=== PATIENT | female | born 2000 | race Hispanic/Latino ===

== ENCOUNTER 2019-07-28 14:25 | Emergency (ER) | payer OTHER, SELFPAY ==
[2019-07-28] MEDS ORDERED: CEFTRIAXONE/SWI 1gm 1 GM/10 ML SYR ONE (16:27)
[2019-07-28] MEDS ORDERED: NA CHLORIDE 0.9% 1,000 ML ONE (16:27)
--- NOTE | 2019-07-28 17:01 | RAD REPORT ---
EXAM DESCRIPTION: US - Transvaginal OB - 07/28/2019 4:42 pm CLINICAL HISTORY: with pelvic pain COMPARISON: None. FINDINGS: The uterus measures 10 x 5 x 6 centimeters. A normal appearing gestational sac is present within the endometrium. Within this is a yolk sac. A pole was not seen. No subchorionic bleed Right and left ovary appear normal. . An adnexal mass is not noted. No significant free fluid is seen. IMPRESSION: Intrauterine with an estimated gestational age 6 weeks 1 day MORGAN 03/21/2020 pole was not seen probably secondary to the early gestation. Failed can also have thi s appearance. It is recommended that the patient have a followup endovaginal sonogram in 1 week for r e-evaluation as well as serial beta HCG levels
[2019-07-28 17:35] LABS: BUN Blood Urea Nitrogen 8 mg/dL (7-18); Bicarbonate 27 mmol/L (21-32); Glucose Level 85 mg/dL (74-106); HCG, Quantitative 15461 mIU/mL (1-3); Potassium 3.6 mmol/L (3.5-5.1); Sodium Level 138 mmol/L (136-145)
[2019-07-28 17:47] LABS: Absolute Lymphocytes (CBC) 2.2 K/uL (0.7-4.9); Basophils % 0.9 % (0-1.3); Hematocrit 36.4 % (36.0-45.0); Lymphocytes % 26.4 % (15.3-44.8); MPV 9.7 fL (7.6-11.3); RBC Red Blood Cell Count 4.18 M/uL (3.86-4.86)
[2019-07-28 17:50] LABS: Urine Bacteria 20-50 /HPF (<20); Urine RBC <5 /HPF (NONE SEEN)
[2019-07-28 17:51] LABS: Urine Blood NEGATIVE (NEG); Urine Glucose NEGATIVE (NEG); Urine Protein NEGATIVE (NEG); Urine Specific Gravity 1.025 (1.005-1.030); Urine pH 6.5 (5.0-7.0)
[2019-07-28 17:51] LABS: Urine Culture Reflex Order NOT NEEDED; Urine Mucus 2+ /HPF (NONE SEEN)
--- NOTE | 2019-07-28 18:38 | ER ---
Nurse's Notes [facility] Name: Kiran Daigle Age: 18 yrs Sex: Female : 2000 Arrival Date: 07/28/2019 Time: 14:28 Bed 6 Private MD: Diagnosis: state;Urinary tract infection, site not specified Presentation: 07/27 14:35 Chief complaint: Patient states: "Severe stomach pains that started a week ago." Also ss reports nausea. Coronavirus screen: The patient has NOT traveled to a country currently being monitored by the [facility] within the last 14 days. Proceed with normal triage procedures. Ebola Screen: Patient denies exposure to infectious person. Patient denies travel to an Ebola-affected area in the 21 days before illness onset. Initial Sepsis Screen: Does the patient meet any 2 criteria? No. Patient's initial sepsis screen is negative. Does the patient have a suspected source of infection? No. Patient's initial sepsis screen is negative. Risk Assessment: Do you want to hurt yourself or someone else? Patient reports no desire to harm self or others. 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 - Social history:: Smoking status: Patient denies any tobacco usage or history of. Screenin:45 Abuse screen: Denies threats or abuse. Nutritional screening: No deficits noted. em Tuberculosis screening: No symptoms or risk factors identified. Fall Risk None identified. Assessment: 16:45 General: Appears in no apparent distress. comfortable, Behavior is calm, cooperative, em Denies fever. Pain: Complains of pain in abdomen diffusely Pain currently is 7 out of 10 on a pain scale. Pain began 1 day ago. Neuro: Level of Consciousness is awake, alert, obeys commands, Oriented to person, place, time, situation, Appropriate for age. Cardiovascular: Capillary refill < 3 seconds Patient's skin is warm and dry. Respiratory: Airway is patent Respiratory effort is even, unlabored, Respiratory pattern is regular, symmetrical. GI: Abdomen is flat, Bowel sounds present X 4 quads. Abd is soft and non tender X 4 quads. Patient currently denies nausea, vomiting. : Denies burning with urination, vaginal bleeding. Derm: Skin is intact, is healthy with good turgor, Skin is pink, warm \\T\\ dry. Musculoskeletal: Capillary refill < 3 seconds, Range of motion: intact in all extremities. 18:14 Reassessment: Patient appears in no apparent distress at this time. Patient and/or em family updated on plan of care and expected duration. Pain level reassessed. Patient is alert, oriented x 3, equal unlabored respirations, skin warm/dry/pink. Patient states feeling better. Vital Signs: 14:35 BP 129 / 75; Pulse 85; Resp 16; Temp 97.5(TE); Pulse Ox 100% on R/A; Weight 58.97 kg; ss Height 5 ft. 6 in. (167.64 cm); Pain 7/10; 16:49 BP 96 / 62; Pulse 85; Resp 18; Pulse Ox 99% on R/A; em 18:30 BP 107 / 70; Pulse 79; Resp 16; Pulse Ox 99% on R/A; em 14:35 Body Mass Index 20.98 (58.97 kg, 167.64 cm) ED Course: 14:28 Patient arrived in ED. rg4 14:36 Triage completed. ss 14:37 Arm band placed on right wrist. ss 15:44 Adán Gutierrez MD is Attending Physician. [facility] 15:45 Mike Cummings, RN is Primary Nurse. em 15:45 Robyn Saucedo FNP-C is [facility]. snw 16:20 Urine collected: clean catch specimen, clear, jose colored. jp3 16:44 US Transvaginal Ob In Process Unspecified. EDMS 16:45 Patient has correct armband on for positive identification. Placed in gown. Bed in low em position. Call light in reach. Adult w/ patient. Pulse ox on. NIBP on. 16:50 Initial lab(s) drawn, by me, sent to lab. Inserted saline lock: 20 gauge in right em antecubital area, using aseptic technique. Blood collected. 18:58 No provider procedures requiring assistance completed. IV discontinued, intact, em bleeding controlled, No redness/swelling at site. Pressure dressing applied. Administered Medications: 16:50 Drug: NS 0.9% 1000 ml Route: IV; Rate: 1 bolus; Site: right antecubital; em 18:21 Follow up: IV Status: Completed infusion; IV Intake: 1000ml em 16:50 Drug: Rocephin 1 grams Route: IV; Rate: calculated rate; Site: right antecubital; em 18:21 Follow up: Response: No adverse reaction; IV Status: Completed infusion; IV Intake: 10mlem Intake: 18:21 IV: 10ml; Total: 10ml. em 18:21 IV: 1000ml; Total: 1010ml. em Outcome: 18:37 Discharge ordered by MD. snw 18:58 Discharged to home ambulatory, with family. em 18:58 Condition: good 18:58 Discharge instructions given to patient, family, Instructed on discharge instructions, follow up and referral plans. medication usage, Demonstrated understanding of instructions, follow-up care, medications, Prescriptions given X 2. 19:00 Patient left the ED. em Addendum: 07/30/2019 09:27 Addendum: Culture Results: Positive urine culture. No further action required. Bacteria d m5 sensitive to prescribed antibiotic. Signatures: Dispatcher [employer] Ann Ley, RN Adán Kurtz MD MD cha Therrien, Shelly, FRIT COATER-C FRIT COATER-Csnw Mike Cummings RN RN em Smirch, Shelby, RN RN ss Garcia, Rubi rg4 Nathan Salgado jp3 Corrections: (The following items were deleted from the chart) 07/27 16:49 16:05 Initial lab(s) drawn, by de, sent to lab. jp3 jp3
--- NOTE | 2019-07-28 18:38 | EDPHYS ---
Physician Documentation [facility] Name: Kiran Daigle Age: 18 yrs Sex: Female : 2000 Arrival Date: 07/28/2019 Time: 14:28 Bed 6 Private MD: ARLEY Physician Adán Gutierrez HPI: 07/27 16:22 This 18 yrs old Female presents to ER via Ambulatory with complaints of snw Abdominal Pain. 16:22 The patient presents with abdominal pain. Onset: The symptoms/episode began/occurred snw gradually, 1 week(s) ago, and became persistent. The symptoms do not radiate. Associated signs and symptoms: Pertinent positives: frequent UTIs, irregular menses, has not done preg test. The symptoms are described as waxing/waning. Severity of pain: At its worst the pain was moderate. The patient has not experienced similar symptoms in the past. The patient has not recently seen a physician. 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 - Social history:: Smoking status: Patient denies any tobacco usage or history of. ROS: 16:22 Constitutional: Negative for fever, chills, and weight loss, Eyes: Negative for injury, snw pain, redness, and discharge, ENT: Negative for injury, pain, and discharge, Neck: Negative for injury, pain, and swelling, Cardiovascular: Negative for chest pain, palpitations, and edema, Respiratory: Negative for shortness of breath, cough, wheezing, and pleuritic chest pain, Abdomen/GI: Positive for abdominal pain, denies nausea, vomiting, diarrhea, and constipation, Back: Negative for injury and pain, : Negative for injury, bleeding, discharge, and swelling, MS/Extremity: Negative for injury and deformity, Skin: Negative for injury, rash, and discoloration, Neuro: Negative for headache, weakness, numbness, tingling, and seizure. Exam: 16:20 Constitutional: This is a well developed, well nourished patient who is awake, alert, snw and in no acute distress. Head/Face: Normocephalic, atraumatic. Eyes: Pupils equal round and reactive to light, extra-ocular motions intact. Lids and lashes normal. Conjunctiva and sclera are non-icteric and not injected. Cornea within normal limits. Periorbital areas with no swelling, redness, or edema. ENT: Nares patent. No nasal discharge, no septal abnormalities noted. Tympanic membranes are normal and external auditory canals are clear. Oropharynx with no redness, swelling, or masses, exudates, or evidence of obstruction, uvula midline. Mucous membranes moist. Neck: Trachea midline, no thyromegaly or masses palpated, and no cervical lymphadenopathy. Supple, full range of motion without nuchal rigidity, or vertebral point tenderness. No Meningismus. Chest/axilla: Normal chest wall appearance and motion. Nontender with no deformity. No lesions are appreciated. Cardiovascular: Regular rate and rhythm with a normal S1 and S2. No gallops, murmurs, or rubs. Normal PMI, no JVD. No pulse deficits. Respiratory: Lungs have equal breath sounds bilaterally, clear to auscultation and percussion. No rales, rhonchi or wheezes noted. No increased work of breathing, no retractions or nasal flaring. Back: No spinal tenderness. No costovertebral tenderness. Full range of motion. Skin: Warm, dry with normal turgor. Normal color with no rashes, no lesions, and no evidence of cellulitis. MS/ Extremity: Pulses equal, no cyanosis. Neurovascular intact. Full, normal range of motion. Neuro: Awake and alert, GCS 15, oriented to person, place, time, and situation. Cranial nerves II-XII grossly intact. Motor strength 5/5 in all extremities. Sensory grossly intact. Cerebellar exam normal. Normal gait. Psych: Awake, alert, with orientation to person, place and time. Behavior, mood, and affect are within normal limits. 16:20 Abdomen/GI: Inspection: abdomen appears normal, Bowel sounds: normal, Palpation: moderate abdominal tenderness, in all quadrants. Vital Signs: 14:35 BP 129 / 75; Pulse 85; Resp 16; Temp 97.5(TE); Pulse Ox 100% on R/A; Weight 58.97 kg; ss Height 5 ft. 6 in. (167.64 cm); Pain 7/10; 16:49 BP 96 / 62; Pulse 85; Resp 18; Pulse Ox 99% on R/A; em 18:30 BP 107 / 70; Pulse 79; Resp 16; Pulse Ox 99% on R/A; em 14:35 Body Mass Index 20.98 (58.97 kg, 167.64 cm) ss MDM: 15:44 Patient medically screened. henry 07/27 15:23 Order name: Urine Culture snw 07/27 15:23 Order name: Urine Microscopic Only; Complete Time: 17:52 snw 07/27 16:03 Order name: Quantitative Hcg; Complete Time: 17:39 snw 07/27 16:03 Order name: Abo/rh Typing; Complete Time: 18:36 snw 07/27 16:03 Order name: Basic Metabolic Panel; Complete Time: 17:39 snw 07/27 16:03 Order name: CBC with Diff; Complete Time: 17:54 snw 07/27 15:23 Order name: Urine Test (obtain specimen); Complete Time: 16:58 snw 07/27 15:23 Order name: Urine Dipstick-Ancillary (obtain specimen); Complete Time: 16:58 snw 07/27 16:03 Order name: US Transvaginal Ob; Complete Time: 17:09 snw 07/27 16:07 Order name: Urine Dipstick--Ancillary (enter results); Complete Time: 17:54 bd 07/27 16:07 Order name: Urine --Ancillary (enter results); Complete Time: 17:54 bd 07/27 16:03 Order name: Labs collected and sent; Complete Time: 16:47 snw 07/27 16:03 Order name: NPO; Complete Time: 16:58 snw Administered Medications: 16:50 Drug: NS 0.9% 1000 ml Route: IV; Rate: 1 bolus; Site: right antecubital; em 18:21 Follow up: IV Status: Completed infusion; IV Intake: 1000ml em 16:50 Drug: Rocephin 1 grams Route: IV; Rate: calculated rate; Site: right antecubital; em 18:21 Follow up: Response: No adverse reaction; IV Status: Completed infusion; IV Intake: 10mlem Disposition: 07/28 07:57 Co-signature as Attending Physician, Adán Gutierrez MD I agree with the assessment and henry plan of care. Disposition: 07/28/19 18:37 Discharged to Home. Impression: state, Urinary tract infection, site not specified. - Condition is Stable. - Discharge Instructions: First Trimester of , and Urinary Tract Infection, Rehydration, Adult. - Prescriptions for Macrobid 100 mg Oral Capsule - take 1 capsule by ORAL route every 12 hours for 10 days; 20 capsule. Vitamin 27- 0.8 mg Oral Tablet - take 1 tablet by ORAL route once daily; 60 tablet. - Work release form, Medication Reconciliation Form, Thank You Letter, Antibiotic Education, Prescription Opioid Use form. - Follow up: Emergency Department; When: As needed; Reason: Worsening of condition. Follow up: Private Physician; When: 2 - 3 days; Reason: Recheck today's complaints, Continuance of care, Re-evaluation by your physician. - Problem is new. - Symptoms are unchanged. Signatures: Dispatcher [employer] Adán Ham MD MD cha Therrien, Shelly, TUBE WINDER-C TUBE WINDER-Csnw Mike Cummings, Carmen Birmingham RN, RN RN ss Corrections: (The following items were deleted from the chart) 07/27 16:47 16:03 IV Saline Lock ordered. snw jp3 19:00 18:37 07/28/2019 18:37 Discharged to Home. Impression: state; Urinary tract em infection, site not specified. Condition is Stable. Discharge Instructions: First Trimester of , and Urinary Tract Infection, Rehydration, Adult. Prescriptions for Macrobid 100 mg Oral Capsule - take 1 capsule by ORAL route every 12 hours for 10 days; 20 capsule, Vitamin 27-0.8 mg Oral Tablet - take 1 tablet by ORAL route once daily; 60 tablet. and Forms are Work release form, Medication Reconciliation Form, Thank You Letter, Antibiotic Education, Prescription Opioid Use. Follow up: Emergency Department; When: As needed; Reason: Worsening of condition. Follow up: Private Physician; When: 2 - 3 days; Reason: Recheck today's complaints, Continuance of care, Re-evaluation by your physician. Problem is new. Symptoms are unchanged. snw
[2019-07-28 19:13] VITALS: TEMP 97.5
[2019-07-28 19:15] VITALS: O2SAT 99
[2019-07-28 19:16] VITALS: BP 107/70
== END 2019-07-28 19:00 | disposition home or self-care (01) ==
LOC: ER 14:25
DX: N39.0 Urinary tract infection, site not specified (principal); Z33.1 Pregnant state, incidental
CPT/HCPCS: 36415; 76817; 80048; 81003; 81015; 81025; 84702; 85025; 86900; 86901; 87077; 87086; 87088; 87186; 96365; 96366; 99284; J0696; J7030

== ENCOUNTER 2022-11-07 15:20 | Emergency (ER) | payer OTHER ==
--- OUTSIDE RECORDS SUMMARY | 2022-11-07 15:25 | XMS REPORT | Continuity of Care Document ---
:2000 Author Organization [facility] t Address [address] [place] [address] Care Team Providers Name Role Phone Armando Morrissey Primary Care Physician [phone] Armando Morrissey Attending Clinician [phone] ARMANDO GUZMAN Attending Clinician Unavailable MARRY SESAY Attending Clinician Unavailable Martha Mendez MD Attending Clinician [phone] Raymundo BROWN Cece ACE Attending Clinician [phone] Davian Wagner MD Attending Clinician Tomas Canseco MD Attending Clinician TAMMIE NARVAEZ Attending Clinician Unavailable Provider, [facility] Temp Attending Clinician Unavailable Tammie Narvaez CNM Attending Clinician SWETA EWRIN Attending Clinician Unavailable [place] MSN, Sweta Owens Attending Clinician AMBAR CUBA Attending Clinician Unavailable 1, [facility] Attending Clinician Unavailable Pavan MULLINS, Alex Joseph Attending Clinician ALEX REYES Attending Clinician Unavailable Doctor Unassigned, [place] Attending Clinician Unavailable JOEY MONTES Attending Clinician Unavailable ADÁN MCKINNON Attending Clinician Unavailable Gabriel Blanton DO Attending Clinician Fred Lawson MD Attending Clinician Isaac [facility] Attending Clinician [phone] COURTNEY GUSTAFSON Attending Clinician Unavailable TC MILLER Attending Clinician Unavailable Paul 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 ESCORTTc Attending Clinician Ultrasound, [facility] Attending Clinician Unavailable Magda Perkins MD, Josy Attending Clinician [phone] Pawan Mcgill DO Attending Clinician Benjy MULLINS, Marshall Avalos Attending Clinician Meagan Saeed MD Attending Clinician Martha Mendez MD Admitting Clinician [phone] MARTHA MENDEZ Admitting Clinician Unavailable ADÁN MCKINNON Admitting Clinician Unavailable Benjy MULLINS, Marshall Avalos Admitting Clinician Payers Payer Name Policy Type Policy Number Effective Date Expiration Date [facility] [id number] 2019 HEALTH 00:00:00 MEDICAID PENDING PENDING 2019 00:00:00 [place] [id number] 2019 00:00:00 Problems Condition Condition Condition Status Onset Resolution Last Treating Co mments Source Name Details Category Date Date Treatment Clinician Date Disease Active Univers (spontaneo (spontaneo 1-14 it y [place] vaginal [place] delivery[place] delivery[place] 00 Medi vanita Branch Single Single Disease Active Univers live live 1-14 ity of 00:00: [place] 00 Medical Branch Anemia, Anemia, Disease Active Univers 1-14 it y of 00:00: [place] [facility] Uterine Uterine Disease Active Univers contractio contractio 1-13 it y of [place] 00 [facility] Obesity Obesity Disease Active Univers (BMI (BMI 1-13 ity of 30-39.9) 30-39.9) 00:00: [place] 00 Medical Branch Pain of Pain of Disease Active Univers round round 1-06 ity of ligament ligament 00:00: [place] during during 00 Medical Bran ch Obesity Obesity Disease Active 2021-05 Univers affecting affecting 2-29 [place] of 00[place] in third in third 00 Medica l trimester trimester Bran ch Susceptibl Susceptibl Disease Active Overview : Univers e to e to 9-16 Formattin ity of varicella varicella 00:00: [place] of this [place] (non-immun (non-immun 00 note Me dical e), e), might be Branch currently currently different from the original. Address pp Chlamydia Chlamydia Disease Active Overview: Univers infection infection 16 Formattin i ty of affecting affecting 00:00: g of this [place] 00 note [facility] might be Branch different from the original. Pending tobias Supervisio Supervisio Disease Active U nivers n of n of 9-15 ity of high-risk high-risk 00:[place] [facility] Multiparit Multiparit Disease Active U nivers y y 9-15 ity of 00:00: [place] Medical [facility] Short Short Disease Active Univers interval interval 9-15 ity of between between 00:00: [place] pregnancie pregnancie 00 Me dical s s Branch affecting affecting , , antepartum antepartum 39 weeks 39 weeks Disease Active Unive rs gestation gestation 2-03 ity of of of 00:00: [place] 00 [facility] Anemia of Anemia of Disease Active Uni vers mother in mother in 8-05 ity of , , 00[place]00: [place] antepartum antepartum 00 Me dical Branch Over Over Disease Active Univers weight weight 3-16 ity of 00:00: [address] Allergies, Adverse Reactions, Alerts Allergy Allergy Status Severity Reaction(s) Onset Inactive Treating Comm ents Source Name Type Date Date Clinician NO KNOWN Drug Active Univers ALLERGIE Class ity of S [place] [facility] Social History Social Habit Start Date Stop Date Quantity Comments Source ASSERTION 2021-09-16 [facility] 00:00:00 [place] [facility] History SDOH University o f Alcohol Std [place] Medical Drinks Branch History SDOH University o f Alcohol Binge [place] Medic al Branch History SDOH University o f Alcohol Comment [place] Med ical Branch Exposure to 2022-05-23 2022-06-02 Not sure [facility] SARS-CoV-2 00:00:00 09:52:00 [facility] (event) Branch Alcohol intake 2022-06-02 2022-06-02 Ex-drinker [facility] 00:00:00 00:00:00 (finding) [facility] Tobacco use and 2022-02-02 2022-02-02 Smokeless tobacco Un iversity of exposure 00:00:00 00:00:00 non-user [facility] History SDOH 2019-08-04 2019-08-04 1 University o f Alcohol Frequency 00:00:00 00:00:00 [facility] [place] [facility] Sex Assigned At [birth year] Universit y of 00:00:00 00:00:00 [facility] Smoking Status Start Date Stop Date Source Never smoked tobacco [facility] Medications Ordered Filled Start Stop Current Ordering Indication Dosage Frequency Signature Comments Components Source Medication Medication Date Date Medication? Clinician (SIG) Name Name varicella Yes 1{each} 0.5 mL (1 Univers virus 1-15 Each), ity of vaccine 12:35: [place] live 45 us, Medical (VARIVAX) ONCE-PRIOR Bran ch injection TO and diluent DISCHARGE, vial 1 dose, Starting on 06/04/22 at 0635, Until Discontinu ed, Routine, Give vaccine prior to discharge docusate Yes [id number] 200mg Take 2 U nivers 100 mg 1-15 capsules ity of capsule 00:00: by mouth [place] [id number] once daily Medical as needed Branch for Constipati on. ferrous Yes [id number] 325mg Take 1 Un [place] sulfate 325 1-15 tablet by ity of mg (65 mg 00:00: mouth [place] iron) 00 the Medical tablet morning Branch and 1 tablet in the evening. ibuprofen Yes [id number] 600mg Take 1 Univers 600 mg 1-15 tablet by ity of tablet 00:00: mouth [place] 00 every 6 Medical (six) Branch hours as needed (Pain). Take with food or milk. Iron Fum & Yes 1{capsu Take 1 Univers P-FA-Vit B 1-15 le} capsule by ity of & C No.9 00:00: mouth [place] (INTEGRA 00 daily. Medical PLUS) 125 Branch mg iron- 1 mg Cap ibuprofen Yes 600mg Take 1 Univers 600 mg 1-15 tablet by ity of tablet 00:00: mouth [place] 00 every 6 Medical (six) Branch hours as needed (Pain). Take with food or milk. docusate Yes 200mg Take 2 U nivers 100 mg 1-15 capsules ity of capsule 00:00: by mouth [place] 00 once daily Medical as needed Branch for Constipati on. rho(D) Yes 300ug 300 mcg, Univer s immune 1-14 Intramuscu ity of globulin 07:41: lar, ONCE, [place] as (RHOGAM) 38 For 1 Medical syringe 300 dose, Branch mcg Conditiona l, Routine human Yes .5mL 0.5 mL, Univers papillomav -14 Intramuscu ity of vac,9-shayna(P 07:41: lar, [place] F) 36 ONCE-PRIOR Medical (GARDASIL-9 TO Branch ) syringe DISCHARGE, 0.5 mL 1 dose, Starting on 06/03/22 at 0141, Until Discontinu ed, Routine, Give vaccine prior to discharge ibuprofen Yes 600mg 600 mg, Univ ers (IBU) 1-14 Oral, ity of tablet 600 07:41: Q6HPRN, [place] mg 36 Starting Medical on Sat Branch 06/03/22 at 0141, Until Discontinu ed, Routine, Pain (scale 4-6) acetaminoph Yes 650mg 650 mg, Un [place] en 1-14 Oral, ity of (TYLENOL) 07:41: Q6HPRN, [place] tablet 650 36 Starting Medic al mg on [facility] Branch 06/03/22 at 0141, Until Discontinu ed, Routine, Pain (scale 1-3) diphenhydrA 2022-0 Yes 25mg 25 mg, Univ ers MINE 1-14 Oral, ity of (BENADRYL) 07:41: Q6HPRN, [place] tablet 25 36 Starting Medica l mg on [facility] Branch 06/03/22 at 0141, Until Discontinu ed, Routine, Sleep, Itching ondansetron 2022-0 Yes 4mg 4 mg, Slow Univers (ZOFRAN 14 IV Push, ity of (PF)) 07:41: Q8HPRN, [place] injection 4 36 Starting Medi vanita mg on [facility] Branch 06/03/22 at 0141, Until Discontinu ed, Routine, Nausea and Vomiting (N/V) simethicone 2022-0 Yes 160mg 160 mg, Un tim[place] (GAS RELIEF 06-03 Oral, ity of (SIMETHICON 07:41: PC+HSPRN, [place] E)) 36 Starting Medical chewable on [facility] Branch tablet 160 06/03/22 at mg 0141, Until Discontinu ed, Routine, Gas docusate 2022-0 Yes 200mg 200 mg, Unive rs (COLACE) 14 Oral, ity of capsule 200 07:41: QDAILYPRN, [place] mg 36 Starting Medical on [facility] Branch 06/03/22 at 0141, Until Discontinu ed, Routine, Constipati on magnesium 2022-0 Yes 30mL 30 mL, Univer s hydroxide 14 Oral, ity of (MILK OF 07:41: QDAILYPRN, [place] MAGNESIA) 36 Starting Medica l 400 mg/5 mL on [facility] Branch suspension 06/03/22 at 30 mL 0141, Until Discontinu ed, Routine, Constipati on benzocaine- 2022-0 Yes Topical, Un [place] menthol 1-14 PRN, ity of (DERMOPLAST 07:41: Starting [place] ) 20-0.5 % 36 on [facility] Medical topical 06/03/22 at Branch spray 0141, Until Discontinu ed, Routine, Perineum discomfort ibuprofen 2022-0 Yes 600mg 600 mg, Univ ers (IBU) 1-14 Oral, ity of tablet 600 00:58: Q6HPRN, [place] mg 26 Starting Medical on Sun06/02/22 at 1858, Until Discontinu ed, Routine, Pain (scale 1-3) oxytocin 2022-0 Yes 600mL/h 600 mL/hr, Univers (PITOCIN) 1-14 IV ity of 30 units in 00:58: Infusion, [place] NS 500 mL 17 PRN, For Medica l IV infusion post Branch delivery uterine atony., Starting on Sun06/02/22 at 1858<br&gt ;Start at 600 mL/hr for 1 hr then 150 mL/hr for 1 hr.
oxytocin 0 Yes 300mL/h 300 mL/hr, Univers (PITOCIN) 1-14 IV ity of 30 units in 00:58: Infusion, [place] NS 500 mL 17 SEE-INSTRU Medi vanita IV infusion CTIONS, Branc h Starting on Sun06/02/[address] art at 300 mL/hr for 1 hr then 150 mL/hr for 1 hr. & nbsp; For post delivery uterotonic
ropivacaine 2022- No Epidural, Univers 0.2 % 06-02 CONTINUOUS ity of (NAROPIN 21:55: 02:27 PRN, [place] ()) 00 :33 Starting Medical epidural on Sun Branch infusion 06/02/22 at 1555, Until Sun06/02/22 at 2026, Routine, Intra-op ropivacaine 2022- No Epidural, Univers 0.2 % 06-02 CONTINUOUS ity of (NAROPIN 21:55: 02:27 PRN, [place] (PF)) 00 :33 Starting Medical epidural on Sun Branch infusion 06/02/22 at 1555, Until Sun06/02/22 at 2026, Routine, Intra-op lidocaine-e 2022- No Intraderma Univers pinephrine 06-02 l, ONCE ity o f (XYLOCAINE 21:54: 02:27 INTRA [place] W/EPINEPHRI 00 :33 PROCEDURE, Mn dical NE) 1.5 Starting Branch %-1:200,000 on Fri injection 06/02/22 at 1554, Until Sun06/02/22 at 2026, Routine, Intra-op lidocaine-e 3-0 2022- No Intraderma Univers pinephrine 06-02 01-14 l, ONCE ity o f (XYLOCAINE 21:54: 02:27 INTRA [place] W/EPINEPHRI 00 :33 PROCEDURE, Me dical NE) 1.5 Starting Branch %-1:200,000 on Sun injection 06/02/22 at 1554, Until Sun06/02/22 at 2026, Routine, Intra-op oxytocin 2022-0 Yes 2mU/min at 2-40 Uni vers (PITOCIN) 1-13 mL/hr, IV ity o f 30 units in 21:12: Infusion, [place] NS 500 mL 33 TITRATE, Medica l IV infusion Starting Bran ch on Sun06/02/22 at 1512, Until Discontinu ed, BETTY lidocaine 2022-0 Yes 50mL 50 mL, Univer s 1% 1 Infiltrati ity of (XYLOCAINE) 20:11: on, PRN - [place] 10 mg/mL (1 29 SEE Medical %) INSTRUCTIO Branch injection NS, 50 mL Starting on Sun06/02/22 at 1411, Until Discontinu ed, Routine, Local anesthesia , For laceration repair only as a local anesthetic as indicated. lidocaine 0 Yes .3mL 0.3 mL, Unive rs 1% (PF) 06-02 Infiltrati ity of (XYLOCAINE) 20:11: on, PRN - [place] injection 29 SEE Medical 0.3 mL INSTRUCTIO Branch NS, Starting on Sun06/02/22 at 1411, Until Discontinu ed, Routine, Local anesthesia , For IV line placement only as a local anesthetic . lactated 2022-0 Yes 500mL at 999 Univer s ringers IV 1-13 mL/hr, 500 ity of infusion 20:11: mL, IV [place] 500 mL 29 Infusion, Medical PRN - SEE Branch INSTRUCTIO NS, Starting on Sun06/02/22 at 1411, Until Discontinu ed, Routine D5W-LR IV 2022-0 Yes 1000mL at 1-125 Un [place] infusion 1-13 mL/hr, IV ity of 1,000 mL 20:11: Infusion, [place] 29 TITRATE, Medical Starting Branch on 06/02/22 at 1411, Until Discontinu ed, Routine sodium 2022- No 30mL 30 mL, Univers citrate-cit 06-02 Oral, ity of harry acid 20:11: 21:51 PRE-PROCED [place] (BICITRA) 29 :00 URE ONCE, Medic al 500-334 1 dose, Branch mg/5 mL Starting solution 30 on Fri mL 06/02/22 at 1411, Until Discontinu ed, Routine, Surgery/Pr ocedure No known No No known Unive rs medications 06-02 medication it y of 16:14: s [place] 55 Medical Branch Iron Fum & 2021-05 Yes [id number] 1{capsu Take 1 Univers P-FA-Vit B 2-29 le} capsule by ity of & C No.9 00:00: mouth [place] (INTEGRA 00 daily. Medical PLUS) 125 Branch mg iron- 1 mg Cap Iron Fum & 2021-05 Yes [id number] 1{capsu Take 1 Univers P-FA-Vit B 2-29 le} capsule by ity of & C No.9 00:00: mouth [place] (INTEGRA 00 daily. Medical PLUS) 125 Branch mg iron- 1 mg Cap Iron Fum & 2021-05 Yes [id number] 1{capsu Take 1 Univers P-FA-Vit B 2-29 le} capsule by ity of & C No.9 00:00: mouth [place] (INTEGRA 00 daily. Medical PLUS) 125 Branch mg iron- 1 mg Cap Iron Fum & 2021-05 Yes [id number] 1{capsu Take 1 Univers P-FA-Vit B 2-29 le} capsule by ity of & C No.9 00:00: mouth [place] (INTEGRA 00 daily. Medical PLUS) 125 Branch mg iron- 1 mg Cap Iron Fum & 2021-05 Yes 1{capsu Take 1 Univers P-FA-Vit B 2-29 le} capsule by ity of & C No.9 00:00: mouth [place] (INTEGRA 00 daily. Medical PLUS) 125 Branch mg iron- 1 mg Cap Iron Fum & 2021-05 Yes 1{capsu Take 1 Univers P-FA-Vit B 2-29 le} capsule by ity of & C No.9 00:00: mouth [place] (INTEGRA 00 daily. Medical PLUS) 125 Branch mg iron- 1 mg Cap ferrous 2021-05- No [id number] 325mg Take 1 U nivers sulfate 325 07-13- tablet by it y of mg (65 mg 00:00: 04:59 mouth in [place] iron) 00 :00 the Medical tablet morning Branch for 90 days. ferrous 2021-05- No [id number] 325mg Take 1 U nivers sulfate 325 07-13 tablet by it y of mg (65 mg 00:00: 00:00 mouth in [place] iron) 00 :00 the Medical tablet morning Branch for 90 days. SELECT-OB + 2021-05 Yes TAKE 1 Univ ers DHA 29 mg 2-20 PACKET (1 ity o f iron-1 mg 00:00: TABLET & [place] -250 mg 00 CAPSULE) Medical combo pack BY MOUTH Branc h IN THE MORNING fluconazole 2021-05- No [id number] 150mg Take 1 Univers (DIFLUCAN) 2-16 -17 tablet by ity of 150 mg 00:00: 05:59 mouth [place] tablet 00 :00 now for 1 Medical dose. Branch Nitrofurant Yes [id number] 100mg Take 1 Univers oin&Nit. 9-19 capsule by ity o f Macrocryst 00:00: mouth in [place] (MACROBID) 00 the Medical 100 mg morning Branch capsule and 1 capsule in the evening. Nitrofurant Yes [id number] 100mg Take 1 Univers oin&Nit. 9-19 capsule by ity o f Macrocryst 00:00: mouth in [place] (MACROBID) 00 the Medical 100 mg morning Branch capsule and 1 capsule in the evening. Nitrofurant Yes [id number] 100mg Take 1 Univers oin&Nit. 9-19 capsule by ity o f Macrocryst 00:00: mouth in [place] (MACROBID) 00 the Medical 100 mg morning Branch capsule and 1 capsule in the evening. Nitrofurant Yes [id number] 100mg Take 1 Univers oin&Nit. 9-19 capsule by ity o f Macrocryst 00:00: mouth in [place] (MACROBID) 00 the Medical 100 mg morning Branch capsule and 1 capsule in the evening. Nitrofurant 2021-0 Yes [id number] 100mg Take 1 Univers oin&Nit. 9-19 capsule by ity o f Macrocryst 00:00: mouth in [place] (MACROBID) 00 the Medical 100 mg morning Branch capsule and 1 capsule in the evening. Nitrofurant 2021-0 Yes [id number] 100mg Take 1 Univers oin&Nit. 9-19 capsule by ity o f Macrocryst 00:00: mouth in [place] (MACROBID) 00 the Medical 100 mg morning Branch capsule and 1 capsule in the evening. Nitrofurant 2021-0 Yes [id number] 100mg Take 1 Univers oin&Nit. 9-19 capsule by ity o f Macrocryst 00:00: mouth in [place] (MACROBID) 00 the Medical 100 mg morning Branch capsule and 1 capsule in the evening. Nitrofurant 2021-0 Yes [id number] 100mg Take 1 Univers oin&Nit. 9-19 capsule by ity o f Macrocryst 00:00: mouth in [place] (MACROBID) 00 the Medical 100 mg morning Branch capsule and 1 capsule in the evening. Nitrofurant 2021-0 Yes [id number] 100mg Take 1 Univers oin&Nit. 9-19 capsule by ity o f Macrocryst 00:00: mouth in [place] (MACROBID) 00 the Medical 100 mg morning Branch capsule and 1 capsule in the evening. Nitrofurant 2021-0 Yes [id number] 100mg Take 1 Univers oin&Nit. 9-19 capsule by ity o f Macrocryst 00:00: mouth in [place] (MACROBID) 00 the Medical 100 mg morning Branch capsule and 1 capsule in the evening. Nitrofurant 2021-0 Yes [id number] 100mg Take 1 Univers oin&Nit. 9-19 capsule by ity o f Macrocryst 00:00: mouth in [place] (MACROBID) 00 the Medical 100 mg morning Branch capsule and 1 capsule in the evening. Nitrofurant 2021-0 Yes [id number] 100mg Take 1 Univers oin&Nit. 9-19 capsule by ity o f Macrocryst 00:00: mouth in [place] (MACROBID) 00 the Medical 100 mg morning Branch capsule and 1 capsule in the evening. Nitrofurant 0 Yes [id number] 100mg Take 1 Univers oin&Nit. 9-19 capsule by ity o f Macrocryst 00:00: mouth in [place] (MACROBID) 00 the Medical 100 mg morning Branch capsule and 1 capsule in the evening. Nitrofurant 0 Yes [id number] 100mg Take 1 Univers oin&Nit. 9-19 capsule by ity o f Macrocryst 00:00: mouth in [place] (MACROBID) 00 the Medical 100 mg morning Branch capsule and 1 capsule in the evening. Nitrofurant 0 Yes [id number] 100mg Take 1 Univers oin&Nit. 9-19 capsule by ity o f Macrocryst 00:00: mouth in [place] (MACROBID) 00 the Medical 100 mg morning Branch capsule and 1 capsule in the evening. Nitrofurant Yes [id number] 100mg Take 1 Univers oin&Nit. 9-19 capsule by ity o f Macrocryst 00:00: mouth in [place] (MACROBID) 00 the Medical 100 mg morning Branch capsule and 1 capsule in the evening. Nitrofurant 0 Yes [id number] 100mg Take 1 Univers oin&Nit. 9-19 capsule by ity o f Macrocryst 00:00: mouth in [place] (MACROBID) 00 the Medical 100 mg morning Branch capsule and 1 capsule in the evening. Nitrofurant 2021- No [id number] 100mg Take 1 Univers oin&Nit. 9-19 12-29 capsule by ity of Macroc[place] 00:00: 00:00 mouth in [place] (MACROBID) 00 :00 the Medical 100 mg morning Branch capsule and 1 capsule in the evening. azithromyci 2021-2021- No [id number] 1000mg Take 2 Univers n 500 mg 02-03 tablets by ity of tablet 00:00: 04:59 mouth [place] 00 :00 now for 1 Medical dose. Branch azithromyci 2021- No [id number] 1000mg Take 2 Univers n 500 mg 02-03 tablets by ity of tablet 00:00: 04:59 mouth [place] 00 :00 now for 1 Medical dose. [place] Yes [id number] 1{tbl} Take 1 U nivers multivitami 9-15 tablet by ity of n ( 00:00: mouth in [place] VITAMIN) 00 the Medical tablet morning. [place] Yes [id number] 1{tbl} Take 1 U nivers multivitami 9-15 tablet by ity of n ( 00:00: mouth in [place] VITAMIN) 00 the Medical tablet morning. Branch Yes [id number] 1{tbl} Take 1 U nivers multivitami 9-15 tablet by ity of n ( 00:00: mouth in [place] VITAMIN) 00 the Medical tablet morning. [place] Yes [id number] 1{tbl} Take 1 U nivers multivitami 9-15 tablet by ity of n ( 00:00: mouth in [place] VITAMIN) 00 the Medical tablet morning. [place] Yes [id number] 1{tbl} Take 1 U nivers multivitami 9-15 tablet by ity of n ( 00:00: mouth in [place] VITAMIN) 00 the Medical tablet morning. [place] Yes [id number] 1{tbl} Take 1 U nivers multivitami 9-15 tablet by ity of n ( 00:00: mouth in [place] VITAMIN) 00 the Medical tablet morning. [place] Yes [id number] 1{tbl} Take 1 U nivers multivitami 9-15 tablet by ity of n ( 00:00: mouth in [place] VITAMIN) 00 the Medical tablet morning. [place] Yes [id number] 1{tbl} Take 1 U nivers multivitami 9-15 tablet by ity of n ( 00:00: mouth in [place] VITAMIN) 00 the Medical tablet morning. [place] Yes [id number] 1{tbl} Take 1 U nivers multivitami 9-15 tablet by ity of n ( 00:00: mouth in [place] VITAMIN) 00 the Medical tablet morning. [place] Yes [id number] 1{tbl} Take 1 U nivers multivitami 9-15 tablet by ity of n ( 00:00: mouth in [place] VITAMIN) 00 the Medical tablet morning. [place] Yes [id number] 1{tbl} Take 1 U nivers multivitami 9-15 tablet by ity of n ( 00:00: mouth in [place] VITAMIN) 00 the Medical tablet morning. [place] Yes [id number] 1{tbl} Take 1 U nivers multivitami 9-15 tablet by ity of n ( 00:00: mouth in [place] VITAMIN) 00 the Medical tablet morning. Branch Yes [id number] 1{tbl} Take 1 U nivers multivitami 9-15 tablet by ity of n ( 00:00: mouth in [place] VITAMIN) 00 the Medical tablet morning. [place] Yes [id number] 1{tbl} Take 1 U nivers multivitami 9-15 tablet by ity of n ( 00:00: mouth in [place] VITAMIN) 00 the Medical tablet morning. [place] Yes [id number] 1{tbl} Take 1 U nivers multivitami 9-15 tablet by ity of n ( 00:00: mouth in [place] VITAMIN) 00 the Medical tablet morning. [place] Yes [id number] 1{tbl} Take 1 U nivers multivitami 9-15 tablet by ity of n ( 00:00: mouth in [place] VITAMIN) 00 the Medical tablet morning. [place] Yes [id number] 1{tbl} Take 1 U nivers multivitami 9-15 tablet by ity of n ( 00:00: mouth in [place] VITAMIN) 00 the Medical tablet morning. [place] Yes [id number] 1{tbl} Take 1 U nivers multivitami 9-15 tablet by ity of n ( 00:00: mouth in [place] VITAMIN) 00 the Medical tablet morning. [place] Yes [id number] 1{tbl} Take 1 U nivers multivitami 9-15 tablet by ity of n ( 00:00: mouth in [place] VITAMIN) 00 the Medical tablet morning. [place] Yes [id number] 1{tbl} Take 1 U nivers multivitami 9-15 tablet by ity of n ( 00:00: mouth in [place] VITAMIN) 00 the Medical tablet morning. Branch Yes [id number] 1{tbl} Take 1 U nivers multivitami 9-15 tablet by ity of n ( 00:00: mouth in [place] VITAMIN) 00 the Medical tablet morning. Branch Yes [id number] 1{tbl} Take 1 U nivers multivitami 9-15 tablet by ity of n ( 00:00: mouth in [place] VITAMIN) 00 the Medical tablet morning. Branch Yes [id number] 1{tbl} Take 1 U nivers multivitami 9-15 tablet by ity of n ( 00:00: mouth in [place] VITAMIN) 00 the Medical tablet morning. Branch Yes [id number] 1{tbl} Take 1 U nivers multivitami 9-15 tablet by ity of n ( 00:00: mouth in [place] VITAMIN) 00 the Medical tablet morning. Branch Yes [id number] 1{tbl} Take 1 U nivers multivitami 9-15 tablet by ity of n ( 00:00: mouth in [place] VITAMIN) 00 the Medical tablet morning. Branch metroNIDAZO Yes [id number] 500mg Take 1 Univers LE 500 mg 4-08 tablet by ity o f tablet 00:00: mouth 2 [place] 00 (two) Medical times Branch daily. metroNIDAZO 2021-0 Yes [id number] 500mg Take 1 Univers LE 500 mg 4-08 tablet by ity o f tablet 00:00: mouth 2 [place] 00 (two) Medical times Branch daily. metroNIDAZO 2021-0 Yes [id number] 500mg Take 1 Univers LE 500 mg 4-08 tablet by ity o f tablet 00:00: mouth 2 [place] 00 (two) Medical times Branch daily. metroNIDAZO 2021-0 Yes [id number] 500mg Take 1 Univers LE 500 mg 4-08 tablet by ity o f tablet 00:00: mouth 2 [place] 00 (two) Medical times Branch daily. metroNIDAZO 2021-0 Yes [id number] 500mg Take 1 Univers LE 500 mg 4-08 tablet by ity o f tablet 00:00: mouth 2 [place] 00 (two) Medical times Branch daily. metroNIDAZO 2022-0 Yes [id number] 500mg Take 1 Univers LE 500 mg 4-08 tablet by ity o f tablet 00:00: mouth (two) Medical times Branch daily. metroNIDAZO 2022-0 Yes [id number] 500mg Take 1 Univers LE 500 mg 4-08 tablet by ity o f tablet 00:00: mouth (two) Medical times Branch daily. metroNIDAZO 2022-0 Yes [id number] 500mg Take 1 Univers LE 500 mg 4-08 tablet by ity o f tablet 00:00: mouth (two) Medical times Branch daily. metroNIDAZO 2022-0 Yes [id number] 500mg Take 1 Univers LE 500 mg 4-08 tablet by ity o f tablet 00:00: mouth (two) Medical times Branch daily. metroNIDAZO 2022-0 Yes [id number] 500mg Take 1 [facility] LE 500 mg 4-08 tablet by ity o f tablet 00:00: mouth (two) Medical times Branch daily. metroNIDAZO 2-0 Yes [id number] 500mg Take 1 [facility] LE 500 mg 4-08 tablet by ity o f tablet 00:00: mouth (two) Medical times Branch daily. metroNIDAZO 2-0 Yes [id number] 500mg Take 1 [facility] LE 500 mg 4-08 tablet by ity o f tablet 00:00: mouth (two) Medical times Branch daily. metroNIDAZO 2022-0 Yes [id number] 500mg Take 1 [facility] LE 500 mg 4-08 tablet by ity o f tablet 00:00: mouth (two) Medical times Branch daily. metroNIDAZO 2022-0 Yes [id number] 500mg Take 1 [facility] LE 500 mg 4-08 tablet by ity o f tablet 00:00: mouth (two) Medical times Branch daily. metroNIDAZO 2022-0 Yes [id number] 500mg Take 1 [facility] LE 500 mg 4-08 tablet by ity o f tablet 00:00: mouth (two) Medical times Branch daily. metroNIDAZO 2022-0 Yes [id number] 500mg Take 1 [facility] LE 500 mg 4-08 tablet by ity o f tablet 00:00: mouth 2 [place] 00 (two) Medical times Branch daily. metroNIDAZO 2021-0 Yes [id number] 500mg Take 1 [facility] LE 500 mg 4-08 tablet by ity o f tablet 00:00: mouth 2 [place] 00 (two) Medical times Branch daily. metroNIDAZO 2021-0 Yes [id number] 500mg Take 1 [facility] LE 500 mg 4-08 tablet by ity o f tablet 00:00: mouth 2 [place] 00 (two) Medical times Branch daily. metroNIDAZO 2021-0 Yes [id number] 500mg Take 1 [facility] LE 500 mg 4-08 tablet by ity o f tablet 00:00: mouth 2 [place] 00 (two) Medical times Branch daily. metroNIDAZO 2021-2021- No [id number] 500mg Take 1 [facility] LE 500 mg 4-08 -29 tablet by ity of tablet 00:00: 00:00 mouth 2 [place] 00 :00 (two) Medical times Branch daily. Immunizations Ordered Immunization Filled Immunization Date Status Commen ts Source Name Name [facility] 2022-05-05 Completed [facility] 00:00:00 [facility] TDAP 2022-05-05 Completed [facility] of 00:00:00 [facility] TDAP 2022-05-05 Completed [facility] of 00:00:00 [facility] TDAP 2022-05-05 Completed [facility] of 00:00:00 [facility] TDAP 2022-05-05 Completed [facility] of 00:00:00 [facility] TDAP 2022-05-05 Completed [facility] of 00:00:00 [facility] TDAP 2022-05-05 Completed [facility] of 00:00:00 [facility] TDAP 2022-05-05 Completed [facility] of 00:00:00 [facility] TDAP 2022-05-05 Completed [facility] of 00:00:00 [facility] TDAP 2022-05-05 Completed [facility] of 00:00:00 [facility] Influenza Virus 2022-02-02 Completed [facility]it [facility] of [facility] IM, 00:00:00 [place] [facility] Preserv and ABX Free Bran ch 6 MO-64 YRS Influenza Virus 2022-02-02 Completed [facility], 00:00:00 [place] [facility] Preserv and ABX Free Bran ch 6 MO-64 YRS Influenza Virus 2022-02-02 Completed [facility], 00:00:00 [place] [facility] Preserv and ABX Free Bran ch 6 MO-64 YRS Influenza Virus 2022-02-02 Completed [facility] IM, 00:00:00 [place] [facility] Preserv and ABX Free Bran ch 6 MO-64 YRS Influenza Virus 2022-02-02 Completed [facility]it [facility] IM, 00:00:00 [place] [facility] Preserv and ABX Free Bran ch 6 MO-64 YRS Influenza Virus 2022-02-02 Completed [facility], 00:00:00 [place] [facility] Preserv and ABX Free Bran ch 6 MO-64 YRS Influenza Virus 2022-02-02 Completed [facility]it y [facility] IM, 00:00:00 [place] [facility] Preserv and ABX Free Bran ch 6 MO-64 YRS Influenza Virus 2022-02-02 Completed [facility] IM, 00:00:00 [place] [facility] Preserv and ABX Free Bran ch 6 MO-64 YRS Influenza Virus 2022-02-02 Completed [facility] IM, 00:00:00 [place] [facility] Preserv and ABX Free Bran ch 6 MO-64 YRS Influenza Virus 2022-02-02 Completed [facility]it y [facility], 00:00:00 [place] [facility] Preserv and ABX Free Bran ch 6 MO-64 YRS Influenza Virus 2022-02-02 Completed [facility]it y [facility], 00:00:00 [place] [facility] Preserv and ABX Free Bran ch 6 MO-64 YRS Influenza Virus 2022-02-02 Completed [facility]it [facility], 00:00:00 [place] [facility] Preserv and ABX Free Bran ch 6 MO-64 YRS Influenza Virus 2022-02-02 Completed [facility] IM, 00:00:00 [place] [facility] Preserv and ABX Free Bran ch 6 MO-64 YRS Influenza Virus 2022-02-02 Completed [facility]it y [facility] IM, 00:00:00 [place] [facility] Preserv and ABX Free Bran ch 6 MO-64 YRS Influenza Virus 2022-02-02 Completed [facility]it y of [facility] IM, 00:00:00 [place] [facility] Preserv and ABX Free Bran ch 6 MO-64 YRS Influenza Virus 2022-02-02 Completed [facility] y [facility], 00:00:00 [place] [facility] Preserv and ABX Free Bran ch 6 MO-64 YRS Influenza Virus 2022-02-02 Completed [facility] y [facility] IM, 00:00:00 [place] [facility] Preserv and ABX Free Bran ch 6 MO-64 YRS Influenza Virus 2022-02-02 Completed [facility] y [facility] IM, 00:00:00 [place] [facility] Preserv and ABX Free Bran ch 6 MO-64 YRS Influenza Virus 2022-02-02 Completed [facility]it y [facility] IM, 00:00:00 [place] [facility] Preserv and ABX Free Bran ch 6 MO-64 YRS Influenza Virus 2022-02-02 Completed [facility] y [facility] IM, 00:00:00 [place] [facility] Preserv and ABX Free Bran ch 6 MO-64 YRS Influenza Virus 2022-02-02 Completed [facility]it y of [facility] IM, 00:00:00 [place] [facility] Preserv and ABX Free Bran ch 6 MO-64 YRS Influenza Virus 2022-02-02 Completed [facility]it y [facility] IM, 00:00:00 [place] [facility] Preserv and ABX Free Bran ch 6 MO-64 YRS Influenza Virus 2022-02-02 Completed [facility]it y [facility] IM, 00:00:00 [place] [facility] Preserv and ABX Free Bran ch 6 MO-64 YRS Influenza Virus 2022-02-02 Completed [facility]it y [facility] IM, 00:00:00 [place] [facility] Preserv and ABX Free Bran ch 6 MO-64 YRS Influenza Virus 2022-02-02 Completed [facility]it y [facility] IM, 00:00:00 [place] [facility] Preserv and ABX Free Bran ch 6 MO-64 YRS Influenza Virus 2022-02-02 Completed [facility]it y [facility] IM, 00:00:00 [place] [facility] Preserv and ABX Free Bran ch 6 MO-64 YRS Influenza Virus 2022-02-02 Completed [facility]it y of [facility] IM, 00:00:00 [place] [facility] Preserv and ABX Free Bran ch 6 MO-64 YRS TDAP 2021-04-12 Completed University of 00:00:00 [facility] TDAP 2021-04-12 Completed University of 00:00:00 [facility] TDAP 2021-04-12 Completed University of 00:00:00 [facility] TDAP 2021-04-12 Completed University of 00:00:00 [facility] TDAP 2021-04-12 Completed University of 00:00:00 [facility] TDAP 2021-04-12 Completed University of 00:00:00 [facility] TDAP 2021-04-12 Completed University of 00:00:00 [facility] TDAP 2021-04-12 Completed University of 00:00:00 [facility] TDAP 2021-04-12 Completed University of 00:00:00 [facility] TDAP 2021-04-12 Completed University of 00:00:00 [facility] TDAP 2021-04-12 Completed University of 00:00:00 [facility] TDAP 2021-04-12 Completed University of 00:00:00 [facility] TDAP 2021-04-12 Completed University of 00:00:00 [facility] TDAP 2021-04-12 Completed University of 00:00:00 [facility] TDAP 2021-04-12 Completed University of 00:00:00 [facility] TDAP 2021-04-12 Completed University of 00:00:00 [facility] TDAP 2021-04-12 Completed University of 00:00:00 [facility] TDAP 2021-04-12 Completed University of 00:00:00 [facility] TDAP 2021-04-12 Completed University of 00:00:00 [facility] TDAP 2021-04-12 Completed University of 00:00:00 [facility] TDAP 2021-04-12 Completed University of 00:00:00 [facility] TDAP 2021-04-12 Completed University of 00:00:00 [facility] TDAP 2021-04-12 Completed University of 00:00:00 [facility] TDAP 2021-04-12 Completed University of 00:00:00 [facility] TDAP 2021-04-12 Completed University of 00:00:00 [facility] TDAP 2021-04-12 Completed University of 00:00:00 [facility] TDAP 2021-04-12 Completed University of 00:00:00 [facility] Influenza Virus 2020-02-04 Completed [facility]it y of [facility] .5 mL IM 00[facility]00:00 [facility] [facility] 6+ MO Branch Influenza Virus 2020-02-04 Completed [facility]it y of [facility] .5 mL IM 00:00:00 [facility] [facility] 6+ MO [facility] Influenza Virus 2020-02-04 Completed [facility]it y of [facility] .5 mL IM 00:00:00 [facility] [facility] 6+ MO [facility] Influenza Virus 2020-02-04 Completed [facility] y of [facility] .5 mL IM 00:00:00 [place] [facility] 6+ MO Branch Influenza Virus 2020-02-04 Completed [facility]it y of [facility] .5 mL IM 00:00:00 [facility] [facility] 6+ MO [facility] Influenza Virus 2020-02-04 Completed [facility]it y of [facility] .5 mL IM 00:00:00 [place] [facility] 6+ MO [facility] Influenza Virus 2020-02-04 Completed [facility] y of [facility] .5 mL IM 00:00:00 [facility] [facility] 6+ MO [facility] Influenza Virus 2020-02-04 Completed [facility]it y of [facility] .5 mL IM 00:00:00 [facility] [facility] 6+ MO [facility] Influenza Virus 2020-02-04 Completed [facility] y of [facility] .5 mL IM 00:00:00 [place] [facility] 6+ MO [facility] Influenza Virus 2020-02-04 Completed [facility] y of [facility] .5 mL IM 00:00:00 [place] [facility] 6+ MO [facility] Influenza Virus 2020-02-04 Completed [facility] y of [facility] .5 mL IM 00:00:00 [place] [facility] 6+ MO [facility] Influenza Virus 2020-02-04 Completed [facility] y of [facility] .5 mL IM 00:00:00 [place] [facility] 6+ MO [facility] Influenza Virus 2020-02-04 Completed [facility] y of [facility] .5 mL IM 00:00:00 [place] [facility] 6+ MO [facility] Influenza Virus 2020-02-04 Completed [facility] y of [facility] .5 mL IM 00:00:00 [place] [facility] 6[facility] MO [facility] Influenza Virus 2020-02-04 Completed [facility] y of [facility] .5 mL IM 00:00:00 [place] [facility] 6[facility] MO [facility] Influenza Virus 2020-02-04 Completed [facility] y of [facility] .5 mL IM 00:00:00 [place] [facility] 6[facility] MO [facility] Influenza Virus 2020-02-04 Completed [facility] y of [facility] .5 mL IM 00:00:00 [place] [facility] 6+ MO [facility] Influenza Virus 2020-02-04 Completed [facility] y of [facility] .5 mL IM 00:00:00 [place] [facility] 6+ MO [facility] Influenza Virus 2020-02-04 Completed [facility]it y of [facility] .5 mL IM 00:00:00 [place] [facility] 6[facility] MO [facility] Influenza Virus 2020-02-04 Completed [facility]it y of [facility] .5 mL IM 00:00:00 [place] [facility] 6[facility] MO [facility] Influenza Virus 2020-02-04 Completed [facility]it y of [facility] .5 mL IM 00:00:00 [place] [facility] 6[facility] MO [facility] Influenza Virus 2020-02-04 Completed [facility]it y of [facility] .5 mL IM 00:00:00 [place] [facility] 6[facility] MO [facility] Influenza Virus 2020-02-04 Completed [facility]it y of [facility] .5 mL IM 00:00:00 [place] [facility] 6[facility] MO [facility] Influenza Virus 2020-02-04 Completed [facility] y of [facility] .5 mL IM 00:00:00 [facility] [facility] 6[facility] MO [facility] Influenza Virus 2020-02-04 Completed [facility]it y of [facility] .5 mL IM 00:00:00 [facility] [facility] 6[facility] MO [facility] Influenza Virus 2020-02-04 Completed [facility]it y of [facility] .5 mL IM 00:00:00 [facility] [facility] 6[facility] MO [facility] Influenza Virus 2020-02-04 Completed [facility] y of [facility] .5 mL IM 00:00:00 [facility] [facility] 6[facility] MO [facility] TDAP 2020-01-07 Completed [facility] of 00:00:00 [facility] TDAP 2020-01-07 Completed University of 00:00:00 [facility] TDAP 2020-01-07 Completed [facility] of 00:00:00 [place] [facility] TDAP 2020-01-07 Completed [facility] 00:00:00 [place] [facility] TDAP 2020-01-07 Completed [facility] 00:00:00 [place] [facility] TDAP 2020-01-07 Completed [facility] 00:00:00 [place] [facility] TDAP 2020-01-07 Completed [facility] 00:00:00 [place] [facility] TDAP 2020-01-07 Completed [facility] 00:00:00 [place] [facility] TDAP 2020-01-07 Completed [facility] of 00:00:00 [facility] TDAP 2020-01-07 Completed University of 00:00:00 [facility] TDAP 2020-01-07 Completed University of 00:00:00 [facility] TDAP 2020-01-07 Completed University of 00:00:00 [facility] TDAP 2020-01-07 Completed University of 00:00:00 [facility] TDAP 2020-01-07 Completed University of 00:00:00 [facility] TDAP 2020-01-07 Completed University of 00:00:00 [facility] TDAP 2020-01-07 Completed University of 00:00:00 [facility] TDAP 2020-01-07 Completed University of 00:00:00 [facility] TDAP 2020-01-07 Completed [facility] of 00:00:00 [facility] TDAP 2020-01-07 Completed University of 00:00:00 [facility] TDAP 2020-01-07 Completed University of 00:00:00 [facility] TDAP 2020-01-07 Completed University of 00:00:00 [facility] TDAP 2020-01-07 Completed University of 00:00:00 [facility] TDAP 2020-01-07 Completed University of 00:00:00 [facility] TDAP 2020-01-07 Completed University of 00:00:00 [facility] TDAP 2020-01-07 Completed University of 00:00:00 [facility] TDAP 2020-01-07 Completed University of 00:00:00 [facility] TDAP 2020-01-07 Completed University of 00:00:00 [facility] HEPATITIS A 2013-01-07 Completed University of 00:00:00 [facility] HPV 2013-01-07 Completed University of 00:00:00 [facility] Meningococcal 2013-01-07 Completed University of Polysaccharide 00:00:00 [place] [facility] vanita (groups A, C, Y and Branc h W-135) conjugate vaccine (MCV4P) TDAP 2013-01-07 Completed University of 00:00:00 [facility] Varicella 2013-01-07 Completed University of (varivax)(chicken 00:00:00 [place] [facility] pox) Branch HEPATITIS A 2013-01-07 Completed University of 00:00:00 [facility] HPV 2013-01-07 Completed University of 00:00:00 [facility] Meningococcal 2013-01-07 Completed University of Polysaccharide 00:00:00 [place] [facility] vanita (groups A, C, Y and Branc h W-135) conjugate vaccine (MCV4P) TDAP 2013-01-07 Completed University of 00:00:00 [facility] Varicella 2013-01-07 Completed University of (varivax)(chicken 00:00:00 [place] [facility] pox) Branch DTaP, Unspecified 2001-08-15 Completed Univers ity of Formulation 00:00:00 [facility] Hib-HbOC 2001-08-15 Completed University of 00:00:00 [facility] DTaP, Unspecified 2001-08-15 Completed Univers ity of Formulation 00:00:00 [facility] Hib-HbOC 2001-08-15 Completed University of 00:00:00 [facility] Hep B, Adol or Pedi 2001-01-30 Completed Unive rsity of Dosage 00:00:00 [facility] MMR 2001-01-30 Completed University of 00:00:00 [facility] Pneumococcal 7 2001-01-30 Completed University of Conjugate, PCV7 00:00:00 [place] [facility] (Prevnar7) Branch Varicella 2001-01-30 Completed University of (varivax)(chicken 00:00:00 [facility] edical pox) Branch Hep B, Adol or Pedi 2001-01-30 Completed Unive rsity of Dosage 00:00:00 [facility] MMR 2001-01-30 Completed University of 00:00:00 [facility] Pneumococcal 7 2001-01-30 Completed University of Conjugate, PCV7 00:00:00 [place] [facility] (Prevnar7) Branch Varicella 2001-01-30 Completed University of (varivax)(chicken 00:00:00 [facility] edical pox) Branch Hep B, Adol or Pedi 2000-08-07 Completed Unive rsity of Dosage 00:00:00 [facility] Hep B, Adol or Pedi 2000-08-07 Completed Unive rsity of Dosage 00:00:00 [facility] DTaP, Unspecified 2000-07-20 Completed Univers ity of Formulation 00:00:00 [facility] Hib-HbOC 2000-07-20 Completed University of 00:00:00 [facility] IPV 2000-07-20 Completed University of 00:00:00 [facility] DTaP, Unspecified 2000-07-20 Completed Univers ity of Formulation 00:00:00 [facility] Hib-HbOC 2000-07-20 Completed University of 00:00:00 [facility] IPV 2000-07-20 Completed University of 00:00:00 [facility] DTaP, Unspecified 2000-04-05 Completed Univers ity of Formulation 00:00:00 [facility] Hib-HbOC 2000-04-05 Completed University of 00:00:00 [facility] IPV 2000-04-05 Completed University of 00:00:00 [facility] DTaP, Unspecified 2000-04-05 Completed Univers ity of Formulation 00:00:00 [facility] Hib-HbOC 2000-04-05 Completed University of 00:00:00 [facility] IPV 2000-04-05 Completed University of 00:00:00 [facility] DTaP, Unspecified 1999 Completed Univers ity of Formulation 00:00:00 [facility] Hib-HbOC 1999 Completed University of 00:00:00 [facility] IPV 1999 Completed University of 00:00:00 [facility] DTaP, Unspecified 1999 Completed Univers ity of Formulation 00:00:00 [facility] Hib-HbOC 1999 Completed University of 00:00:00 [facility] IPV 1999 Completed University of 00:00:00 [facility] Hep B, Adol or Pedi 1999 Completed Unive rsity of Dosage 00:00:00 [facility] Hep B, Adol or Pedi 1999 Completed Unive rsity of Dosage 00:00:00 [facility] Vital Signs Vital Name Observation Time Observation Value Comments Source Systolic blood 2022-06-04 14:33:00 118 mm[Hg] Univer sity of pressure [facility] Diastolic blood 2022-06-04 14:33:00 77 mm[Hg] Unive rsity of pressure [facility] Heart rate 2022-06-04 14:33:00 73 /min [facility] Body temperature 2022-06-04 14:33:00 36.39 [facility] Res[facility] rate 2022-06-04 14:33:00 18 /min [facility] Oxygen saturation in 2022-06-04 14:33:00 99 /min [facility] Arterial blood by [facility] Pulse oximetry Branch Body height 2022-06-02 20:30:00 165.1 cm [facility] Body weight 2022-06-02 20:30:00 85.367 kg [facility] BMI 2022-06-02 20:30:00 31.32 kg/m2 [facility] [place] [facility] Systolic blood 2022-06-02 15:53:00 114 mm[Hg] Univer sity of pressure [place] [facility] Diastolic blood 2022-06-02 15:53:00 68 mm[Hg] Unive rsity of pressure [place] [facility] Heart rate 2022-06-02 15:53:00 75 /min [facility] [place] [facility] Body temperature 2022-06-02 15:53:00 36 Daisy [facility] [place] [facility] Respiratory rate 2022-06-02 15:53:00 18 /min [facility] ers[facility] [place] [facility] Body height 2022-06-02 15:53:00 167.6 cm [facility] [place] [facility] Body weight 2022-06-02 15:53:00 85.367 kg [facility] [place] [facility] BMI 2022-06-02 15:53:00 30.38 kg/m2 [facility] [place] [facility] Systolic blood 2022-05-26 15:48:00 115 mm[Hg] Univer sity of pressure [place] [facility] Diastolic blood 2022-05-26 15:48:00 71 mm[Hg] Unive rsity of pressure [place] [facility] Heart rate 2022-05-26 15:48:00 86 /min [facility] [place] [facility] Body temperature 2022-05-26 15:48:00 36.5 Daisy [facility] [place] [facility] Respiratory rate 2022-05-26 15:48:00 17 /min Univ ers[facility] [place] [facility] Body height 2022-05-26 15:48:00 167.6 cm [facility] [place] [facility] Body weight 2022-05-26 15:48:00 85.548 kg [facility] [place] [facility] BMI 2022-05-26 15:48:00 30.44 kg/m2 [facility] [place] [facility] Systolic blood 2022-05-18 14:59:00 111 mm[Hg] Univer sity of pressure [place] [facility] Diastolic blood 2022-05-18 14:59:00 68 mm[Hg] Unive rsity of pressure [place] [facility] Heart rate 2022-05-18 14:59:00 82 /min [facility] [place] [facility] Body temperature 2022-05-18 14:59:00 36.5 Daisy [facility] [place] [facility] Respiratory rate 2022-05-18 14:59:00 17 /min [facility] [place] [facility] Body height 2022-05-18 14:59:00 167.6 cm [facility] [place] [facility] Body weight 2022-05-18 14:59:00 85.231 kg [facility] [place] [facility] BMI 2022-05-18 14:59:00 30.33 kg/m2 [facility] [place] [facility] Systolic blood 2022-05-12 17:11:00 100 mm[Hg] Univer sity of pressure [place] [facility] Diastolic blood 2022-05-12 17:11:00 62 mm[Hg] Unive rsity of pressure [place] [facility] Heart rate 2022-05-12 17:11:00 80 /min [facility] [place] [facility] Body temperature 2022-05-12 17:11:00 36.56 Daisy [facility] [place] [facility] Respiratory rate 2022-05-12 17:11:00 18 /min [facility] [place] [facility] Body height 2022-05-12 17:11:00 167.6 cm [facility] [place] [facility] Body weight 2022-05-12 17:11:00 85.049 kg [facility] [place] [facility] BMI 2022-05-12 17:11:00 30.26 kg/m2 [facility] [place] [facility] Systolic blood 2022-05-05 14:57:00 112 mm[Hg] Univer sity of pressure [facility] Diastolic blood 2022-05-05 14:57:00 72 mm[Hg] Unive rsity of pressure [facility] Heart rate 2022-05-05 14:57:00 84 /min [facility] [place] [facility] Body temperature 2022-05-05 14:57:00 36.78 Daisy [facility] [place] [facility] Respiratory rate 2022-05-05 14:57:00 18 /min [facility] [place] [facility] Body height 2022-05-05 14:57:00 167.6 cm [facility] [place] [facility] Body weight 2022-05-05 14:57:00 82.555 kg [facility] BMI 2022-05-05 14:57:00 29.38 kg/m2 [facility] Systolic blood 2022-03-02 19:02:00 129 mm[Hg] Univer sity of pressure [facility] Diastolic blood 2022-03-02 19:02:00 68 mm[Hg] Unive rsity [facility] Heart rate 2022-03-02 19:02:00 89 /min [facility] Body temperature 2022-03-02 19:02:00 36.44 Daisy [facility] Res[facility] rate 2022-03-02 19:02:00 17 /min [facility] Body height 2022-03-02 19:02:00 167.6 cm [facility] Body weight 2022-03-02 19:02:00 79.425 kg [facility] BMI 2022-03-02 19:02:00 28.26 kg/m2 [facility] Procedures Procedure Date / Time Performed Performing Clinician [facility] e PREPARE PACKED RBC 2022-06-04 18:29:03 Nuris Olson [facility] CBC WITH DIFF 2022-06-03 12:12:00 Rick [facility] VENOUS CORD GAS 2022-06-03 00:40:00 [facility] CENTRAL NEURAXIAL 2022-06-02 21:55:00 Davian Wagner [facility] CBC WITH DIFF 2022-06-02 21:26:00 Michael Louis [facility] HEPATITIS B SURFACE 2022-06-02 21:26:00 Nuris Olson [facility] ANTIGEN [facility] SYPHILIS IGG/IGM 2022-06-02 21:26:00 Whitney [facility] HB ABO GROUPING 2022-06-02 21:00:00 [facility] RHO (D) IMMUNE 2022-06-02 21:00:00 Rick, [facility] NON-STRESS TEST 2022-06-02 16:59:37 Tammie Narvaez [facility] POCT URINALYSIS 2022-06-02 15:54:00 Armando Guzman [facility] POCT URINALYSIS 2022-05-26 00:00:00 Armando Guzmna [facility] POCT URINALYSIS 2022-05-18 00:00:00 Armando Guzman [facility] TDAP VACCINE, >11 YRS, 2022-05-05 16:11:39 Sweta Erwin [facility] POCT URINALYSIS 2022-05-05 00:00:00 Armando Guzman [facility] POCT URINALYSIS 2022-03-02 00:00:00 rAmando Guzman [facility] Encounters Start End Encounter Admission Attending Care Care Encounter Source Date/Time Date/Time Type Type Clinicians Facility Department ID 2021-03-19 Outpatient [facility] [id number] Univers 00:56:29 [facility] 2022-10-09 2022-10-09 [facility] 1.2.840.114 [id number] Univers 00:00:00 00:00:00 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 [facility] 4.2.7.2.686 Ste[place] as MATERNAL [phone] Med ical & CHILD [address] [place] [address] 2022-09-14 2022-09-14 Outpatient R AKINSIPE, [facility] [id number] Univers 10:30:00 10:30:00 ARMANDO ity o [facility] 2022-09-07 2022-09-07 Outpatient R AKINSIPE, [facility] [id number] Univers 15:00:00 15:00:00 ARMANDO ity o [facility] 2022-08-10 2022-08-10 Outpatient R AKINSIPE, [facility] [id number] Univers 15:00:00 15:00:00 ARMANDO curlyy o f [facility] 2022-06-02 2022-06-04 [facility] M[facility] Mendez 1.2.840.114 [id number] Univers 13:53:00 12:28:00 Encounter Martha ECHOLS 350.1.13.10 ity [facility] 4.2.7.2.686 [place] [phone] [facility] [address] 2022-06-04 2022-06-04 Telephone MARRY Fonseca 1.2.840.114 [id number] Univers 00:00:00 00:00:00 Cece ONESIMO 350.1.13.10 ity of [place] [address]101.2.7.2.686 Stephon as [phone] [facility] [address] 2022-06-02 2022-06-02 Anesthesia AneeshDavian ramon 1.2.840 .114 [id number] Univers 15:51:00 20:15:00 Event Tomas Canseco 350.1.13.10 ity [facility] 4.2.7.2.686 Ste[place] as [phone] [address] 2022-06-02 2022-06-02 Outpatient Bouchra NARVAEZ [facility] [id number] Univers 09:30:00 10:33:43 TAMMIE loo [facility] 2022-06-02 2022-06-02 Routine [facility], [facility] 1 .2.840.114 [id number] Univers 09:30:00 10:33:43 Tammie Narvaez FISHING INSTRUCTOR 350.1.13. 10 ity of Visit [facility] 4.2.7.2.686 Stephon as MATERNAL [phone] [place] [facility] & CHILD [address] [place] [address] 2022-06-02 2022-06-02 Outpatient Bouchra NARVAEZ [facility] [place] [id number] Univers 09:30:00 10:33:43 TAMMIE loo [facility] 2022-05-26 2022-05-26 Outpatient Bouchra NARVAEZ [facility] [id number] Univers 09:45:00 10:11:14 TAMMIE loo [facility] 2022-05-26 2022-05-26 Routine Provider, [facility] 1 .2.840.114 [id number] Univers 09:45:00 10:11:14 Tammie Narvaez FISHING INSTRUCTOR 350.1.13. 10 ity of Visit REGIONAL 4.2.7.2.686 [place] as MATERNAL [phone] [facility] & CHILD [address] [place] [address] 2022-05-18 2022-05-18 Outpatient R SOLANGE [facility] [id number] Univers 08:45:00 09:31:22 TAMMIE loo [facility] 2022-05-18 2022-05-18 Routine Provider, Benny-Rmchp [facility] 1 .2.840.114 [id number] Univers 08:45:00 09:31:22 Tammie Narvaez FISHING INSTRUCTOR 350.1.13. 10 ity of Visit REGIONAL 4.2.7.2.686 [place] as MATERNAL [phone] [facility] & CHILD [address] [place] [address] 2022-05-12 2022-05-12 Outpatient Bouchra NARVAEZ [facility] [id number] Univers 10:45:00 11:43:44 TAMMIE itartie [facility] 2022-05-12 2022-05-12 Routine Provider, B[facility] 1 .2.840.114 [id number] Univers 10:45:00 11:43:44 Tammie Narvaez FISHING INSTRUCTOR 350.1.13. 10 ity of Visit REGIONAL 4.2.7.2.686 [place] as MATERNAL [phone] [facility] & CHILD [address] [place] [address] 2022-05-05 2022-05-05 Outpatient Bouchra ERWIN [facility] [id number] Univers 09:00:00 10:41:04 SWETA joseph [facility] 2022-05-05 2022-05-05 Routine Provider, Ang-Rmchp [facility] 1 .2.840.114 [id number] Univers 09:00:00 10:41:04 Sweta Erwin FISHING INSTRUCTOR 350.1.13.1 0 ity of Visit REGIONAL 4.2.7.2.686 [place] as MATERNAL [phone] [facility] & CHILD [address] [place] [address] 2022-03-29 2022-03-29 [facility] 1.2.053.509 [id number] Univers 00:00:00 00:00:00 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 350.1.13.10 ity of REGIONAL 4.2.7.2.686 [place] as MATERNAL [phone] [facility] & CHILD [address] [place] [address] 2022-03-17 2022-03-17 Outpatient R BEREKET, [facility] [id number] Univers 12:30:00 12:30:00 AMBAR ity of [facility] 2022-03-16 2022-03-16 [facility] 1.2.641.127 [id number] Univers 00:00:00 00:00:00 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 350.1.13.10 ity of REGIONAL 4.2.7.2.686 [place] as MATERNAL [phone] [facility] & CHILD [address] [place] [address] 2022-03-10 2022-03-10 [facility] 1.2.129.566 [id number] Univers 00:00:00 00:00:00 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 350.1.13.10 ity of REGIONAL 4.2.7.2.686 [place] as MATERNAL [phone] [facility] & [address] 2022-03-09 2022-03-09 Outpatient R AKINARTIPE, [facility] [id number] Univers 08:30:00 08:30:00 ARMANDO ity o f [facility] 2022-03-02 2022-03-02 Outpatient R AKINSIPE, [facility] [id number] Univers 14:00:00 14:20:31 ARMANDO ity o f [facility] 2022-03-02 2022-03-02 Routine Akinpe, [facility] 1.2.834.942 [id number] Univers 14:00:00 14:20:31 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 350.1.13.10 ity of Visit REGIONAL 4.2.7.2.686 Ste[place] as MATERNAL [phone] [facility] & CHILD [address] [place] [address] 2022-02-212022-02-21 Abstract [facility] 1.2.840.114 [id number] Univers 00:00:00 00:00:00 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 350.1.13.10 ity of REGIONAL 4.2.7.2.686 [place] as MATERNAL [phone] [place] [facility] & CHILD [address] [place] [address] 2022-02-20 2022-02-20 Outpatient P [facility] [id number] Univers 11:00:00 11:00:00 ity of [facility] 2022-02-20 2022-02-20 Carding Machine Operator 1, [facility] Room [facility] 1.2. 840.114 [id number] Univers 09:45:00 10:41:00 Visit Alex Reyes FISHING INSTRUCTOR 350.1.13.10 ity of REGIONAL 4.2.7.2.686 Ste[place] as MATERNAL [phone] [facility] & CHILD [address] [place] [address] 2022-02-20 2022-02-20 Outpatient P PAVAN [facility] [id number] Univers 09:45:00 09:45:00 ALEX ity of [facility] 2022-02-14 2022-02-14 Telephone [facility] 1.2.840.114 [id number] Univers 00:00:00 00:00:00 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 350.1.13.10 ity of REGIONAL 4.2.7.2.686 Ste[place] as MATERNAL [phone] [facility] & CHILD [address] [place] [address] 2022-02-08 2022-02-08 Telephone [facility] 1.2.840.114 [id number] Univers 00:00:00 00:00:00 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 350.1.13.10 ity of REGIONAL 4.2.7.2.686 Stephon as MATERNAL [phone] [facility] & CHILD [address] [place] [address] 2022-02-07 2022-02-07 Telephone [facility] 1.2.840.114 [id number] Univers 00:00:00 00:00:00 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 350.1.13.10 ity of REGIONAL 4.2.7.2.686 Stephon as MATERNAL [phone] [facility] & CHILD [address] [place] [address] 2022-02-06 2022-02-06 Telephone [facility] 1.2.840.114 [id number] Univers 00:00:00 00:00:00 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 350.1.13.10 ity of REGIONAL 4.2.7.2.686 Stephon as MATERNAL [phone] [facility] & CHILD [address] [place] [address] 2022-02-03 2022-02-03 [facility] 1.2.840.114 [id number] Univers 00:00:00 00:00:00 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 350.1.13.10 ity of REGIONAL 4.2.7.2.686 Ste[place] as MATERNAL [phone] [facility] & CHILD [address] [place] [address] 2022-02-02 2022-02-02 Initial [facility] 1.2.766.296 [id number] Univers 14:15:00 15:37:47 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 350.1.13.10 ity of Visit REGIONAL 4.2.7.2.686 [place] as MATERNAL [phone] [facility] & [address] 2022-02-02 2022-02-02 Outpatient R [facility] [id number] Univers 13:45:00 15:34:53 ARMANDO ity o f [facility] 2022-02-02 2022-02-02 Outpatient R [facility] [id number] Univers 13:45:00 15:34:53 ARMANDO ity o f [facility] 2022-02-02 2022-02-02 Orders Doctor TUTTLE 1.2.840.114 [id number] Univers 00:00:00 00:00:00 Only Unassigned, ONESIMO 350.1.13.10 ity of [place] [facility] 4.2.7.2.686 Stephon as [phone] [address] 2021-09-09 2021-09-09 Outpatient R [facility] [id number] Univers 13:00:00 13:00:00 ity of [facility] 2021-09-09 2021-09-09 Outpatient R JYOTI [facility] [id number] Univers 13:00:00 13:00:00 JOEY ity o f [facility] 2021-08-26 2021-08-26 Telephone [facility] 1.2.840.114 [id number] Univers 00:00:00 00:00:00 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 350.1.13.10 ity of [facility] 4.2.7.2.686 Stephon as MATERNAL [phone] [facility] & CHILD [address] [place] [address] 2021-08-23 2021-08-23 [facility] [id number] Univers 14:00:00 14:50:43 ARMANDO loo o [facility] 2021-08-23 2021-08-23 Office [facility] 1.2.022.680 [id number] Univers 14:00:00 14:50:43 Visit 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 350.1.13.10 ity of [facility] 4.2.7.2.686 Stephon as MATERNAL [phone] [facility] & CHILD [address] [place] [address] 2021-08-23 2021-08-23 Orders Doctor MARRY 1.2.840.114 [id number] Univers 00:00:00 00:00:00 Only Unassigned, ONESIMO 350.1.13.10 ity of [place] [facility] 4.2.7.2.686 Stephon as [phone] [address] 2021-08-02 2021-08-02 [facility] [id number] Univers 13:45:00 14:21:56 ARMANDO rawlsy o [facility] 2021-08-02 2021-08-02 Routine [facility] 1.2.253.291 [id number] Univers 13:45:00 14:21:56 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 350.1.13.10 ity of Visit [facility] 4.2.7.2.686 Stephon as MATERNAL [phone] [place] [facility] & CHILD [address] [place] [address] 2021-06-23 2021-06-24 Inpatient P NAVARRO [facility] [place] [id number] Univers 00:31:00 13:51:00 ADÁN ity of [facility] 2021-06-23 2021-06-24 Hospital MARRY Mckinnon 1.2.840.114 [id number] Univers 00:31:00 13:51:00 Encounter Adán ECHOLS 350.1.13.10 ity of [facility] 4.2.7.2.686 Stephon as [phone] [facility] [address] 2021-06-23 2021-06-23 Anesthesia Gabriel 1.2.840.114 [id number] Univers 04:29:00 10:56:00 Event GalFred block ONESIMO 350.1.13.10 ity of [facility] 4.2.7.2.686 Stephon as [phone] [facility] [address] 2021-06-17 2021-06-17 Outpatient R AKINSIPE, [facility] [id number] Univers 13:00:00 14:09:48 ARMANDO ity o f [facility] 2021-06-17 2021-06-17 Routine Akinsipe, [facility] 1.2.408.036 [id number] Univers 13:00:00 14:09:48 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 350.1.13.10 ity of Visit REGIONAL 4.2.7.2.686 Stephon as MATERNAL [phone] Med ical & CHILD [address] [place] [address] 2021-06-10 2021-06-10 Outpatient R AKINSIPE, [facility] [id number] Univers 13:00:00 13:38:43 ARMANDO ity o f [facility] 2021-06-10 2021-06-10 Routine Akinsipe, [facility] 1.2.368.916 [id number] Univers 13:00:00 13:38:43 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 350.1.13.10 ity of Visit REGIONAL 4.2.7.2.686 Ste[place] as MATERNAL [phone] [place] [facility] CHILD [address] [place] [address] 2021-06-10 2021-06-10 Outpatient R AKINSIPE, [facility] [id number] Univers 13:00:00 13:00:00 ARMANDO ity o f [facility] 2021-06-07 2021-06-07 Telephone [facility] 1.2.840.114 [id number] Univers 00:00:00 00:00:00 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 350.1.13.10 ity of REGIONAL 4.2.7.2.686 Ste[place] as MATERNAL [phone] [facility] & CHILD [address] [place] [address] 2021-06-07 2021-06-07 Telephone [facility] 1.2.840.114 [id number] Univers 00:00:00 00:00:00 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 350.1.13.10 ity of REGIONAL 4.2.7.2.686 Ste[place] as MATERNAL [phone] [facility] & [address] 2021-06-03 2021-06-03 Outpatient R AKINSIPE, [facility] [id number] Univers 13:00:00 13:58:35 ARMANDO ity o [facility] 2021-06-03 2021-06-03 Routine Akinsipe, [facility] 1.2.093.993 [id number] Univers 13:00:00 13:58:35 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 350.1.13.10 ity of Visit REGIONAL 4.2.7.2.686 Stephon as MATERNAL [id number] [facility] & [address] 2021-06-03 2021-06-03 Outpatient R AKINSIPE, [facility] [id number] Univers 13:00:00 13:58:35 ARMANDO ity o [facility] 2021-06-03 2021-06-03 Outpatient R AKINSIPE, [facility] [id number] Univers 13:00:00 13:00:00 ARMANDO ity o [facility] 2021-05-26 2021-05-26 Outpatient R AKINSIPE, [facility] [id number] Univers 14:00:00 14:55:42 ARMANDO ity o [facility] 2021-05-26 2021-05-26 Routine [facility] 1.2.919.679 [id number] Univers 14:00:00 14:55:42 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 350.1.13.10 ity of Visit REGIONAL 4.2.7.2.686 Ste[place] as MATERNAL [phone] [facility] & CHILD [address] [place] [address] 2021-05-12 2021-05-12 [facility] [id number] Univers 14:00:00 14:42:08 ARMANDO rawlsy o f [facility] 2021-05-12 2021-05-12 Routine [facility] 1.2.529.282 [id number] Univers 14:00:00 14:42:08 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 350.1.13.10 ity of Visit REGIONAL 4.2.7.2.686 Stephon as MATERNAL [phone] [facility] & [address] 2021-04-28 2021-04-28 Routine Provider, [facility] 1 .2.840.114 [id number] Univers 14:59:19 16:00:58 Courtney Gustafson FISHING INSTRUCTOR 350.1.13 .10 ity of Visit REGIONAL 4.2.7.2.686 Stephon as MATERNAL [phone] [facility] & [address] 2021-04-28 2021-04-28 [facility] [id number] Univers 14:30:00 16:00:58 COURTNEY loo o f [facility] 2021-04-12 2021-04-12 [facility] [id number] Univers 13:45:00 14:38:59 TC loo [facility] 2021-04-12 2021-04-12 [facility] 1.2.389.770 [id number] Univers 13:37:58 14:38:59 Tc Grant FISHING INSTRUCTOR 350.1.13.10 i ty of Visit REGIONAL 4.2.7.2.686 Stephon as MATERNAL [phone] [facility] & CHILD [address] [place] [address] 2021-04-12 2021-04-12 Outpatient R PAUL [facility] [id number] Univers 13:45:00 13:45:00 TC loo [facility] 2021-03-29 2021-03-29 Telephone Paul [facility] 1.2.840.114 [id number] Univers 00:00:00 00:00:00 Tc Grant FISHING INSTRUCTOR 350.1.13.10 it y of REGIONAL 4.2.7.2.686 Stephon as MATERNAL [phone] [facility] & CHILD [address] [place] [address] 2021-03-28 2021-03-28 [facility]ine [facility] 1.2.645.042 [id number] Univers 12:55:38 13:37:07 Tc Grant FISHING INSTRUCTOR 350.1.13.10 i ty of Visit REGIONAL 4.2.7.2.686 Stephon as MATERNAL [id number] [facility] & [address] 2021-03-28 2021-03-28 Outpatient R PAUL [facility] [id number] Univers 12:45:00 13:37:07 TC loo [facility] 2021-03-08 2021-03-08 Carding Machine Operator Ultrasound, [facility] 1.2 .840.114 [id number] Univers 10:19:20 10:59:01 Visit Martha Mendez FISHING INSTRUCTOR 350.1. 13.10 ity of REGIONAL 4.2.7.2.686 Stephon as MATERNAL [phone] [facility] & CHILD [address] [place] [address] 2021-03-08 2021-03-08 Outpatient P [facility] [id number] Univers 10:00:00 10:00:00 ity [facility] 2021-02-28 2021-02-28 [facility]ine [facility] 1.2.497.373 [id number] Univers 13:16:41 13:52:38 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 350.1.13.10 ity of Visit REGIONAL 4.2.7.2.686 Stephon as MATERNAL [phone] [facility] CHILD [address] [place] [address] 2021-02-28 2021-02-28 Outpatient R MEGAN [facility] [id number] Univers 13:00:00 13:00:00 ARMANDO joseph [facility] 2021-01-31 2021-01-31 Routine [facility] 1.2.607.546 [id number] Univers 13:32:22 14:15:21 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 350.1.13.10 ity of Visit REGIONAL 4.2.7.2.686 Stephon as MATERNAL [phone] [facility] & CHILD [address] [place] [address] 2021-01-31 2021-01-31 Outpatient R MEGAN, [facility] [id number] Univers 13:00:00 13:00:00 ARMANDO joseph [facility] 2021-01-06 2021-01-06 Telephone [facility] 1.2.840.114 [id number] Univers 00:00:00 00:00:00 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 350.1.13.10 ity of REGIONAL 4.2.7.2.686 Stephon as MATERNAL [phone] [facility] & CHILD [address] [place] [address] 2021-01-04 2021-01-04 Abstract [facility] 1.2.840.114 [id number] Univers 00:00:00 00:00:00 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 350.1.13.10 ity of REGIONAL 4.2.7.2.686 Stephon as MATERNAL [phone] [facility] & CHILD [address] [place] [address] 2021-01-03 2021-01-03 Carding Machine Operator [facility] 1.2. 840.114 [id number] Univers 13:55:29 14:10:42 Visit Lulurubio 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 350.1.13. 10 ity of Josy Rocha REGIONAL 4.2.7.2 .686 [place] MATERNAL [phone] [place] [facility] CHILD [address] [place] [address] 2021-01-03 2021-01-03 Routine Akinpe, [facility] 1.2.393.046 [id number] Univers 10:50:21 11:10:41 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 350.1.13.10 ity of Visit REGIONAL 4.2.7.2.686 Stephon as MATERNAL [phone] [facility] CHILD [address] [place] [address] 2021-01-03 2021-01-03 [facility] [id number] Univers 10:15:00 10:15:00 ARMANDO ity o f [facility] 2020-12-13 2020-12-13 [facility] [id number] Univers 10:45:00 10:45:00 ARMANDO ity o f [facility] 2020-11-22 2020-11-22 Telephone [facility] 1.2.840.114 [id number] Univers 00:00:00 00:00:00 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 350.1.13.10 ity of REGIONAL 4.2.7.2.686 Stephon as MATERNAL [phone] [facility] CHILD [address] [place] [address] 2020-11-18 2020-11-18 Telephone [facility] 1.2.840.114 [id number] Univers 00:00:00 00:00:00 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 350.1.13.10 ity of REGIONAL 4.2.7.2.686 Stephon as MATERNAL [phone] [facility] & [address] 2020-11-15 2020-11-15 Initial [facility] 1.2.526.546 [id number] Univers 13:51:59 14:42:06 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 350.1.13.10 ity of Visit REGIONAL 4.2.7.2.686 Stephon as MATERNAL [phone] [facility] CHILD [address] [place] [address] 2020-11-15 2020-11-15 Outpatient [facility] [id number] Univers 13:00:00 13:00:00 ARMANDO ity o f [facility] 2020-11-15 2020-11-15 Orders Doctor TUTTLE 1.2.840.114 [id number] Univers 00:00:00 00:00:00 Only Unassigned, ONESIMO 350.1.13.10 ity of [place] [facility] 4.2.7.2.686 Stephon as [phone] [facility] [address] 2020-08-10 2020-08-10 Patient Artem [facility] [id number] Univers 00:00:00 00:00:00 Outreach Pawan PRIMARY [id number] i ty of [facility] [id number] [place] KEENAN [phone] Mn dical [address] 2020-07-21 2020-07-21 Outpatient R [facility] [id number] Univers 10:00:00 10:00:00 ity of [facility] 2020-04-28 2020-04-28 [facility] [id number] Univers 15:09:20 16:13:03 Visit 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 [id number] ity of [facility] [id number] Stephon as MATERNAL [phone] Med ical & CHILD [address] [place] [address] 2020-04-28 2020-04-28 [facility] [id number] Univers 15:00:00 15:00:00 ARMANDO joseph [facility] 2020-04-28 2020-04-28 Orders Doctor TUTTLE 1.2.840.114 [id number] Univers 00:00:00 00:00:00 Only Unassigned, ONESIMO 350.1.13.10 ity of [facility] 4.2.7.2.686 Stephon as [phone] [address] 2020-04-07 2020-04-07 Routine [facility] 1.2.587.309 [id number] Univers 15:40:47 16:21:28 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 350.1.13.10 ity of Visit [facility] 4.2.7.2.686 Stephon as MATERNAL [phone] [place] [facility] CHILD [address] [place] [address] 2020-04-07 2020-04-07 [facility] [id number] Univers 15:45:00 15:45:00 ARMANDO joseph [facility] 2020-03-15 2020-03-17 [facility] MARRY [place] 1.2.597.855 [id number] Univers 07:20:00 12:30:00 Encounter Marshall ECHOLS 350.1.13.10 ity of [facility] 4.2.7.2.686 Stephon as [phone] [address] 2020-03-11 2020-03-11 Telephone [facility] 1.2.840.114 [id number] Univers 00:00:00 00:00:00 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 350.1.13.10 ity of [facility] 4.2.7.2.686 Stephon as MATERNAL [phone] [place] [facility] CHILD [address] [place] [address] 2020-03-10 2020-03-10 Routine [facility] 1.2.015.747 [id number] Univers 10:26:31 11:02:50 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 350.1.13.10 ity of Visit [facility] 4.2.7.2.686 Stephon as MATERNAL [phone] [facility] CHILD [address] [place] [address] 2020-03-10 2020-03-10 Outpatient R AKINSIPE, [facility] [id number] Univers 10:30:00 10:30:00 ARMANDO baker neeraj [facility] 2020-03-03 2020-03-03 Routine [facility], [facility] 1.2.252.604 [id number] Univers 10:29:57 11:09:23 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 350.1.13.10 ity of Visit REGIONAL 4.2.7.2.686 Stephon as MATERNAL [phone] [facility] CHILD [address] [place] [address] 2020-03-03 2020-03-03 Outpatient R AKINSIPE, [facility] [id number] Univers 10:30:00 10:30:00 ARMANDO loo o f [facility] 2020-02-26 2020-02-26 Telephone [facility] 1.2.840.114 [id number] Univers 00:00:00 00:00:00 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 350.1.13.10 ity of [facility] 4.2.7.2.686 Stephon as MATERNAL [phone] [facility] & CHILD [address] [place] [address] 2020-02-25 2020-02-25 Routine Akinsipe, [facility] 1.2.135.366 [id number] Univers 10:38:56 11:15:27 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 350.1.13.10 ity of Visit REGIONAL 4.2.7.2.686 Stephon as MATERNAL [phone] [facility] & [address] 2020-02-25 2020-02-25 Outpatient R AKINSIPE, [facility] [id number] Univers 10:45:00 10:45:00 ARMANDO ity o [facility] 2020-02-18 2020-02-18 Routine [facility], [facility] 1.2.607.841 [id number] Univers 10:46:05 11:03:33 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 350.1.13.10 ity of Visit REGIONAL 4.2.7.2.686 Stephon as MATERNAL [phone] [address] 2020-02-18 2020-02-18 Outpatient R AKINSIPE, [facility] [id number] Univers 10:45:00 10:45:00 ARMANDO ity o [facility] 2020-02-04 2020-02-04 Routine Akinsipe, [facility] [id number] Univers 10:30:35 11:09:01 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 350.1.13.10 ity of Visit REGIONAL 4.2.7.2.686 Stephon as MATERNAL [phone] [address] 2020-02-04 2020-02-04 Outpatient R AKINSIPE, [facility] [id number] Univers 10:45:00 10:45:00 ARMANDO ity o f [facility] 2020-01-21 2020-01-21 Routine Akinsipe, [facility] 1.2.403.645 [id number] Univers 09:24:39 09:39:39 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 350.1.13.10 ity of Visit REGIONAL 4.2.7.2.686 Stephon as MATERNAL [phone] [place] [facility] CHILD [address] [place] [address] 2020-01-21 2020-01-21 Outpatient R MEGAN [facility] [id number] Univers 09:30:00 09:30:00 ARMANDO joseph [facility] 2020-01-07 2020-01-07 [facility] [id number] Univers 10:38:50 11:42:57 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 350.1.13.10 ity of Visit REGIONAL 4.2.7.2.686 Stephon as MATERNAL [phone] [facility] & CHILD [address] [place] [address] 2020-01-07 2020-01-07 Outpatient R MEGAN [facility] [id number] Univers 10:45:00 10:45:00 ARMANDO joseph [facility] 2019-12-23 2019-12-23 [facility] 1.2.119.012 [id number] Univers 09:10:17 09:49:15 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 350.1.13.10 ity of Visit REGIONAL 4.2.7.2.686 Stephon as MATERNAL [phone] [facility] & [address] 2019-12-23 2019-12-23 Outpatient R MEGAN, [facility] [id number] Univers 09:00:00 09:00:00 ARMANDO joseph [facility] 2019-12-15 2019-12-15 [facility]phone [facility] 1.2.840.114 [id number] Univers 00:00:00 00:00:00 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 350.1.13.10 ity of REGIONAL 4.2.7.2.686 Stephon as MATERNAL [phone] [facility] & CHILD [address] [place] [address] 2019-12-04 2019-12-04 [facility] 1.2.840.114 [id number] Univers 00:00:00 00:00:00 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 350.1.13.10 ity of REGIONAL 4.2.7.2.686 Stephon as MATERNAL [phone] [facility] CHILD [address] [facility] 2019-12-01 2019-12-01 Routine Akinsipe, [facility] 1.2.273.254 [id number] Univers 08:40:36 09:27:14 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 350.1.13.10 ity of Visit [facility] 4.2.7.2.686 Stephon as MATERNAL [phone] [place] [facility] CHILD 107 [facility] 2019-12-01 2019-12-01 Carding Machine Operator Ultrasound, Tash [facility] 1.2 .840.114 [id number] Univers 07:58:24 08:25:12 Visit Alex Reyes FISHING INSTRUCTOR 350.1.13.10 ity of [facility] 4.2.7.2.686 [place] MATERNAL [phone] [place] [facility] CHILD [address] [facility] 2019-12-01 2019-12-01 Outpatient P [facility] [id number] Univers 08:00:00 08:00:00 ity of [facility] 2019-11-19 2019-11-19 Orders Doctor MARRY 1.2.840.114 [id number] Univers 00:00:00 00:00:00 Only Unassigned, ONESIMO 350.1.13.10 ity of [place] [facility] 4.2.7.2.686 Stephon as [phone] [address] 2019-11-04 2019-11-04 Abstract Akinsipe, [facility] 1.2.840.114 [id number] Univers 00:00:00 00:00:00 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 350.1.13.10 ity of [facility] 4.2.7.2.686 Stephon as MATERNAL [phone] [place] [facility] CHILD 107 [facility] 2019-11-04 2019-11-04 Telephone Akinsipe, [facility] 1.2.840.114 [id number] Univers 00:00:00 00:00:00 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 350.1.13.10 ity of [facility] 4.2.7.2.686 Stephon as MATERNAL [phone] [place] [facility] CHILD 107 [facility] 2019-11-03 2019-11-03 Routine Akinsipe, [facility] 1.2.698.725 [id number] Univers 13:00:45 14:09:38 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 350.1.13.10 ity of Visit REGIONAL 4.2.7.2.686 Stephon as MATERNAL [phone] [facility] & CHILD [address] [place] [address] 2019-11-03 2019-11-03 Carding Machine Operator Ultrasound, [facility] 1.2 .840.114 [id number] Univers 09:50:15 10:56:13 Visit Meagan Saeed FISHING INSTRUCTOR 350.1.13.10 ity of REGIONAL 4.2.7.2.686 Stephon as MATERNAL [phone] [facility] CHILD [address] [facility] 2019-11-03 2019-11-03 Outpatient P [facility] [id number] Univers 09:30:00 09:30:00 ity of [facility] 2019-11-03 2019-11-03 Orders Doctor TUTTLE 1.2.840.114 [id number] Univers 00:00:00 00:00:00 Only Unassigned, ONESIMO 350.1.13.10 ity of [place] [facility] 4.2.7.2.686 Stephon as [phone] [address] 2019-10-30 2019-10-30 Outpatient R MEGAN [facility] [id number] Univers 08:30:00 08:30:00 ARMANDO loo o f [facility] 2019-10-02 2019-10-02 [facility] [id number] Univers 12:52:29 14:11:03 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 350.1.13.10 ity of Visit [facility] 4.2.7.2.686 Stephon as MATERNAL [phone] [facility] & CHILD [address] [place] [address] 2019-10-02 2019-10-02 Outpatient R MEGAN [facility] [id number] Univers 13:15:00 13:15:00 ARMANDO loo o f [facility] 2019-09-01 2019-09-01 [facility] 1.2.840.114 [id number] Univers 16:43:49 16:57:06 ne Visit 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 350.1.13.10 ity of REGIONAL 4.2.7.2.686 Stephon as MATERNAL [phone] [facility] & CHILD [address] [place] [address] 2019-09-01 2019-09-01 Outpatient R [facility] [id number] Univers 14:30:00 14:30:00 ARMANDO ity o [facility] 2019-09-01 2019-09-01 Outpatient R [facility] [id number] Univers 09:30:00 09:30:00 ARMANDO ity o [facility] 2019-09-01 2019-09-01 Telephone [facility] 1.2.840.114 [id number] Univers 00:00:00 00:00:00 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 350.1.13.10 ity of REGIONAL 4.2.7.2.686 Stephon as MATERNAL [phone] [facility] & [address] 2019-08-11 2019-08-11 Outpatient R [facility] [id number] Univers 10:30:00 10:30:00 ity of [facility] 2019-08-04 2019-08-04 Initial [facility] [id number] Univers 09:41:37 11:04:58 Ramando C FISHING INSTRUCTOR 350.1.13.10 ity of Visit REGIONAL 4.2.7.2.686 Stephon as MATERNAL [phone] [facility] & CHILD [address] [place] [address] 2019-08-04 2019-08-04 [facility] [id number] Univers 08:00:00 08:00:00 ARMANDO ity o [facility] Results Test Description Test Time Test Comments Results Result Comments Source RHO (D) IMMUNE GLOBULIN 2022-06-03 09:31:58 Test Item Value Reference Range Interpretation Comme nts RHIG CANDIDATE? (test code = No- see comment Patient is not a candidate for RhIg- 5055) Patient is Rh P ositive.Performed at [facility] Laboratory Services - [facility] Blood [address] [place] [address]Piaw Free: [phone] A No. [id number] [facility] [id number] 01:02:31 Test Item Value Reference Range Interpretation Comments BASE EXCESS, CORD mEq/L (test code = 8956176037) AC PH, CORD (BEAKER) 7.18-7.38 (test code = 6131968059) PC02, CORD (test code See_Comment [Auto mated message] The = 9614326030) system which g enerated this result transmit evie reference range : 32 - 66 mmHg. The refer ence range was not used to interpret this result as normal/abnormal . PO2, CORD (test code See_Comment [Autom ated message] The = 4788150190) system which g enerated this result transmit evie reference range : 10 - 30 mmHg. The refer ence range was not used to interpret this result as normal/abnormal . BICARBONATE, CORD See_Comment [Automate d message] The (test code = system which ge nerated this 1645938438) result transmit evie reference range : 17 - 27 mEq/L. The refe rence range was not used to interpret this result as normal/abnormal . [facility] [id number] 01:00:10 Test Item Value Reference Range Interpretation Comments VENOUS BASE EXCESS, mEq/L CORD (test code = 2408586425) VENOUS PH, CORD (test 7.25-7.45 code = 6378182144) VENOUS PC02, CORD See_Comment [Automate d message] The (test code = system which ge nerated 5730779344) this result tra nsmitted reference range : 27 - 49 mmHg. The refer ence range was not used to interpret this result as normal/abnormal . VENOUS PO2, CORD (test See_Comment [Aut omated message] The code = 3076793637) system [facility] generated this result tra nsmitted reference range : 17 - 41 mmHg. The refer ence range was not used to interpret this result as normal/abnormal . VENOUS BICARBONATE, See_Comment [Automa evie message] The CORD (test code = system [facility] ch generated [id number]) this result tra nsmitted reference range : 12 - 29 mEq/L. The refe rence range was not used to interpret this result as normal/abnormal . [facility] and Screen - ONCE [id number] 22:12:03 Test Item Value Reference Range Interpretation Comments ABO & RH (test code A POSITIVE Performe d at [facility] = 20) Laboratory Serv [facility] Blood [facility] [facility] [address]Zosb Free: [phone] A No. [id number] IAT (test code = Negative Performed a t [facility] 1185) Laboratory Serv [facility] Blood [facility] [id number] Free: [phone] A No. [id number] [facility] W SPECIFIC [id number] 15:54:00 Test Item Value Reference Range Interpretation Comments POCT U SP GRAV (test code = * 1.005-1.025 3255) POCT PH U (test code = 3254) * 5-8 POCT U LEUK EST (test code = * Negative - Negative 3) POCT U NIT (test code = 3262) * Negative - Negative POCT U PROT (test code = 3259) negative Negative - Negative POCT U GLU (test code = 3256) negative Negative - Negative POCT U KETONE (test code = 3258) * Negative - Negative POCT U UROBILI (test code = * 0.2-1 3260) POCT U BILI (test code = 3261) * Negative - Negative POCT U BLD (test code = 3257) * Negative - Negative POCT U COLOR (test code = 3266) * POCT U APPEAR (test code = 3267) [facility] W SPECIFIC [id number] 16:00:00 Test Item Value Reference Range Interpretation Comments POCT U SP GRAV (test code = . 1.005-1.025 3255) POCT PH U (test code = 3254) 7 mg/dl 5-8 POCT U LEUK EST (test code = 2+ Negative - Negative 3263) POCT U NIT (test code = 3262) negative Negative - Negative POCT U PROT (test code = 3259) trace Negative - Negative POCT U GLU (test code = 3256) negative Negative - Negative POCT U KETONE (test code = 3258) negatie Negative - Negative POCT U UROBILI (test code = . 0.2-1 3260) POCT U BILI (test code = 3261) . Negative - Negative POCT U BLD (test code = 3257) negative Negative - Negative POCT U COLOR (test code = 3266) . POCT U APPEAR (test code = 3267) . [facility] URINALYSIS W SPECIFIC [id number] 15:04:00 Test Item Value Reference Range Interpretation Comments POCT U SP GRAV (test code = . 1.005-1.025 3255) POCT PH U (test code = 3254) . 5-8 POCT U LEUK EST (test code = . Negative - Negative 3263) POCT U NIT (test code = 3262) . Negative - Negative POCT U PROT (test code = 3259) 1+ Negative - Negative POCT U GLU (test code = 3256) negative Negative - Negative POCT U KETONE (test code = 3258) . Negative - Negative POCT U UROBILI (test code = . 0.2-1 3260) POCT U BILI (test code = 3261) . Negative - Negative POCT U BLD (test code = 3257) . Negative - Negative POCT U COLOR (test code = 3266) . POCT U APPEAR (test code = 3267) . [facility] URINALYSIS W SPECIFIC [id number] 15:25:00 Test Item Value Reference Range Interpretation Comments POCT U SP GRAV (test code = . 1.005-1.025 3255) POCT PH U (test code = 3254) 6 mg/dl 5-8 POCT U LEUK EST (test code = 3+ Negative - Negative 3263) POCT U NIT (test code = 3262) negative Negative - Negative POCT U PROT (test code = 3259) trace Negative - Negative POCT U GLU (test code = 3256) negative Negative - Negative POCT U KETONE (test code = 3258) negative Negative - Negative POCT U UROBILI (test code = . 0.2-1 3260) POCT U BILI (test code = 3261) . Negative - Negative POCT U BLD (test code = 3257) trace Negative - Negative POCT U COLOR (test code = 3266) . POCT U APPEAR (test code = 3267) . [facility] W SPECIFIC [id number] 19:06:00 Test Item Value Reference Range Interpretation Comments POCT U SP GRAV (test code = . 1.005-1.025 3255) POCT PH U (test code = 3254) 8 mg/dl 5-8 POCT U LEUK EST (test code = ++ Negative - Negative 3263) POCT U NIT (test code = 3262) negative Negative - Negative POCT U PROT (test code = 3259) trace Negative - Negative POCT U GLU (test code = 3256) negative Negative - Negative POCT U KETONE (test code = 3258) negative Negative - Negative POCT U UROBILI (test code = . 0.2-1 3260) POCT U BILI (test code = 3261) . Negative - Negative POCT U BLD (test code = 3257) negative Negative - Negative POCT U COLOR (test code = 3266) yellow POCT U APPEAR (test code = 3267) clear [facility]
[2022-11-07 16:07] LABS: Urine Bacteria <20 /HPF (<20); Urine Bilirubin NEGATIVE (Negative); Urine Blood Negative (Negative); Urine Clarity Extremely Turbid (Clear); Urine Color Yellow (Yellow); Urine Glucose NEGATIVE (Negative); Urine Mucus Slight /HPF (None Seen); Urine Protein 1+ (Negative); Urine Urobilinogen 3+ (Normal)
[2022-11-07 16:11] LABS: Absolute Lymphocytes (CBC) 1.6 K/uL (0.7-4.9); Hematocrit 34.6 % (36.0-45.0); MCV 85.4 fL (80-100); MPV 8.4 fL (7.6-11.3); RBC Red Blood Cell Count 4.05 M/uL (3.86-4.86)
[2022-11-07 16:25] LABS: Albumin 3.1 g/dL (3.4-5.0); Bilirubin Total 0.7 mg/dL (0.2-1.0); Potassium 3.7 mEq/L (3.5-5.1); Protein, Total 7.1 g/dL (6.4-8.2)
[2022-11-07] MEDS ORDERED: ACETAMINOPHEN 500 MG TAB ONE (17:49)
[2022-11-07] MEDS ORDERED: ONDANSETRON 4 MG (ODT) TAB ONE (17:49)
--- NOTE | 2022-11-07 18:06 | RAD REPORT ---
EXAM DESCRIPTION: US - Transvaginal OB - 11/07/2022 5:49 pm CLINICAL HISTORY: with abdominal pain COMPARISON: None. FINDINGS: The uterus measures 13 x 9 x 10 centimeters. Within the endometrium is a gestational sac. pole with a crown-rump length 4.1 centimeters is p resent. Cardiac activity 173 beats per minute. Gestational sac appears normal Right ovary normal in size and echotexture. Left ovary not seen secondary to overlying bowel gas The right and left adnexa unremarkable No significant free fluid IMPRESSION: Single live into with an estimated gestational age 10 weeks 5 days MORGAN 024
--- NOTE | 2022-11-07 18:22 | ER ---
Nurse's Notes [facility] Name: Kiran Daigle Age: 22 yrs Sex: Female : 2000 Arrival Date: 11/07/2022 Time: 15:20 Bed Treatment Private MD: Diagnosis: Other specified related conditions, first trimester;Nausea with vomiting, unspecified;Lower abdominal pain, unspecified Presentation: 11/07 15:33 Chief complaint: Patient states: pelvic pain and vomiting since 2 days ago, denies pain iw or burning with urination, denies vaginal bleeding or discharge, she had diarrhea that is now resolved , pain to LLQ radiating to back. Coronavirus screen: At this time, the client does not indicate any symptoms associated with coronavirus-19. Ebola Screen: Patient negative for fever greater than or equal to 101.5 degrees Fahrenheit, and additional compatible Ebola Virus Disease symptoms Patient denies exposure to infectious person. Patient denies travel to an Ebola-affected area in the 21 days before illness onset. No symptoms or risks identified at this time. Initial Sepsis Screen: Does the patient meet any 2 criteria? No. Patient's initial sepsis screen is negative. Does the patient have a suspected source of infection? No. Patient's initial sepsis screen is negative. Risk Assessment: Do you want to hurt yourself or someone else? Patient reports no desire to harm self or others. Onset of symptoms was November 05, 2022. 15:33 Method Of Arrival: Ambulatory iw 15:33 Acuity: JUMANA 3 iw Triage Assessment: 17:44 General: Appears in no apparent distress. comfortable, Behavior is calm, cooperative, nj1 appropriate for age. Pain: Complains of pain in pelvis Pain currently is 5 out of 10 on a pain scale. 17:44 Neuro: Level of Consciousness is awake, alert, obeys commands, Oriented to person, nj1 place, time, situation. Cardiovascular: Patient's skin is warm and dry. Respiratory: Airway is patent Respiratory effort is even, unlabored. : Reports cramping. 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 - Social history:: Smoking status: . Screenin:44 [facility] ED Fall Risk Assessment (Adult) History of falling in the last 3 months, nj1 including since admission No falls in past 3 months (0 pts) Confusion or Disorientation No (0 pts) Intoxicated or Sedated No (0 pts) Impaired Gait No (0 pts) Mobility Assist Device Used No (0 pt) Altered Elimination No (0 pt) Score/Fall Risk Level 0 - 2 = Low Risk Oriented to surroundings, Maintained a safe environment, Hourly rounding (assess needs \T\ fall precautionary measures) done. Abuse screen: Denies threats or abuse. Denies injuries from another. Nutritional screening: No deficits noted. Tuberculosis screening: No symptoms or risk factors identified. Assessment: 17:44 Reassessment: See triage assessment. nj1 Vital Signs: 15:33 BP 108 / 51; Pulse 75; Resp 16; Temp 98.4; Pulse Ox 100% on R/A; Weight 81.65 kg; iw Height 5 ft. 6 in. ; Pain 6/10; 18:45 BP 122 / 71; Pulse 64; Resp 16; Pulse Ox 100% ; Pain 0/10; nj1 15:33 Body Mass Index 29.05 (81.65 kg, 167.64 cm) iw 15:33 Pain Scale: Adult iw 18:45 Pain Scale: Adult [facility] ED Course: 15:22 Patient arrived in ED. rg4 15:35 Triage completed. iw 15:36 Arm band placed on. iw 15:37 Adán White PA is PHCP. cp 15:37 Nicolas Byrd MD is Attending Physician. cp 17:25 Virginia Glaser, JUAN is Primary Nurse. nj1 17:44 Patient has correct armband on for positive identification. Bed in low position. Call [facility] light in reach. 17:51 US Transvaginal Ob In Process Unspecified. EDMS 18:45 No provider procedures requiring assistance completed. IV discontinued, intact, nj1 bleeding controlled. Administered Medications: 17:44 Drug: Acetaminophen PO 1000 mg Route: PO; nj1 18:45 Follow up: Response: No adverse reaction nj1 17:44 Drug: Ondansetron PO 4 mg Route: PO; nj1 18:45 Follow up: Response: No adverse reaction nj1 Medication: 18:50 VIS not applicable for this client. nj1 Outcome: 18:22 Discharge ordered by . ran 18:45 Discharged to home ambulatory. nj1 18:45 Condition: stable 18:45 Discharge instructions given to patient, Instructed on discharge instructions, follow up and referral plans. medication usage, Demonstrated understanding of instructions, follow-up care, medications, Prescriptions given X 2. 18:50 Patient left the ED. nj1 Signatures: Dispatcher [employer] EDMS Laura Arango RN RN Adán Godinez PA PA cp Garcia, Rubi rg4 Virginia Glaser RN RN nj1
--- NOTE | 2022-11-07 18:22 | EDPHYS ---
Physician Documentation [facility] Name: Kiran Daigle Age: 22 yrs Sex: Female : 2000 Arrival Date: 11/07/2022 Time: 15:20 Bed Treatment Private MD: ED Physician Nicolas Byrd HPI: 11/07 16:00 This 22 yrs old Female presents to ER via Ambulatory with complaints of Pelvic cp Pain. 16:00 The patient presents with pelvic pain, lower abdomen pain. Onset: The symptoms/episode cp began/occurred 2 day(s) ago. Associated signs and symptoms: Pertinent positives: nausea, vomiting, Pertinent negatives: dysuria, fever, vaginal bleeding, vaginal discharge. Severity of symptoms: in the emergency department the symptoms are unchanged, despite home interventions. The patient is sexually active. The patient's method of control includes nothing. Patient unsure of last menstrual cycle and reports possibility of . 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 - Social history:: Smoking status: . ROS: 16:05 Constitutional: Negative for body aches, chills, fever, poor PO intake. cp 16:05 Respiratory: Negative for cough, shortness of breath, wheezing. cp 16:05 Abdomen/GI: Positive for abdominal pain, bilateral lower abdomen. Exam: 16:10 Constitutional: The patient appears in no acute distress, alert, awake, comfortable, cp non-toxic, well developed, well nourished. 16:10 Head/Face: Normocephalic, atraumatic. cp 16:10 Eyes: Periorbital structures: appear normal, Conjunctiva: normal, no exudate, no injection, Sclera: no appreciated abnormality, Lids and lashes: appear normal, bilaterally. 16:10 ENT: External ear(s): are unremarkable, Nose: is normal, Mouth: Lips: moist, Oral mucosa: pink and intact, moist, Posterior pharynx: is normal, airway is patent, no erythema, no exudate. 16:10 Chest/axilla: Inspection: normal. 16:10 Cardiovascular: Rate: normal, Rhythm: regular. 16:10 Respiratory: the patient does not display signs of respiratory distress, Respirations: normal, no use of accessory muscles, no retractions, Breath sounds: are clear throughout, no decreased breath sounds, no stridor, no wheezing. 16:10 Abdomen/GI: Inspection: abdomen appears normal, Bowel sounds: active, all quadrants, Palpation: soft, in all quadrants, mild abdominal tenderness, in the right lower quadrant and left lower quadrant, rebound tenderness, is not appreciated, involuntary guarding, is not appreciated. 16:10 Back: pain, is absent, ROM is normal. Vital Signs: 15:33 BP 108 / 51; Pulse 75; Resp 16; Temp 98.4; Pulse Ox 100% on R/A; Weight 81.65 kg; iw Height 5 ft. 6 in. ; Pain 6/10; 18:45 BP 122 / 71; Pulse 64; Resp 16; Pulse Ox 100% ; Pain 0/10; nj1 15:33 Body Mass Index 29.05 (81.65 kg, 167.64 cm) iw 15:33 Pain Scale: Adult iw 18:45 Pain Scale: Adult nj1 MDM: 15:37 Patient medically screened. 16:00 Differential diagnosis: appendicitis, dysmenorrhea, ectopic , nonspecific cp abdominal pain, ovarian cyst, pelvic inflammatory disease, urinary tract infection, vaginosis. 18:20 Data reviewed: vital signs, nurses notes, lab test result(s), radiologic studies, cp ultrasound. 18:20 I considered the following discharge prescriptions or medication management in the emergency department Medications were administered in the Emergency Department. See MAR. Test considered but Not performed: CT: abdomen/pelvis. Counseling: I had a detailed discussion with the patient and/or guardian regarding: the historical points, exam findings, and any diagnostic results supporting the discharge/admit diagnosis, lab results, radiology results, the need for outpatient follow up, an OB/Gyne specialist, to return to the emergency department if symptoms worsen or persist or if there are any questions or concerns that arise at home. Special discussion: Based on the patient's Hx, exam, and Dx evaluation, there is no indication for emergent surgery or inpatient Tx. It is understood by the patient/guardian that if the Sx's persist or worsen they need to return immediately for re-evaluation. ED course: VSS. Pain and nausea improved with meds. Discussed today's results showing IUP of 10 weeks gestation. Will discharge to home to f/u with OB. 11/07 15:43 Order name: Test, Urine; Complete Time: 17:01 aa5 11/07 15:43 Order name: Urinalysis w/ reflexes; Complete Time: 17:01 aa5 11/07 15:43 Order name: CBC with Diff; Complete Time: 17:01 cp 11/07 15:43 Order name: CMP; Complete Time: 17:01 cp 11/07 15:43 Order name: Lipase; Complete Time: 17: cp 11/07 17:09 Order name: HCG-Quantitative cp 11/07 17:09 Order name: US Transvaginal Ob; Complete Time: 18:08 cp 11/07 15:43 Order name: IV Saline Lock; Complete Time: 16:19 cp 11/07 15:43 Order name: Labs collected and sent; Complete Time: 16:19 cp Administered Medications: 17:44 Drug: Acetaminophen PO 1000 mg Route: PO; nj1 18:45 Follow up: Response: No adverse reaction nj1 17:44 Drug: Ondansetron PO 4 mg Route: PO; nj1 18:45 Follow up: Response: No adverse reaction nj1 Disposition Summary: 11/07/22 18:22 Discharge Ordered Location: Home cp Problem: new cp Symptoms: have improved cp Condition: Stable cp Diagnosis - Other specified related conditions, first trimester cp - Nausea with vomiting, unspecified cp - Lower abdominal pain, unspecified cp Followup: cp - With: Private Physician - When: 1 week - Reason: Recheck today's complaints Discharge Instructions: - Discharge Summary Sheet cp - Abdominal Pain During cp - Nausea and Vomiting, Adult cp - Care cp - First Trimester of cp Forms: - Medication Reconciliation Form cp - Thank You Letter cp - Antibiotic Education cp - Prescription Opioid Use cp Prescriptions: - 114-iron a-g-folate 1 20 mg iron- 1 mg Oral tablet - take 1 tablet by ORAL route every morning; 60 tablet; Refills: 0, Product cp Selection Permitted - Zofran 4 mg Oral Tablet - take 1 tablet by ORAL route every 12 hours As needed; 20 tablet; Refills: 0, cp Product Selection Permitted Signatures: Dispatcher [employer] Laura Christiansen, RN RN Adán Godinez PA PA cp Jaco, Norma RN RN nj1
[2022-11-07 19:23] VITALS: TEMP 98.4; O2SAT 100
[2022-11-07 19:26] VITALS: BP 122/71
== END 2022-11-07 18:50 | disposition home or self-care (01) ==
LOC: ER 15:20
DX: O21.9 Vomiting of pregnancy, unspecified (principal); O26.891 Other specified pregnancy related conditions, first trimester; Z3A.10 10 weeks gestation of pregnancy
CPT/HCPCS: 85025; 81001; 36415; 81025; 84702; 83690; 80053; 76817; 99283; Q0162

== ENCOUNTER 2023-02-27 19:11 | Emergency (ER) | payer OTHER ==
--- OUTSIDE RECORDS SUMMARY | 2023-02-27 19:20 | XMS REPORT | Continuity of Care Document ---
:2000 Author Organization [facility] t Address [address] [facility] [address] [place] [address] Care Team Providers Name Role Phone Armando Morrissey Primary Care Physician [phone] ARMANDO GUZMAN Attending Clinician Unavailable Armando Morrissey Attending Clinician [phone] Ultrasound, MickMfelda Attending Clinician Unavailable Magda Perkins MD, Sarah Attending Clinician [phone] SARAH TOBIAS Attending Clinician Unavailable Lab, MickRmchjoseph Attending Clinician Unavailable Tammie Narvaez CNM Attending Clinician Doctor Unassigned, [place] Attending Clinician Unavailable MARRY SESAY Attending Clinician Unavailable Alonzo MULLINS, Martha Charles Attending Clinician [phone] Raymundo BROWN Cece ACE Attending Clinician Davian Wagner MD Attending Clinician Tomas Canseco MD Attending Clinician TAMMIE NARVAEZ Attending Clinician Unavailable Provider, [facility] Attending Clinician Unavailable SWETA ERWIN Attending Clinician Unavailable [place] MSN, Sweta Owens Attending Clinician AMBAR CUBA Attending Clinician Unavailable 1, [facility] Attending Clinician Unavailable Pavan MULLINS, Alex Joseph Attending Clinician ALEX REYES Attending Clinician Unavailable JOEY MONTES Attending Clinician Unavailable ADÁN MCKINNON Attending Clinician Unavailable Gabriel Blanton DO Attending Clinician Fred Lawson MD Attending Clinician [facility] Attending Clinician [phone] COURTNEY GUSTAFSON Attending Clinician Unavailable TC MILLER Attending Clinician Unavailable Paul CASTING ROOM HELPER, Tc Grant Attending Clinician Pawan Mcgill DO Attending Clinician Benjy MULLINS, Marshall Avalos Attending Clinician Meagan Saeed MD Attending Clinician Martha Mendez MD Admitting Clinician [phone] MARTHA MENDEZ Admitting Clinician Unavailable ADÁN MCKINNON Admitting Clinician Unavailable Benjy MULLINS, Marshall Avalos Admitting Clinician Payers Payer Name Policy Type Policy Number Effective Date Expiration Date [place] [facility] [id number] 2019 HEALTH 00:00:00 MEDICAID PENDING PENDING 2019 00:00:00 MEDICAID [facility] [id number] 2019 00:00:00 Problems Condition Condition Condition Status Onset Resolution Last Treating Co mments Source Name Details Category Date Date Treatment Clinician Date BV BV Disease Active 2022-05 Univers (bacterial (bacterial 0-02 it y of vaginosis) [place]in[place] 00 [facility] Susceptibl Susceptibl Disease Active Overview : Univers e to e to 8-10 Formattin ity of varicella varicella 00:00: g of this [place] (non-immun (non-immun 00 note Me dical e), e), might be Branch currently currently different from the original. Address pp Multiparit Multiparit Disease Active U nivers y y 8-09 ity of 00:00: [place] [facility] Short Short Disease Active Univers interval interval 8-09 ity of between between 00:00: [place] pregnancie pregnancie 00 Me dical s s Branch affecting affecting , , antepartum antepartum Disease Active Univers (spontaneo (spontaneo 1-14 it y of [place] vaginal [place] vaginal [place] delivery[place] delivery[place] [facility] Single Single Disease Active Univers live live 1-14 ity of 00:00: [place] [facility] Branch Anemia, Anemia, Disease Active Univers 1-14 it y of 00:00: [address] Branch Uterine Uterine Disease Active Univers contractio contractio 1-13 it y of [place] during [place] during [place] [facility] Obesity Obesity Disease Active Univers (BMI (BMI 1-13 ity of 30-39.9) 30-39.9) 00:00: [place] [facility] Over Over Disease Active Univers weight weight 1-13 ity of 00:00: [place] [facility] Branch Pain of Pain of Disease Active Univers round round 1-06 ity of ligament ligament 00:00: [place] during during 00 Medical Bran ch Obesity [...] Chlamydia Disease Active Overview: Univers infection infection 9-16 Formattin i ty of affecting affecting 00:00: [place] of this [place] 00 note [facility] might be Branch different from the original. Pending tobias Supervisio Supervisio Disease Active U nivers n of n of 9-15 ity of high-risk high-risk 00:[place] [facility] Multiparit Multiparit Disease Active U nivers y y 9-15 ity of 00:00: [place] 00 Medical Branch Short Short Disease Active Univers interval interval 9-15 ity of between between 00:00: [place] pregnancie pregnancie 00 Me dical s s Branch affecting affecting , , antepartum antepartum Supervisio Supervisio Disease Active U nivers n of n of 9-15 ity of high-risk high-risk 00:[place] 00 [facility] with with Branch insufficie insufficie nt nt care care 39 weeks 39 weeks Disease Active Unive rs gestation gestation 2-03 ity of of of 00:00: [place] 00 [facility] Branch UTI UTI Disease Active Univers (urinary (urinary 7-01 ity of tract tract 00:00: [place] infection) infection) 00 Me dical during during Branch Anemia of Anemia of Disease Active Uni vers mother in mother in 8-05 ity of , , 00:00: [place] antepartum antepartum 00 Me dical Branch Over Over Disease Active Univers weight weight 3-16 ity of 00:00: [place] 00 Medical Branch Allergies, Adverse Reactions, Alerts Allergy Allergy Status Severity Reaction(s) Onset Inactive Treating Comm ents Source Name Type Date Date Clinician NO KNOWN Drug Active Univers ALLERGIE Class ity of S [facility] Social History Social Habit Start Date Stop Date Quantity Comments Source ASSERTION 2022-09-07 University of 00:00:00 [facility] Gender identity Universit y of [facility] Sexual orientation Univer sity of [facility] History SDOH University o f Alcohol Std Drinks [place] [facility] History SDOH University o f Alcohol Binge [place] [facility] History SDOH University o f Alcohol Comment [place] Med ical [facility] Alcohol intake 2023-02-19 2023-02-19 Ex-drinker [facility] 00:00:00 00:00:00 (finding) [facility] History of Social 2023-02-14 2023-02-14 Univers ity of function 00:00:00 00:00:00 [facility] Exposure to 2022-06-14 2022-06-24 Not sure [facility] SARS-CoV-2 (event) 00:00:00 06:15:00 [facility] Tobacco use and 2022-02-02 2022-02-02 Smokeless Universit y of exposure 00:00:00 00:00:00 tobacco non-user [facility]ical [place] History SDOH 2019-08-04 2019-08-04 1 University o f Alcohol Frequency 00:00:00 00:00:00 [facility] Sex Assigned At [birth year] Universit y of 00:00:00 00:00:00 [facility] Smoking Status Start Date Stop Date Source Never smoked tobacco [facility] Medications Ordered Filled Start Stop Current Ordering Indication Dosage Frequency Signature Comments Components Source Medication Medication Date Date Medication? Clinician (SIG) Name Name metroNIDAZO 2022-05 Yes [id number] 500mg Take 1 Univers LE 500 mg 0-02 tablet by ity o f tablet 00:00: mouth in [place] [address] the Medical morning Branch and 1 tablet in the evening. metroNIDAZO 2022-05 Yes [id number] 500mg Take 1 Univers LE 500 mg 0-02 tablet by ity o f tablet 00:00: mouth in [place] [address] the Medical morning Branch and 1 tablet in the evening. Nitrofurant 2022- Yes [id number] 100mg Take 1 Univers oin&Nit. 8-14 08-25 capsule by ity of Macrocryst 00:00: 04:59 mouth in [place] (MACROBID) 00 :00 the Medical 100 mg morning Branch capsule and 1 capsule in the evening. Do all this for 10 days. Nitrofurant 2022- Yes [id number] 100mg Take 1 Univers oin&Nit. 8-14 08-25 capsule by ity of Macrocryst 00:00: 04:59 mouth in [place] (MACROBID) 00 :00 the Medical 100 mg morning Branch capsule and 1 capsule in the evening. Do all this for 10 days. Yes [id number] 1{tbl} Take 1 Univers [id number]- 8-09 09 tablet by ity of folic acid 00:00: mouth in [place] 29 mg iron- 00 the Medical 1 mg per morning. Branch tablet Yes [id number] 1{tbl} Take 1 Univers [id number]-jdwa- 8- 09 tablet by ity of folic acid 00:00: mouth in [place] 29 mg iron- 00 the Medical 1 mg per morning. Branch tablet Yes [id number] 1{tbl} Take 1 Univers wwi79-xonm- 8- 09 tablet by ity of folic acid 00:00: mouth in [place] 29 mg iron- 00 the Medical 1 mg per morning. Branch tablet Yes [id number] 1{tbl} Take 1 Univers [id number]-[id number]- 8- 09 tablet by ity of folic acid 00:00: mouth in [place] 29 mg iron- 00 the Medical 1 mg per morning. Branch tablet Yes [id number] 1{tbl} Take 1 Univers [id number]-yhie- 8- 09 tablet by ity of folic acid 00:00: mouth in [place] 29 mg iron- 00 the Medical 1 mg per morning. Branch tablet Yes [id number] 1{tbl} Take 1 Univers [id number]- 8-09 09 tablet by ity of folic acid 00:00: mouth in [place] 29 mg iron- 00 the Medical 1 mg per morning. Branch tablet Yes [id number] 1{tbl} Take 1 Univers [id number]-ysdf- 8-09 09 tablet by ity of folic acid 00:00: mouth in [place] 29 mg iron- 00 the Medical 1 mg per morning. Branch tablet Yes [id number] 1{tbl} Take 1 Univers [id number]-nezq- 8-09 09 tablet by ity of folic acid 00:00: mouth in [place] 29 mg iron- 00 the Medical 1 mg per morning. Branch tablet Yes [id number] 1{tbl} Take 1 Univers [id number]-jelc- 8-09 09 tablet by ity of folic acid 00:00: mouth in [place] 29 mg iron- 00 the Medical 1 mg per morning. Branch tablet Yes [id number] 1{tbl} Take 1 Univers [id number]-etux- 12-27 tablet by ity of folic acid 00:00: mouth in [place] 29 mg iron- 00 the Medical 1 mg per morning. Branch tablet Yes [id number] 1{tbl} Take 1 Univers [id number]-voqi- 8 tablet by ity of folic acid 00:00: mouth in [place] 29 mg iron- 00 the Medical 1 mg per morning. Branch tablet Yes [id number] 1{tbl} Take 1 Univers [id number]-rvpk- 8 tablet by ity of folic acid 00:00: mouth [place] 29 mg iron- 00 the Medical 1 mg per morning. Branch tablet Yes [id number] 1{tbl} Take 1 Univers owh20-oeze- 12-27 tablet by ity of folic acid 00:00: mouth in [place] 29 mg iron- 00 the Medical 1 mg per morning. Branch tablet Yes [id number] 1{tbl} Take 1 Univers [id number]-etbs- 12-27 tablet by ity of folic acid 00:00: mouth [place] 29 mg iron- 00 the Medical 1 mg per morning. Branch tablet varicella Yes 1{each} 0.5 mL (1 Univers virus 1-15 Each), ity of vaccine 12:35: [place] live 45 us, Medical (VARIVAX) ONCE-PRIOR Bran ch injection TO and diluent DISCHARGE, vial 1 dose, Starting on 06/04/22 at 0635, Until Discontinu ed, Routine, Give vaccine prior to discharge docusate Yes [id number] 200mg Take 2 U nivers 100 mg 1-15 capsules ity of capsule 00:00: by mouth [place] 00 once daily Medical as needed Branch for Constipati on. ferrous Yes [id number] 325mg Take 1 Un tim[place] sulfate 325 1-15 tablet by ity of mg (65 mg 00:00: [place] iron) 00 the Medical tablet morning Branch and 1 tablet in the evening. ibuprofen Yes [id number] 600mg Take 1 Univers 600 mg 1-15 tablet by ity of tablet 00:00: mouth [place] 00 every 6 Medical (six) Branch hours as needed (Pain). Take with food or milk. Iron Fum & 2022-0 Yes [id number] 1{capsu Take 1 Univers P-FA-Vit B 1-15 le} capsule by ity of & C No.9 00:00: mouth [place] (INTEGRA 00 daily. Medical PLUS) 125 Branch mg iron- 1 mg Cap ibuprofen 2022-0 Yes [id number] 600mg Take 1 Univers 600 mg 1-15 tablet by ity of tablet 00:00: mouth [place] 00 every 6 Medical (six) Branch hours as needed (Pain). Take with food or milk. docusate 2022-0 Yes [id number] 200mg Take 2 U nivers 100 mg 1-15 capsules ity of capsule 00:00: by mouth [place] 00 once daily Medical as needed Branch for Constipati on. Iron Fum & 2022-0 Yes [id number] 1{capsu Take 1 Univers P-FA-Vit B 1-15 le} capsule by ity of & C No.9 00:00: mouth [place] (INTEGRA 00 daily. Medical PLUS) 125 Branch mg iron- 1 mg Cap ibuprofen 2022-0 Yes [id number] 600mg Take 1 Univers 600 mg 1-15 tablet by ity of tablet 00:00: mouth [place] 00 every 6 Medical (six) Branch hours as needed (Pain). Take with food or milk. docusate 2022-0 Yes [id number] 200mg Take 2 U nivers 100 mg 1-15 capsules ity of capsule 00:00: by mouth [place] 00 once daily Medical as needed Branch for Constipati on. Iron Fum & 2022-0 2022- No [id number] 1{capsu Take 1 Univers P-FA-Vit B 1-15 08-09 le} capsule by it y of & C No.9 00:00: 00:00 mouth [place] (INTEGRA 00 :00 daily. Medical PLUS) 125 Branch mg iron- 1 mg Cap ibuprofen 2022-0 2022- No [id number] 600mg Take 1 Univers 600 mg 1-15 08-09 tablet by ity of tablet 00:00: 00:00 mouth [place] 00 :00 every 6 Medical (six) Branch hours as needed (Pain). Take with food or milk. docusate 2022-0 2022- No [id number] 200mg Take 2 Univers 100 mg 06-04 capsules ity of capsule 00:00: 00:00 by mouth [place] 00 :00 once daily Medical as needed Branch for Constipati on. Iron Fum & 2022- No [id number] 1{capsu Take 1 Univers P-FA-Vit B 06-04 le} capsule by it y of & C No.9 00:00: 00:00 mouth [place] (INTEGRA 00 :00 daily. Medical PLUS) 125 Branch mg iron- 1 mg Cap ibuprofen 2022- No [id number] 600mg Take 1 Univers 600 mg 06-04 tablet by ity of tablet 00:00: 00:00 mouth [place] 00 :00 every 6 Medical (six) Branch hours as needed (Pain). Take with food or milk. docusate 2022- No [id number] 200mg Take 2 Univers 100 mg 06-04 capsules ity of capsule 00:00: 00:00 by mouth [place] 00 :00 once daily Medical as needed Branch for Constipati on. rho(D) Yes 300ug 300 mcg, Univer s immune -14 Intramuscu ity of globulin 07:41: lar, ONCE, [place] (RHOGAM) 38 For 1 Medical syringe 300 dose, Branch mcg Conditiona l, Routine human Yes .5mL 0.5 mL, Univers papillomav 06-03 Intramuscu ity of vac,9-shayna(P 07:41: lar, [place] F) 36 ONCE-PRIOR Medical (GARDASIL-9 TO Branch ) syringe DISCHARGE, 0.5 mL 1 dose, Starting on 06/03/22 at 0141, Until Discontinu ed, Routine, Give vaccine prior to discharge ibuprofen Yes 600mg 600 mg, Univ ers (IBU) -14 Oral, ity of tablet 600 07:41: Q6HPRN, [place] mg 36 Starting Medical on Sat Branch 06/03/22 at 0141, Until Discontinu ed, Routine, Pain (scale 4-6) acetaminoph Yes 650mg 650 mg, Un tim[place] en -14 Oral, ity of (TYLENOL) 07:41: Q6HPRN, [place] tablet 650 36 Starting Medic al mg on [facility] Branch 06/03/22 at 0141, Until Discontinu ed, Routine, Pain (scale 1-3) diphenhydrA 3-0 Yes 25mg 25 mg, Univ ers MINE 1-14 Oral, ity of (BENADRYL) 07:41: Q6HPRN, [place] tablet 25 36 Starting Medica l mg on [facility] Branch 06/03/22 at 0141, Until Discontinu ed, Routine, Sleep, Itching ondansetron 2022-0 Yes 4mg 4 mg, Slow Univers (ZOFRAN -14 IV Push, ity of (PF)) 07:41: Q8HPRN, [place] injection 4 36 Starting Medi vanita mg on [facility] Branch 06/03/22 at 0141, Until Discontinu ed, Routine, Nausea and Vomiting (N/V) simethicone 2022-0 Yes 160mg 160 mg, Un tima (GAS RELIEF 14 Oral, ity of (SIMETHICON 07:41: PC+HSPRN, [place] E)) 36 Starting Medical chewable on [facility] Branch tablet 160 06/03/22 at mg 0141, Until Discontinu ed, Routine, Gas docusate 2022-0 Yes 200mg 200 mg, Unive rs (COLACE) 14 Oral, ity of capsule 200 07:41: QDAILYPRN, [place] mg 36 Starting Medical on [facility] Branch 06/03/22 at 0141, Until Discontinu ed, Routine, Constipati on magnesium 2022-0 Yes 30mL 30 mL, Univer s hydroxide 14 Oral, ity of (MILK OF 07:41: QDAILYPRN, [place] MAGNESIA) 36 Starting Medica l 400 mg/5 mL on [facility] Branch suspension 06/03/22 at 30 mL 0141, Until Discontinu ed, Routine, Constipati on benzocaine- 2022-0 Yes Topical, Un [place] menthol 1-14 PRN, ity of (DERMOPLAST 07:41: Starting [place] ) 20-0.5 % 36 on [facility] Medical topical 06/03/22 at Branch spray 0141, Until Discontinu ed, Routine, Perineum discomfort ibuprofen 3-0 Yes 600mg 600 mg, Univ ers (IBU) 1-14 Oral, ity of tablet 600 00:58: Q6HPRN, [place] mg 26 Starting Medical on Fri Branch 06/02/22 at 1858, Until Discontinu ed, Routine, Pain (scale 1-3) oxytocin 2022-0 Yes 600mL/h 600 mL/hr, Univers (PITOCIN) 1-14 IV ity of 30 units in 00:58: Infusion, [place] NS 500 mL 17 PRN, For Medica l IV infusion post Branch delivery uterine atony., Starting on Sun06/02/22 at 1858<br&gt ;Start at 600 mL/hr for 1 hr then 150 mL/hr for 1 hr.
oxytocin 2022-0 Yes 300mL/h 300 mL/hr, Univers (PITOCIN) 1-14 [...] CONTINUOUS ity of (NAROPIN 21:55: 02:27 PRN, [place] ()) 00 :33 Starting Medical epidural on Fri Branch infusion 06/02/22 at 1555, Until Sun06/02/22 at 2026, Routine, Intra-op ropivacaine 2022- No Epidural, Univers 0.2 % 06-02 CONTINUOUS ity of (NAROPIN 21:55: 02:27 PRN, [place] ()) 00 :33 Starting Medical epidural on Fri Branch infusion 06/02/22 at 1555, Until Sun06/02/22 at 2026, Routine, Intra-op lidocaine-e 2022-2022- No Intraderma Univers pinephrine 06-02 l, ONCE ity o f (XYLOCAINE 21:54: 02:27 INTRA [place] W/EPINEPHRI 00 :33 PROCEDURE, N[place] dical NE) 1.5 Starting Branch %-1:200,000 on Fri injection 06/02/22 at 1554, Until Sun06/02/22 at 2026, Routine, Intra-op lidocaine-e 2022-0 2022- No Intraderma Univers pinephrine 13 01-14 l, ONCE ity o f (XYLOCAINE 21:54: 02:27 INTRA [place] W/EPINEPHRI 00 :33 PROCEDURE, Me dical NE) 1.5 Starting Branch %-1:200,000 on Sun injection 06/02/22 at 1554, Until 06/02/22 at 2027, Routine, Intra-op oxytocin 2022-0 Yes 2mU/min at 2-40 Uni vers (PITOCIN) 1-13 mL/hr, IV ity o f 30 units in 21:12: Infusion, [place] NS 500 mL 33 TITRATE, Medica l IV infusion Starting Bran ch on Sun06/02/22 at 1512, Until Discontinu ed, BETTY lidocaine 2022-0 Yes 50mL 50 mL, Univer s 1% 13 Infiltrati ity of (XYLOCAINE) 20:11: on, PRN - [place] 10 mg/mL (1 29 SEE Medical %) INSTRUCTIO Branch injection NS, 50 mL Starting on Sun06/02/22 at 1411, Until Discontinu ed, Routine, Local anesthesia , For laceration repair only as a local anesthetic as indicated. lidocaine 2022-0 Yes .3mL 0.3 mL, Unive rs 1% [...] s 29 TITRATE, Medical Starting Branch on Sun06/02/22 at 1411, Until Discontinu ed, Routine sodium 2022-0 2022- No 30mL 30 mL, Univers citrate-cit 06-02 Oral, ity of harry acid 20:11: 21:51 PRE-PROCED [place] (BICITRA) 29 :00 URE ONCE, Medic al 500-334 1 dose, Branch mg/5 mL Starting solution 30 on Sun mL 06/02/22 at 1411, Until Discontinu ed, Routine, Surgery/Pr ocedure No known No No known Unive rs medications 06-02 medication it y of 16:14: s [place] 55 Medical Branch Iron Fum & 2021-05 Yes [id number] 1{capsu Take 1 Univers P-FA-Vit B 2-29 le} capsule by ity of & C No.9 00:00: mouth [place] (INTEGRA daily. Medical PLUS) 125 Branch mg iron- 1 mg Cap Iron Fum & 2021-05 Yes [id number] 1{capsu Take 1 Univers P-FA-Vit B 2-29 le} capsule by ity of & C No.9 00:00: mouth [place] (INTEGRA daily. Medical PLUS) 125 Branch mg iron- 1 mg Cap Iron Fum & 2021-05 Yes [id number] 1{capsu Take 1 Univers P-FA-Vit B 2-29 le} capsule by ity of & C No.9 00:00: mouth [place] (INTEGRA daily. Medical PLUS) 125 Branch mg iron- 1 mg Cap Iron Fum & 2021-05 Yes [id number] 1{capsu Take 1 Univers P-FA-Vit B 2-29 le} capsule by ity of & C No.9 00:00: mouth [place] (INTEGRA daily. Medical PLUS) 125 Branch mg iron- 1 mg Cap Iron Fum & 2021-05 Yes [id number] 1{capsu Take 1 Univers P-FA-Vit B 2-29 le} capsule by ity of & C No.9 00:00: mouth [place] (INTEGRA daily. Medical PLUS) 125 Branch mg iron- 1 mg Cap Iron Fum & 2021-05 Yes [id number] 1{capsu Take 1 Univers P-FA-Vit B 2-29 le} capsule by ity of & C No.9 00:00: mouth [place] (INTEGRA daily. Medical PLUS) 125 Branch mg iron- 1 mg Cap ferrous 2021-05- No [id number] 325mg Take 1 U nivers sulfate 325 07-13-24 tablet by it y of mg (65 mg 00:00: 04:59 mouth in [place] iron) 00 :00 the Medical tablet morning Branch for 90 days. ferrous 2021-05- No [id number] 325mg Take 1 U nivers sulfate 325 [...] BY MOUTH Branc h IN THE MORNING SELECT-OB + 2021-05 Yes TAKE 1 Univ ers DHA 29 mg 2-20 PACKET (1 ity o f iron-1 mg 00:00: TABLET & [place] -250 mg 00 CAPSULE) Medical combo pack BY MOUTH Branc h IN THE MORNING SELECT-OB + 2021-05- No TAKE 1 Uni vers DHA 29 mg 2-20 08-09 PACKET (1 ity of iron-1 mg 00:00: 00:00 TABLET & [place] -250 mg 00 :00 CAPSULE) Medical combo pack BY MOUTH Branc h IN THE MORNING SELECT-OB + 2021-05- No TAKE 1 Uni vers DHA 29 mg 2-20 08-09 PACKET (1 ity of iron-1 mg 00:00: 00:00 TABLET & [place] -250 mg 00 :00 CAPSULE) Medical combo pack BY MOUTH Branc h IN THE MORNING fluconazole 2021-05- No [id number] 150mg Take 1 Univers (DIFLUCAN) 2-16 12-17 tablet by ity of 150 mg 00:00: 05:59 mouth [place] tablet 00 :00 now for 1 Medical dose. Branch Nitrofurant Yes [id number] 100mg Take 1 Univers oin&Nit. 9-19 capsule by ity o f Macrocryst 00:00: mouth in [place] (MACROBID) 00 the Medical 100 mg morning Branch capsule and 1 capsule in the evening. Nitrofurant Yes [id number] 100mg Take 1 Univers oin&Nit. 9-19 capsule by ity o f Macrocryst 00:00: mouth in [place] (MACROBID) 00 the Medical 100 mg morning Branch capsule and 1 capsule in the evening. Nitrofurant Yes [id number] 100mg Take 1 Univers oin&Nit. 9-19 capsule by ity o f Macrocryst 00:00: mouth in [place] (MACROBID) 00 the Medical 100 mg morning Branch capsule and 1 capsule in the evening. Nitrofurant Yes [id number] 100mg Take 1 Univers oin&Nit. 9-19 capsule by ity o f Macrocryst 00:00: mouth in [place] (MACROBID) 00 the Medical 100 mg morning Branch capsule and 1 capsule in the evening. Nitrofurant Yes [id number] 100mg Take 1 Univers oin&Nit. 9-19 capsule by ity o f Macrocryst 00:00: mouth in [place] (MACROBID) 00 the Medical 100 mg morning Branch capsule and 1 capsule in the evening. Nitrofurant Yes [id number] 100mg Take 1 Univers oin&Nit. 9-19 capsule by ity o f Macrocryst 00:00: mouth in [place] (MACROBID) 00 the Medical 100 mg morning Branch capsule and 1 capsule in the evening. Nitrofurant Yes [id number] 100mg Take 1 Univers oin&Nit. 9-19 capsule by ity o f Macrocryst 00:00: mouth in [place] (MACROBID) 00 the Medical 100 mg morning Branch capsule and 1 capsule in the evening. Nitrofurant 0 Yes [id number] 100mg Take 1 Univers oin&Nit. 9-19 capsule by ity o f Macrocryst 00:00: mouth in [place] (MACROBID) 00 the Medical 100 mg morning Branch capsule and 1 capsule in the evening. Nitrofurant 0 Yes [id number] 100mg Take 1 Univers oin&Nit. 9-19 capsule by ity o f Macrocryst 00:00: mouth in [place] (MACROBID) 00 the Medical 100 mg morning Branch capsule and 1 capsule in the evening. Nitrofurant 0 Yes [id number] 100mg Take 1 Univers oin&Nit. 9-19 capsule by ity o f Macrocryst 00:00: mouth in [place] (MACROBID) 00 the Medical 100 mg morning Branch capsule and 1 capsule in the evening. Nitrofurant Yes [id number] 100mg Take 1 Univers oin&Nit. 9-19 capsule by ity o f Macrocryst 00:00: mouth in [place] (MACROBID) 00 the Medical 100 mg morning Branch capsule and 1 capsule in the evening. Nitrofurant Yes [id number] 100mg Take 1 Univers oin&Nit. 9-19 capsule by ity o f Macrocryst 00:00: mouth in [place] (MACROBID) 00 the Medical 100 mg morning Branch capsule and 1 capsule in the evening. Nitrofurant Yes [id number] 100mg Take 1 Univers oin&Nit. 9-19 capsule by ity o f Macrocryst 00:00: mouth in [place] (MACROBID) 00 the Medical 100 mg morning Branch capsule and 1 capsule in the evening. Nitrofurant Yes [id number] 100mg Take 1 Univers oin&Nit. 9-19 capsule by ity o f Macrocryst 00:00: mouth in [place] (MACROBID) 00 the Medical 100 mg morning Branch capsule and 1 capsule in the evening. Nitrofurant Yes [id number] 100mg Take 1 Univers oin&Nit. 9-19 capsule by ity o f Macrocryst 00:00: mouth in [place] (MACROBID) 00 the Medical 100 mg morning Branch capsule and 1 capsule in the evening. Nitrofurant Yes [id number] 100mg Take 1 Univers oin&Nit. 9-19 capsule by ity o f Macrocryst 00:00: mouth in [place] (MACROBID) 00 the Medical 100 mg morning Branch capsule and 1 capsule in the evening. Nitrofurant Yes [id number] 100mg Take 1 Univers oin&Nit. 9-19 capsule by ity o f Macrocryst 00:00: mouth in [place] (MACROBID) 00 the Medical 100 mg morning Branch capsule and 1 capsule in the evening. Nitrofurant 2021- No [id number] 100mg Take 1 Univers oin&Nit. 9-19 12-29 capsule by ity of [place] 00:00: 00:00 mouth in [place] (MACROBID) 00 :00 the Medical 100 mg morning Branch capsule and 1 capsule in the evening. azithromyci 2021- No [id number] 1000mg Take 2 Univers n 500 mg 02-03 01 tablets by [facility]y [place] tablet 00:00: 04:[place] for 1 Medical dose. [place] azithromyci 2021- No [id number] 1000mg Take 2 Univers n 500 mg 02-03 01 tablets by [facility]y [facility] tablet 00:00: 04:59 [place] now for 1 Medical dose. [place] Yes [id number] 1{tbl} Take 1 U nivers multivitami 9-15 tablet by ity of n ( 00:00: mouth [place] VITAMIN[place] 00 the Medical tablet morning. [place] Yes [id number] 1{tbl} Take 1 [facility] nivers multivitami 9-15 tablet by ity of n ( 00:00: mouth [place] VITAMIN[place] 00 the Medical tablet morning. [place] Yes [id number] 1{tbl} Take 1 [facility] nivers multivitami 9-15 tablet by ity of n ( 00:00: mouth [place] VITAMIN) 00 the Medical tablet morning. [place] Yes [id number] 1{tbl} Take 1 [facility] n[facility] multivitami 9-15 tablet by ity of n ( 00:00: [place] VITAMIN) 00 the Medical tablet morning. [place] Yes [id number] 1{tbl} Take 1 [facility] nivers multivitami 9-15 tablet by ity of n ( 00:00: mouth [place] VITAMIN) 00 the Medical tablet morning. [place] Yes [id number] 1{tbl} Take 1 [facility] nivers multivitami 9-15 tablet by ity of n ( 00:00: mouth [place] VITAMIN) 00 the Medical tablet morning. [place] Yes [id number] 1{tbl} Take 1 [facility] nivers multivitami 9-15 tablet by ity of n ( 00:00: mouth [place] VITAMIN) 00 the Medical tablet morning. [place] Yes [id number] 1{tbl} Take 1 [facility] n[facility] multivitami 9-15 tablet by ity of n ( 00:00: mouth [place] VITAMIN) 00 the Medical tablet morning. [place] Yes [id number] 1{tbl} Take 1 [facility] nivers multivitami 9-15 tablet by ity of n ( 00:00: mouth in [place] VITAMIN) 00 the Medical tablet morning. Branch Yes [id number] 1{tbl} Take 1 [facility] n[facility] multivitami 9-15 tablet by ity of n ( 00:00: mouth in [place] VITAMIN) 00 the Medical tablet morning. [place] Yes [id number] 1{tbl} Take 1 [facility] multivitami 9-15 tablet by ity of n ( 00:00: mouth [place] VITAMIN) 00 the Medical tablet morning. [place] Yes [id number] 1{tbl} Take 1 [facility] n[facility] multivitami 9-15 tablet by ity of n ( 00:00: mouth [place] VITAMIN) 00 the Medical tablet morning. [place] Yes [id number] 1{tbl} Take 1 [facility] n[facility] multivitami 9-15 tablet by ity of n ( 00:00: mouth [place] VITAMIN) 00 the Medical tablet morning. [place] Yes [id number] 1{tbl} Take 1 [facility] n[facility] multivitami 9-15 tablet by ity of n ( 00:00: mouth [place] VITAMIN) 00 the Medical tablet morning. [place] Yes [id number] 1{tbl} Take 1 [facility] multivitami 9-15 tablet by ity of n ( 00:00: mouth [place] VITAMIN) 00 the Medical tablet morning. [place] Yes [id number] 1{tbl} Take 1 [facility] multivitami 9-15 tablet by ity of n ( 00:00: mouth [place] VITAMIN) 00 the Medical tablet morning. [place] Yes [id number] 1{tbl} Take 1 [facility] multivitami 9-15 tablet by ity of n ( 00:00: mouth [place] VITAMIN) 00 the Medical tablet morning. [place] Yes [id number] 1{tbl} Take 1 [facility] multivitami 9-15 tablet by ity of n ( 00:00: mouth [place] VITAMIN) 00 the Medical tablet morning. Branch Yes [id number] 1{tbl} Take 1 [facility] nivers multivitami 9-15 tablet by ity of n ( 00:00: mouth [place] VITAMIN) 00 the Medical tablet morning. [place] Yes [id number] 1{tbl} Take 1 [facility] nivers multivitami 9-15 tablet by ity of n ( 00:00: mouth [place] VITAMIN) 00 the Medical tablet morning. [place] Yes [id number] 1{tbl} Take 1 [facility] n[facility] multivitami 9-15 tablet by ity of n ( 00:00: mouth [place] VITAMIN) 00 the Medical tablet morning. [place] Yes [id number] 1{tbl} Take 1 [facility] n[facility] multivitami 9-15 tablet by ity of n ( 00:00: mouth [place] VITAMIN) 00 the Medical tablet morning. [place] Yes [id number] 1{tbl} Take 1 [facility] n[facility] multivitami 9-15 tablet by ity of n ( 00:00: mouth [place] VITAMIN) 00 the Medical tablet morning. [place] Yes [id number] 1{tbl} Take 1 [facility] nivers multivitami 9-15 tablet by ity of n ( 00:00: mouth [place] VITAMIN) 00 the Medical tablet morning. [place] Yes [id number] 1{tbl} Take 1 U nivers multivitami 9-15 tablet by ity of n ( 00:00: mouth [place] VITAMIN) 00 the Medical tablet morning. [place] metroNIDAZO Yes [id number] 500mg Take 1 Univers LE 500 mg 4-08 tablet by ity o f tablet 00:00: mouth 2 [place] 00 (two) Medical times Branch daily. metroNIDAZO Yes [id number] 500mg Take 1 Univers LE 500 mg 4-08 tablet by ity o f tablet 00:00: mouth (two) Medical times Branch daily. metroNIDAZO 2021-0 Yes [id number] 500mg Take 1 [facility] LE 500 mg 4-08 tablet by ity o f tablet 00:00: mouth (two) Medical times Branch daily. metroNIDAZO 2021-0 Yes [id number] 500mg Take 1 [facility] LE 500 mg 4-08 tablet by ity o f tablet 00:00: mouth (two) Medical times Branch daily. metroNIDAZO 2021-0 Yes [id number] 500mg Take 1 [facility] LE 500 mg 4-08 tablet by ity o f tablet 00:00: mouth (two) Medical times Branch daily. metroNIDAZO 2021-0 Yes [id number] 500mg Take 1 [facility] LE 500 mg 4-08 tablet by ity o f tablet 00:00: mouth (two) Medical times Branch daily. metroNIDAZO 2021-0 Yes [id number] 500mg Take 1 [facility] LE 500 mg 4-08 tablet by ity o f tablet 00:00: mouth (two) Medical times Branch daily. metroNIDAZO 2021-0 Yes [id number] 500mg Take 1 [facility] LE 500 mg 4-08 tablet by ity o f tablet 00:00: mouth (two) Medical times Branch daily. metroNIDAZO 2021-0 Yes [id number] 500mg Take 1 [facility] LE 500 mg 4-08 tablet by ity o f tablet 00:00: mouth (two) Medical times Branch daily. metroNIDAZO 2021-0 Yes [id number] 500mg Take 1 [facility] LE 500 mg 4-08 tablet by ity o f tablet 00:00: mouth (two) Medical times Branch daily. metroNIDAZO 2021-0 Yes [id number] 500mg Take 1 [facility] LE 500 mg 4-08 tablet by ity o f tablet 00:00: mouth (two) Medical times Branch daily. metroNIDAZO 2-0 Yes [id number] 500mg Take 1 [facility] LE 500 mg 4-08 tablet by ity o f tablet 00:00: mouth (two) Medical times Branch daily. metroNIDAZO 2021-0 Yes [id number] 500mg Take 1 [facility] LE 500 mg 4-08 tablet by ity o f tablet 00:00: mouth 2 [place] 00 (two) Medical times Branch daily. metroNIDAZO 2021-0 Yes [id number] 500mg Take 1 [facility] LE 500 mg 4-08 tablet by ity o f tablet 00:00: mouth 2 [place] 00 (two) Medical times Branch daily. metroNIDAZO 2021-0 Yes [id number] 500mg Take 1 [facility] LE 500 mg 4-08 tablet by ity o f tablet 00:00: mouth 2 [place] 00 (two) Medical times Branch daily. metroNIDAZO 0 Yes [id number] 500mg Take 1 [facility] LE 500 mg 4-08 tablet by ity o f tablet 00:00: mouth 2 [place] 00 (two) Medical times Branch daily. metroNIDAZO Yes [id number] 500mg Take 1 [facility] LE 500 mg 4-08 tablet by ity o f tablet 00:00: mouth 2 [place] 00 (two) Medical times Branch daily. metroNIDAZO Yes [id number] 500mg Take 1 [facility] LE 500 mg 4-08 tablet by ity o f tablet 00:00: mouth 2 [place] 00 (two) Medical times Branch daily. metroNIDAZO 0 Yes [id number] 500mg Take 1 [facility] LE 500 mg 4-08 tablet by ity o f tablet 00:00: mouth 2 [place] 00 (two) Medical times Branch daily. metroNIDAZO 2021- No [id number] 500mg Take 1 [facility] LE 500 mg 4-08 12-29 tablet by ity of tablet 00:00: 00:00 mouth 2 [place] 00 :00 (two) Medical times Branch daily. metroNIDAZO 2019- No [id number] 500mg Take 1 [facility] LE 500 mg 6-16 10-28 tablet by ity of tablet 00:00: 00:00 mouth 2 [place] 00 :00 (two) Medical times Branch daily. Miscellaneo 2020- No [id number] Use as Univers Medical 10-01 directed ity of Supply 00:00: 00:00 [place] (BLOOD 00 :00 Medical PRESSURE Branch CUFF) Misc PNV 67-iron 2019- No [id number] 1{each} Take 1 Univers ps-folate 10-01 Each by ity of no.1-dha 00:00: 00:00 mouth [place] (VITAFOL 00 :00 daily. Medical ULTRA) 29 Branch mg iron- 1 mg-200 mg Cap proMETHazin 2020- No [id number] 25mg Take 1 Univers e 25 mg 08-31 tablet by ity of tablet 00:00: 00:00 mouth [place] 00 :00 every 6 Medical (six) Branch hours as needed for Nausea and Vomiting (N/V). Immunizations Ordered Immunization Filled Date Status Comments Sour ce Name Immunization Name TDAP 2022-05-05 Completed University of 00:00:00 [facility] TDAP 2022-05-05 Completed University of 00:00:00 [facility] TDAP 2022-05-05 Completed University of 00:00:00 [facility] TDAP 2022-05-05 Completed University of 00:00:00 [facility] TDAP 2022-05-05 Completed University of 00:00:00 [facility] TDAP 2022-05-05 Completed University of 00:00:00 [facility] TDAP 2022-05-05 Completed University of 00:00:00 [facility] TDAP 2022-05-05 Completed University of 00:00:00 [facility] TDAP 2022-05-05 Completed University of 00:00:00 [facility] TDAP 2022-05-05 Completed University of 00:00:00 [facility] TDAP 2022-05-05 Completed University of 00:00:00 [facility] TDAP 2022-05-05 Completed University of 00:00:00 [facility] TDAP 2022-05-05 Completed University of 00:00:00 [facility] TDAP 2022-05-05 Completed University of 00:00:00 [facility] TDAP 2022-05-05 Completed University of 00:00:00 [facility] TDAP 2022-05-05 Completed University of 00:00:00 [facility] TDAP 2022-05-05 Completed University of 00:00:00 [facility] Influenza Virus 2022-02-02 Completed Universit y of Vaccine Quad IM, 00:00:00 [place] Me dical Preserv and ABX Free Bran [...] ABX Free Bran ch 6 MO-64 YRS (FLUCELVAX) TDAP 2021-04-12 Completed University of 00:00:00 [facility] TDAP 2021-04-12 Completed University of 00:00:00 [facility] TDAP 2021-04-12 Completed University of 00:00:00 [facility] TDAP 2021-04-12 Completed University of 00:00:00 [facility] TDAP 2021-04-12 Completed University of 00:00:00 [facility] TDAP 2021-04-12 Completed University of 00:00:00 [facility] TDAP 2021-04-12 Completed University of 00:00:00 [facility] TDAP 2021-04-12 Completed University of 00:00:00 [facility] TDAP 2021-04-12 Completed University of 00:00:00 [facility] TDAP 2021-04-12 Completed University of 00:00:00 [facility] TDAP 2021-04-12 Completed University of 00:00:00 [facility] TDAP 2021-04-12 Completed University of 00:00:00 [facility] TDAP 2021-04-12 Completed University of 00:00:00 [facility] TDAP 2021-04-12 Completed University of 00:00:00 [place] [facility] TDAP 2021-04-12 Completed [facility] of 00:00:00 [place] [facility] TDAP 2021-04-12 Completed University of 00:00:00 [facility] TDAP 2021-04-12 Completed University of 00:00:00 [facility] TDAP 2021-04-12 Completed University of 00:00:00 [facility] TDAP 2021-04-12 Completed University of 00:00:00 [facility] TDAP 2021-04-12 Completed University of 00:00:00 [facility] TDAP 2021-04-12 Completed University of 00:00:00 [facility] TDAP 2021-04-12 Completed University of 00:00:00 [facility] TDAP 2021-04-12 Completed University of 00:00:00 [facility] TDAP 2021-04-12 Completed University of 00:00:00 [facility] TDAP 2021-04-12 Completed University of 00:00:00 [facility] TDAP 2021-04-12 Completed University of 00:00:00 [facility] TDAP 2021-04-12 Completed University of 00:00:00 [facility] TDAP 2021-04-12 Completed University of 00:00:00 [facility] TDAP 2021-04-12 Completed University of 00:00:00 [facility] TDAP 2021-04-12 Completed University of 00:00:00 [facility] TDAP 2021-04-12 Completed University of 00:00:00 [facility] TDAP 2021-04-12 Completed University of 00:00:00 [facility] TDAP 2021-04-12 Completed University of 00:00:00 [facility] TDAP 2021-04-12 Completed University of 00:00:00 [facility] Influenza Virus 2020-02-04 Completed Universit y of Vaccine Quad .5 mL 00:00:00 [facility] 6+ MO Branch Influenza Virus 2020-02-04 Completed Universit y of Vaccine Quad .5 mL 00:00:00 [facility] IM 6+ MO Branch Influenza Virus 2020-02-04 Completed Universit y of Vaccine Quad .5 mL 00:00:00 [place] [facility] 6+ MO Branch Influenza Virus 2020-02-04 Completed Universit y of Vaccine Quad .5 mL 00:00:00 [place] [facility] IM 6+ MO Branch Influenza Virus 2020-02-04 Completed Universit y of Vaccine Quad .5 mL 00:00:00 [place] [facility] IM 6+ MO Branch Influenza Virus 2020-02-04 Completed Universit y of Vaccine Quad .5 mL 00:00:00 [place] [facility] IM 6+ MO Branch Influenza Virus 2020-02-04 Completed Universit y of Vaccine Quad .5 mL 00:00:00 [place] [facility] IM 6+ MO Branch Influenza Virus 2020-02-04 Completed Universit y of Vaccine Quad .5 mL 00:00:00 [place] [facility] IM 6+ MO Branch Influenza Virus 2020-02-04 Completed Universit y of Vaccine Quad .5 mL 00:00:00 [place] [facility] IM 6+ MO Branch Influenza Virus 2020-02-04 Completed Universit y of Vaccine Quad .5 mL 00:00:00 [place] [facility] IM 6+ MO Branch Influenza Virus 2020-02-04 Completed Universit y of Vaccine Quad .5 mL 00:00:00 [place] [facility] IM 6+ MO Branch Influenza Virus 2020-02-04 Completed Universit y of Vaccine Quad .5 mL 00:00:00 [place] [facility] IM 6+ MO Branch Influenza Virus 2020-02-04 Completed Universit y of Vaccine Quad .5 mL 00:00:00 [place] [facility] IM 6+ MO Branch Influenza Virus 2020-02-04 Completed Universit y of Vaccine Quad .5 mL 00:00:00 [place] [facility] IM 6+ MO Branch Influenza Virus 2020-02-04 Completed Universit y of Vaccine Quad .5 mL 00:00:00 [place] [facility] IM 6+ MO Branch Influenza Virus 2020-02-04 Completed Universit y of Vaccine Quad .5 mL 00:00:00 [place] [facility] IM 6+ MO Branch Influenza Virus 2020-02-04 Completed Universit y of Vaccine Quad .5 mL 00:00:00 [place] [facility] IM 6+ MO Branch Influenza Virus 2020-02-04 Completed Universit y of Vaccine Quad .5 mL 00:00:00 [place] [facility] IM 6+ MO Branch Influenza Virus 2020-02-04 Completed Universit y of Vaccine Quad .5 mL 00:00:00 [place] [facility] IM 6+ MO Branch Influenza Virus 2020-02-04 Completed Universit y of Vaccine Quad .5 mL 00:00:00 [place] [facility] IM 6+ MO Branch Influenza Virus 2020-02-04 Completed Universit y of Vaccine Quad .5 mL 00:00:00 [place] [facility] IM 6+ MO Branch Influenza Virus 2020-02-04 Completed Universit y of Vaccine Quad .5 mL 00:00:00 [place] [facility] IM 6+ MO Branch Influenza Virus 2020-02-04 Completed Universit y of Vaccine Quad .5 mL 00:00:00 [place] [facility] IM 6+ MO Branch Influenza Virus 2020-02-04 Completed Universit y of Vaccine Quad .5 mL 00:00:00 [place] [facility] IM 6+ MO Branch Influenza Virus 2020-02-04 Completed Universit y of Vaccine Quad .5 mL 00:00:00 [place] [facility] IM 6+ MO Branch Influenza Virus 2020-02-04 Completed Universit y of Vaccine Quad .5 mL 00:00:00 [place] [facility] IM 6+ MO Branch Influenza Virus 2020-02-04 Completed Universit y of Vaccine Quad .5 mL 00:00:00 [place] [facility] IM 6+ MO Branch Influenza Virus 2020-02-04 Completed Universit y of Vaccine Quad .5 mL 00:00:00 [place] [facility] IM 6+ MO Branch Influenza Virus 2020-02-04 Completed Universit y of Vaccine Quad .5 mL 00:00:00 [place] [facility] IM 6+ MO Branch Influenza Virus 2020-02-04 Completed Universit y of Vaccine Quad .5 mL 00:00:00 [place] [facility] IM 6+ MO Branch Influenza Virus 2020-02-04 Completed Universit y of Vaccine Quad .5 mL 00:00:00 [place] [facility] IM 6+ MO Branch Influenza Virus 2020-02-04 Completed Universit y of Vaccine Quad .5 mL 00:00:00 [place] [facility] IM 6+ MO Branch Influenza Virus 2020-02-04 Completed Universit y of Vaccine Quad .5 mL 00:00:00 [place] [facility] IM 6+ MO Branch Influenza Virus 2020-02-04 Completed Universit y of Vaccine Quad .5 mL 00:00:00 [place] [facility] 6+ MO Branch (FLUZONE/FLULAVAL/FL UARIX) TDAP 2020-01-07 Completed University of 00:00:00 [place] [facility] [place] TDAP 2020-01-07 Completed University of 00:00:00 [facility] TDAP 2020-01-07 Completed University of 00:00:00 [facility] TDAP 2020-01-07 Completed University of 00:00:00 [facility] TDAP 2020-01-07 Completed University of 00:00:00 [place] [facility] TDAP 2020-01-07 Completed University of 00:00:00 [place] [facility] TDAP 2020-01-07 Completed University of 00:00:00 [place] [facility] TDAP 2020-01-07 Completed University of 00:00:00 [place] [facility] TDAP 2020-01-07 Completed University of 00:00:00 [place] [facility] TDAP 2020-01-07 Completed University of 00:00:00 [place] [facility] TDAP 2020-01-07 Completed University of 00:00:00 [place] [facility] TDAP 2020-01-07 Completed University of 00:00:00 [place] [facility] TDAP 2020-01-07 Completed University of 00:00:00 [place] [facility] TDAP 2020-01-07 Completed University of 00:00:00 [place] [facility] TDAP 2020-01-07 Completed University of 00:00:00 [place] [facility] TDAP 2020-01-07 Completed University of 00:00:00 [place] [facility] TDAP 2020-01-07 Completed University of 00:00:00 [place] [facility] TDAP 2020-01-07 Completed University of 00:00:00 [place] [facility] TDAP 2020-01-07 Completed University of 00:00:00 [place] [facility] TDAP 2020-01-07 Completed University of 00:00:00 [place] [facility] TDAP 2020-01-07 Completed University of 00:00:00 [place] [facility] TDAP 2020-01-07 Completed University of 00:00:00 [place] [facility] TDAP 2020-01-07 Completed University of 00:00:00 [place] [facility] TDAP 2020-01-07 Completed University of 00:00:00 [place] [facility] TDAP 2020-01-07 Completed University of 00:00:00 [place] [facility] TDAP 2020-01-07 Completed University of 00:00:00 [place] [facility] TDAP 2020-01-07 Completed University of 00:00:00 [place] [facility] TDAP 2020-01-07 Completed University of 00:00:00 [place] [facility] TDAP 2020-01-07 Completed University of 00:00:00 [place] [facility] TDAP 2020-01-07 Completed University of 00:00:00 [place] [facility] TDAP 2020-01-07 Completed University of 00:00:00 [place] [facility] TDAP 2020-01-07 Completed University of 00:00:00 [facility] TDAP 2020-01-07 Completed University of 00:00:00 [facility] TDAP 2020-01-07 Completed University of 00:00:00 [facility] HEPATITIS A 2013-01-07 Completed University of 00:00:00 [facility] HPV 2013-01-07 Completed University of 00:00:00 [facility] Meningococcal 2013-01-07 Completed University of Polysaccharide 00:00:00 [place] Medi vanita (groups A, C, Y and Branc h W-135) conjugate vaccine (MCV4P) TDAP 2013-01-07 Completed University of 00:00:00 [facility] Varicella 2013-01-07 Completed University of (varivax)(chicken 00:00:00 [place] M edical pox) Branch HEPATITIS A 2013-01-07 Completed University of 00:00:00 [facility] HPV 2013-01-07 Completed University of 00:00:00 [facility] Meningococcal 2013-01-07 Completed University of Polysaccharide 00:00:00 [place] Medi vanita (groups A, C, Y and Branc h W-135) conjugate vaccine (MCV4P) TDAP 2013-01-07 Completed University of 00:00:00 [facility] Varicella 2013-01-07 Completed University of (varivax)(chicken 00:00:00 [place] M edical pox) Branch HEPATITIS A 2013-01-07 Completed University of 00:00:00 [facility] HPV 2013-01-07 Completed University of 00:00:00 [facility] Meningococcal 2013-01-07 Completed University of Polysaccharide 00:00:00 [place] Medi vanita (groups A, C, Y and Branc h W-135) conjugate vaccine (MCV4P) TDAP 2013-01-07 Completed University of 00:00:00 [facility] Varicella 2013-01-07 Completed University of (varivax)(chicken 00:00:00 [place] M edical pox) Branch HEPATITIS A 2013-01-07 Completed University of 00:00:00 [facility] HPV 2013-01-07 Completed University of 00:00:00 [facility] Meningococcal 2013-01-07 Completed University of Polysaccharide 00:00:00 [place] Medi vanita (groups A, C, Y and Branc h W-135) conjugate vaccine (MCV4P) TDAP 2013-01-07 Completed University of 00:00:00 [facility] Varicella 2013-01-07 Completed University of (varivax)(chicken 00:00:00 [place] [facility] edical pox) Branch HEPATITIS A 2013-01-07 Completed University of 00:00:00 [facility] HPV 2013-01-07 Completed University of 00:00:00 [facility] Meningococcal 2013-01-07 Completed University of Polysaccharide 00:00:00 [place] Medi vanita (groups A, C, Y and Branc h W-135) conjugate vaccine (MCV4P) TDAP 2013-01-07 Completed University of 00:00:00 [facility] Varicella 2013-01-07 Completed University of (varivax)(chicken 00:00:00 [place] M edical pox) Branch HEPATITIS A 2013-01-07 Completed University of 00:00:00 [facility] HPV 2013-01-07 Completed University of 00:00:00 [facility] Meningococcal 2013-01-07 Completed University of Polysaccharide 00:00:00 [place] Medi vanita (groups A, C, Y and Branc h W-135) conjugate vaccine (MCV4P) TDAP 2013-01-07 Completed University of 00:00:00 [facility] Varicella 2013-01-07 Completed University of (varivax)(chicken 00:00:00 [facility] edical pox) Branch HEPATITIS A 2013-01-07 Completed University of 00:00:00 [facility] HPV 2013-01-07 Completed University of 00:00:00 [facility] Meningococcal 2013-01-07 Completed University of Polysaccharide 00:00:00 [place] Medi vanita (groups A, C, Y and Branc h W-135) conjugate vaccine (MCV4P) TDAP 2013-01-07 Completed University of 00:00:00 [facility] Varicella 2013-01-07 Completed University of (varivax)(chicken 00:00:00 [place] M edical pox) Branch HEPATITIS A 2013-01-07 Completed University of 00:00:00 [facility] HPV 2013-01-07 Completed University of 00:00:00 [facility] Meningococcal 2013-01-07 Completed University of Polysaccharide 00:00:00 [place] Medi vanita (groups A, C, Y and Branc h W-135) conjugate vaccine (MCV4P) TDAP 2013-01-07 Completed University of 00:00:00 [facility] Varicella 2013-01-07 Completed University of (varivax)(chicken 00:00:00 [place] M edical pox) Branch HEPATITIS A 2013-01-07 Completed University of 00:00:00 [facility] HPV 2013-01-07 Completed University of 00:00:00 [facility] Meningococcal 2013-01-07 Completed University of Polysaccharide 00:00:00 [facility] vanita (groups A, C, Y and Branc h W-135) conjugate vaccine (MCV4P) TDAP 2013-01-07 Completed University of 00:00:00 [facility] Varicella 2013-01-07 Completed University of (varivax)(chicken 00:00:00 [facility] edical pox) Branch DTaP, Unspecified 2001-08-15 Completed Univers ity of Formulation 00:00:00 [facility] Hib-HbOC 2001-08-15 Completed University of 00:00:00 [facility] DTaP, Unspecified 2001-08-15 Completed Univers ity of Formulation 00:00:00 [facility] Hib-HbOC 2001-08-15 Completed University of 00:00:00 [facility] DTaP, Unspecified 2001-08-15 Completed Univers ity of Formulation 00:00:00 [facility] Hib-HbOC 2001-08-15 Completed University of 00:00:00 [facility] DTaP, Unspecified 2001-08-15 Completed Univers ity of Formulation 00:00:00 [facility] Hib-HbOC 2001-08-15 Completed University of 00:00:00 [facility] DTaP, Unspecified 2001-08-15 Completed Univers ity of Formulation 00:00:00 [facility] [facility] 2001-08-15 Completed [facility] 00:00:00 [facility] DTaP, Unspecified 2001-08-15 Completed [facility] Formulation 00:00:00 [facility] Hib-HbOC 2001-08-15 Completed [facility] 00:00:00 [facility] DTaP, Unspecified 2001-08-15 Completed [facility] Formulation 00:00:00 [facility] Hib-HbOC 2001-08-15 Completed [facility] 00:00:00 [facility] DTaP, Unspecified 2001-08-15 Completed [facility]y [facility] Formulation 00:00:00 [facility] Hib-HbOC 2001-08-15 Completed [facility] 00:00:00 [facility] DTaP, Unspecified 2001-08-15 Completed [facility]y of Formulation 00:00:00 [facility] Hib-HbOC 2001-08-15 Completed [facility] 00:00:00 [facility] Pneumococcal 7 2001-01-30 Completed [facility] Conjugate, PCV7 00:00:00 [place] [facility] (Prevnar7) [facility] Varicella 2001-01-30 Completed [facility] of (varivax)(chicken 00:00:00 [place] [facility] pox) [facility] Hep B, Adol or Pedi 2001-01-30 Completed Unive rsity of Dosage 00:00:00 [facility] MMR 2001-01-30 Completed [facility] 00:00:00 [facility] Pneumococcal 7 2001-01-30 Completed [facility] Conjugate, PCV7 00:00:00 [place] [facility] (Prevnar7) [facility] Varicella 2001-01-30 Completed [facility] (varivax)(chicken 00:00:00 [place] [facility] pox) [facility] Hep B, Adol or Pedi 2001-01-30 Completed Unive rsity of Dosage 00:00:00 [facility] MMR 2001-01-30 Completed [facility] 00:00:00 [facility] Pneumococcal 7 2001-01-30 Completed [facility] Conjugate, PCV7 00:00:00 [place] [facility] (Prevnar7) [facility] Varicella 2001-01-30 Completed [facility] (varivax)(chicken 00:00:00 [place] [facility] pox) [facility] Hep B, Adol or Pedi 2001-01-30 Completed Unive rsity of Dosage 00:00:00 [facility] MMR 2001-01-30 Completed [facility] 00:00:00 [facility] Pneumococcal 7 2001-01-30 Completed [facility] Conjugate, PCV7 00:00:00 [place] [facility] (Prevnar7) [facility] Varicella 2001-01-30 Completed [facility] (varivax)(chicken 00:00:00 [place] [facility] pox) [facility] Hep B, Adol or Pedi 2001-01-30 Completed Unive rsity of Dosage 00:00:00 [facility] MMR 2001-01-30 Completed [facility] 00:00:00 [facility] Pneumococcal 7 2001-01-30 Completed [facility] Conjugate, PCV7 00:00:00 [place] [facility] (Prevnar7) [facility] Varicella 2001-01-30 Completed [facility] (varivax)(chicken 00:00:00 [place] [facility] pox) [facility] Hep B, Adol or Pedi 2001-01-30 Completed Unive rsity of Dosage 00:00:00 [facility] MMR 2001-01-30 Completed [facility] 00:00:00 [facility] Pneumococcal 7 2001-01-30 Completed [facility] Conjugate, PCV7 00:00:00 [place] [facility] (Prevnar7) Branch Varicella 2001-01-30 Completed [facility] (varivax)(chicken 00:00:00 [place] [facility] pox) [facility] Hep B, Adol or Pedi 2001-01-30 Completed Unive rsity of Dosage 00:00:00 [facility] MMR 2001-01-30 Completed [facility] 00:00:00 [facility] Pneumococcal 7 2001-01-30 Completed [facility] Conjugate, PCV7 00:00:00 [place] [facility] (Prevnar7) [facility] Varicella 2001-01-30 Completed [facility] of (varivax)(chicken 00:00:00 [facility] edical pox) Branch Hep B, Adol or Pedi 2001-01-30 Completed Unive rsity of Dosage 00:00:00 [facility] MMR 2001-01-30 Completed [facility] 00:00:00 [facility] Pneumococcal 7 2001-01-30 Completed [facility] Conjugate, PCV7 00:00:00 [place] [facility] (Prevnar7) [facility] Varicella 2001-01-30 Completed [facility] (varivax)(chicken 00:00:00 [place] [facility] pox) [facility] Hep B, Adol or Pedi 2001-01-30 Completed Unive rsity of Dosage 00:00:00 [facility] MMR 2001-01-30 Completed [facility] 00:00:00 [facility] Pneumococcal 7 2001-01-30 Completed [facility] Conjugate, PCV7 00:00:00 [place] [facility] (Prevnar7) [facility] Varicella 2001-01-30 Completed [facility] (varivax)(chicken 00:00:00 [place] [facility] pox) [facility] Hep B, Adol or Pedi 2001-01-30 Completed Unive rsity of Dosage 00:00:00 [facility] MMR 2001-01-30 Completed [facility] 00:00:00 [facility] Hep B, Adol or Pedi 2000-08-07 Completed Unive rsity of Dosage 00:00:00 [facility] Hep B, Adol or Pedi 2000-08-07 Completed [facility]ive rsity of Dosage 00:00:00 [facility] Hep B, Adol or Pedi 2000-08-07 Completed [facility]ive rsity of Dosage 00:00:00 [facility] Hep B, Adol or Pedi 2000-08-07 Completed [facility]ive rsity of Dosage 00:00:00 [facility] Hep B, Adol or Pedi 2000-08-07 Completed [facility]ive rsity of Dosage 00:00:00 [facility] Hep B, Adol or Pedi 2000-08-07 Completed [facility]ive rsity of Dosage 00:00:00 [facility] Hep B, Adol or Pedi 2000-08-07 Completed [facility]ive rsity of Dosage 00:00:00 [facility] Hep B, Adol or Pedi 2000-08-07 Completed [facility] rsity of Dosage 00:00:00 [facility] Hep B, Adol or Pedi 2000-08-07 Completed [facility] rsity of Dosage 00:00:00 [facility] DTaP, Unspecified 2000-07-20 Completed [facility] Formulation 00:00:00 [facility] Hib-HbOC 2000-07-20 Completed [facility] 00:00:00 [facility] IPV 2000-07-20 Completed [facility] 00:00:00 [facility] DTaP, Unspecified 2000-07-20 Completed [facility] ity of Formulation 00:00:00 [facility] Hib-HbOC 2000-07-20 Completed [facility] 00:00:00 [facility] IPV 2000-07-20 Completed [facility] 00:00:00 [facility] DTaP, Unspecified 2000-07-20 Completed [facility] it[facility] of Formulation 00:00:00 [facility] Hib-HbOC 2000-07-20 Completed [facility] 00:00:00 [facility] IPV 2000-07-20 Completed [facility] 00:00:00 [facility] DTaP, Unspecified 2000-07-20 Completed [facility] of Formulation 00:00:00 [facility] Hib-HbOC 2000-07-20 Completed [facility] 00:00:00 [facility] IPV 2000-07-20 Completed [facility] 00:00:00 [facility] DTaP, Unspecified 2000-07-20 Completed [facility] of Formulation 00:00:00 [facility] Hib-HbOC 2000-07-20 Completed [facility] 00:00:00 [facility] IPV 2000-07-20 Completed [facility] 00:00:00 [facility] DTaP, Unspecified 2000-07-20 Completed [facility] ity of Formulation 00:00:00 [facility] Hib-HbOC 2000-07-20 Completed [facility] 00:00:00 [facility] IPV 2000-07-20 Completed [facility] 00:00:00 [facility] DTaP, Unspecified 2000-07-20 Completed [facility]y of Formulation 00:00:00 [facility] Hib-HbOC 2000-07-20 Completed [facility] 00:00:00 [facility] IPV 2000-07-20 Completed [facility] 00:00:00 [facility] DTaP, Unspecified 2000-07-20 Completed [facility] ity of Formulation 00:00:00 [facility] Hib-HbOC 2000-07-20 Completed [facility] 00:00:00 [facility] IPV 2000-07-20 Completed [facility] 00:00:00 [facility] DTaP, Unspecified 2000-07-20 Completed [facility] ity of Formulation 00:00:00 [facility] Hib-HbOC 2000-07-20 Completed [facility] 00:00:00 [facility] IPV 2000-07-20 Completed [facility] 00:00:00 [facility] DTaP, Unspecified 2000-04-05 Completed [facility] of Formulation 00:00:00 [facility] Hib-HbOC 2000-04-05 Completed [facility] 00:00:00 [facility] IPV 2000-04-05 Completed [facility] 00:00:00 [facility] DTaP, Unspecified 2000-04-05 Completed [facility] Formulation 00:00:00 [facility] Hib-HbOC 2000-04-05 Completed [facility] 00:00:00 [facility] IPV 2000-04-05 Completed [facility] 00:00:00 [facility] DTaP, Unspecified 2000-04-05 Completed [facility] it[facility] of Formulation 00:00:00 [facility] Hib-HbOC 2000-04-05 Completed [facility] 00:00:00 [facility] IPV 2000-04-05 Completed [facility] 00:00:00 [facility] DTaP, Unspecified 2000-04-05 Completed [facility] ity of Formulation 00:00:00 [facility] Hib-HbOC 2000-04-05 Completed [facility] 00:00:00 [facility] IPV 2000-04-05 Completed [facility] 00:00:00 [facility] DTaP, Unspecified 2000-04-05 Completed [facility] of Formulation 00:00:00 [facility] Hib-HbOC 2000-04-05 Completed [facility] 00:00:00 [facility] IPV 2000-04-05 Completed [facility] 00:00:00 [facility] DTaP, Unspecified 2000-04-05 Completed [facility] it[facility] of Formulation 00:00:00 [facility] Hib-HbOC 2000-04-05 Completed [facility] 00:00:00 [facility] IPV 2000-04-05 Completed [facility] 00:00:00 [facility] DTaP, Unspecified 2000-04-05 Completed [facility] it[facility] of Formulation 00:00:00 [facility] Hib-HbOC 2000-04-05 Completed [facility] 00:00:00 [facility] IPV 2000-04-05 Completed [facility] 00:00:00 [facility] DTaP, Unspecified 2000-04-05 Completed [facility] it[facility] of Formulation 00:00:00 [facility] Hib-HbOC 2000-04-05 Completed [facility] 00:00:00 [facility] IPV 2000-04-05 Completed [facility] 00:00:00 [facility] DTaP, Unspecified 2000-04-05 Completed [facility] of Formulation 00:00:00 [facility] Hib-HbOC 2000-04-05 Completed [facility] 00:00:00 [facility] IPV 2000-04-05 Completed [facility] 00:00:00 [facility] DTaP, Unspecified 1999 Completed [facility] it[facility] of Formulation 00:00:00 [facility] Hib-HbOC 1999 Completed [facility] 00:00:00 [facility] IPV 1999 Completed [facility] of 00:00:00 [facility] DTaP, Unspecified 1999 Completed [facility] ity of Formulation 00:00:00 [facility] Hib-HbOC 1999 Completed [facility] of 00:00:00 [facility] IPV 1999 Completed [facility] of 00:00:00 [facility] DTaP, Unspecified 1999 Completed [facility] of Formulation 00:00:00 [facility] Hib-HbOC 1999 Completed [facility] 00:00:00 [facility] IPV 1999 Completed [facility] 00:00:00 [facility] DTaP, Unspecified 1999 Completed [facility] of Formulation 00:00:00 [facility] Hib-HbOC 1999 Completed [facility] 00:00:00 [facility] IPV 1999 Completed [facility] 00:00:00 [facility] DTaP, Unspecified 1999 Completed [facility] of Formulation 00:00:00 [facility] Hib-HbOC 1999 Completed [facility] 00:00:00 [facility] IPV 1999 Completed [facility] 00:00:00 [facility] DTaP, Unspecified 1999 Completed [facility] of Formulation 00:00:00 [facility] Hib-HbOC 1999 Completed [facility] 00:00:00 [facility] IPV 1999 Completed [facility] 00:00:00 [facility] DTaP, Unspecified 1999 Completed [facility] it[facility] of Formulation 00:00:00 [facility] Hib-HbOC 1999 Completed [facility] 00:00:00 [facility] IPV 1999 Completed [facility] 00:00:00 [facility] DTaP, Unspecified 1999 Completed [facility] of Formulation 00:00:00 [facility] Hib-HbOC 1999 Completed [facility] 00:00:00 [facility] IPV 1999 Completed [facility] 00:00:00 [facility] DTaP, Unspecified 1999 Completed [facility] of Formulation 00:00:00 [facility] Hib-HbOC 1999 Completed [facility] 00:00:00 [facility] IPV 1999 Completed [facility] 00:00:00 [facility] Hep B, Adol or Pedi 1999 Completed Unive rsity of Dosage 00:00:00 [facility] Hep B, Adol or Pedi 1999 Completed Unive rsity of Dosage 00:00:00 [facility] Hep B, Adol or Pedi 1999 Completed Unive rsity of Dosage 00:00:00 [facility] Hep B, Adol or Pedi 1999 Completed Unive rsity of Dosage 00:00:00 [facility] Hep B, Adol or Pedi 1999 Completed Unive rsity of Dosage 00:00:00 [facility] Hep B, Adol or Pedi 1999 Completed Unive rsity of Dosage 00:00:00 [facility] Hep B, Adol or Pedi 1999 Completed Unive rsity of Dosage 00:00:00 [facility] Hep B, Adol or Pedi 1999 Completed Un[facility] rsity of Dosage 00:00:00 [facility] Hep B, Adol or Pedi 1999 Completed [facility]ive rsity of Dosage 00:00:00 [facility] TDAP Unknown Completed [facility] Influenza Virus Unknown Completed Universit y of Vaccine Quad .5 mL [facility] IM 6+ MO Branch (FLUZONE/FLULAVAL/FL UARIX) TDAP Unknown Completed [facility] Influenza Virus Unknown Completed [facility] y of Vaccine Quad IM, [place] [facility] Preserv and ABX Free Bran ch 6 MO-64 YRS (FLUCELVAX) TDAP Unknown Completed [facility] DTaP, Unspecified Unknown Completed Univers ity of Formulation [facility] DTaP, Unspecified Unknown Completed [facility] of Formulation [facility] DTaP, Unspecified Unknown Completed [facility] of Formulation [facility] DTaP, Unspecified Unknown Completed [facility] of Formulation [facility] HEPATITIS A Unknown Completed [facility] Hep B, Adol or Pedi Unknown Completed Unive rsity of Dosage [facility] Hep B, Adol or Pedi Unknown Completed Unive rsity of Dosage [facility] Hep B, Adol or Pedi Unknown Completed Unive rsity of Dosage [facility] Hib-HbOC Unknown Completed [facility] Hib-HbOC Unknown Completed [facility] Hib-HbOC Unknown Completed [facility] Hib-HbOC Unknown Completed [facility] HPV Unknown Completed [facility] Meningococcal Unknown Completed [facility] Polysaccharide [facility] vanita (groups A, C, Y and Branc h W-135) conjugate vaccine (MCV4P) MMR Unknown Completed [facility] Pneumococcal 7 Unknown Completed [facility] Conjugate, PCV7 [facility] ical (Prevnar7) Branch IPV Unknown Completed [facility] IPV Unknown Completed [facility] IPV Unknown Completed [facility] TDAP Unknown Completed [facility] Varicella Unknown Completed [facility] (varivax)(chicken [place] [facility] pox) Branch Varicella Unknown Completed [facility] (varivax)(chicken [place] [facility] pox) Branch TDAP Unknown Completed [facility] Influenza Virus Unknown Completed [facility] y of Vaccine Quad .5 mL [facility] IM 6+ MO Branch (FLUZONE/FLULAVAL/FL UARIX) TDAP Unknown Completed [facility] Influenza Virus Unknown Completed [facility] y of Vaccine Quad IM, [place] [facility] Preserv and ABX Free Bran ch 6 MO-64 YRS (FLUCELVAX) TDAP Unknown Completed [facility] DTaP, Unspecified Unknown Completed [facility] ity of Formulation [facility] DTaP, Unspecified Unknown Completed [facility] it[facility] of Formulation [facility] DTaP, Unspecified Unknown Completed [facility] it[facility] of Formulation [facility] DTaP, Unspecified Unknown Completed [facility] of Formulation [facility] HEPATITIS A Unknown Completed [facility] Hep B, Adol or Pedi Unknown Completed Unive rsity of Dosage [facility] Hep B, Adol or Pedi Unknown Completed Unive rsity of Dosage [facility] Hep B, Adol or Pedi Unknown Completed Unive rsity of Dosage [facility] Hib-HbOC Unknown Completed [facility] Hib-HbOC Unknown Completed [facility] Hib-HbOC Unknown Completed [facility] Hib-HbOC Unknown Completed [facility] HPV Unknown Completed [facility] Meningococcal Unknown Completed [facility] (groups A, C, Y and Branc h W-135) conjugate vaccine (MCV4P) MMR Unknown Completed [facility] Pneumococcal 7 Unknown Completed [facility] Conjugate, PCV7 [facility] (Prevnar7) Branch IPV Unknown Completed [facility] IPV Unknown Completed [facility] IPV Unknown Completed [facility] TDAP Unknown Completed [facility] Varicella Unknown Completed University (varivax)(chicken [place] [facility] pox) Branch Varicella Unknown Completed [facility] (varivax)(chicken [place] [facility] pox) Branch TDAP Unknown Completed [facility] Influenza Virus Unknown Completed [facility] of Vaccine Quad .5 mL [facility] IM 6+ MO Branch (FLUZONE/FLULAVAL/FL UARIX) TDAP Unknown Completed [facility] Influenza Virus Unknown Completed [facility] of Vaccine Quad IM, [place] [facility] Preserv and ABX Free Bran ch 6 MO-64 YRS (FLUCELVAX) TDAP Unknown Completed [facility] DTaP, Unspecified Unknown Completed [facility] ity of Formulation [facility] DTaP, Unspecified Unknown Completed [facility] of Formulation [facility] DTaP, Unspecified Unknown Completed [facility] it[facility] of Formulation [facility] DTaP, Unspecified Unknown Completed [facility]y of Formulation [facility] HEPATITIS A Unknown Completed [facility] Hep B, Adol or Pedi Unknown Completed Unive rsity of Dosage [facility] Hep B, Adol or Pedi Unknown Completed Unive rsity of Dosage [facility] Hep B, Adol or Pedi Unknown Completed Unive rsity of Dosage [facility] Hib-HbOC Unknown Completed [facility] Hib-HbOC Unknown Completed [facility] Hib-HbOC Unknown Completed [facility] Hib-HbOC Unknown Completed [facility] HPV Unknown Completed [facility] Meningococcal Unknown Completed [facility] (groups A, C, Y and Branc h W-135) conjugate vaccine (MCV4P) MMR Unknown Completed [facility] Pneumococcal 7 Unknown Completed [facility] Conjugate, PCV7 [facility] ical (Prevnar7) Branch IPV Unknown Completed [facility] IPV Unknown Completed [facility] IPV Unknown Completed [facility] TDAP Unknown Completed [facility] Varicella Unknown Completed [facility] (varivax)(chicken [place] [facility] pox) Branch Varicella Unknown Completed [facility] (varivax)(chicken [place] [facility] pox) Branch TDAP Unknown Completed [facility] Influenza Virus Unknown Completed Universit y of Vaccine Quad .5 mL [facility] IM 6+ MO Branch (FLUZONE/FLULAVAL/FL UARIX) TDAP Unknown Completed [facility] Influenza Virus Unknown Completed Universit y of Vaccine Quad IM, [facility] dical Preserv and ABX Free Bran ch 6 MO-64 YRS (FLUCELVAX) TDAP Unknown Completed [facility] DTaP, Unspecified Unknown Completed Univers ity of Formulation [facility] DTaP, Unspecified Unknown Completed [facility] of Formulation [facility] DTaP, Unspecified Unknown Completed [facility] of Formulation [facility] DTaP, Unspecified Unknown Completed [facility] of Formulation [facility] HEPATITIS A Unknown Completed [facility] Hep B, Adol or Pedi Unknown Completed Unive rsity of Dosage [facility] Hep B, Adol or Pedi Unknown Completed Unive rsity of Dosage [facility] Hep B, Adol or Pedi Unknown Completed Unive rsity of Dosage [facility] Hib-HbOC Unknown Completed [facility] Hib-HbOC Unknown Completed [facility] Hib-HbOC Unknown Completed [facility] Hib-HbOC Unknown Completed [facility] HPV Unknown Completed [facility] Meningococcal Unknown Completed [facility] Polysaccharide [facility] vanita (groups A, C, Y and Branc h W-135) conjugate vaccine (MCV4P) MMR Unknown Completed [facility] Pneumococcal 7 Unknown Completed [facility] Conjugate, PCV7 [facility] ical (Prevnar7) Branch IPV Unknown Completed [facility] IPV Unknown Completed [facility] IPV Unknown Completed [facility] TDAP Unknown Completed [facility] Varicella Unknown Completed [facility] (varivax)(chicken [place] [facility] pox) Branch Varicella Unknown Completed [facility] (varivax)(chicken [place] [facility] pox) Branch TDAP Unknown Completed [facility] Influenza Virus Unknown Completed [facility] of Vaccine Quad .5 mL [facility] IM 6+ MO Branch (FLUZONE/FLULAVAL/FL UARIX) TDAP Unknown Completed [facility] Influenza Virus Unknown Completed [facility]it y of Vaccine Quad IM, [facility] dical Preserv and ABX Free Bran ch 6 MO-64 YRS (FLUCELVAX) TDAP Unknown Completed [facility] DTaP, Unspecified Unknown Completed [facility] ity of Formulation [facility] DTaP, Unspecified Unknown Completed [facility] of Formulation [facility] DTaP, Unspecified Unknown Completed [facility] of Formulation [facility] DTaP, Unspecified Unknown Completed [facility] of Formulation [facility] HEPATITIS A Unknown Completed [facility] Hep B, Adol or Pedi Unknown Completed Unive rsity of Dosage [facility] Hep B, Adol or Pedi Unknown Completed Unive rsity of Dosage [facility] Hep B, Adol or Pedi Unknown Completed Unive rsity of Dosage [facility] Hib-HbOC Unknown Completed [facility] Hib-HbOC Unknown Completed [facility] Hib-HbOC Unknown Completed [facility] Hib-HbOC Unknown Completed [facility] HPV Unknown Completed [facility] Meningococcal Unknown Completed [facility] vanita (groups A, C, Y and Branc h W-135) conjugate vaccine (MCV4P) MMR Unknown Completed [facility] Pneumococcal 7 Unknown Completed [facility] Conjugate, PCV7 [place] [facility] (Prevnar7) Branch IPV Unknown Completed [facility] IPV Unknown Completed [facility] IPV Unknown Completed [facility] TDAP Unknown Completed [facility] Varicella Unknown Completed [facility] (varivax)(chicken [place] [facility] pox) Branch Varicella Unknown Completed [facility] (varivax)(chicken [place] [facility] pox) Branch TDAP Unknown Completed [facility] Influenza Virus Unknown Completed [facility] of Vaccine Quad .5 mL [facility] IM 6+ MO Branch (FLUZONE/FLULAVAL/FL UARIX) TDAP Unknown Completed [facility] Influenza Virus Unknown Completed [facility] of Vaccine Quad IM, [place] [facility] Preserv and ABX Free Bran ch 6 MO-64 YRS (FLUCELVAX) TDAP Unknown Completed [facility] DTaP, Unspecified Unknown Completed Univers ity of Formulation [facility] DTaP, Unspecified Unknown Completed Univers ity of Formulation [facility] DTaP, Unspecified Unknown Completed Univers ity of Formulation [facility] DTaP, Unspecified Unknown Completed Univers ity of Formulation [facility] HEPATITIS A Unknown Completed [facility] Hep B, Adol or Pedi Unknown Completed Unive rsity of Dosage [facility] Hep B, Adol or Pedi Unknown Completed Unive rsity of Dosage [facility] Hep B, Adol or Pedi Unknown Completed Unive rsity of Dosage [facility] Hib-HbOC Unknown Completed [facility] Hib-HbOC Unknown Completed [facility] Hib-HbOC Unknown Completed [facility] Hib-HbOC Unknown Completed [facility] HPV Unknown Completed [facility] Meningococcal Unknown Completed [facility] vanita (groups A, C, Y and Branc h W-135) conjugate vaccine (MCV4P) MMR Unknown Completed [facility] Pneumococcal 7 Unknown Completed [place] [facility] Conjugate, PCV7 [place] [facility] (Prevnar7) Branch IPV Unknown Completed [facility] IPV Unknown Completed [facility] IPV Unknown Completed [facility] TDAP Unknown Completed [facility] Varicella Unknown Completed University (varivax)(chicken [place] [facility] pox) Branch Varicella Unknown Completed University (varivax)(chicken [place] [facility] pox) [facility] DTaP, Unspecified Unknown Completed Univers ity of Formulation [facility] DTaP, Unspecified Unknown Completed Univers ity of Formulation [facility] DTaP, Unspecified Unknown Completed Univers ity of Formulation [facility] DTaP, Unspecified Unknown Completed Univers ity of Formulation [facility] HEPATITIS A Unknown Completed [facility] Hep B, Adol or Pedi Unknown Completed Unive rsity of Dosage [facility] Hep B, Adol or Pedi Unknown Completed Unive rsity of Dosage [facility] Hep B, Adol or Pedi Unknown Completed Unive rsity of Dosage [facility] Hib-HbOC Unknown Completed [facility] Hib-HbOC Unknown Completed [facility] Hib-HbOC Unknown Completed [facility] Hib-HbOC Unknown Completed [facility] HPV Unknown Completed [facility] Meningococcal Unknown Completed [facility] (groups A, C, Y and Branc h W-135) conjugate vaccine (MCV4P) MMR Unknown Completed [facility] Pneumococcal 7 Unknown Completed [facility] Conjugate, PCV7 [facility] ica (Prevnar7) Branch IPV Unknown Completed [facility] IPV Unknown Completed [facility] IPV Unknown Completed [facility] TDAP Unknown Completed [facility] Varicella Unknown Completed University of (varivax)(chicken [place] [facility] pox) Branch Varicella Unknown Completed University (varivax)(chicken [place] [facility] pox) Branch TDAP Unknown Completed [facility] Influenza Virus Unknown Completed Universit y of Vaccine Quad .5 mL [facility] IM 6+ MO Branch (FLUZONE/FLULAVAL/FL UARIX) TDAP Unknown Completed [facility] Influenza Virus Unknown Completed Universit y of Vaccine Quad IM, [place] [facility] Preserv and ABX Free Bran ch 6 MO-64 YRS (FLUCELVAX) TDAP Unknown Completed [facility] DTaP, Unspecified Unknown Completed Univers ity of Formulation [facility] DTaP, Unspecified Unknown Completed Univers ity of Formulation [facility] DTaP, Unspecified Unknown Completed Univers ity of Formulation [facility] DTaP, Unspecified Unknown Completed Univers ity of Formulation [facility] HEPATITIS A Unknown Completed [facility] Hep B, Adol or Pedi Unknown Completed Unive rsity of Dosage [facility] Hep B, Adol or Pedi Unknown Completed Unive rsity of Dosage [facility] Hep B, Adol or Pedi Unknown Completed Unive rsity of Dosage [facility] Hib-HbOC Unknown Completed [facility] Hib-HbOC Unknown Completed [facility] Hib-HbOC Unknown Completed [facility] Hib-HbOC Unknown Completed [facility] HPV Unknown Completed [facility] Meningococcal Unknown Completed [facility] (groups A, C, Y and Branc h W-135) conjugate vaccine (MCV4P) MMR Unknown Completed [facility] Pneumococcal 7 Unknown Completed [facility] Conjugate, PCV7 [facility] ical (Prevnar7) Branch IPV Unknown Completed [facility] IPV Unknown Completed [facility] IPV Unknown Completed [facility] TDAP Unknown Completed [facility] Varicella Unknown Completed [facility] (varivax)(chicken [place] [facility] pox) Branch Varicella Unknown Completed [facility] (varivax)(chicken [place] [facility] pox) Branch TDAP Unknown Completed [facility] Influenza Virus Unknown Completed Universit y of Vaccine Quad .5 mL [facility] IM 6+ MO Branch (FLUZONE/FLULAVAL/FL UARIX) TDAP Unknown Completed [facility] Influenza Virus Unknown Completed Universit y of Vaccine Quad IM, [facility] dical Preserv and ABX Free Bran ch 6 MO-64 YRS (FLUCELVAX) TDAP Unknown Completed [facility] DTaP, Unspecified Unknown Completed Univers ity of Formulation [facility] DTaP, Unspecified Unknown Completed Univers ity of Formulation [facility] DTaP, Unspecified Unknown Completed Univers ity of Formulation [facility] DTaP, Unspecified Unknown Completed Univers ity of Formulation [facility] HEPATITIS A Unknown Completed [facility] Hep B, Adol or Pedi Unknown Completed Unive rsity of Dosage [facility] Hep B, Adol or Pedi Unknown Completed Unive rsity of Dosage [facility] Hep B, Adol or Pedi Unknown Completed Unive rsity of Dosage [facility] Hib-HbOC Unknown Completed [facility] Hib-HbOC Unknown Completed [facility] Hib-HbOC Unknown Completed [facility] Hib-HbOC Unknown Completed [facility] HPV Unknown Completed [facility] Meningococcal Unknown Completed [facility] (groups A, C, Y and Branc h W-135) conjugate vaccine (MCV4P) MMR Unknown Completed [facility] Pneumococcal 7 Unknown Completed [facility] Conjugate, PCV7 [facility] ical (Prevnar7) Branch IPV Unknown Completed [facility] IPV Unknown Completed [facility] IPV Unknown Completed [facility] TDAP Unknown Completed [facility] Varicella Unknown Completed [facility] (varivax)(chicken [place] [facility] pox) Branch Varicella Unknown Completed [facility] (varivax)(chicken [place] [facility] pox) [place] Vital Signs Vital Name Observation Time Observation Value Comments Source Systolic blood 2023-02-14 13:34:00 116 mm[Hg] Univer sity [facility] Diastolic blood 2023-02-14 13:34:00 64 mm[facility]Hg] [facility] 2023-02-14 13:34:00 70 /min Universi ty [facility] Body temperature 2023-02-14 13:34:00 36 Daisy [facility] Respiratory rate 2023-02-14 13:34:00 17 /min [facility] Body height 2023-02-14 13:34:00 165.1 cm Universi ty [facility] Body weight 2023-02-14 13:34:00 78.336 kg [facility] BMI 2023-02-14 13:34:00 28.74 kg/m2 Universi [facility] Systolic blood 2022-12-27 18:44:00 93 mm[facility]Hg] [facility] 2022-12-27 18:44:00 61 mm[Hg] [facility] 2022-12-27 18:44:00 70 /min Universi ty [facility] Body temperature 2022-12-27 18:44:00 36.56 Daisy [facility] Respiratory rate 2022-12-27 18:44:00 20 /min [facility] Body height 2022-12-27 18:44:00 165.1 cm Universi ty [facility] Body weight 2022-12-27 18:44:00 75.479 kg Universi ty [facility] [place] [facility] [place] BMI 2022-12-27 18:44:00 27.69 kg/m2 Universi ty of [facility] Systolic blood 2022-06-04 14:33:00 118 mm[Hg] Univer sity of pressure [facility] Diastolic blood 2022-06-04 14:33:00 77 mm[Hg] Unive rsity of pressure [facility] Heart rate 2022-06-04 14:33:00 73 /min Universi ty of [facility] Body temperature 2022-06-04 14:33:00 36.39 Daisy Univ ersity of [facility] Respiratory rate 2022-06-04 14:33:00 18 /min Univ ersity of [facility] Oxygen saturation in 2022-06-04 14:33:00 99 /min University of Arterial blood by [facility] Pulse oximetry Branch Body height 2022-06-02 20:30:00 165.1 cm Universi ty of [facility] Body weight 2022-06-02 20:30:00 85.367 kg Universi ty of [facility] BMI 2022-06-02 20:30:00 31.32 kg/m2 Universi ty of [facility] Systolic blood 2022-06-02 15:53:00 114 mm[Hg] Univer sity of pressure [facility] Diastolic blood 2022-06-02 15:53:00 68 mm[Hg] Unive rsity of pressure [facility] Heart rate 2022-06-02 15:53:00 75 /min Universi ty of [facility] Body temperature 2022-06-02 15:53:00 36 Daisy Univ ersity of [facility] Respiratory rate 2022-06-02 15:53:00 18 /min Univ ersity of [facility] Body height 2022-06-02 15:53:00 167.6 cm Universi ty of [facility] Body weight 2022-06-02 15:53:00 85.367 kg Universi ty of [facility] BMI 2022-06-02 15:53:00 30.38 kg/m2 Universi ty of [facility] Systolic blood 2022-05-26 15:48:00 115 mm[Hg] Univer sity of pressure [facility] Diastolic blood 2022-05-26 15:48:00 71 mm[Hg] Unive rsity of pressure [facility] Heart rate 2022-05-26 15:48:00 86 /min Universi ty of [facility] Body temperature 2022-05-26 15:48:00 36.5 Daisy Univ ersity of [facility] Respiratory rate 2022-05-26 15:48:00 17 /min Univ ersity of [facility] Body height 2022-05-26 15:48:00 167.6 cm Universi ty of [facility] Body weight 2022-05-26 15:48:00 85.548 kg Universi ty of [facility] BMI 2022-05-26 15:48:00 30.44 kg/m2 Universi ty of [facility] Systolic blood 2022-05-18 14:59:00 111 mm[Hg] Univer sity of pressure [facility] Diastolic blood 2022-05-18 14:59:00 68 mm[Hg] Unive rsity of pressure [facility] Heart rate 2022-05-18 14:59:00 82 /min Universi ty of [facility] Body temperature 2022-05-18 14:59:00 36.5 Daisy Univ ersity of [facility] Respiratory rate 2022-05-18 14:59:00 17 /min Univ ersity of [facility] Body height 2022-05-18 14:59:00 167.6 cm Universi ty of [facility] Body weight 2022-05-18 14:59:00 85.231 kg Universi ty of [facility] BMI 2022-05-18 14:59:00 30.33 kg/m2 Universi ty [facility] Systolic blood 2022-05-12 17:11:00 100 mm[Hg] Univer sity of pressure [facility] Diastolic blood 2022-05-12 17:11:00 62 mm[Hg] Unive rsity of pressure [facility] Heart rate 2022-05-12 17:11:00 80 /min Universi ty of [facility] Body temperature 2022-05-12 17:11:00 36.56 Daisy Univ ersity of [facility] Respiratory rate 2022-05-12 17:11:00 18 /min Univ ersity of [facility] Body height 2022-05-12 17:11:00 167.6 cm Universi ty [facility] Body weight 2022-05-12 17:11:00 85.049 kg Universi ty of [facility] BMI 2022-05-12 17:11:00 30.26 kg/m2 Universi ty of [facility] Systolic blood 2022-05-05 14:57:00 112 mm[Hg] Univer sity of pressure [facility] Diastolic blood 2022-05-05 14:57:00 72 mm[Hg] Unive rsity of pressure [facility] Heart rate 2022-05-05 14:57:00 84 /min Universi ty of [facility] Body temperature 2022-05-05 14:57:00 36.78 Daisy Univ ersity of [facility] Respiratory rate 2022-05-05 14:57:00 18 /min Univ ersity of [facility] Body height 2022-05-05 14:57:00 167.6 cm Universi ty of [facility] Body weight 2022-05-05 14:57:00 82.555 kg Universi ty [facility] BMI 2022-05-05 14:57:00 29.38 kg/m2 Universi ty of [facility] Systolic blood 2022-03-02 19:02:00 129 mm[Hg] Univer sity of pressure [facility] Diastolic blood 2022-03-02 19:02:00 68 mm[Hg] Unive rsity of pressure [facility] Heart rate 2022-03-02 19:02:00 89 /min Universi ty of [facility] Body temperature 2022-03-02 19:02:00 36.44 Daisy Univ ersity of [facility] Respiratory rate 2022-03-02 19:02:00 17 /min Univ ersity of [facility] Body height 2022-03-02 19:02:00 167.6 cm Universi ty [facility] Body weight 2022-03-02 19:02:00 79.425 kg Universi ty [facility] BMI 2022-03-02 19:02:00 28.26 kg/m2 [facility] ty [facility] Procedures Procedure Date / Time Performed Performing Clinician Sourc e POCT URINALYSIS 2023-02-14 00:00:00 Armando Guzman Univers ity of [facility] SECOND AND THIRD 2023-01-16 20:36:00 Armando Guzman [facility] TRIMESTER ULTRASOUND [facility] CONSENT/REFUSAL FOR 2022-12-27 18:02:37 Doctor Unassigned, No [facility] DIAGNOSIS AND [facility] TREATMENT ASSIGNMENT OF BENEFITS 2022-12-27 18:02:24 Doctor Unassigned, No [facility] POCT TEST 2022-12-27 00:00:00 Armando Guzman [facility] POCT URINALYSIS W/O 2022-12-27 00:00:00 Armando Guzman [facility] SPECIFIC GRAVITY [facility] PREPARE PACKED RBC 2022-06-04 18:29:03 [facility] WITH DIFF 2022-06-03 12:12:00 Rick [facility] VENOUS CORD GAS 2022-06-03 00:40:00 Whitney [facility] CENTRAL NEURAXIAL 2022-06-02 21:55:00 Davian Wagner [facility] CBC WITH DIFF 2022-06-02 21:26:00 Michael Louis [facility] HEPATITIS B SURFACE 2022-06-02 21:26:00 Whitney [facility] ANTIGEN [facility] SYPHILIS IGG/IGM 2022-06-02 21:26:00 Whitney [facility] HB ABO GROUPING 2022-06-02 21:00:00 [facility] RHO (D) IMMUNE 2022-06-02 21:00:00 Rick [facility] NON-STRESS TEST 2022-06-02 16:59:37 Tammie Narvaez Un [facility] POCT URINALYSIS 2022-06-02 15:54:00 Armando Guzman [facility] POCT URINALYSIS 2022-05-26 00:00:00 Armando Guzman [facility] POCT URINALYSIS 2022-05-18 00:00:00 AkinArmando vanegas [facility] TDAP VACCINE, >11 YRS, 2022-05-05 16:11:39 [facility] 2022-05-05 00:00:00 Armando Guzman [facility] POCT URINALYSIS 2022-03-02 00:00:00 Armando Guzman [facility] Encounters Start End Encounter Admission Attending Care Care Encounter Source Date/Time Date/Time Type Type Clinicians Facility Department ID 2021-03-19 Outpatient [facility] [id number] Univers 00:56:29 ity [facility] 2023-03-07 2023-03-07 [facility] [id number] Univers 09:00:00 09:00:00 ARMANDO joseph [facility] 2023-02-19 2023-02-19 Telephone [facility] 1.2.840.114 [id number] Univers 00:00:00 00:00:00 Armando Thornton MANAGER OPERATIONAL 350.1.13.10 ity of REGIONAL 4.2.7.2.686 Stephon as MATERNAL [phone] Med ical & CHILD [address] [place] [address] 2023-02-14 2023-02-14 [facility] [id number] Univers 08:00:00 09:17:39 ARMANDO joseph [facility] 2023-02-14 2023-02-14 [facility] [id number] Univers 08:00:00 09:17:39 Armando Thornton MANAGER OPERATIONAL 350.1.13.10 ity of Visit REGIONAL 4.2.7.2.686 Stephon as MATERNAL [phone] [facility] ical & CHILD [address] [place] [address] 2023-02-13 2023-02-13 [facility] [id number] Univers 14:15:00 14:15:00 ARMANDO joseph [facility] 2023-01-24 2023-01-24 [facility] [id number] Univers 15:30:00 15:30:00 ARMANDO loo o neeraj [facility] 2023-01-17 2023-01-17 Abstract Megan [facility]UST 1.2.840.114 [id number] Univers 00:00:00 00:00:00 Armando Thornton MANAGER OPERATIONAL 350.1.13.10 ity of REGIONAL 4.2.7.2.686 Stephon as MATERNAL [phone] Med ical & CHILD [address] [place] [address] 2023-01-16 2023-01-16 Retail Director [facility] 1.2 .840.114 [id number] Univers 14:30:00 15:30:00 Visit Magda Martingregoria Ferris MANAGER OPERATIONAL 350.1. 13.10 ity of REGIONAL 4.2.7.2.686 Stephon as MATERNAL [phone] Med ical & CHILD [address] [facility] 2023-01-16 2023-01-16 Outpatient P YOUNGBLOOD [facility] [id number] Univers 14:30:00 14:30:00 ROYER it y of SSARAH [facility] 2023-01-03 2023-01-03 [facility] [id number] Univers 13:30:00 14:01:13 ARMANDO baker neeraj [facility] 2023-01-03 2023-01-03 Retail Director [facility] 1.2.840. 114 [id number] Univers 13:30:00 14:01:13 Visit Armando Guzman MANAGER OPERATIONAL 350.1.13. 10 ity of REGIONAL 4.2.7.2.686 Stephon as MATERNAL [phone] Med ical & CHILD [address] [place] [address] 2023-01-01 2023-01-01 Telephone Piter RUST 1.2.840.114 [id number] Univers 00:00:00 00:00:00 Tammie Owens MANAGER OPERATIONAL 350.1.13.10 i ty of REGIONAL 4.2.7.2.686 Stephon as MATERNAL [phone] Med ical & CHILD [address] [place] [address] 2022-12-27 2022-12-27 Outpatient R AKINSIPE, [facility] [id number] Univers 13:45:00 14:34:57 ARMANDO ity o [facility] 2022-12-27 2022-12-27 Initial [facility] [id number] Univers 13:45:00 14:34:57 Armando C MANAGER OPERATIONAL 350.1.13.10 ity of Visit REGIONAL 4.2.7.2.686 Stephon as MATERNAL [phone] [facility] ical & CHILD [address] [place] [address] 2022-12-27 2022-12-27 Orders Doctor MARRY 1.2.840.114 [id number] Univers 00:00:00 00:00:00 Only Unassigned, ONESIMO 350.1.13.10 ity of [place] [facility] 4.2.7.2.686 Stephon as [phone] [address] 2022-12-01 2022-12-01 Outpatient R AKINSIPE, [facility] [id number] Univers 12:30:00 12:30:00 ARMANDO curlyy o [facility] 2022-10-09 2022-10-09 Telephone [facility] 1.2.840.114 [id number] Univers 00:00:00 00:00:00 Armando Thornton MANAGER OPERATIONAL 350.1.13.10 ity of REGIONAL 4.2.7.2.686 Stephon as MATERNAL [id number] [facility] & CHILD [address] [place] [address] 2022-09-14 2022-09-14 Outpatient R AKINSIPE, [facility] [id number] Univers 10:30:00 10:30:00 ARMANDO ity o [facility] 2022-09-07 2022-09-07 Outpatient R AKINSIPE, [facility] [id number] Univers 15:00:00 15:00:00 ARMANDO ity o [facility] 2022-08-10 2022-08-10 Outpatient R AKINSIPE, [facility] [id number] Univers 15:00:00 15:00:00 ARMANDO ity o [facility] 2022-06-02 2022-06-04 Hospital MARRY Mendez 1.2.840.114 [id number] Univers 13:53:00 12:28:00 Encounter Martha ONESIMO 350.1.13.10 ity [facility] 4.2.7.2.686 [place] [id number] [facility] [address] 2022-06-04 2022-06-04 Telephone MARRY Fonseca 1.2.840.114 [id number] Univers 00:00:00 00:00:00 Cece SEALY 350.1.13.10 ity of [facility] 4.2.7.2.686 Stephon as [id number] [facility] [address] [place] 2022-06-02 2022-06-02 [facility] 1.2.840 .114 [id number] Univers 15:51:00 20:15:00 Event CansecoTomas ONESIMO 350.1.13.10 ity [facility] 4.2.7.2.686 Stephon as [id number] [facility] [address] [place] 2022-06-02 2022-06-02 Outpatient Bouchra NARVAEZ [facility] [id number] Univers 09:30:00 10:33:43 TAMMIE loo [facility] 2022-06-02 2022-06-02 Routine Provider, Devin [facility] 1 .2.840.114 [id number] Univers 09:30:00 10:33:43 Tammie Narvaez MANAGER OPERATIONAL 350.1.13. 10 ity of Visit [facility] 4.2.7.2.686 Stephon as MATERNAL [id number] [facility] ical & CHILD [address] [place] [address] 2022-06-02 2022-06-02 Outpatient Bouchra NARVAEZ [facility] CECILIA [id number] Univers 09:30:00 10:33:43 TAMMIE loo [facility] 2022-05-26 2022-05-26 Outpatient Bouchra NARVAEZ [facility] [id number] Univers 09:45:00 10:11:14 TAMMIE loo [facility] 2022-05-26 2022-05-26 Routine Provider, Olindajoseph [facility] 1 .2.840.114 [id number] Univers 09:45:00 10:11:14 Tammie Narvaez MANAGER OPERATIONAL 350.1.13. 10 ity of Visit REGIONAL 4.2.7.2.686 Stephon as MATERNAL [phone] [facility] & CHILD [address] [place] [address] 2022-05-18 2022-05-18 [id number] Univers 08:45:00 09:31:22 TAMMIE loo [facility] 2022-05-18 2022-05-18 Routine Provider, [facility] 1 .2.840.114 [id number] Univers 08:45:00 09:31:22 Tammie Narvaez MANAGER OPERATIONAL 350.1.13. 10 ity of Visit REGIONAL 4.2.7.2.686 Stephon as MATERNAL [id number] [address] 2022-05-12 2022-05-12 [facility] [id number] Univers 10:45:00 11:43:44 TAMMIE loo [facility] 2022-05-12 2022-05-12 Routine [facility], [facility] 1 .2.840.114 [id number] Univers 10:45:00 11:43:44 Tammie Narvaez MANAGER OPERATIONAL 350.1.13. 10 ity of Visit REGIONAL 4.2.7.2.686 Stephon as MATERNAL [id number] [facility] & [address] 2022-05-05 2022-05-05 Outpatient Bouchra ERWIN [facility] [id number] Univers 09:00:00 10:41:04 SWETA joseph [facility] 2022-05-05 2022-05-05 [facility] 1 .2.840.114 [id number] Univers 09:00:00 10:41:04 Sweta Erwin MANAGER OPERATIONAL 350.1.13.1 0 ity of Visit REGIONAL 4.2.7.2.686 Stephon as MATERNAL [id number] [facility] & [address] 2022-03-29 2022-03-29 Refill [facility] 1.2.814.898 [id number] Univers 00:00:00 00:00:00 Armando C MANAGER OPERATIONAL 350.1.13.10 ity of REGIONAL 4.2.7.2.686 Stephon as MATERNAL [phone] [address] 2022-03-17 2022-03-17 Outpatient R BEREKET [facility] [id number] Univers 12:30:00 12:30:00 AMBAR ity [facility] 2022-03-16 2022-03-16 Refill [facility] 1.2.731.261 [id number] 2020 [facility] 00:00:00 00:00:00 Armando C MANAGER OPERATIONAL 350.1.13.10 ity of REGIONAL 4.2.7.2.686 Ste[place] as MATERNAL [phone] [address] 2022-03-10 2022-03-10 Refill [facility] 1.2.042.035 [id number] Univers 00:00:00 00:00:00 Armando C MANAGER OPERATIONAL 350.1.13.10 ity of REGIONAL 4.2.7.2.686 Ste[place] as MATERNAL [phone] [address] 2022-03-09 2022-03-09 Outpatient R MEGAN, [facility] [id number] Univers 08:30:00 08:30:00 ARMANDO ity o f [facility] 2022-03-02 2022-03-02 Outpatient R YOLAPE, [facility] [id number] Univers 14:00:00 14:20:31 ARMANDO ity o f [facility] 2022-03-02 2022-03-02 Routine Megan, [place] 1.2.563.840 [id number] Univers 14:00:00 14:20:31 Armando C MANAGER OPERATIONAL 350.1.13.10 ity of Visit REGIONAL 4.2.7.2.686 Stephon as MATERNAL [phone] Med ical & CHILD 107 [facility] 2022-02-21 2022-02-21 Abstract [facility] 1.2.840.114 [id number] Univers 00:00:00 00:00:00 Armando C MANAGER OPERATIONAL 350.1.13.10 ity of [facility] 4.2.7.2.686 Stephon as MATERNAL [phone] Med ical & CHILD 107 [facility] 2022-02-20 2022-02-20 Outpatient P [facility] [id number] Univers 11:00:00 11:00:00 ity [facility] 2022-02-20 2022-02-20 Retail Director [facility] [place] 1.2. 840.114 [id number] Univers 09:45:00 10:41:00 Visit Alex Reyes MANAGER OPERATIONAL 350.1.13.10 ity of [facility] 4.2.7.2.686 Stephon as MATERNAL [phone] Med ical & CHILD 369 [facility] 2022-02-20 2022-02-20 Outpatient P PAVAN [facility] [id number] Univers 09:45:00 09:45:00 ALEX ity [facility] 2022-02-14 2022-02-14 Telephone [facility] 1.2.840.114 [id number] Univers 00:00:00 00:00:00 Armando C MANAGER OPERATIONAL 350.1.13.10 ity of REGIONAL 4.2.7.2.686 Stephon as MATERNAL [phone] [facility] ical & CHILD [address] [place] [address] 2022-02-08 2022-02-08 Telephone [facility] 1.2.840.114 [id number] Univers 00:00:00 00:00:00 Armando C MANAGER OPERATIONAL 350.1.13.10 ity of REGIONAL 4.2.7.2.686 Stephon as MATERNAL [phone] [facility] ical & CHILD [address] [place] [address] 2022-02-07 2022-02-07 Telephone [facility] 1.2.840.114 [id number] Univers 00:00:00 00:00:00 Armando C MANAGER OPERATIONAL 350.1.13.10 ity of REGIONAL 4.2.7.2.686 Stephon as MATERNAL [phone] [facility] & CHILD [address] [place] [address] 2022-02-06 2022-02-06 Telephone [facility] 1.2.840.114 [id number] Univers 00:00:00 00:00:00 Armando C MANAGER OPERATIONAL 350.1.13.10 ity of REGIONAL 4.2.7.2.686 Stephon as MATERNAL [id number] [facility] & CHILD [address] [place] [address] 2022-02-03 2022-02-03 Telephone [facility] 1.2.840.114 [id number] Univers 00:00:00 00:00:00 Armando C MANAGER OPERATIONAL 350.1.13.10 ity of REGIONAL 4.2.7.2.686 Stephon as MATERNAL [phone] [facility] & CHILD [address] [place] [address] 2022-02-02 2022-02-02 Initial [facility] 1.2.185.058 [id number] Univers 14:15:00 15:37:47 Armando C MANAGER OPERATIONAL 350.1.13.10 ity of Visit [facility] 4.2.7.2.686 Stephon as MATERNAL [id number] [facility] & [address] 2022-02-02 2022-02-02 Outpatient R MEGAN, [facility] [id number] Univers 13:45:00 15:34:53 ARMANDO ity o [facility] 2022-02-02 2022-02-02 Outpatient R AKINSIPE, [facility] [id number] Univers 13:45:00 15:34:53 ARMANDO rawlsy o f [facility] 2022-02-02 2022-02-02 Orders Doctor TUTTLE 1.2.840.114 [id number] Univers 00:00:00 00:00:00 Only Unassigned, ONESIMO 350.1.13.10 ity of [place] [facility] 4.2.7.2.686 Stephon as [id number] [address] 2021-09-09 2021-09-09 Outpatient R [facility] [id number] Univers 13:00:00 13:00:00 ity of [facility] 2021-09-09 2021-09-09 Outpatient R JYOTI [facility] [id number] Univers 13:00:00 13:00:00 MARTYA ity o [facility] 2021-08-26 2021-08-26 Telephone [facility] 1.2.840.114 [id number] Univers 00:00:00 00:00:00 Armando C MANAGER OPERATIONAL 350.1.13.10 ity of [facility] 4.2.7.2.686 Stephon as MATERNAL [id number] [facility] ical & CHILD [address] [place] [address] 2021-08-23 2021-08-23 [facility] [id number] Univers 14:00:00 14:50:43 ARMANDO loo o [facility] 2021-08-23 2021-08-23 Office [facility] 1.2.239.590 [id number] Univers 14:00:00 14:50:43 Visit Armando C MANAGER OPERATIONAL 350.1.13.10 ity of [facility] 4.2.7.2.686 Stephon as MATERNAL [phone] [facility] & [address] 2021-08-23 2021-08-23 Orders Doctor TUTTLE 1.2.840.114 [id number] Univers 00:00:00 00:00:00 Only Unassigned, ONESIMO 350.1.13.10 ity of [place] [facility] 4.2.7.2.686 Stephon as [phone] [address] 2021-08-02 2021-08-02 [facility] [id number] Univers 13:45:00 14:21:56 ARMANDO eze o [facility] 2021-08-02 2021-08-02 Routine [facility] 1.2.338.710 [id number] Univers 13:45:00 14:21:56 Armando C MANAGER OPERATIONAL 350.1.13.10 ity of Visit [facility] 4.2.7.2.686 Stephon as MATERNAL [phone] [facility] & CHILD [address] [place] [address] 2021-06-23 2021-06-24 Inpatient P NAVARRO GAJOLYNN CECILIA [id number] Univers 00:31:00 13:51:00 ADÁN ity of [facility] 2021-06-23 2021-06-24 Hospital MARRY Mckinnon 1.2.840.114 [id number] Univers 00:31:00 13:51:00 Encounter Adán ECHOLS 350.1.13.10 ity of [facility] 4.2.7.2.686 Stephon as [phone] [facility] [address] 2021-06-23 2021-06-23 Anesthesia Gabriel MARRY 1.2.840.114 [id number] Univers 04:29:00 10:56:00 Event Fred Lawson 350.1.13.10 ity of [facility] 4.2.7.2.686 Stephon as [phone] [facility] [address] 2021-06-17 2021-06-17 Outpatient R AKINSIPE, [facility] [id number] Univers 13:00:00 14:09:48 ARMANDO ity o f [facility] 2021-06-17 2021-06-17 Routine Akinsipe, [place] 1.2.744.722 [id number] Univers 13:00:00 14:09:48 Armando C MANAGER OPERATIONAL 350.1.13.10 ity of Visit REGIONAL 4.2.7.2.686 Stephon as MATERNAL [phone] [facility] & CHILD [address] [place] [address] 2021-06-10 2021-06-10 Routine Akinsipe, GAMB 1.2.839.480 [id number] Univers 13:00:00 13:38:43 Armando C MANAGER OPERATIONAL 350.1.13.10 ity of Visit REGIONAL 4.2.7.2.686 Stephon as MATERNAL [phone] [facility] & CHILD [address] [place] [address] 2021-06-10 2021-06-10 Outpatient R AKINSIPE, [facility] [id number] Univers 13:00:00 13:38:43 ARMANDO loo o f [facility] 2021-06-10 2021-06-10 Outpatient R AKINSIPE, [facility] [id number] Univers 13:00:00 13:00:00 ARMANDO rawlsy o f [facility] 2021-06-07 2021-06-07 [facility] 1.2.840.114 [id number] Univers 00:00:00 00:00:00 Armando C MANAGER OPERATIONAL 350.1.13.10 ity of REGIONAL 4.2.7.2.686 Stephon as MATERNAL [phone] [facility] & CHILD [address] [place] [address] 2021-06-07 2021-06-07 Telephone [facility] 1.2.840.114 [id number] Univers 00:00:00 00:00:00 Armando C MANAGER OPERATIONAL 350.1.13.10 ity of REGIONAL 4.2.7.2.686 Stephon as MATERNAL [id number] [facility] & CHILD [address] [place] [address] 2021-06-03 2021-06-03 Outpatient R AKINSIPE, [facility] [id number] Univers 13:00:00 13:58:35 ARMANDO loo o [facility] 2021-06-03 2021-06-03 Routine Akinsipe, [place] 1.2.327.737 [id number] Univers 13:00:00 13:58:35 Armando C MANAGER OPERATIONAL 350.1.13.10 ity of Visit REGIONAL 4.2.7.2.686 Stephon as MATERNAL [phone] [facility] & [address] 2021-06-03 2021-06-03 Outpatient R AKINSIPE, [facility] [id number] Univers 13:00:00 13:58:35 ARMANDOROEL loo o f [facility] 2021-06-03 2021-06-03 Outpatient R AKINSIPE, [facility] [id number] Univers 13:00:00 13:00:00 ARMANDO curlyy o [facility] 2021-05-26 2021-05-26 Outpatient R AKINSIPE, [facility] [id number] Univers 14:00:00 14:55:42 ARMANDO ity o f [facility] 2021-05-26 2021-05-26 Routine [facility] 1.2.713.446 [id number] Univers 14:00:00 14:55:42 Armando C MANAGER OPERATIONAL 350.1.13.10 ity of Visit REGIONAL 4.2.7.2.686 Stephon as MATERNAL [phone] [facility] & CHILD [address] [place] [address] 2021-05-12 2021-05-12 [facility] [id number] Univers 14:00:00 14:42:08 ARMANDO ity o f [facility] 2021-05-12 2021-05-12 Routine [facility] 1.2.406.408 [id number] Univers 14:00:00 14:42:08 Armando C MANAGER OPERATIONAL 350.1.13.10 ity of Visit REGIONAL 4.2.7.2.686 Stephon as MATERNAL [phone] [facility] & [address] 2021-04-28 2021-04-28 Routine Provider, Benny-Bruno [facility] 1 .2.840.114 [id number] Univers 14:59:19 16:00:58 Courtney Gustafson MANAGER OPERATIONAL 350.1.13 .10 ity of Visit REGIONAL 4.2.7.2.686 Stephon as MATERNAL [id number] [facility] & [address] 2021-04-28 2021-04-28 Outpatient Bouchra GUSTAFSON [facility] [id number] Univers 14:30:00 16:00:58 COURTNEY loo o f [facility] 2021-04-12 2021-04-12 Outpatient Bouchra [facility] [id number] Univers 13:45:00 14:38:59 TC loo [facility] 2021-04-12 2021-04-12 Routine [facility] 1.2.747.127 [id number] Univers 13:37:58 14:38:59 Tc Grant MANAGER OPERATIONAL 350.1.13.10 i ty of Visit REGIONAL 4.2.7.2.686 Stephon as MATERNAL [phone] Med ical & CHILD [address] [place] [address] 2021-04-12 2021-04-12 Outpatient Bouchra MILLER [facility] [id number] Univers 13:45:00 13:45:00 TC loo [facility] 2021-03-29 2021-03-29 Telephone [facility] 1.2.840.114 [id number] Univers 00:00:00 00:00:00 Tc Grant MANAGER OPERATIONAL 350.1.13.10 it y of [facility] 4.2.7.2.686 Stephon as MATERNAL [phone] Med ical & CHILD [address] [place] [address] 2021-03-28 2021-03-28 Routine [facility] 1.2.654.369 [id number] Univers 12:55:38 13:37:07 Tc Grant MANAGER OPERATIONAL 350.1.13.10 i ty of Visit [facility] 4.2.7.2.686 Stephon as MATERNAL [phone] Med ical & CHILD [address] [place] [address] 2021-03-28 2021-03-28 Outpatient R PAUL [facility] [id number] Univers 12:45:00 13:37:07 TC loo [facility] 2021-03-08 2021-03-08 Retail Director Ultrasound, [facility] 1.2 .840.114 [id number] Univers 10:19:20 10:59:01 Visit Martha Mendez MANAGER OPERATIONAL 350.1. 13.10 ity of [facility] 4.2.7.2.686 Stephon as MATERNAL [phone] Med ical & CHILD 369 [facility] 2021-03-08 2021-03-08 Outpatient P [facility] [id number] Univers 10:00:00 10:00:00 [facility] 2021-02-28 2021-02-28 Routine [facility] 1.2.747.999 [id number] Univers 13:16:41 13:52:38 Armando Thornton MANAGER OPERATIONAL 350.1.13.10 ity of Visit [facility] 4.2.7.2.686 Stephon as MATERNAL [id number] Med ical & CHILD [address] [place] [address] 2021-02-28 2021-02-28 [facility] [id number] Univers 13:00:00 13:00:00 ARMANDO baker neeraj [facility] 2021-01-31 2021-01-31 Routine [facility] 1.2.901.567 [id number] Univers 13:32:22 14:15:21 Armando C MANAGER OPERATIONAL 350.1.13.10 ity of Visit REGIONAL 4.2.7.2.686 Stephon as MATERNAL [phone] [facility] & CHILD [address] [place] [address] 2021-01-31 2021-01-31 Out[facility] [id number] Univers 13:00:00 13:00:00 ARMANDO baker neeraj [facility] 2021-01-06 2021-01-06 Telephone [facility]ioNEW [facility] 1.2.840.114 [id number] Univers 00:00:00 00:00:00 Armando C MANAGER OPERATIONAL 350.1.13.10 ity of REGIONAL 4.2.7.2.686 Stephon as MATERNAL [phone] [facility] & CHILD [address] [place] [address] 2021-01-04 2021-01-04 Abstract [facility]NEW [facility] 1.2.840.114 [id number] Univers 00:00:00 00:00:00 Armando C MANAGER OPERATIONAL 350.1.13.10 ity of REGIONAL 4.2.7.2.686 Stephon as MATERNAL [phone] [facility] & CHILD [address] [place] [address] 2021-01-03 2021-01-03 Retail Director 1, [facility] Room [place] 1.2. 840.114 [id number] Univers 13:55:29 14:10:42 Visit Armando Guzman MANAGER OPERATIONAL 350.1.13. 10 ity of Sarah Tobias REGIONAL 4.2.7.2 .686 [place] MATERNAL [phone] [facility] ical & CHILD [address] [place] [address] 2021-01-03 2021-01-03 Routine Akinsipe, [place] 1.2.693.860 [id number] Univers 10:50:21 11:10:41 Armando C MANAGER OPERATIONAL 350.1.13.10 ity of Visit REGIONAL 4.2.7.2.686 Stephon as MATERNAL [phone] [facility] & [address] 2021-01-03 2021-01-03 Out[facility] [id number] Univers 10:15:00 10:15:00 ARMANDO joseph [facility] 2020-12-13 2020-12-13 [facility] [id number] Univers 10:45:00 10:45:00 ARMANDO baker [facility] 2020-11-22 2020-11-22 Telephone [facility] 1.2.840.114 [id number] Univers 00:00:00 00:00:00 Armando C MANAGER OPERATIONAL 350.1.13.10 ity of REGIONAL 4.2.7.2.686 Stephon as MATERNAL [phone] [facility] & CHILD [address] [place] [address] 2020-11-18 2020-11-18 Telephone [facility] 1.2.840.114 [id number] Univers 00:00:00 00:00:00 Armando C MANAGER OPERATIONAL 350.1.13.10 ity of REGIONAL 4.2.7.2.686 Stephon as MATERNAL [id number] [facility] & [address] 2020-11-15 2020-11-15 Initial [facility] 1.2.966.719 [id number] Univers 13:51:59 14:42:06 Armando C MANAGER OPERATIONAL 350.1.13.10 ity of Visit REGIONAL 4.2.7.2.686 Stephon as MATERNAL [phone] [facility] & [address] 2020-11-15 2020-11-15 Out[facility] [id number] Univers 13:00:00 13:00:00 ARMANDO baker [facility] 2020-11-15 2020-11-15 Orders Doctor MARRY 1.2.840.114 [id number] Univers 00:00:00 00:00:00 Only Unassigned, ONESIMO 350.1.13.10 ity of [place] [facility] 4.2.7.2.686 Stephon as [phone] [address] 2020-08-10 2020-08-10 Patient [facility] 1.2.840.114 [id number] Univers 00:00:00 00:00:00 Outreach Pawan PRIMARY 350.1.13.10 i ty of [facility] 4.2.7.2.686 [place] [id number] N[place] dical [address] 2020-07-21 2020-07-21 Outpatient R [facility] [id number] Univers 10:00:00 10:00:00 ity of [facility] 2020-04-28 2020-04-28 Office [facility] 1.2.142.825 [id number] Univers 15:09:20 16:13:03 Visit Armando C MANAGER OPERATIONAL 350.1.13.10 ity of [facility] 4.2.7.2.686 Stephon as MATERNAL [phone] Med ical & CHILD [address] [place] [address] 2020-04-28 2020-04-28 [facility] [id number] Univers 15:00:00 15:00:00 ARMANDO loo o f [facility] 2020-04-28 2020-04-28 Orders Doctor MARRY 1.2.840.114 [id number] Univers 00:00:00 00:00:00 Only Unassigned, ONESIMO 350.1.13.10 ity of [place] [facility] 4.2.7.2.686 Stephon as [phone] [address] 2020-04-07 2020-04-07 Routine [facility] 1.2.213.499 [id number] Univers 15:40:47 16:21:28 Armando C MANAGER OPERATIONAL 350.1.13.10 ity of Visit [facility] 4.2.7.2.686 Stephon as MATERNAL [phone] [facility] ical & CHILD [address] [place] [address] 2020-04-07 2020-04-07 Outpatient R MEGAN, [facility] [id number] Univers 15:45:00 15:45:00 ARMANDO baker f [facility] 2020-03-15 2020-03-17 [facility] MARRY Burleson 1.2.409.065 [id number] Univers 07:20:00 12:30:00 Encounter Marshall ECHOLS 350.1.13.10 ity of HOSPITAL 4.2.7.2.686 Stephon as [phone] [address] 2020-03-11 2020-03-11 Telephone [facility] 1.2.840.114 [id number] Univers 00:00:00 00:00:00 Armando C MANAGER OPERATIONAL 350.1.13.10 ity of [facility] 4.2.7.2.686 Stephon as MATERNAL [phone] [facility] ical & CHILD [address] [place] [address] 2020-03-10 2020-03-10 Routine [facility] 1.2.725.276 [id number] Univers 10:26:31 11:02:50 Armando C MANAGER OPERATIONAL 350.1.13.10 ity of Visit REGIONAL 4.2.7.2.686 Stephon as MATERNAL [phone] [facility] ical & CHILD [address] [place] [address] 2020-03-10 2020-03-10 [facility] [id number] Univers 10:30:00 10:30:00 ARMANDO joseph [facility] 2020-03-03 2020-03-03 Routine [facility] 1.2.067.000 [id number] Univers 10:29:57 11:09:23 Armando C MANAGER OPERATIONAL 350.1.13.10 ity of Visit REGIONAL 4.2.7.2.686 Stephon as MATERNAL [phone] [facility] ical & CHILD [address] [place] [address] 2020-03-03 2020-03-03 [facility] [id number] Univers 10:30:00 10:30:00 ARMANDO baker f [facility] 2020-02-26 2020-02-26 Telephone [facility] 1.2.840.114 [id number] Univers 00:00:00 00:00:00 Armando C MANAGER OPERATIONAL 350.1.13.10 ity of REGIONAL 4.2.7.2.686 Stephon as MATERNAL [id number] [facility] & CHILD [address] [place] [address] 2020-02-25 2020-02-25 Routine Akinsipe, [place] 1.2.221.326 [id number] Univers 10:38:56 11:15:27 Armando C MANAGER OPERATIONAL 350.1.13.10 ity of Visit REGIONAL 4.2.7.2.686 Stephon as MATERNAL [phone] [facility] & CHILD [address] [place] [address] 2020-02-25 2020-02-25 Outpatient R AKINSIPE, [facility] [id number] Univers 10:45:00 10:45:00 ARMANDO ity o f [facility] 2020-02-18 2020-02-18 Routine Akinsipe, [place] 1.2.220.859 [id number] Univers 10:46:05 11:03:33 Armando C MANAGER OPERATIONAL 350.1.13.10 ity of Visit REGIONAL 4.2.7.2.686 Stephon as MATERNAL [id number] [facility] & CHILD [address] [place] [address] 2020-02-18 2020-02-18 Outpatient R AKINSIPE, [facility] [id number] Univers 10:45:00 10:45:00 ARMANDO ity o f [facility] 2020-02-04 2020-02-04 Routine Akinsipe, [place] 1.2.111.641 [id number] Univers 10:30:35 11:09:01 Armando C MANAGER OPERATIONAL 350.1.13.10 ity of Visit REGIONAL 4.2.7.2.686 Stephon as MATERNAL [id number] [facility] & [address] 2020-02-04 2020-02-04 Outpatient R AKINSIPE, [facility] [id number] Univers 10:45:00 10:45:00 ARMANDO ity o f [facility] 2020-01-21 2020-01-21 Routine Akinsipe, [place] 1.2.790.487 [id number] Univers 09:24:39 09:39:39 Armando C MANAGER OPERATIONAL 350.1.13.10 ity of Visit REGIONAL 4.2.7.2.686 Stephon as MATERNAL [id number] [facility] & [address] 2020-01-21 2020-01-21 Outpatient R AKINSIPE, [facility] [id number] Univers 09:30:00 09:30:00 ARMANDO ity o f [facility] 2020-01-07 2020-01-07 Routine [facility] [place] 1.2.081.947 [id number] Univers 10:38:50 11:42:57 Armando C MANAGER OPERATIONAL 350.1.13.10 ity of Visit REGIONAL 4.2.7.2.686 Ste[place] as MATERNAL [id number] [address] 2020-01-07 2020-01-07 [facility] [id number] Univers 10:45:00 10:45:00 ARMANDO ity o f [facility] 2019-12-23 2019-12-23 Routine [facility] 1.2.280.286 [id number] Univers 09:10:17 09:49:15 Armando C MANAGER OPERATIONAL 350.1.13.10 ity of Visit REGIONAL 4.2.7.2.686 Ste[place] as MATERNAL [phone] [address] 2019-12-23 2019-12-23 Outpatient R AKINSIPE, [facility] [id number] Univers 09:00:00 09:00:00 ARMANDO ity o f [facility] 2019-12-15 2019-12-15 Telephone [facility] 1.2.840.114 [id number] Univers 00:00:00 00:00:00 Armando C MANAGER OPERATIONAL 350.1.13.10 ity of REGIONAL 4.2.7.2.686 Stephon as MATERNAL [phone] [facility] & [address] 2019-12-04 2019-12-04 Abstract [facility] 1.2.840.114 [id number] Univers 00:00:00 00:00:00 Armando C MANAGER OPERATIONAL [id number] ity of REGIONAL [id number] Stephon as MATERNAL [phone] Med ical & CHILD 107 [facility] [place] 2019-12-01 2019-12-01 Routine Akinpe, RUST [id number] Univers 08:40:36 09:27:14 Armando C MANAGER OPERATIONAL [id number] ity of Visit REGIONAL [id number] Stephon as MATERNAL [phone] Med ical & CHILD 107 [facility] [place] 2019-12-01 2019-12-01 Retail Director Ultrasound, [facility] 1.2 .840.114 [id number] Univers 07:58:24 08:25:12 Visit Alex Reyes MANAGER OPERATIONAL [id number] [facility] 4.2.7.2.686 [place] MATERNAL [phone] Med ical & CHILD 369 [facility] [place] 2019-12-01 2019-12-01 Outpatient P [facility] [id number] Univers 08:00:00 08:00:00 ity of [facility] 2019-11-23 2019-11-23 Patient Doctor RUST 1.2.840.114 [id number] Univers 00:00:00 00:00:00 Secure Msg Unassigned, MANAGER OPERATIONAL [id number] ity of [place] [facility] [id number] Stephon as MATERNAL [phone] Med ical & CHILD 107 [facility] [place] 2019-11-19 2019-11-19 Orders Doctor MARRY [id number] [id number] Univers 00:00:00 00:00:00 Only Unassigned, ONESIMO 350.1.13.10 ity of [place] [facility] [id number] Stephon as [phone] [address] 2019-11-04 2019-11-04 Abstract [facility] [id number] Univers 00:00:00 00:00:00 Armando C MANAGER OPERATIONAL [id number] ity of [facility] [id number] Stephon as MATERNAL [phone] Med ical & CHILD 107 [facility] 2019-11-04 2019-11-04 Telephone Akinsipe, [facility] 1.2.840.114 [id number] Univers 00:00:00 00:00:00 Armando C MANAGER OPERATIONAL [id number] ity of [facility] [id number] Stephon as MATERNAL [phone] [facility] & CHILD [address] [place] [address] 2019-11-03 2019-11-03 Routine Akinsipe, GAMB [id number] Univers 13:00:45 14:09:38 Armando C MANAGER OPERATIONAL [id number] ity of Visit [facility] [id number] Stephon as MATERNAL [phone] [facility] & CHILD [address] [place] [address] 2019-11-03 2019-11-03 Retail Director Ultrasound, [facility] 1.2 .840.114 [id number] Univers 09:50:15 10:56:13 Visit Meagan Saeed MANAGER OPERATIONAL 350.1.13.10 ity of REGIONAL 4.2.7.2.686 Stephon as MATERNAL [phone] [facility] & CHILD 369 [facility] 2019-11-03 2019-11-03 Outpatient P [facility] [id number] Univers 09:30:00 09:30:00 ity of [facility] 2019-11-03 2019-11-03 Orders Doctor TUTTLE 1.2.840.114 [id number] Univers 00:00:00 00:00:00 Only Unassigned, ONESIMO 350.1.13.10 ity of [place] [facility] 4.2.7.2.686 Stephon as [phone] [address] 2019-10-30 2019-10-30 Outpatient R MEGAN, [facility] [id number] Univers 08:30:00 08:30:00 ARMANDO ity o f [facility] 2019-10-02 2019-10-02 Routine Akinsipe, GAMB [id number] Univers 12:52:29 14:11:03 Armando C MANAGER OPERATIONAL 350.1.13.10 ity of Visit [facility] [id number] Stephon as MATERNAL [phone] [facility] & CHILD [address] [place] [address] 2019-10-02 2019-10-02 Outpatient R MEGAN, [facility] [id number] Univers 13:15:00 13:15:00 ARMANDO ity o f [facility] 2019-09-01 2019-09-01 [facility] 1.2.840.114 [id number] Univers 16:43:49 16:57:06 ne Visit Armando C MANAGER OPERATIONAL [id number] ity of REGION[facility] [id number] Stephon as MATERNAL [phone] [facility] & CHILD [address] [place] [address] 2019-09-01 2019-09-01 Outpatient R MEGAN, [facility] [id number] Univers 14:30:00 14:30:00 ARMANDO ity o f [facility] 2019-09-01 2019-09-01 Outpatient R MEGAN, [facility] [id number] Univers 09:30:00 09:30:00 ARMANDO ity o f [facility] 2019-09-01 2019-09-01 Telephone [facility] 1.2.840.114 [id number] Univers 00:00:00 00:00:00 Armando C MANAGER OPERATIONAL 350.1.13.10 ity of [facility] [id number] Stephon as MATERNAL [phone] [facility] & CHILD [address] [place] [address] 2019-08-11 2019-08-11 Outpatient R [facility] [id number] Univers 10:30:00 10:30:00 ity of [facility] 2019-08-04 2019-08-04 Initial [facility] [id number] Univers 09:41:37 11:04:58 Armando C MANAGER OPERATIONAL 350.1.13.10 ity of Visit [facility] [id number] Stephon as MATERNAL [phone] [facility] & CHILD [address] [place] [address] 2019-08-04 2019-08-04 [facility] [id number] Univers 08:00:00 08:00:00 ARMANDO loo o f [facility] Results Test Description Test Time Test Comments Results Result Comments Source POCT URINALYSIS W SPECIFIC GRAVITY 2023-02-14 13:36:00 Test Item Value Reference Range Interpretation Comme nts POCT U SP GRAV (test code = 3255) . 1.005-1.025 POCT PH U (test code = 3254) 7 mg/dl 5-8 POCT U LEUK EST (test code = 3263) 2+ Negative - Negative POCT U NIT (test code = 3262) negative Negative - Negative POCT U PROT (test code = 3259) trace Negative - Negative POCT U GLU (test code = 3256) negative Negative - Negative POCT U KETONE (test code = 3258) negative Negative - Negative POCT U UROBILI (test code = 3260) . 0.2-1 POCT U BILI (test code = 3261) . Negative - Negative POCT U BLD (test code = 3257) negative Negative - Negative POCT U COLOR (test code = 3266) . POCT U APPEAR (test code = 3267) . [facility] [id number] 13:36:00 Test Item Value Reference Range Interpretation Comments [...] U APPEAR (test code = 3267) . [facility] [id number] 13:36:00 Test Item Value Reference Range Interpretation Comments [...] U APPEAR (test code = 3267) . [facility] URINALYSIS W SPECIFIC [id number] 13:36:00 Test Item Value Reference Range Interpretation Comments [...] U APPEAR (test code = 3267) . [facility] URINALYSIS W SPECIFIC [id number] 13:36:00 Test Item Value Reference Range Interpretation Comments [...] U APPEAR (test code = 3267) . [facility] URINALYSIS W SPECIFIC [id number] 13:36:00 Test Item Value Reference Range Interpretation Comments POCT U SP GRAV (test code = . 1.005-1.025 3255) POCT PH U (test code = 3254) 7 mg/dl 5-8 POCT U LEUK EST (test code = 2+ Negative - Negative 3) POCT U NIT [...] U APPEAR (test code = 3267) . [facility] [id number] 18:37:00 Test Item Value Reference Range Interpretation Comments POCT PREG (test code = 1605) Positive On board controls acceptable with C Yes Line (test code = 3577) POCT PREG LOT # (test code = 3576) POCT PREG TEST DATE (test code = 3576) [facility] URINALYSIS W/O SPECIFIC [id number] 18:37:00 Test Item Value Reference Range Interpretation Comments POCT PH U (test code = 3254) 5 mg/dl <=8 POCT U LEUK EST (test code = 1+ Negative - Negative 3263) POCT U NIT (test code = 3262) negative Negative - Negative POCT U PROT (test code = 3259) 1+ Negative - Negative POCT U GLU (test code = 3256) negative Negative - Negative POCT U KETONE (test code = 3258) negative Negative - Negative POCT U BLD (test code = 3257) negative Negative - Negative [facility] [id number] 18:37:00 Test Item Value Reference Range Interpretation Comments POCT PREG (test code = 1605) Positive On board controls acceptable with C Yes Line (test code = 3574) POCT PREG LOT # (test code = 3575) POCT PREG TEST DATE (test code = 3576) [facility] URINALYSIS W/O SPECIFIC [id number] 18:37:00 Test Item Value Reference Range Interpretation Comments POCT PH U (test code = 3254) 5 mg/dl <=8 POCT U LEUK EST (test code = 1+ Negative - Negative 3263) POCT U NIT (test code = 3262) negative Negative - Negative POCT U PROT (test code = 3259) 1+ Negative - Negative POCT U GLU (test code = 3256) negative Negative - Negative POCT U KETONE (test code = 3258) negative Negative - Negative POCT U BLD (test code = 3257) negative Negative - Negative [facility] IMMUNE [id number] 09:31:58 Test Item Value Reference Range Interpretation Comments RHIG CANDIDATE? No- see comment Patient i s not a (test code = candidate for R [facility]- 5055) Patient is Rh Positive.Perfor med at [facility] Laboratory Services - [facility] Blood [address] [place] [id number] Free: [phone] A No. [id number] [facility] [id number] 01:02:31 Test Item Value Reference Range Interpretation Comments BASE EXCESS, CORD mEq/L (test code = 7536712419) AC PH, CORD (BEAKER) 7.18-7.38 (test code = 8364171784) PC02, CORD (test code See_Comment [Auto mated message] The = [id number]) system which g enerated this result transmit evie reference range : 32 - 66 mmHg. The refer ence range was not used to interpret this result as normal/abnormal . PO2, CORD (test code See_Comment [Autom ated message] The = 0335874139) system which g enerated this result transmit evie reference range : 10 - 30 mmHg. The refer ence range was not used to interpret this result as normal/abnormal . BICARBONATE, CORD See_Comment [Automate d message] The (test code = system which ge nerated this [id number]) result transmit evie reference range : 17 - 27 mEq/L. The refe rence range was not used to interpret this result as normal/abnormal . [facility] [id number] 01:00:10 Test Item Value Reference Range Interpretation Comments VENOUS BASE EXCESS, mEq/L CORD (test code = 5478572964) VENOUS PH, CORD (test 7.25-7.45 code = 1494065710) VENOUS PC02, CORD See_Comment [Automate d message] The (test code = system which ge nerated 7965221667) this result tra nsmitted reference range : 27 - 49 mmHg. The refer ence range was not used to interpret this result as normal/abnormal . VENOUS PO2, CORD (test See_Comment [Aut omated message] The code = 6809749943) system [facility] generated this result tra nsmitted reference range : 17 - 41 mmHg. The refer ence range was not used to interpret this result as normal/abnormal . VENOUS BICARBONATE, See_Comment [Automa evie message] The CORD (test code = [facility] generated [id number]) this result tra nsmitted reference range : 12 - 29 mEq/L. The refe rence range was not used to interpret this result as normal/abnormal . [facility] Screen - ONCE [id number] 22:12:03 Test Item Value Reference Range Interpretation Comments ABO & RH (test code A POSITIVE Performe d at [facility] = 20) Laboratory [facility] [address] [facility] s [id number] Free: [phone] A No. [id number] IAT (test code = Negative Performed a t [facility] 1185) Laboratory [facility] [address] [facility] [address]Rtyd Free: [phone] A No. [id number] [facility] URINALYSIS W SPECIFIC [id number] 15:54:00 Test Item Value Reference Range Interpretation Comments POCT U SP GRAV (test code = * 1.005-1.025 3255) POCT PH U (test code = 3254) * 5-8 POCT U LEUK EST (test code = * Negative - Negative 3263) POCT U NIT [...] POCT U APPEAR (test code = 3267) [facility] URINALYSIS W SPECIFIC [id number] 16:00:00 Test Item Value Reference Range Interpretation Comments POCT U SP GRAV (test code = . 1.005-1.025 3255) POCT PH U (test code = 3254) 7 mg/dl 5-8 POCT U LEUK EST (test code = 2+ Negative - Negative 3) POCT U NIT [...] U APPEAR (test code = 3267) . [facility] URINALYSIS W SPECIFIC [id number] 15:04:00 Test Item Value Reference Range Interpretation [...] U APPEAR (test code = 3267) . [facility] URINALYSIS W SPECIFIC [id number] 15:25:00 Test Item Value Reference Range Interpretation [...] U APPEAR (test code = 3267) . [facility] URINALYSIS W SPECIFIC [id number] 19:06:00 Test Item Value Reference Range Interpretation [...] U APPEAR (test code = 3267) clear [facility]
[2023-02-27 19:58] LABS: Specific Gravity 1.015 (1.005-1.030); Urine Bacteria None Seen /HPF (<20); Urine Bilirubin NEGATIVE (Negative); Urine Blood Negative (Negative); Urine Clarity Extremely Turbid (Clear); Urine Color Yellow (Yellow); Urine Glucose NEGATIVE (Negative); Urine Mucus 4+ /HPF (None Seen); Urine Protein 1+ (Negative); Urine RBC <5 /HPF (None Seen); Urine Urobilinogen Normal (Normal); Urine pH 6.5 (5.0-7.0)
--- NOTE | 2023-02-27 21:29 | RAD REPORT ---
EXAM DESCRIPTION: US - OB Limited - 02/27/2023 8:46 pm CLINICAL HISTORY: slip;Abd pain COMPARISON: Transvaginal OB dated 11/07/2022 TECHNIQUE: Sonographic grayscale and color flow images of a third -trimester were obtained through transabdominal approach. FINDINGS: A single live intrauterine is identified. Presentation is transverse. Placenta h as formed anteriorly. Cervical canal is effaced. heart rate: 141 BPM. measurements are as follows: BPD:7.26 Centimeters 29 weeks and 1 day HC:26.73 Centimeters 29 weeks and 0 days AC:23.96 centimeters 20 weeks and 1 day FL:5.38 centimeters 28 weeks and 3 days ZAHEER: 15.3 cm, within normal limits. MVP: 7.7 cm. No free fluid. IMPRESSION: 1. Single live intrauterine as above. Normal ZAHEER. 2. Calculated gestational age: 28 weeks, 5 days. Estimated due date by ultrasound: 05/17/2023
--- NOTE | 2023-02-27 21:40 | ER ---
Nurse's Notes [facility] [place] [place] Name: Kiran Daigle Age: 22 yrs Sex: Female : 2000 Arrival Date: 02/27/2023 Time: 19:11 Bed 14 Private MD: Diagnosis: Muscle strain Presentation: 02/27 19:25 Chief complaint: Patient states: Lower abdominal/pelvic pain today. Denies vaginal nj1 bleeding. 24 wks . Took tylenol at around 11-12. Coronavirus screen: Vaccine status: Patient reports being unvaccinated. Ebola Screen: Patient denies travel to an Ebola-affected area in the 21 days before illness onset. 19:25 Method Of Arrival: Ambulatory [facility] 19:26 Initial Sepsis Screen: Does the patient meet any 2 criteria? HR > 90 bpm. No. Patient's nj1 initial sepsis screen is negative. Does the patient have a suspected source of infection? No. Patient's initial sepsis screen is negative. Risk Assessment: Do you want to hurt yourself or someone else? Patient reports no desire to harm self or others. Onset of symptoms was February 27, 2023. 19:26 Acuity: JUMANA 3 nj1 Triage Assessment: 19:30 General: Appears in no apparent distress. uncomfortable, Behavior is calm, cooperative, jw7 appropriate for age. 19:30 Pain: Complains of pain in right lower quadrant Pain radiates to right upper quadrant jw7 Pain currently is 6 out of 10 on a pain scale. Quality of pain is described as crampy, shooting, stabbing, Pain began 1200 Is intermittent, Alleviated by rest, Aggravated by exercise, repositioning, Noted to be resistant to movement. 19:30 EENT: No deficits noted. No signs and/or symptoms were reported regarding the EENT jw7 system. Neuro: Yun Agitation-Sedation Scale (RASS): 0 - Alert and Calm. Cardiovascular: No deficits noted. Capillary refill < 3 seconds Clubbing of nail beds is absent JVD is absent Patient's skin is warm and dry. Respiratory: No deficits noted. Airway is patent Trachea midline Respiratory effort is even, unlabored, Respiratory pattern is regular, symmetrical. GI: Abdomen is round non-distended, Bowel sounds present X 4 quads. Reports lower abdominal pain. : No deficits noted. No signs and/or symptoms were reported regarding the genitourinary system. Derm: No signs and/or symptoms reported regarding the dermatologic system. Skin is intact, is healthy with good turgor, Skin is dry, Skin is normal, Skin temperature is warm. Musculoskeletal: No signs and/or symptoms reported regarding the musculoskeletal system. Circulation, motion, and sensation intact. Range of motion: intact in all extremities. FINANCIAL COUNSELOR: 21:32 Verified [facility] Historical: - Allergies: 19:26 No Known Allergies; nj1 - PMHx: 19:26 None; nj1 - PSHx: 19:26 None; nj1 - Immunization history:: Client reports having NOT received the Covid vaccine. - Social history:: Smoking status: Patient denies any tobacco usage or history of. Screenin:05 [facility] ED Fall Risk Assessment (Adult) History of falling in the last 3 months, kl including since admission No falls in past 3 months (0 pts) Confusion or Disorientation No (0 pts) Intoxicated or Sedated No (0 pts) Impaired Gait No (0 pts) Mobility Assist Device Used No (0 pt) Altered Elimination No (0 pt) Score/Fall Risk Level 0 - 2 = Low Risk. Abuse screen: Denies threats or abuse. Nutritional screening: No deficits noted. Tuberculosis screening: No symptoms or risk factors identified. Assessment: 19:40 General: see triage assessment. jw7 20:04 Reassessment: pt reports currently taking medication for bacterial vagiosis. kl 20:23 GI: Abd is non tender. [facility] 20:30 Reassessment: Patient appears in no apparent distress at this time. No changes from [facility] previously documented assessment. Patient and/or family updated on plan of care and expected duration. Pain level reassessed. Patient is alert, oriented x 3, equal unlabored respirations, skin warm/dry/pink. 21:30 Reassessment: Patient appears in no apparent distress at this time. Patient and/or 7 family updated on plan of care and expected duration. Pain level reassessed. Patient is alert, oriented x 3, equal unlabored respirations, skin warm/dry/pink. Patient states feeling better. Vital Signs: 19:25 BP 108 / 68; Pulse 92; Resp 18; Pulse Ox 100% ; Weight 85.28 kg; Height 5 ft. 5 in. ; nj1 Pain 8/10; 20:12 BP 99 / 55; Pulse 80; Resp 17 S; Pulse Ox 98% on R/A; jw7 21:28 BP 110 / 76; Pulse 84; Resp 17 S; Pulse Ox 98% on R/A; jw7 19:25 Body Mass Index 31.28 (85.28 kg, 165.1 cm) [facility] 19:25 Pain Scale: Adult [facility] ED Course: 19:18 Patient arrived in ED. 2 19:26 Triage completed. [facility] 19:27 Arm band placed on right wrist. [facility] 19:37 Fior Tate FNP-C is [facility]. kb 19:37 Chas Bailey MD is Attending Physician. kb 19:51 Urinalysis w/ reflexes Sent. 20:09 Amanda Chawla, RN is Primary Nurse. jw7 20:23 Patient has correct armband on for positive identification. Bed in low position. Call jw7 light in reach. Side rails up X 1. 20:48 OB Limited In Process Unspecified. EDMS 21:32 No provider procedures requiring assistance completed. Patient did not have IV access jw7 during this emergency room visit. 21:48 Provided Education on: discharge instructions. jw7 Administered Medications: No medications were administered Medication: 21:32 VIS not applicable for this client. jw7 Outcome: 21:39 Discharge ordered by . kb 21:48 Discharged to home ambulatory, jw7 21:48 Condition: stable 21:48 Discharge instructions given to patient, Instructed on discharge instructions, follow up and referral plans. Demonstrated understanding of instructions, follow-up care, 21:49 Patient left the ED. jw7 Signatures: Dispatcher [employer] EDOR Firo Tate FNP-C FNP-Ckb Lewis, Kimberly, RN RN Amanda Chawla RN RN jw7 Jaco, Norma, RN RN nj1 Mitchell, Ginger [facility] Corrections: (The following items were deleted from the chart) 20:23 19:30 Pain: Complains of pain in right lower quadrant and left lower quadrant Pain does jw7 not radiate. Pain Quality of pain is described as crampy, Pain began jw7
--- NOTE | 2023-02-27 21:40 | EDPHYS ---
Physician Documentation [facility] Name: Kiran Daigle Age: 22 yrs Sex: Female : 2000 Arrival Date: 02/27/2023 Time: 19:11 Bed 14 Private MD: ED Physician Chas Bailey HPI: 02/27 21:27 This 22 yrs old Female presents to ER via Ambulatory with complaints of kb Abdominal Pain. 21:27 Details of fall: The patient fell from an upright position. Onset: The symptoms/episode kb began/occurred just prior to arrival. Associated injuries: The patient sustained groin, painful injury. Severity of symptoms: At their worst the symptoms were mild, in the emergency department the symptoms are unchanged. The patient has not experienced similar symptoms in the past. The patient has not recently seen a physician. Pt reports she slipped and her leg went away from her causing a strain in her groin. States she did not fall to the ground, but has had pain to groin since the slip. States she only has pain with walking. Came to make sure everything was ok with baby since she is 24 weeks . Denies vaginal bleeding. 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 - Social history:: Smoking status: Patient denies any tobacco usage or history of. ROS: 21:23 Constitutional: Negative for fever, chills, and weight loss, kb 21:23 Abdomen/GI: Positive for abdominal pain, Negative for nausea, vomiting, and diarrhea, 21:23 All other systems are negative, Exam: 21:23 Constitutional: This is a well developed, well nourished patient who is awake, alert, kb and in no acute distress. Head/Face: Normocephalic, atraumatic. ENT: Moist Mucous membranes Cardiovascular: Regular rate Respiratory: Respirations even and unlabored. No increased work of breathing. Talking in full sentences Abdomen/GI: Soft, non-tender. No distention Skin: Warm, dry with normal turgor. Normal color. MS/ Extremity: Pulses equal, no cyanosis. Neurovascular intact. Full, normal range of motion. Neuro: Awake and alert, GCS 15, oriented to person, place, time, and situation. Moves all extremities. Normal gait. Vital Signs: 19:25 BP 108 / 68; Pulse 92; Resp 18; Pulse Ox 100% ; Weight 85.28 kg; Height 5 ft. 5 in. ; nj1 Pain 8/10; 20:12 BP 99 / 55; Pulse 80; Resp 17 S; Pulse Ox 98% on R/A; jw7 21:28 BP 110 / 76; Pulse 84; Resp 17 S; Pulse Ox 98% on R/A; jw7 19:25 Body Mass Index 31.28 (85.28 kg, 165.1 cm) nj1 19:25 Pain Scale: Adult nj1 MDM: 19:37 Patient medically screened. kb 21:29 Differential diagnosis: strain. Data reviewed: vital signs, nurses notes. Counseling: I kb had a detailed discussion with the patient and/or guardian regarding the historical points, exam findings, and any diagnostic results supporting the discharge/admit diagnosis, radiology results, the need for outpatient follow up, an OB/Gyne specialist, to return to the emergency department if symptoms worsen or persist or if there are any questions or concerns that arise at home. 02/27 19:42 Order name: Urinalysis w/ reflexes; Complete Time: 20:02 kb 02/27 20:45 Order name: OB Limited; Complete Time: 21:30 EDMS Administered Medications: No medications were administered Disposition Summary: 02/27/23 21:39 Discharge Ordered Notes: Location: Home kb Condition: Stable kb Diagnosis - Groin strain kb - Muscle strain Followup: kb - With: Emergency Department - When: As needed - Reason: Worsening of condition Followup: kb - With: Private Physician - When: 2 - 3 days - Reason: Recheck today's complaints, Continuance of care, Re-evaluation by your physician Discharge Instructions: - Discharge Summary Sheet kb - Muscle Strain, [id number]-mv-[id number] kb Forms: - Medication Reconciliation Form kb - Thank You Letter kb - Antibiotic Education kb - Prescription Opioid Use kb - Patient Portal Instructions kb - Leadership Thank You Letter kb Addendum: 02/28/2023 22:08 Co-signature as Attending Physician, Chas Bailey MD I reviewed the patient's care r t provided by the Advanced Practice Provider and agree with the diagnosis and treatment plan. Signatures: Dispatcher [employer] EDWA Fior Tate, PIPE ROLLER-C PIPE ROLLER-Ckb Chas Bailey MD MD rt Virginia Glaser RN RN nj1 Corrections: (The following items were deleted from the chart) 02/27 20:45 19:42 OB Complete+US.RAD.ERWINZ ordered. EDWA EDMS 21:29 21:27 Pt reports she slipped and her leg went away from her causing a strain in her kb groin. States she did not fall to the ground, but has had pain to groin since the slip. States she only has pain with walking. Came to make sure everything was ok with baby since she is 24 weeks . . kb
[2023-02-27 21:54] VITALS: O2SAT 98
[2023-02-27 21:55] VITALS: BP 110/76
== END 2023-02-27 21:49 | disposition home or self-care (01) ==
LOC: ER 19:11
DX: O9A.212 Injury, poisoning and certain other consequences of external causes complicating pregnancy, second trimester (principal); S39.011A Strain of muscle, fascia and tendon of abdomen, initial encounter; Z3A.24 24 weeks gestation of pregnancy
CPT/HCPCS: 76815; 81001; 99283

== ENCOUNTER → 2023-06-19 | Emergency (ER) | payer OTHER ==
[~2023-06-19] MED LIST: IBUPROFEN 400 MG TAB ONE; TRAMADOL HCL 50 MG TAB ONE; methocarbamoL 750 MG TAB ONE
--- OUTSIDE RECORDS SUMMARY | 2023-06-19 20:32 | XMS REPORT | Continuity of Care Document ---
Author Name Unknown Address [address] [facility] [address] [place] [address] [facility] Address [address] [facility] [address] [place] [address] Care Team Providers Care Community Recreation Coordinator Name Role Phone ARMANDO GUZMAN Primary Care Physician Unav MARRY Hernandez Attending Clinician Unavailable ARMANDO GUZMAN Attending Clinician Unavail able SREEKANTH DAWSON Attending Clinician Unavailable SREEKANTH DAWSON Attending Clinician Unavailable Sreekanth Dawson MD Attending Clinician [phone] Ford Perkins MD, Smith Attending Clinician + Mike Cummins MD Attending Clinician [phone] Sherie MULLINS, Sherice Kiah Attending Clinicia n + [place] [facility], Armando Thornton Attending Clinician + Piter SALGUERO, Tammie Owens Attending Clinician [phone] TAMMIE DUMAS Attending Clinician Unavaila josiah FORD PERKINS, SMITH Attending Clinician Unav ailable 1, [facility] Attending Clinician Unavailab le Doctor Unassigned, [place] Attending Clinician U navailable Ultrasound, Ang-m Attending Clinician Unavaila ble [facility], [facility] Attending Clinician Unavailable Alonzo MULLINS, Martha Charles Attending Clinician + Raymundo BROWN [facility], Cece Attending Clinician + Kristy MULLINS, Davian Attending Clinician + Tomas Canseco MD Attending Clinician [phone] Provider, [facility] Tem Attending Clinician Mala SWETA Varma Attending Clinician Unavailab rashid Ho MSN, Sweta Owens Attending Clinician [phone] AMBAR CUBA Attending Clinician Unavailable Alex Browne MD Attending Clinician +[phone] ALEX BROWNE Attending Clinician Unavailable JOEY MONTES Attending Clinician Unavailab CLAIRE Jorgensen Attending Clinician Unavailable Gabriel Blanton DO Attending Clinician +[phone] Fred Lawson MD Attending Clinician + [phone] [place] [facility], Courtney Montes De Oca Attending Clinician + COURTNEY GRAY Attending Clinician Unavail able TC MILLER Attending Clinician UnavailAn ATKINSP, Tc Grant Attending Clinician [phone] Pawan Mcgill DO Attending Clinician [phone] Benjy MULLINS, Marshall Avalos Attending Clinician [phone] Meagan Saeed MD Attending Clinician + [phone] SREEKANTH DAWSON Admitting Clinician Unavailable Samir MULLINSSreekanth Admitting Clinician [phone] Alonzo MULLINS, Martha Charles Admitting Clinician + MARTHA MENDEZ Admitting Clinician Unav CLAIRE Mosley Admitting Clinician Unavailable Benjy MULLINS, Marshall Avalos Admitting Clinician Payers Payer Name Policy Type Policy Number Effective Date Expirati on Date Source [facility] [id number] 2019 00:00:00 MEDICAID PENDING PENDING 2019 00:00:00 [place] [id number] 2019 00:00:00 Problems Condition Name Condition Details Condition Category Status Onset Date Resolution Date Last Treatment Date Treating Clinician Comments Source Encounter for tubal ligation Encounter for tubal ligation Disease Active 2022-05 00:00: 00 [facility] Uterine contractio ns Uterine contractio ns Disease Active 2022-05 00:00: 00 [facility] 37 weeks gestation of 37 weeks gestation of Disease Active 2022-05 00:00: 00 [facility] Positive GBS test Positive GBS test Disease Active 2022-05 00:00: 00 [facility] BV (bacterial vaginosis) BV (bacterial vaginosis) Disease Active 2022-05 0 00:00: 00 [facility] Maternal varicella, non-immune Maternal varicella, non-immune Disease Active 12-28 00:00: 00 Overview: Formattin g of this note might be different from the original. Address pp [facility] Multiparit y Multiparit y Disease Active 12-27 00:00: 00 [facility] Short interval between pregnancie s affecting , antepartum Short interval between pregnancie s affecting , antepartum Disease Active 12-27 00:00: 00 [facility] (spontaneo us vaginal delivery) (spontaneo us vaginal delivery) Disease Active 06-03 00:00: 00 [facility] Single live Single live Disease Active 2023-0 1-14 00:00: 00 [facility] Anemia, Anemia, Disease Active 1-14 00:00: 00 [facility] Uterine contractio ns during Uterine contractio ns during Disease Active 1-13 00:00: 00 [facility] Obesity (BMI 30-39.9) Obesity (BMI 30-39.9) Disease Active 1-13 00:00: 00 [facility] Over weight Over weight Disease Active 13 00:00: 00 [facility] Pain of round ligament during Pain of round ligament during Disease Active 1-06 00:00: 00 [facility] Obesity affecting in third trimester Obesity affecting in third trimester Disease Active 2021-05 2-29 00:00: 00 [facility] Susceptibl e to varicella (non-immun e), currently Susceptibl e to varicella (non-immun e), currently Disease Active 02-03 00:00: 00 Overview: Formattin g of this note might be different from the original. Address pp [facility] Chlamydia infection affecting Chlamydia infection affecting Disease Active 02-03 00:00: 00 Overview: Formattin g of this note might be different from the original. Pending tobias [facility] Supervisio n of high-risk Supervisio n of high-risk Disease Active 02-02 00:00: 00 [facility] Multiparit y Multiparit y Disease Active 15 00:00: 00 [facility] Short interval between pregnancie s affecting , antepartum Short interval between pregnancie s affecting , antepartum Disease Active 15 00:00: 00 [facility] Supervisio n of high-risk with insufficie nt care Supervisio n of high-risk with insufficie nt care Disease Active -15 00:00: 00 [facility] 39 weeks gestation of 39 weeks gestation of Disease Active 2022-0 2-03 00:00: 00 [facility] UTI (urinary tract infection) during UTI (urinary tract infection) during Disease Active 7-01 00:00: 00 [facility] (normal spontaneou s vaginal delivery) (normal spontaneou s vaginal delivery) Disease Active 2019-05 0-27 00:00: 00 [facility] Anemia of mother in , antepartum Anemia of mother in , antepartum Disease Active 8-05 00:00: 00 [facility] Anemia of mother in , antepartum Anemia of mother in , antepartum Disease Active 8-05 00:00: 00 [facility] Over weight Over weight Disease Active 3-16 00:00: 00 [facility] Allergies, Adverse Reactions, Alerts Allergy Name Allergy Type Status Severity Reaction(s) Onset Date Inactive Date Treating Clinician Comments Source NO KNOWN ALLERGIE S Drug Class Active [facility] Social History Social Habit Start Date Stop Date Quantity Comments Source ASSERTION 2022-09-07 00:00:00 [facility] Gender identity [facility] SDOH Alcohol Std Drinks [facility] History SDOH Alcohol Binge [facility] History SDOH Alcohol Comment [facility] Alcohol intake 2023-05-11 00:00:00 2023-05-11 00:00:00 Ex-drinker (finding) [facility] History of Social function 2023-02-14 00:00:00 2023-02-14 00:00:00 [facility] Exposure to SARS-CoV-2 (event) 2022-06-14 00:00:00 2022-06-24 06:15:00 Not sure [facility] Tobacco use and exposure 2022-02-02 00:00:00 2022-02-02 00:00:00 Smokeless tobacco non-user [facility] History SDOH Alcohol Frequency 2019-08-04 00:00:00 2019-08-04 00:00:00 [facility] Sex Assigned At 2000 00:00:00 2000 00:00:00 [facility] Smoking Status Start Date Stop Date Source Never smoked tobacco [facility] Medications Ordered Medication Name Filled Medication Name Start Date Stop Date Current Medication? Ordering Clinician Indication Dosage Frequency Signature (SIG) Comments Components Source varicella virus vaccine live (VARIVAX) injection and diluent vial 2022-05 14:14: 16 Yes 1{each} 0.5 mL (1 Each), Subcutaneo us, ONCE-PRIOR TO DISCHARGE, 1 dose, Starting on 05/13/23 at 0814, Until Discontinu ed, Routine, Give vaccine prior to discharge [facility] varicella virus vaccine live (VARIVAX) injection and diluent vial 2022-05 14:14: 16 05-13 23:42 :44 No 1{each} 0.5 mL (1 Each), Subcutaneo us, ONCE-PRIOR TO DISCHARGE, 1 dose, Starting on 05/13/23 at 0814, Until 05/13/23 at 1742, Routine, Give vaccine prior to discharge [facility] ibuprofen 600 mg tablet 2022-05 00:00: 00 Yes [id number] 600mg Take 1 tablet by mouth every 6 (six) hours as needed (Pain). Take with food or milk. [facility] ibuprofen 600 mg tablet 2022-05 00:00: 00 Yes [id number] 600mg Take 1 tablet by mouth every 6 (six) hours as needed (Pain). Take with food or milk. [facility] HYDROcodone -acetaminop hen 5-325 mg tablet 2022-05 00:00: 00 Yes [id number] 1{tbl} Take 1 tablet by mouth every 6 (six) hours as needed for Pain (scale 7-10). Indication s: acute pain [facility] rdh21-vubr- folic acid 29 mg iron- 1 mg per tablet 2022-05 00:00: 00 Yes [id number] 1{tbl} Take 1 tablet by mouth in the morning. [facility] Iron Fum & P-FA-Vit B & C No.9 (INTEGRA PLUS) 125 mg iron- 1 mg Cap 2022-05 00:00: 00 Yes [id number] 1{capsu le} Take 1 capsule by mouth in the morning. [facility] HYDROcodone -acetaminop hen 5-325 mg tablet 2022-05 00:00: 00 05-21 05:59 :00 Yes [id number] 1{tbl} Take 1 tablet by mouth every 6 (six) hours as needed for Pain (scale 7-10) for up to 7 days. Indication s: [facility] -[facility] 5-325 mg tablet 2022-05 00:00: 00 05-13 00:00 :00 No [id number] 1{tbl} Take 1 tablet by mouth every 6 (six) hours as needed for Pain (scale 7-10) for up to 7 days. Indication s: acute pain [facility] ibuprofen 600 mg tablet 2022-05 00:00: 00 05-13 00:00 :00 No [id number] 600mg Take 1 tablet by mouth every 6 (six) hours as needed (Pain). Take with food or milk. [facility] magnesium hydroxide (MILK OF MAGNESIA) 400 mg/5 mL suspension 30 mL 2022-05 15:00: 00 Yes 30mL 30 mL, Oral, DAILY, First dose on 05/12/23 at 0900, Until Discontinu ed, Routine [facility] hydroxide (MILK OF MAGNESIA) 400 mg/5 mL suspension 30 mL 2022-05 15:00: 00 05-13 23:42 :44 No 30mL 30 mL, Oral, DAILY, First dose on 05/12/23 at 0900, Until Discontinu ed, Routine [facility] simethicone (GAS RELIEF (SIMETHICON E)) chewable tablet 160 mg 2022-05 19:00: 00 Yes 160mg 160 mg, Oral, PC+HS, First dose on Sun05/11/23 at 1300, Until Discontinu ed, Routine [facility] simethicone (GAS RELIEF (SIMETHICON E)) chewable tablet 160 mg 2022-05 19:00: 00 05-13 23:42 :44 No 160mg 160 mg, Oral, PC+HS, First dose on Sun05/11/23 at 1300, Until Discontinu ed, Routine [facility] rho(D) immune globulin (RHOGAM) syringe 300 mcg 2022-05 18:16: 35 Yes 300ug 300 mcg, Intramuscu lar, ONCE, For 1 dose, Conditiona l, Routine [facility] rho(D) immune globulin (RHOGAM) syringe 300 mcg 2022-05 18:16: 35 05-13 23:42 :44 No 300ug 300 mcg, Intramuscu lar, ONCE, For 1 dose, Conditiona l, Routine [facility] HYDROcodone -acetaminop hen (NORCO 5) 5-325 mg tablet 1 tablet 2022-05 18:16: 32 Yes 1{tbl} 1 tablet, Oral, Q6HPRN, Starting on Sun05/11/23 at 1216, Until Discontinu ed, Routine, Pain (scale 7-10) [facility] ibuprofen (IBU) tablet 600 mg 2022-05 18:16: 32 Yes 600mg 600 mg, Oral, Q6HPRN, Starting on Sun05/11/23 at 1216, Until Discontinu ed, Routine, Pain (scale 4-6) [facility] acetaminoph en (TYLENOL) tablet 650 mg 2022-05 18:16: 32 Yes 650mg 650 mg, Oral, Q6HPRN, Starting on Sun05/11/23 at 1216, Until Discontinu ed, Routine, Pain (scale 1-3) [facility] diphenhydrA MINE (BENADRYL) tablet 25 mg 2022-05 18:16: 32 Yes 25mg 25 mg, Oral, Q6HPRN, Starting on Sun05/11/23 at 1216, Until Discontinu ed, Routine, Sleep, Itching [facility] ondansetron (ZOFRAN (PF)) injection 4 mg 2022-05 18:16: 32 Yes 4mg 4 mg, Slow IV Push, Q8HPRN, Starting on Sun05/11/23 at 1216, Until Discontinu ed, Routine, Nausea and Vomiting (N/V) [facility] docusate (COLACE) capsule 200 mg 2022-05 18:16: 32 Yes 200mg 200 mg, Oral, QDAILYPRN, Starting on Sun05/11/23 at 1216, Until Discontinu ed, Routine, Constipati on [facility] benzocaine- menthol (DERMOPLAST ) 20-0.5 % topical spray 2022-05 18:16: 32 Yes Topical, PRN, Starting on Sun05/11/23 at 1216, Until Discontinu ed, Routine, Perineum discomfort [facility] HYDROcodone -acetaminop hen (NORCO 5) 5-325 mg tablet 1 tablet 2022-05 18:16: 32 05-13 23:42 :44 No 1{tbl} 1 tablet, Oral, Q6HPRN, Starting on Sun05/11/23 at 1216, Until Sun05/13/23 at 1742, Routine, Pain (scale 7-10) [facility] ibuprofen (IBU) tablet 600 mg 2022-05 18:16: 32 05-13 23:42 :44 No 600mg 600 mg, Oral, Q6HPRN, Starting on Sun05/11/23 at 1216, Until 05/13/23 at 1742, Routine, Pain (scale 4-6) [facility] acetaminoph en (TYLENOL) tablet 650 mg 2022-05 18:16: 32 05-13 23:42 :44 No 650mg 650 mg, Oral, Q6HPRN, Starting on Sun05/11/23 at 1216, Until 05/13/23 at 1742, Routine, Pain (scale 1-3) [facility] diphenhydrA MINE (BENADRYL) tablet 25 mg 2022-05 18:16: 32 05-13 23:42 :44 No 25mg 25 mg, Oral, Q6HPRN, Starting on Sun05/11/23 at 1216, Until 05/13/23 at 1742, Routine, Sleep, Itching [facility] ondansetron (ZOFRAN (PF)) injection 4 mg 2022-05 18:16: 32 05-13 23:42 :44 No 4mg 4 mg, Slow IV Push, Q8HPRN, Starting on Sun05/11/23 at 1216, Until 05/13/23 at 1742, Routine, Nausea and Vomiting (N/V) [facility] docusate (COLACE) capsule 200 mg 2022-05 18:16: 32 05-13 23:42 :44 No 200mg 200 mg, Oral, QDAILYPRN, Starting on Sun05/11/23 at 1216, Until Sun05/13/23 at 1742, Routine, Constipati on [facility] benzocaine- menthol (DERMOPLAST ) 20-0.5 % topical spray 2022-05 18:16: 32 05-13 23:42 :44 No Topical, PRN, Starting on Sun05/11/23 at 1216, Until 05/13/23 at 1742, Routine, Perineum discomfort [facility] ibuprofen (IBU) tablet 600 mg 2022-05 18:00: 00 05-12 13:10 :59 No 600mg 600 mg, Oral, Q6H, First dose on Sun05/11/23 at 1200, Until Discontinu ed, Routine [facility] HYDROcodone -acetaminop hen (NORCO 5) 5-325 mg tablet 2 tablet 2022-05 14:35: 18 05-12 13:10 :59 No 2{tbl} 2 tablet, Oral, Q6HPRN, Starting on Sun05/11/23 at 0835, Until 05/12/23 at 0710, Routine, Pain (scale 7-10) [facility] lactated ringers IV infusion 500 mL 2022-05 08:45: 00 05-11 08:25 :51 No 500mL at 999 mL/hr, 500 mL, IV Infusion, ONCE, 1 dose, On Sun05/11/23 at 0245, Routine [facility] ropivacaine 0.2 % (NAROPIN (PF)) epidural infusion 2022-05 08:05: 00 05-11 14:11 :22 No Epidural, CONTINUOUS PRN, Starting on Sun05/11/23 at 0205, Until Discontinu ed, Routine, Intra-op [facility] lidocaine-e pinephrine (XYLOCAINE W/EPINEPHRI NE) 2 %-1:200,000 injection 2022-05 08:04: 00 05-11 14:11 :22 No Epidural, ONCE INTRA PROCEDURE, Starting on Sun05/11/23 at 0204, Until Discontinu ed, Routine, Intra-op [facility] lidocaine 1% (XYLOCAINE) 100 mg/10 mL (1 %) injection 2022-05 07:55: 00 05-11 14:11 :22 No Infiltrati on, ONCE INTRA PROCEDURE, Starting on Sun05/11/23 at 0155, Until Discontinu ed, Routine, Intra-op [facility] sodium citrate-cit harry acid (BICITRA) 500-334 mg/5 mL solution 30 mL 2022-05 07:52: 24 05-11 07:53 :00 No 30mL 30 mL, Oral, PRE-PROCED URE ONCE, 1 dose, Starting on Sun05/11/23 at 0152, Until Sun05/11/23 at 0153, Routine, Surgery/Pr ocedure [facility] oxytocin (PITOCIN) 30 units in NS 500 mL IV infusion 2022-05 06:47: 38 05-12 13:10 :59 No 2mU/min at 2-40 mL/hr, IV Infusion, TITRATE, Starting on Sun05/11/23 at 0047, Until 05/12/23 at 0710, BETTY [facility] D5W-LR IV infusion 1,000 mL 2022-05 06:47: 05 05-12 13:10 :59 No 1000mL at 1-125 mL/hr, IV Infusion, TITRATE, Starting on Sun05/11/23 at 0047, Until 05/12/23 at 0710, Routine [facility] sodium citrate-cit harry acid (BICITRA) 500-334 mg/5 mL solution 30 mL 2022-05 06:47: 05 05-11 14:16 :00 No 30mL 30 mL, Oral, PRE-PROCED URE ONCE, 1 dose, Starting on Sun05/11/23 at 0047, Until Discontinu ed, Routine, Surgery/Pr ocedure [facility] metroNIDAZO LE 500 mg tablet 2022-05 00:00: 00 Yes [id number] 500mg Take 1 tablet by mouth in the morning and 1 tablet in the evening. [facility] metroNIDAZO LE 500 mg tablet 2022-05 00:00: 00 Yes [id number] 500mg Take 1 tablet by mouth in the morning and 1 tablet in the evening. [facility] metroNIDAZO LE 500 mg tablet 2022-05 00:00: 00 Yes [id number] 500mg Take 1 tablet by mouth in the morning and 1 tablet in the evening. [facility] metroNIDAZO LE 500 mg tablet 2022-05 00:00: 00 Yes [id number] 500mg Take 1 tablet by mouth in the morning and 1 tablet in the evening. [facility] metroNIDAZO LE 500 mg tablet 2022-05 00:00: 00 05-13 00:00 :00 No [id number] 500mg Take 1 tablet by mouth in the morning and 1 tablet in the evening. [facility] metroNIDAZO LE 500 mg tablet 2022-05 00:00: 00 05-13 00:00 :00 No [id number] 500mg Take 1 tablet by mouth in the morning and 1 tablet in the evening. [facility] ferrous sulfate 325 mg (65 mg iron) tablet 2022-05 00:00: 00 Yes [id number] 325mg Take 1 tablet by mouth in the morning and 1 tablet in the evening. [facility] ascorbic acid, vitamin C, 500 mg tablet 2022-05 00:00: 00 Yes [id number] 500mg Take 1 tablet by mouth in the morning and 1 tablet at noon and 1 tablet in the evening. [facility] ferrous sulfate 325 mg (65 mg iron) tablet 2022-05 00:00: 00 Yes [id number] 325mg Take 1 tablet by mouth in the morning and 1 tablet in the evening. [facility] ascorbic acid, vitamin C, 500 mg tablet 2022-05 00:00: 00 Yes [id number] 500mg Take 1 tablet by mouth in the morning and 1 tablet at noon and 1 tablet in the evening. [facility] ferrous sulfate 325 mg (65 mg iron) tablet 2022-05 00:00: 00 Yes [id number] 325mg Take 1 tablet by mouth in the morning and 1 tablet in the evening. [facility] ascorbic acid, vitamin C, 500 mg tablet 2022-05 00:00: 00 Yes [id number] 500mg Take 1 tablet by mouth in the morning and 1 tablet at noon and 1 tablet in the evening. [facility] ferrous sulfate 325 mg (65 mg iron) tablet 2022-05 00:00: 00 Yes [id number] 325mg Take 1 tablet by mouth in the morning and 1 tablet in the evening. [facility] ascorbic acid, vitamin C, 500 mg tablet 2022-05 00:00: 00 Yes [id number] 500mg Take 1 tablet by mouth in the morning and 1 tablet at noon and 1 tablet in the evening. [facility] ferrous sulfate 325 mg (65 mg iron) tablet 2022-05 00:00: 00 Yes [id number] 325mg Take 1 tablet by mouth in the morning and 1 tablet in the evening. [facility] ascorbic acid, vitamin C, 500 mg tablet 2022-05 00:00: 00 Yes [id number] 500mg Take 1 tablet by mouth in the morning and 1 tablet at noon and 1 tablet in the evening. [facility] ferrous sulfate 325 mg (65 mg iron) tablet 2022-05 00:00: 00 Yes [id number] 325mg Take 1 tablet by mouth in the morning and 1 tablet in the evening. [facility] ascorbic acid, vitamin C, 500 mg tablet 2022-05 00:00: 00 Yes [id number] 500mg Take 1 tablet by mouth in the morning and 1 tablet at noon and 1 tablet in the evening. [facility] ferrous sulfate 325 mg (65 mg iron) tablet 2022-05 00:00: 00 05-13 00:00 :00 No [id number] 325mg Take 1 tablet by mouth in the morning and 1 tablet in the evening. [facility] ascorbic acid, vitamin C, 500 mg tablet 2022-05 00:00: 00 05-13 00:00 :00 No [id number] 500mg Take 1 tablet by mouth in the morning and 1 tablet at noon and 1 tablet in the evening. [facility] ferrous sulfate 325 mg (65 mg iron) tablet 2022-05 00:00: 00 05-13 00:00 :00 No [id number] 325mg Take 1 tablet by mouth in the morning and 1 tablet in the evening. [facility] ascorbic acid, vitamin C, 500 mg tablet 2022-05 00:00: 00 05-13 00:00 :00 No [id number] 500mg Take 1 tablet by mouth in the morning and 1 tablet at noon and 1 tablet in the evening. [facility] metroNIDAZO LE 500 mg tablet 2022-05 00:00: 00 04-24 05:59 :00 Yes [id number] 500mg Take 1 tablet by mouth in the morning and 1 tablet in the evening. Do all this for 7 days. [facility] Iron Fum & P-FA-Vit B & C No.9 (INTEGRA PLUS) 125 mg iron- 1 mg Cap 2022-05 00:00: 00 Yes [id number] 1{capsu le} Take 1 capsule by mouth in the morning. [facility] Iron Fum & P-FA-Vit B & C No.9 (INTEGRA PLUS) 125 mg iron- 1 mg Cap 2022-05 00:00: 00 Yes [id number] 1{capsu le} Take 1 capsule by mouth in the morning. [facility] Iron Fum & P-FA-Vit B & C No.9 (INTEGRA PLUS) 125 mg iron- 1 mg Cap 2022-05 00:00: 00 Yes [id number] 1{capsu le} Take 1 capsule by mouth in the morning. [facility] Iron Fum & P-FA-Vit B & C No.9 (INTEGRA PLUS) 125 mg iron- 1 mg Cap 2022-05 00:00: 00 Yes [id number] 1{capsu le} Take 1 capsule by mouth in the morning. [facility] Iron Fum & P-FA-Vit B & C No.9 (INTEGRA PLUS) 125 mg iron- 1 mg Cap 2022-05 00:00: 00 Yes [id number] 1{capsu le} Take 1 capsule by mouth in the morning. [facility] Iron Fum & P-FA-Vit B & C No.9 (INTEGRA PLUS) 125 mg iron- 1 mg Cap 2022-05 00:00: 00 Yes [id number] 1{capsu le} Take 1 capsule by mouth in the morning. [facility] Iron Fum & P-FA-Vit B & C No.9 (INTEGRA PLUS) 125 mg iron- 1 mg Cap 2022-05 00:00: 00 Yes [id number] 1{capsu le} Take 1 capsule by mouth in the morning. [facility] Iron Fum & P-FA-Vit B & C No.9 (INTEGRA PLUS) 125 mg iron- 1 mg Cap 2022-05 00:00: 00 Yes [id number] 1{capsu le} Take 1 capsule by mouth in the morning. [facility] Iron Fum & P-FA-Vit B & C No.9 (INTEGRA PLUS) 125 mg iron- 1 mg Cap 2022-05 00:00: 00 Yes [id number] 1{capsu le} Take 1 capsule by mouth in the morning. [facility] Iron Fum & P-FA-Vit B & C No.9 (INTEGRA PLUS) 125 mg iron- 1 mg Cap 2022-05 00:00: 00 Yes [id number] 1{capsu le} Take 1 capsule by mouth in the morning. [facility] Iron Fum & P-FA-Vit B & C No.9 (INTEGRA PLUS) 125 mg iron- 1 mg Cap 2022-05 00:00: 00 Yes [id number] 1{capsu le} Take 1 capsule by mouth in the morning. [facility] Iron Fum & P-FA-Vit B & C No.9 (INTEGRA PLUS) 125 mg iron- 1 mg Cap 2022-05 00:00: 00 Yes [id number] 1{capsu le} Take 1 capsule by mouth in the morning. [facility] Iron Fum & P-FA-Vit B & C No.9 (INTEGRA PLUS) 125 mg iron- 1 mg Cap 2022-05 00:00: 00 Yes [id number] 1{capsu le} Take 1 capsule by mouth in the morning. [facility] Iron Fum & P-FA-Vit B & C No.9 (INTEGRA PLUS) 125 mg iron- 1 mg Cap 2022-05 00:00: 00 05-13 00:00 :00 No [id number] 1{capsu le} Take 1 capsule by mouth in the morning. [facility] metroNIDAZO LE 500 mg tablet 2022-05 0 00:00: 00 Yes [id number] 500mg Take 1 tablet by mouth in the morning and 1 tablet in the evening. [facility] metroNIDAZO LE 500 mg tablet 2022-05 0- 00:00: 00 Yes [id number] 500mg Take 1 tablet by mouth in the morning and 1 tablet in the evening. [facility] metroNIDAZO LE 500 mg tablet 2022-05 0- 00:00: 00 Yes [id number] 500mg Take 1 tablet by mouth in the morning and 1 tablet in the evening. [facility] metroNIDAZO LE 500 mg tablet 2022-05 0- 00:00: 00 Yes [id number] 500mg Take 1 tablet by mouth in the morning and 1 tablet in the evening. [facility] metroNIDAZO LE 500 mg tablet 2022-05 0- 00:00: 00 Yes [id number] 500mg Take 1 tablet by mouth in the morning and 1 tablet in the evening. [facility] metroNIDAZO LE 500 mg tablet 2022-05 0- 00:00: 00 04-11 00:00 :00 No [id number] 500mg Take 1 tablet by mouth in the morning and 1 tablet in the evening. [facility] Nitrofurant oin&Nit. Macrocryst (MACROBID) 100 mg capsule 01-01 00:00: 00 01-12 04:59 :00 No [id number] 100mg Take 1 capsule by mouth in the morning and 1 capsule in the evening. Do all this for 10 days. [facility] Nitrofurant oin&Nit. Macrocryst (MACROBID) 100 mg capsule 01-01 00:00: 00 01-12 04:59 :00 No [id number] 100mg Take 1 capsule by mouth in the morning and 1 capsule in the evening. Do all this for 10 days. [facility] hmu19-gvzf- folic acid 29 mg iron- 1 mg per tablet 12-27 00:00: 00 Yes [id number] 09 1{tbl} Take 1 tablet by mouth in the morning. [facility] gcm67-vgih- folic acid 29 mg iron- 1 mg per tablet 12-27 00:00: 00 Yes [id number] 09 1{tbl} Take 1 tablet by mouth in the morning. [facility] nee12-jnbc- folic acid 29 mg iron- 1 mg per tablet 12-27 00:00: 00 Yes [id number] 09 1{tbl} Take 1 tablet by mouth in the morning. [facility] gan12-obof- folic acid 29 mg iron- 1 mg per tablet 12-27 00:00: 00 Yes [id number] 09 1{tbl} Take 1 tablet by mouth in the morning. [facility] oit65-knrq- folic acid 29 mg iron- 1 mg per tablet 12-27 00:00: 00 Yes [id number] 09 1{tbl} Take 1 tablet by mouth in the morning. [facility] jjw85-xjgq- folic acid 29 mg iron- 1 mg per tablet 8 00:00: 00 Yes [id number] 09 1{tbl} Take 1 tablet by mouth in the morning. [facility] swj59-dbbx- folic acid 29 mg iron- 1 mg per tablet 0 8 00:00: 00 Yes [id number] 09 1{tbl} Take 1 tablet by mouth in the morning. [facility] orv61-xhaz- folic acid 29 mg iron- 1 mg per tablet 12-27 00:00: 00 Yes [id number] 09 1{tbl} Take 1 tablet by mouth in the morning. [facility] kvg24-bmqn- folic acid 29 mg iron- 1 mg per tablet 12-27 00:00: 00 Yes [id number] 09 1{tbl} Take 1 tablet by mouth in the morning. [facility] vya24-mkec- folic acid 29 mg iron- 1 mg per tablet 12-27 00:00: 00 Yes [id number] 09 1{tbl} Take 1 tablet by mouth in the morning. [facility] fnk83-clql- folic acid 29 mg iron- 1 mg per tablet 12-27 00:00: 00 Yes [id number] 09 1{tbl} Take 1 tablet by mouth in the morning. [facility] izg74-kgub- folic acid 29 mg iron- 1 mg per tablet 12-27 00:00: 00 Yes [id number] 09 1{tbl} Take 1 tablet by mouth in the morning. [facility] cve69-rddo- folic acid 29 mg iron- 1 mg per tablet 0 8 00:00: 00 Yes [id number] 09 1{tbl} Take 1 tablet by mouth in the morning. [facility] pka42-nftv- folic acid 29 mg iron- 1 mg per tablet 0 8 00:00: 00 Yes [id number] 09 1{tbl} Take 1 tablet by mouth in the morning. [facility] lic92-vsun- folic acid 29 mg iron- 1 mg per tablet 0 8- 00:00: 00 Yes [id number] 09 1{tbl} Take 1 tablet by mouth in the morning. [facility] pbx29-cfty- folic acid 29 mg iron- 1 mg per tablet 8 00:00: 00 Yes [id number] 09 1{tbl} Take 1 tablet by mouth in the morning. [facility] rws19-gvyv- folic acid 29 mg iron- 1 mg per tablet 0 8 00:00: 00 Yes [id number] 09 1{tbl} Take 1 tablet by mouth in the morning. [facility] fds05-beea- folic acid 29 mg iron- 1 mg per tablet 8 00:00: 00 Yes [id number] 09 1{tbl} Take 1 tablet by mouth in the morning. [facility] lnu00-tjpj- folic acid 29 mg iron- 1 mg per tablet 8 00:00: 00 Yes [id number] 09 1{tbl} Take 1 tablet by mouth in the morning. [facility] byw27-qkug- folic acid 29 mg iron- 1 mg per tablet 8 00:00: 00 Yes [id number] 09 1{tbl} Take 1 tablet by mouth in the morning. [facility] lds91-zfeg- folic acid 29 mg iron- 1 mg per tablet 8 00:00: 00 Yes [id number] 09 1{tbl} Take 1 tablet by mouth in the morning. [facility] zkw41-wday- folic acid 29 mg iron- 1 mg per tablet 0 8 00:00: 00 Yes [id number] 09 1{tbl} Take 1 tablet by mouth in the morning. [facility] ceg99-hmhg- folic acid 29 mg iron- 1 mg per tablet 0 8- 00:00: 00 Yes [id number] 09 1{tbl} Take 1 tablet by mouth in the morning. [facility] tlh46-sgtr- folic acid 29 mg iron- 1 mg per tablet 8- 00:00: 00 Yes [id number] 09 1{tbl} Take 1 tablet by mouth in the morning. [facility] vyf80-vonj- folic acid 29 mg iron- 1 mg per tablet 8- 00:00: 00 Yes [id number] 09 1{tbl} Take 1 tablet by mouth in the morning. [facility] sjh50-fsdr- folic acid 29 mg iron- 1 mg per tablet 8- 00:00: 00 Yes [id number] 09 1{tbl} Take 1 tablet by mouth in the morning. [facility] tse95-ikbj- folic acid 29 mg iron- 1 mg per tablet 8- 00:00: 00 Yes [id number] 09 1{tbl} Take 1 tablet by mouth in the morning. [facility] wng68-mvhw- folic acid 29 mg iron- 1 mg per tablet 8- 00:00: 00 Yes [id number] 09 1{tbl} Take 1 tablet by mouth in the morning. [facility] oxg10-zqsr- folic acid 29 mg iron- 1 mg per tablet 8 00:00: 00 Yes [id number] 09 1{tbl} Take 1 tablet by mouth in the morning. [facility] ddb10-bmwh- folic acid 29 mg iron- 1 mg per tablet 8- 00:00: 00 Yes [id number] 09 1{tbl} Take 1 tablet by mouth in the morning. [facility] tep96-dule- folic acid 29 mg iron- 1 mg per tablet 8- 00:00: 00 05-13 00:00 :00 No [id number] 09 1{tbl} Take 1 tablet by mouth in the morning. [facility] varicella virus vaccine live (VARIVAX) injection and diluent vial 1-15 12:35: 45 Yes 1{each} 0.5 mL (1 Each), Subcutaneo us, ONCE-PRIOR TO DISCHARGE, 1 dose, Starting on 06/04/22 at 0635, Until Discontinu ed, Routine, Give vaccine prior to discharge [facility] docusate 100 mg capsule 2022-0 15 00:00: 00 Yes [id number] 200mg Take 2 capsules by mouth once daily as needed for Constipati on. [facility] ferrous sulfate 325 mg (65 mg iron) tablet 2022-0 15 00:00: 00 Yes [id number] 325mg Take 1 tablet by mouth in the morning and 1 tablet in the evening. [facility] ibuprofen 600 mg tablet 2022-0 15 00:00: 00 Yes [id number] 600mg Take 1 tablet by mouth every 6 (six) hours as needed (Pain). Take with food or milk. [facility] Iron Fum & P-FA-Vit B & C No.9 (INTEGRA PLUS) 125 mg iron- 1 mg Cap 2022-0 15 00:00: 00 Yes [id number] 1{capsu le} Take 1 capsule by mouth daily. [facility] ibuprofen 600 mg tablet 2022-0 15 00:00: 00 Yes [id number] 600mg Take 1 tablet by mouth every 6 (six) hours as needed (Pain). Take with food or milk. [facility] docusate 100 mg capsule 2022-0 15 00:00: 00 Yes [id number] 200mg Take 2 capsules by mouth once daily as needed for Constipati on. [facility] Iron Fum & P-FA-Vit B & C No.9 (INTEGRA PLUS) 125 mg iron- 1 mg Cap 2022-0 15 00:00: 00 Yes [id number] 1{capsu le} Take 1 capsule by mouth daily. [facility] ibuprofen 600 mg tablet 2022-0 15 00:00: 00 Yes [id number] 600mg Take 1 tablet by mouth every 6 (six) hours as needed (Pain). Take with food or milk. [facility] docusate 100 mg capsule 2022-0 15 00:00: 00 Yes [id number] 200mg Take 2 capsules by mouth once daily as needed for Constipati on. [facility] Iron Fum & P-FA-Vit B & C No.9 (INTEGRA PLUS) 125 mg iron- 1 mg Cap -15 00:00: 00 12-27 00:00 :00 No [id number] 1{capsu le} Take 1 capsule by mouth daily. [facility] ibuprofen 600 mg tablet - 00:00: 00 12-27 00:00 :00 No [id number] 600mg Take 1 tablet by mouth every 6 (six) hours as needed (Pain). Take with food or milk. [facility] docusate 100 mg capsule - 00:00: 00 12-27 00:00 :00 No [id number] 200mg Take 2 capsules by mouth once daily as needed for Constipati on. [facility] Iron Fum & P-FA-Vit B & C No.9 (INTEGRA PLUS) 125 mg iron- 1 mg Cap 06-04 00:00: 00 12-27 00:00 :00 No [id number] 1{capsu le} Take 1 capsule by mouth daily. [facility] ibuprofen 600 mg tablet 06-04 00:00: 00 12-27 00:00 :00 No [id number] 600mg Take 1 tablet by mouth every 6 (six) hours as needed (Pain). Take with food or milk. [facility] docusate 100 mg capsule 06-04 00:00: 00 12-27 00:00 :00 No [id number] 200mg Take 2 capsules by mouth once daily as needed for Constipati on. [facility] rho(D) immune globulin (RHOGAM) syringe 300 mcg 06-03 07:41: 38 Yes 300ug 300 mcg, Intramuscu lar, ONCE, For 1 dose, Conditiona l, Routine [facility] human papillomav vac,9-shayna(P F) (GARDASIL-9 ) syringe 0.5 mL 06-03 07:41: 36 Yes .5mL 0.5 mL, Intramuscu lar, ONCE-PRIOR TO DISCHARGE, 1 dose, Starting on 06/03/22 at 0141, Until Discontinu ed, Routine, Give vaccine prior to discharge [facility] ibuprofen (IBU) tablet 600 mg 06-03 07:41: 36 Yes 600mg 600 mg, Oral, Q6HPRN, Starting on 06/03/22 at 0141, Until Discontinu ed, Routine, Pain (scale 4-6) [facility] acetaminoph en (TYLENOL) tablet 650 mg 06-03 07:41: 36 Yes 650mg 650 mg, Oral, Q6HPRN, Starting on 06/03/22 at 0141, Until Discontinu ed, Routine, Pain (scale 1-3) [facility] diphenhydrA MINE (BENADRYL) tablet 25 mg 06-03 07:41: 36 Yes 25mg 25 mg, Oral, Q6HPRN, Starting on 06/03/22 at 014, Until Discontinu ed, Routine, Sleep, Itching [facility] ondansetron (ZOFRAN (PF)) injection 4 mg 06-03 07:41: 36 Yes 4mg 4 mg, Slow IV Push, Q8HPRN, Starting on 06/03/22 at 014, Until Discontinu ed, Routine, Nausea and Vomiting (N/V) [facility] simethicone (GAS RELIEF (SIMETHICON E)) chewable tablet 160 mg 06-03 07:41: 36 Yes 160mg 160 mg, Oral, PC+HSPRN, Starting on 06/03/22 at 0141, Until Discontinu ed, Routine, Gas [facility] docusate (COLACE) capsule 200 mg 06-03 07:41: 36 Yes 200mg 200 mg, Oral, QDAILYPRN, Starting on 06/03/22 at 0141, Until Discontinu ed, Routine, Constipati on [facility] magnesium hydroxide (MILK OF MAGNESIA) 400 mg/5 mL suspension 30 mL 06-03 07:41: 36 Yes 30mL 30 mL, Oral, QDAILYPRN, Starting on 06/03/22 at 0141, Until Discontinu ed, Routine, Constipati on [facility] benzocaine- menthol (DERMOPLAST ) 20-0.5 % topical spray 06-03 07:41: 36 Yes Topical, PRN, Starting on Sun06/03/22 at 0141, Until Discontinu ed, Routine, Perineum discomfort [facility] ibuprofen (IBU) tablet 600 mg 06-03 00:58: 26 Yes 600mg 600 mg, Oral, Q6HPRN, Starting on Sun06/02/22 at 1858, Until Discontinu ed, Routine, Pain (scale 1-3) [facility] oxytocin (PITOCIN) 30 units in NS 500 mL IV infusion 06-03 00:58: 17 Yes 600mL/h 600 mL/hr, IV Infusion, PRN, For post delivery uterine atony., Starting on Sun06/02/[address] at 600 mL/hr for 1 hr then 150 mL/hr for 1 hr.
[facility] oxytocin (PITOCIN) 30 units in NS 500 mL IV infusion 06-03 00:58: 17 Yes 300mL/h 300 mL/hr, IV Infusion, SEE-INSTRU CTIONS, Starting on Sun06/02/[address] art at 300 mL/hr for 1 hr then 150 mL/hr for 1 hr. & nbsp; For post delivery uterotonic
[facility] ropivacaine 0.2 % (NAROPIN (PF)) epidural infusion 06-02 21:55: 00 06-03 02:27 :33 No Epidural, CONTINUOUS PRN, Starting on Sun06/02/22 at 1555, Until Sun06/02/22 at 2026, Routine, Intra-op [facility] ropivacaine 0.2 % (NAROPIN (PF)) epidural infusion 06-02 21:55: 00 06-03 02:27 :33 No Epidural, CONTINUOUS PRN, Starting on Sun06/02/22 at 1555, Until Sun06/02/22 at 2026, Routine, Intra-op [facility] lidocaine-e pinephrine (XYLOCAINE W/EPINEPHRI NE) 1.5 %-1:200,000 injection 06-02 21:54: 00 06-03 02:27 :33 No Intraderma l, ONCE INTRA PROCEDURE, Starting on Sun06/02/22 at 1554, Until Sun06/02/22 at 2026, Routine, Intra-op [facility] lidocaine-e pinephrine (XYLOCAINE W/EPINEPHRI NE) 1.5 %-1:200,000 injection 06-02 21:54: 00 06-03 02:27 :33 No Intraderma l, ONCE INTRA PROCEDURE, Starting on Sun06/02/22 at 1554, Until Sun06/02/22 at 2026, Routine, Intra-op [facility] oxytocin (PITOCIN) 30 units in NS 500 mL IV infusion 06-02 21:12: 33 Yes 2mU/min at 2-40 mL/hr, IV Infusion, TITRATE, Starting on Sun06/02/22 at 1512, Until Discontinu ed, BETTY [facility] lidocaine 1% (XYLOCAINE) 10 mg/mL (1 %) injection 50 mL 06-02 20:11: 29 Yes 50mL 50 mL, Infiltrati on, PRN - SEE INSTRUCTIO NS, Starting on Sun06/02/22 at 1411, Until Discontinu ed, Routine, Local anesthesia , For laceration repair only as a local anesthetic as indicated. [facility] lidocaine 1% (PF) (XYLOCAINE) injection 0.3 mL 06-02 20:11: 29 Yes .3mL 0.3 mL, Infiltrati on, PRN - SEE INSTRUCTIO NS, Starting on Sun06/02/22 at 1411, Until Discontinu ed, Routine, Local anesthesia , For IV line placement only as a local anesthetic . [facility] lactated ringers IV infusion 500 mL 06-02 20:11: 29 Yes 500mL at 999 mL/hr, 500 mL, IV Infusion, PRN - SEE INSTRUCTIO NS, Starting on Sun06/02/22 at 1411, Until Discontinu ed, Routine [facility] [id number] IV infusion 1,000 mL 06-02 20:11: 29 Yes 1000mL at 1-125 mL/hr, IV Infusion, TITRATE, Starting on Sun06/02/22 at 1411, Until Discontinu ed, Routine [facility] sodium citrate-cit harry acid (BICITRA) 500-334 mg/5 mL solution 30 mL 06-02 20:11: 29 06-02 21:51 :00 No 30mL 30 mL, Oral, PRE-PROCED URE ONCE, 1 dose, Starting on Sun06/02/22 at 1411, Until Discontinu ed, Routine, Surgery/Pr ocedure [facility] No known medications 06-02 16:14: 55 No No known medication s [facility] Iron Fum & P-FA-Vit B & C No.9 (INTEGRA PLUS) 125 mg iron- 1 mg Cap 2021-05 00:00: 00 Yes [id number] 1{capsu le} Take 1 capsule by mouth daily. [facility] Iron Fum & P-FA-Vit B & C No.9 (INTEGRA PLUS) 125 mg iron- 1 mg Cap 2021-05 00:00: 00 Yes [id number] 1{capsu le} Take 1 capsule by mouth daily. [facility] Iron Fum & P-FA-Vit B & C No.9 (INTEGRA PLUS) 125 mg iron- 1 mg Cap 2021-05 00:00: 00 Yes [id number] 1{capsu le} Take 1 capsule by mouth daily. [facility] Iron Fum & P-FA-Vit B & C No.9 (INTEGRA PLUS) 125 mg iron- 1 mg Cap 2021-05 00:00: 00 Yes [id number] 1{capsu le} Take 1 capsule by mouth daily. [facility] Iron Fum & P-FA-Vit B & C No.9 (INTEGRA PLUS) 125 mg iron- 1 mg Cap 2021-05 00:00: 00 Yes [id number] 1{capsu le} Take 1 capsule by mouth daily. [facility] Iron Fum & P-FA-Vit B & C No.9 (INTEGRA PLUS) 125 mg iron- 1 mg Cap 2021-05 00:00: 00 Yes [id number] 1{capsu le} Take 1 capsule by mouth daily. [facility] ferrous sulfate 325 mg (65 mg iron) tablet 2021-05 00:00: 00 08-11 04:59 :00 No [id number] 325mg Take 1 tablet by mouth in the morning for 90 days. [facility] ferrous sulfate 325 mg (65 mg iron) tablet 2021-05 00:00: 00 05-18 00:00 :00 No [id number] 325mg Take 1 tablet by mouth in the morning for 90 days. [facility] SELECT-OB + DHA 29 mg iron-1 mg -250 mg combo pack 2021-05 00:00: 00 Yes TAKE 1 PACKET (1 TABLET & CAPSULE) BY MOUTH IN THE MORNING [facility] SELECT-OB + DHA 29 mg iron-1 mg -250 mg combo pack 2021-05 00:00: 00 Yes TAKE 1 PACKET (1 TABLET & CAPSULE) BY MOUTH IN THE MORNING [facility] SELECT-OB + DHA 29 mg iron-1 mg -250 mg combo pack 2021-05 00:00: 00 12-27 00:00 :00 No TAKE 1 PACKET (1 TABLET & CAPSULE) BY MOUTH IN THE MORNING [facility] SELECT-OB + DHA 29 mg iron-1 mg -250 mg combo pack 2021-05 00:00: 00 12-27 00:00 :00 No TAKE 1 PACKET (1 TABLET & CAPSULE) BY MOUTH IN THE MORNING [facility] fluconazole (DIFLUCAN) 150 mg tablet 2021-05 00:00: 00 05-06 05:59 :00 No [id number] 150mg Take 1 tablet by mouth once now for 1 dose. [facility] Nitrofurant oin&Nit. Macrocryst (MACROBID) 100 mg capsule 02-06 00:00: 00 Yes [id number] 100mg Take 1 capsule by mouth in the morning and 1 capsule in the evening. [facility] Nitrofurant oin&Nit. Macrocryst (MACROBID) 100 mg capsule 02-06 00:00: 00 Yes [id number] 100mg Take 1 capsule by mouth in the morning and 1 capsule in the evening. [facility] Nitrofurant oin&Nit. Macrocryst (MACROBID) 100 mg capsule 02-06 00:00: 00 Yes [id number] 100mg Take 1 capsule by mouth in the morning and 1 capsule in the evening. [facility] Nitrofurant oin&Nit. Macrocryst (MACROBID) 100 mg capsule 02-06 00:00: 00 Yes [id number] 100mg Take 1 capsule by mouth in the morning and 1 capsule in the evening. [facility] Nitrofurant oin&Nit. Macrocryst (MACROBID) 100 mg capsule 02-06 00:00: 00 Yes [id number] 100mg Take 1 capsule by mouth in the morning and 1 capsule in the evening. [facility] Nitrofurant oin&Nit. Macrocryst (MACROBID) 100 mg capsule 02-06 00:00: 00 Yes [id number] 100mg Take 1 capsule by mouth in the morning and 1 capsule in the evening. [facility] Nitrofurant oin&Nit. Macrocryst (MACROBID) 100 mg capsule 02-06 00:00: 00 Yes [id number] 100mg Take 1 capsule by mouth in the morning and 1 capsule in the evening. [facility] Nitrofurant oin&Nit. Macrocryst (MACROBID) 100 mg capsule 02-06 00:00: 00 Yes [id number] 100mg Take 1 capsule by mouth in the morning and 1 capsule in the evening. [facility] Nitrofurant oin&Nit. Macrocryst (MACROBID) 100 mg capsule 02-06 00:00: 00 Yes [id number] 100mg Take 1 capsule by mouth in the morning and 1 capsule in the evening. [facility] Nitrofurant oin&Nit. Macrocryst (MACROBID) 100 mg capsule 02-06 00:00: 00 Yes [id number] 100mg Take 1 capsule by mouth in the morning and 1 capsule in the evening. [facility] Nitrofurant oin&Nit. Macrocryst (MACROBID) 100 mg capsule 2021-0 02-06 00:00: 00 Yes [id number] 100mg Take 1 capsule by mouth in the morning and 1 capsule in the evening. [facility] Nitrofurant oin&Nit. Macrocryst (MACROBID) 100 mg capsule 02-06 00:00: 00 Yes [id number] 100mg Take 1 capsule by mouth in the morning and 1 capsule in the evening. [facility] Nitrofurant oin&Nit. Macrocryst (MACROBID) 100 mg capsule 02-06 00:00: 00 Yes [id number] 100mg Take 1 capsule by mouth in the morning and 1 capsule in the evening. [facility] Nitrofurant oin&Nit. Macrocryst (MACROBID) 100 mg capsule 2021-02-06 00:00: 00 Yes [id number] 100mg Take 1 capsule by mouth in the morning and 1 capsule in the evening. [facility] Nitrofurant oin&Nit. Macrocryst (MACROBID) 100 mg capsule 2021-02-06 00:00: 00 Yes [id number] 100mg Take 1 capsule by mouth in the morning and 1 capsule in the evening. [facility] Nitrofurant oin&Nit. Macrocryst (MACROBID) 100 mg capsule 2021-02-06 00:00: 00 Yes [id number] 100mg Take 1 capsule by mouth in the morning and 1 capsule in the evening. [facility] Nitrofurant oin&Nit. Macrocryst (MACROBID) 100 mg capsule 2021-0 02-06 00:00: 00 Yes [id number] 100mg Take 1 capsule by mouth in the morning and 1 capsule in the evening. [facility] Nitrofurant oin&Nit. Macrocryst (MACROBID) 100 mg capsule 02-06 00:00: 00 05-18 00:00 :00 No [id number] 100mg Take 1 capsule by mouth in the morning and 1 capsule in the evening. [facility] azithromyci n 500 mg tablet 02-03 00:00: 00 02-04 04:59 :00 No [id number] 01 1000mg Take 2 tablets by mouth once now for 1 dose. [facility] azithromyci n 500 mg tablet 02-03 00:00: 00 02-04 04:59 :00 No [id number] 01 1000mg Take 2 tablets by mouth once now for 1 dose. [facility] multivitami n ( VITAMIN) tablet 02-02 00:00: 00 Yes [id number] 1{tbl} Take 1 tablet by mouth in the morning. [facility] multivitami n ( VITAMIN) tablet 02-02 00:00: 00 Yes [id number] 1{tbl} Take 1 tablet by mouth in the morning. [facility] multivitami n ( VITAMIN) tablet 02-02 00:00: 00 Yes [id number] 1{tbl} Take 1 tablet by mouth in the morning. [facility] multivitami n ( VITAMIN) tablet 02-02 00:00: 00 Yes [id number] 1{tbl} Take 1 tablet by mouth in the morning. [facility] multivitami n ( VITAMIN) tablet 02-02 00:00: 00 Yes [id number] 1{tbl} Take 1 tablet by mouth in the morning. [facility] multivitami n ( VITAMIN) tablet 15 00:00: 00 Yes [id number] 1{tbl} Take 1 tablet by mouth in the morning. [facility] multivitami n ( VITAMIN) tablet 02-02 00:00: 00 Yes [id number] 1{tbl} Take 1 tablet by mouth in the morning. [facility] multivitami n ( VITAMIN) tablet 2021-0 -15 00:00: 00 Yes [id number] 1{tbl} Take 1 tablet by mouth in the morning. [facility] multivitami n ( VITAMIN) tablet 2021-0 -15 00:00: 00 Yes [id number] 1{tbl} Take 1 tablet by mouth in the morning. [facility] multivitami n ( VITAMIN) tablet 2021-0 -15 00:00: 00 Yes [id number] 1{tbl} Take 1 tablet by mouth in the morning. [facility] multivitami n ( VITAMIN) tablet 2021-0 -15 00:00: 00 Yes [id number] 1{tbl} Take 1 tablet by mouth in the morning. [facility] multivitami n ( VITAMIN) tablet 2021-0 -15 00:00: 00 Yes [id number] 1{tbl} Take 1 tablet by mouth in the morning. [facility] multivitami n ( VITAMIN) tablet 2021-0 -15 00:00: 00 Yes [id number] 1{tbl} Take 1 tablet by mouth in the morning. [facility] multivitami n ( VITAMIN) tablet 2021-0 -15 00:00: 00 Yes [id number] 1{tbl} Take 1 tablet by mouth in the morning. [facility] multivitami n ( VITAMIN) tablet 2021-0 -15 00:00: 00 Yes [id number] 1{tbl} Take 1 tablet by mouth in the morning. [facility] multivitami n ( VITAMIN) tablet 2021-0 -15 00:00: 00 Yes [id number] 1{tbl} Take 1 tablet by mouth in the morning. [facility] multivitami n ( VITAMIN) tablet 2021-0 9-15 00:00: 00 Yes [id number] 1{tbl} Take 1 tablet by mouth in the morning. [facility] multivitami n ( VITAMIN) tablet 2021-0 9-15 00:00: 00 Yes [id number] 1{tbl} Take 1 tablet by mouth in the morning. [facility] multivitami n ( VITAMIN) tablet 2021-0 -15 00:00: 00 Yes [id number] 1{tbl} Take 1 tablet by mouth in the morning. [facility] multivitami n ( VITAMIN) tablet 2021-0 -15 00:00: 00 Yes [id number] 1{tbl} Take 1 tablet by mouth in the morning. [facility] multivitami n ( VITAMIN) tablet 2021-0 -15 00:00: 00 Yes [id number] 1{tbl} Take 1 tablet by mouth in the morning. [facility] multivitami n ( VITAMIN) tablet 2021-0 -15 00:00: 00 Yes [id number] 1{tbl} Take 1 tablet by mouth in the morning. [facility] multivitami n ( VITAMIN) tablet 2021-0 -15 00:00: 00 Yes [id number] 1{tbl} Take 1 tablet by mouth in the morning. [facility] multivitami n ( VITAMIN) tablet 2021-0 9-15 00:00: 00 Yes [id number] 1{tbl} Take 1 tablet by mouth in the morning. [facility] multivitami n ( VITAMIN) tablet 2021-0 -15 00:00: 00 Yes [id number] 1{tbl} Take 1 tablet by mouth in the morning. [facility] metroNIDAZO LE 500 mg tablet 0 08 00:00: 00 Yes [id number] 500mg Take 1 tablet by mouth 2 (two) times daily. [facility] metroNIDAZO LE 500 mg tablet 0 08 00:00: 00 Yes [id number] 500mg Take 1 tablet by mouth 2 (two) times daily. [facility] metroNIDAZO LE 500 mg tablet 0 08 00:00: 00 Yes [id number] 500mg Take 1 tablet by mouth 2 (two) times daily. [facility] metroNIDAZO LE 500 mg tablet 2021-0 08 00:00: 00 Yes [id number] 500mg Take 1 tablet by mouth 2 (two) times daily. [facility] metroNIDAZO LE 500 mg tablet 2-0 4-08 00:00: 00 Yes [id number] 500mg Take 1 tablet by mouth 2 (two) times daily. [facility] metroNIDAZO LE 500 mg tablet 2-0 4-08 00:00: 00 Yes [id number] 500mg Take 1 tablet by mouth 2 (two) times daily. [facility] metroNIDAZO LE 500 mg tablet 2-0 4-08 00:00: 00 Yes [id number] 500mg Take 1 tablet by mouth 2 (two) times daily. [facility] metroNIDAZO LE 500 mg tablet 2-0 4-08 00:00: 00 Yes [id number] 500mg Take 1 tablet by mouth 2 (two) times daily. [facility] metroNIDAZO LE 500 mg tablet 2-0 4-08 00:00: 00 Yes [id number] 500mg Take 1 tablet by mouth 2 (two) times daily. [facility] metroNIDAZO LE 500 mg tablet 2-0 4-08 00:00: 00 Yes [id number] 500mg Take 1 tablet by mouth 2 (two) times daily. [facility] metroNIDAZO LE 500 mg tablet 2-0 4-08 00:00: 00 Yes [id number] 500mg Take 1 tablet by mouth 2 (two) times daily. [facility] metroNIDAZO LE 500 mg tablet 2-0 4-08 00:00: 00 Yes [id number] 500mg Take 1 tablet by mouth 2 (two) times daily. [facility] metroNIDAZO LE 500 mg tablet 2-0 4-08 00:00: 00 Yes [id number] 500mg Take 1 tablet by mouth 2 (two) times daily. [facility] metroNIDAZO LE 500 mg tablet 2-0 4-08 00:00: 00 Yes [id number] 500mg Take 1 tablet by mouth 2 (two) times daily. [facility] metroNIDAZO LE 500 mg tablet 2-0 4-08 00:00: 00 Yes [id number] 500mg Take 1 tablet by mouth 2 (two) times daily. [facility] metroNIDAZO LE 500 mg tablet 4-08 00:00: 00 Yes [id number] 500mg Take 1 tablet by mouth 2 (two) times daily. [facility] metroNIDAZO LE 500 mg tablet 08 00:00: 00 Yes [id number] 500mg Take 1 tablet by mouth 2 (two) times daily. [facility] metroNIDAZO LE 500 mg tablet 4-08 00:00: 00 Yes [id number] 500mg Take 1 tablet by mouth 2 (two) times daily. [facility] metroNIDAZO LE 500 mg tablet 08 00:00: 00 Yes [id number] 500mg Take 1 tablet by mouth 2 (two) times daily. [facility] metroNIDAZO LE 500 mg tablet 08 00:00: 00 05-18 00:00 :00 No [id number] 500mg Take 1 tablet by mouth 2 (two) times daily. [facility] metroNIDAZO LE 500 mg tablet 6-16 00:00: 00 03-17 00:00 :00 No [id number] 500mg Take 1 tablet by mouth 2 (two) times daily. [facility] (BLOOD PRESSURE CUFF) [facility] [place] 5-14 00:00: 00 11-15 00:00 :00 No [id number] Use as directed [facility] PNV 67-iron ps-folate no.1-dha (VITAFOL ULTRA) 29 mg iron- 1 mg-200 mg Cap 5-14 00:00: 00 03-17 00:00 :00 No [id number] 1{each} Take 1 Each by mouth daily. [facility] proMETHazin e 25 mg tablet 4-13 00:00: 00 03-17 00:00 :00 No [id number] 25mg Take 1 tablet by mouth every 6 (six) hours as needed for Nausea and Vomiting (N/V). [facility] Immunizations Ordered Immunization Name Filled Immunization Name Date Status Comments Source TDAP 2022-05-05 00:[facility] 2022-05-05 00:00:00 [facility] TDAP 2022-05-05 00:00:00 [facility] TDAP 2022-05-05 00:00:00 [facility] TDAP 2022-05-05 00:00:00 [facility] TDAP 2022-05-05 00:00:00 [facility] TDAP 2022-05-05 00:00:00 [facility] TDAP 2022-05-05 00:00:00 [facility] TDAP 2022-05-05 00:00:00 [facility] TDAP 2022-05-05 00:00:00 [facility] TDAP 2022-05-05 00:00:00 [facility] TDAP 2022-05-05 00:00:00 [facility] TDAP 2022-05-05 00:00:00 [facility] TDAP 2022-05-05 00:00:00 [facility] TDAP 2022-05-05 00:00:00 [facility] TDAP 2022-05-05 00:00:00 [facility] TDAP 2022-05-05 00:00:00 [facility] Influenza Virus Vaccine Quad IM, Preserv and ABX Free 6 MO-64 YRS 2022-02-02 00:00:00 [facility] Influenza Virus Vaccine Quad IM, Preserv and ABX Free 6 MO-64 YRS 2022-02-02 00:00:00 [facility] Influenza Virus Vaccine Quad IM, Preserv and ABX Free 6 MO-64 YRS 2022-02-02 00:00:00 [facility] Influenza Virus Vaccine Quad IM, Preserv and ABX Free 6 MO-64 YRS 2022-02-02 00:00:00 [facility] Influenza Virus Vaccine Quad IM, Preserv and ABX Free 6 MO-64 YRS 2022-02-02 00:00:00 [facility] Influenza Virus Vaccine Quad IM, Preserv and ABX Free 6 MO-64 YRS 2022-02-02 00:00:00 [facility] Influenza Virus Vaccine Quad IM, Preserv and ABX Free 6 MO-64 YRS 2022-02-02 00:00:00 [facility] Influenza Virus Vaccine Quad IM, Preserv and ABX Free 6 MO-64 YRS 2022-02-02 00:00:00 [facility] Influenza Virus Vaccine Quad IM, Preserv and ABX Free 6 MO-64 YRS 2022-02-02 00:00:00 [facility] Influenza Virus Vaccine Quad IM, Preserv and ABX Free 6 MO-64 YRS 2022-02-02 00:00:00 [facility] Influenza Virus Vaccine Quad IM, Preserv and ABX Free 6 MO-64 YRS 2022-02-02 00:00:00 [facility] Influenza Virus Vaccine Quad IM, Preserv and ABX Free 6 MO-64 YRS 2022-02-02 00:00:00 [facility] Influenza Virus Vaccine Quad IM, Preserv and ABX Free 6 MO-64 YRS 2022-02-02 00:00:00 [facility] Influenza Virus Vaccine Quad IM, Preserv and ABX Free 6 MO-64 YRS 2022-02-02 00:00:00 [facility] Influenza Virus Vaccine Quad IM, Preserv and ABX Free 6 MO-64 YRS 2022-02-02 00:00:00 [facility] Influenza Virus Vaccine Quad IM, Preserv and ABX Free 6 MO-64 YRS 2022-02-02 00:00:00 [facility] Influenza Virus Vaccine Quad IM, Preserv and ABX Free 6 MO-64 YRS 2022-02-02 00:00:00 [facility] Influenza Virus Vaccine Quad IM, Preserv and ABX Free 6 MO-64 YRS 2022-02-02 00:00:00 [facility] Influenza Virus Vaccine Quad IM, Preserv and ABX Free 6 MO-64 YRS 2022-02-02 00:00:00 [facility] Influenza Virus Vaccine Quad IM, Preserv and ABX Free 6 MO-64 YRS 2022-02-02 00:00:00 [facility] Influenza Virus Vaccine Quad IM, Preserv and ABX Free 6 MO-64 YRS 2022-02-02 00:00:00 [facility] Influenza Virus Vaccine Quad IM, Preserv and ABX Free 6 MO-64 YRS 2022-02-02 00:00:00 [facility] Influenza Virus Vaccine Quad IM, Preserv and ABX Free 6 MO-64 YRS 2022-02-02 00:00:00 [facility] Influenza Virus Vaccine Quad IM, Preserv and ABX Free 6 MO-64 YRS 2022-02-02 00:00:00 [facility] Influenza Virus Vaccine Quad IM, Preserv and ABX Free 6 MO-64 YRS 2022-02-02 00:00:00 [facility] Influenza Virus Vaccine Quad IM, Preserv and ABX Free 6 MO-64 YRS 2022-02-02 00:00:00 [facility] Influenza Virus Vaccine Quad IM, Preserv and ABX Free 6 MO-64 YRS 2022-02-02 00:00:00 [facility] Influenza Virus Vaccine Quad IM, Preserv and ABX Free 6 MO-64 YRS 2022-02-02 00:00:00 [facility] Influenza Virus Vaccine Quad IM, Preserv and ABX Free 6 MO-64 YRS 2022-02-02 00:00:00 [facility] Influenza Virus Vaccine Quad IM, Preserv and ABX Free 6 MO-64 YRS 2022-02-02 00:00:00 [facility] Influenza Virus Vaccine Quad IM, Preserv and ABX Free 6 MO-64 YRS 2022-02-02 00:00:00 [facility] Influenza Virus Vaccine Quad IM, Preserv and ABX Free 6 MO-64 YRS 2022-02-02 00:00:00 [facility] Influenza Virus Vaccine Quad IM, Preserv and ABX Free 6 MO-64 YRS 2022-02-02 00:00:00 [facility] Influenza Virus Vaccine Quad IM, Preserv and ABX Free 6 MO-64 YRS (FLUCELVAX) 2022-02-02 00:00:00 [facility] TDAP 2021-04-12 00:00:00 Completed [facility] TDAP 2021-04-12 00:00:00 Completed [facility] TDAP 2021-04-12 00:00:00 Completed [facility] TDAP 2021-04-12 00:00:00 Completed [facility] TDAP 2021-04-12 00:00:00 Completed [facility] TDAP 2021-04-12 00:00:00 Completed [facility] TDAP 2021-04-12 00:00:00 Completed [facility] [place] TDAP 2021-04-12 00:00:00 Completed [facility] TDAP 2021-04-12 00:00:00 [facility] TDAP 2021-04-12 00:00:00 [facility] TDAP 2021-04-12 00:00:00 [facility] TDAP 2021-04-12 00:00:00 [facility] TDAP 2021-04-12 00:00:00 [facility] TDAP 2021-04-12 00:00:00 Completed [facility] TDAP 2021-04-12 00:00:00 [facility] TDAP 2021-04-12 00:00:00 Completed [facility] TDAP 2021-04-12 00:00:00 Completed [facility] TDAP 2021-04-12 00:00:00 Completed [facility] TDAP 2021-04-12 00:00:00 Completed [facility] TDAP 2021-04-12 00:00:00 Completed [facility] TDAP 2021-04-12 00:00:00 Completed [facility] TDAP 2021-04-12 00:00:00 Completed [facility] TDAP 2021-04-12 00:00:00 Completed [facility] TDAP 2021-04-12 00:00:00 Completed [facility] TDAP 2021-04-12 00:00:00 Completed [facility] TDAP 2021-04-12 00:00:00 Completed [facility] TDAP 2021-04-12 00:00:00 [facility] TDAP 2021-04-12 00:00:00 [facility] TDAP 2021-04-12 00:00:00 [facility] TDAP 2021-04-12 00:00:00 [facility] TDAP 2021-04-12 00:00:00 [facility] TDAP 2021-04-12 00:00:00 [facility] TDAP 2021-04-12 00:00:00 [facility] TDAP 2021-04-12 00:00:00 [facility] Influenza Virus Vaccine Quad .5 mL IM 6+ MO 2020-02-04 00:00:00 [facility] Influenza Virus Vaccine Quad .5 mL IM 6+ MO 2020-02-04 00:00:00 [facility] Influenza Virus Vaccine Quad .5 mL IM 6+ MO 2020-02-04 00:00:00 [facility] Influenza Virus Vaccine Quad .5 mL IM 6+ MO 2020-02-04 00:00:00 [facility] Influenza Virus Vaccine Quad .5 mL IM 6+ MO 2020-02-04 00:00:00 [facility] Influenza Virus Vaccine Quad .5 mL IM 6+ MO 2020-02-04 00:00:00 [facility] Influenza Virus Vaccine Quad .5 mL IM 6+ MO 2020-02-04 00:00:00 [facility] Influenza Virus Vaccine Quad .5 mL IM 6+ MO 2020-02-04 00:00:00 [facility] Influenza Virus Vaccine Quad .5 mL IM 6+ MO 2020-02-04 00:00:00 [facility] Influenza Virus Vaccine Quad .5 mL IM 6+ MO 2020-02-04 00:00:00 [facility] Influenza Virus Vaccine Quad .5 mL IM 6+ MO 2020-02-04 00:00:00 [facility] Influenza Virus Vaccine Quad .5 mL IM 6+ MO 2020-02-04 00:00:00 [facility] Influenza Virus Vaccine Quad .5 mL IM 6+ MO 2020-02-04 00:00:00 [facility] Influenza Virus Vaccine Quad .5 mL IM 6+ MO 2020-02-04 00:00:00 [facility] Influenza Virus Vaccine Quad .5 mL IM 6+ MO 2020-02-04 00:00:00 [facility] Influenza Virus Vaccine Quad .5 mL IM 6+ MO 2020-02-04 00:00:00 [facility] Influenza Virus Vaccine Quad .5 mL IM 6+ MO 2020-02-04 00:00:00 [facility] Influenza Virus Vaccine Quad .5 mL IM 6+ MO 2020-02-04 00:00:00 [facility] Influenza Virus Vaccine Quad .5 mL IM 6+ MO 2020-02-04 00:00:00 [facility] Influenza Virus Vaccine Quad .5 mL IM 6+ MO 2020-02-04 00:00:00 [facility] Influenza Virus Vaccine Quad .5 mL IM 6+ MO 2020-02-04 00:00:00 [facility] Influenza Virus Vaccine Quad .5 mL IM 6+ MO 2020-02-04 00:00:00 [facility] Influenza Virus Vaccine Quad .5 mL IM 6+ MO 2020-02-04 00:00:00 [facility] Influenza Virus Vaccine Quad .5 mL IM 6+ MO 2020-02-04 00:00:00 [facility] Influenza Virus Vaccine Quad .5 mL IM 6+ MO 2020-02-04 00:00:00 [facility] Influenza Virus Vaccine Quad .5 mL IM 6+ MO 2020-02-04 00:00:00 [facility] Influenza Virus Vaccine Quad .5 mL IM 6+ MO 2020-02-04 00:00:00 [facility] Influenza Virus Vaccine Quad .5 mL IM 6+ MO 2020-02-04 00:00:00 [facility] Influenza Virus Vaccine Quad .5 mL IM 6+ MO 2020-02-04 00:00:00 [facility] Influenza Virus Vaccine Quad .5 mL IM 6+ MO 2020-02-04 00:00:00 [facility] Influenza Virus Vaccine Quad .5 mL IM 6+ MO 2020-02-04 00:00:00 [facility] Influenza Virus Vaccine Quad .5 mL IM 6+ MO 2020-02-04 00:00:00 [facility] Influenza Virus Vaccine Quad .5 mL IM 6+ MO 2020-02-04 00:00:00 [facility] Influenza Virus Vaccine Quad .5 mL IM 6+ MO (FLUZONE/FLULAVAL/FL UARIX) 2020-02-04 00:00:00 [facility] TDAP 2020-01-07 00:00:00 [facility] TDAP 2020-01-07 00:00:00 [facility] TDAP 2020-01-07 00:00:00 [facility] TDAP 2020-01-07 00:00:00 [facility] TDAP 2020-01-07 00:00:00 [facility] TDAP 2020-01-07 00:00:00 [facility] TDAP 2020-01-07 00:00:00 [facility] TDAP 2020-01-07 00:00:00 [facility] TDAP 2020-01-07 00:00:00 [facility] TDAP 2020-01-07 00:00:00 [facility] TDAP 2020-01-07 00:00:00 [facility] TDAP 2020-01-07 00:00:00 [facility] TDAP 2020-01-07 00:00:00 [facility] TDAP 2020-01-07 00:00:00 [facility] TDAP 2020-01-07 00:00:00 [facility] TDAP 2020-01-07 00:00:00 [facility] TDAP 2020-01-07 00:00:00 [facility] TDAP 2020-01-07 00:00:00 [facility] TDAP 2020-01-07 00:00:00 [facility] TDAP 2020-01-07 00:00:00 [facility] TDAP 2020-01-07 00:00:00 [facility] TDAP 2020-01-07 00:00:00 [facility] TDAP 2020-01-07 00:00:00 [facility] TDAP 2020-01-07 00:00:00 [facility] TDAP 2020-01-07 00:00:00 [facility] TDAP 2020-01-07 00:00:00 [facility] TDAP 2020-01-07 00:00:00 [facility] TDAP 2020-01-07 00:00:00 [facility] TDAP 2020-01-07 00:00:00 [facility] TDAP 2020-01-07 00:00:00 [facility] TDAP 2020-01-07 00:00:00 [facility] TDAP 2020-01-07 00:00:00 [facility] TDAP 2020-01-07 00:00:00 [facility] TDAP 2020-01-07 00:00:00 [facility] HEPATITIS A 2013-01-07 00:00:00 [facility] HPV 2013-01-07 00:00:00 [facility] Meningococcal Polysaccharide (groups A, C, Y and W-135) conjugate vaccine (MCV4P) 2013-01-07 00:00:00 [facility] TDAP 2013-01-07 00:00:00 [facility] Varicella (varivax)(chicken pox) 2013-01-07 00:00:00 [facility] HEPATITIS A 2013-01-07 00:00:00 [facility] HPV 2013-01-07 00:00:00 [facility] Meningococcal Polysaccharide (groups A, C, Y and W-135) conjugate vaccine (MCV4P) 2013-01-07 00:00:00 [facility] TDAP 2013-01-07 00:00:00 [facility] Varicella (varivax)(chicken pox) 2013-01-07 00:00:00 [facility] HEPATITIS A 2013-01-07 00:00:00 [facility] HPV 2013-01-07 00:00:00 [facility] Meningococcal Polysaccharide (groups A, C, Y and W-135) conjugate vaccine (MCV4P) 2013-01-07 00:00:00 [facility] TDAP 2013-01-07 00:00:00 [facility] Varicella (varivax)(chicken pox) 2013-01-07 00:00:00 [facility] HEPATITIS A 2013-01-07 00:00:00 [facility] HPV 2013-01-07 00:00:00 [facility] Meningococcal Polysaccharide (groups A, C, Y and W-135) conjugate vaccine (MCV4P) 2013-01-07 00:00:00 [facility] TDAP 2013-01-07 00:00:00 [facility] Varicella (varivax)(chicken pox) 2013-01-07 00:00:00 [facility] HEPATITIS A 2013-01-07 00:00:00 [facility] HPV 2013-01-07 00:00:00 [facility] Meningococcal Polysaccharide (groups A, C, Y and W-135) conjugate vaccine (MCV4P) 2013-01-07 00:00:00 [facility] TDAP 2013-01-07 00:00:00 [facility] Varicella (varivax)(chicken pox) 2013-01-07 00:00:00 [facility] HEPATITIS A 2013-01-07 00:00:00 [facility] HPV 2013-01-07 00:00:00 [facility] Meningococcal Polysaccharide (groups A, C, Y and W-135) conjugate vaccine (MCV4P) 2013-01-07 00:00:00 [facility] TDAP 2013-01-07 00:00:00 [facility] Varicella (varivax)(chicken pox) 2013-01-07 00:00:00 [facility] HEPATITIS A 2013-01-07 00:00:00 [facility] HPV 2013-01-07 00:00:00 [facility] Meningococcal Polysaccharide (groups A, C, Y and W-135) conjugate vaccine (MCV4P) 2013-01-07 00:00:00 [facility] TDAP 2013-01-07 00:00:00 [facility] Varicella (varivax)(chicken pox) 2013-01-07 00:00:00 [facility] HEPATITIS A 2013-01-07 00:00:00 [facility] HPV 2013-01-07 00:00:00 [facility] Meningococcal Polysaccharide (groups A, C, Y and W-135) conjugate vaccine (MCV4P) 2013-01-07 00:00:00 [facility] TDAP 2013-01-07 00:00:00 [facility] Varicella (varivax)(chicken pox) 2013-01-07 00:00:00 [facility] HEPATITIS A 2013-01-07 00:00:00 [facility] HPV 2013-01-07 00:00:00 [facility] Meningococcal Polysaccharide (groups A, C, Y and W-135) conjugate vaccine (MCV4P) 2013-01-07 00:00:00 [facility] TDAP 2013-01-07 00:00:00 [facility] Varicella (varivax)(chicken pox) 2013-01-07 00:00:00 [facility] DTaP, Unspecified Formulation 2001-08-15 00:00:00 [facility] Hib-HbOC 2001-08-15 00:00:00 [facility] DTaP, Unspecified Formulation 2001-08-15 00:00:00 [facility] Hib-HbOC 2001-08-15 00:00:00 [facility]pleted [facility] DTaP, Unspecified Formulation 2001-08-15 00:00:00 [facility] Hib-HbOC 2001-08-15 00:00:00 [facility]pleted [facility] DTaP, Unspecified Formulation 2001-08-15 00:00:00 [facility] Hib-HbOC 2001-08-15 00:00:00 [facility]pleted [facility] DTaP, Unspecified Formulation 2001-08-15 00:00:00 [facility] Hib-HbOC 2001-08-15 00:00:00 [facility]pleted [facility] DTaP, Unspecified Formulation 2001-08-15 00:00:00 [facility] Hib-HbOC 2001-08-15 00:00:00 [facility]pleted [facility] DTaP, Unspecified Formulation 2001-08-15 00:00:00 [facility] Hib-HbOC 2001-08-15 00:00:00 [facility]pleted [facility] DTaP, Unspecified Formulation 2001-08-15 00:00:00 [facility] Hib-HbOC 2001-08-15 00:00:00 [facility] DTaP, Unspecified Formulation 2001-08-15 00:00:00 [facility] Hib-HbOC 2001-08-15 00:00:00 [facility] Hep B, Adol or Pedi Dosage 2001-01-30 00:00:00 [facility] MMR 2001-01-30 00:00:00 [facility] Pneumococcal 7 Conjugate, PCV7 (Prevnar7) 2001-01-30 00:00:00 [facility] Varicella (varivax)(chicken pox) 2001-01-30 00:00:00 [facility] Hep B, Adol or Pedi Dosage 2001-01-30 00:00:00 [facility] MMR 2001-01-30 00:00:00 [facility] Pneumococcal 7 Conjugate, PCV7 (Prevnar7) 2001-01-30 00:00:00 [facility] Varicella (varivax)(chicken pox) 2001-01-30 00:00:00 [facility] Hep B, Adol or Pedi Dosage 2001-01-30 00:00:00 [facility] MMR 2001-01-30 00:00:00 [facility] Pneumococcal 7 Conjugate, PCV7 (Prevnar7) 2001-01-30 00:00:00 [facility]pleted [facility] Varicella (varivax)(chicken pox) 2001-01-30 00:00:00 [facility] Hep B, Adol or Pedi Dosage 2001-01-30 00:00:00 [facility] MMR 2001-01-30 00:00:00 [facility] Pneumococcal 7 Conjugate, PCV7 (Prevnar7) 2001-01-30 00:00:00 [facility] Varicella (varivax)(chicken pox) 2001-01-30 00:00:00 [facility] Hep B, Adol or Pedi Dosage 2001-01-30 00:00:00 [facility] MMR 2001-01-30 00:00:00 [facility]pleted [facility] Pneumococcal 7 Conjugate, PCV7 (Prevnar7) 2001-01-30 00:00:00 [facility] Varicella (varivax)(chicken pox) 2001-01-30 00:00:00 [facility] Hep B, Adol or Pedi Dosage 2001-01-30 00:00:00 [facility] MMR 2001-01-30 00:00:00 [facility] Pneumococcal 7 Conjugate, PCV7 (Prevnar7) 2001-01-30 00:00:00 [facility] Varicella (varivax)(chicken pox) 2001-01-30 00:00:00 [facility] Hep B, Adol or Pedi Dosage 2001-01-30 00:00:00 [facility] MMR 2001-01-30 00:00:00 [facility] Pneumococcal 7 Conjugate, PCV7 (Prevnar7) 2001-01-30 00:00:00 [facility] Varicella (varivax)(chicken pox) 2001-01-30 00:00:00 [facility] Hep B, Adol or Pedi Dosage 2001-01-30 00:00:00 [facility] MMR 2001-01-30 00:00:00 [facility] Pneumococcal 7 Conjugate, PCV7 (Prevnar7) 2001-01-30 00:00:00 [facility] Varicella (varivax)(chicken pox) 2001-01-30 00:00:00 [facility] Hep B, Adol or Pedi Dosage 2001-01-30 00:00:00 [facility] MMR 2001-01-30 00:00:00 [facility] Pneumococcal 7 Conjugate, PCV7 (Prevnar7) 2001-01-30 00:00:00 [facility] Varicella (varivax)(chicken pox) 2001-01-30 00:00:00 [facility] Hep B, Adol or Pedi Dosage 2000-08-07 00:00:00 [facility] Hep B, Adol or Pedi Dosage 2000-08-07 00:00:00 [facility] Hep B, Adol or Pedi Dosage 2000-08-07 00:00:00 [facility] Hep B, Adol or Pedi Dosage 2000-08-07 00:00:00 [facility] Hep B, Adol or Pedi Dosage 2000-08-07 00:00:00 [facility] Hep B, Adol or Pedi Dosage 2000-08-07 00:00:00 [facility] Hep B, Adol or Pedi Dosage 2000-08-07 00:00:00 [facility] Hep B, Adol or Pedi Dosage 2000-08-07 00:00:00 [facility] Hep B, Adol or Pedi Dosage 2000-08-07 00:00:00 [facility]pleted [facility] DTaP, Unspecified Formulation 2000-07-20 00:00:00 [facility]pleted [facility] Hib-HbOC 2000-07-20 00:00:00 [facility] IPV 2000-07-20 00:00:00 [facility]pleted [facility] DTaP, Unspecified Formulation 2000-07-20 00:00:00 [facility] Hib-HbOC 2000-07-20 00:00:00 [facility] IPV 2000-07-20 00:00:00 [facility]pleted [facility] DTaP, Unspecified Formulation 2000-07-20 00:00:00 [facility] Hib-HbOC 2000-07-20 00:00:00 [facility] IPV 2000-07-20 00:00:00 [facility]pleted [facility] DTaP, Unspecified Formulation 2000-07-20 00:00:00 [facility] Hib-HbOC 2000-07-20 00:00:00 [facility] IPV 2000-07-20 00:00:00 [facility]pleted [facility] DTaP, Unspecified Formulation 2000-07-20 00:00:00 [facility] Hib-HbOC 2000-07-20 00:00:00 [facility] IPV 2000-07-20 00:00:00 [facility] DTaP, Unspecified Formulation 2000-07-20 00:00:00 [facility] Hib-HbOC 2000-07-20 00:00:00 [facility] IPV 2000-07-20 00:00:00 [facility]pleted [facility] DTaP, Unspecified Formulation 2000-07-20 00:00:00 [facility] Hib-HbOC 2000-07-20 00:00:00 [facility] IPV 2000-07-20 00:00:00 [facility]pleted [facility] DTaP, Unspecified Formulation 2000-07-20 00:00:00 [facility] Hib-HbOC 2000-07-20 00:00:00 [facility] IPV 2000-07-20 00:00:00 [facility]pleted [facility] DTaP, Unspecified Formulation 2000-07-20 00:00:00 [facility] Hib-HbOC 2000-07-20 00:00:00 [facility] IPV 2000-07-20 00:00:00 [facility]pleted [facility] DTaP, Unspecified Formulation 2000-04-05 00:00:00 [facility] Hib-HbOC 2000-04-05 00:00:00 [facility] IPV 2000-04-05 00:00:00 [facility]pleted [facility] DTaP, Unspecified Formulation 2000-04-05 00:00:00 [facility] Hib-HbOC 2000-04-05 00:00:00 [facility] IPV 2000-04-05 00:00:00 [facility]pleted [facility] DTaP, Unspecified Formulation 2000-04-05 00:00:00 [facility] Hib-HbOC 2000-04-05 00:00:00 [facility] IPV 2000-04-05 00:00:00 [facility]pleted [facility] DTaP, Unspecified Formulation 2000-04-05 00:00:00 [facility] Hib-HbOC 2000-04-05 00:00:00 [facility] IPV 2000-04-05 00:00:00 [facility]pleted [facility] DTaP, Unspecified Formulation 2000-04-05 00:00:00 [facility] Hib-HbOC 2000-04-05 00:00:00 [facility] IPV 2000-04-05 00:00:00 [facility]pleted [facility] DTaP, Unspecified Formulation 2000-04-05 00:00:00 [facility] Hib-HbOC 2000-04-05 00:00:00 [facility] IPV 2000-04-05 00:00:00 Completed [facility] DTaP, Unspecified Formulation 2000-04-05 00:00:00 [facility] Hib-HbOC 2000-04-05 00:00:00 [facility] IPV 2000-04-05 00:00:00 Completed [facility] DTaP, Unspecified Formulation 2000-04-05 00:00:00 [facility] Hib-HbOC 2000-04-05 00:00:00 [facility] IPV 2000-04-05 00:00:00 Completed [facility] DTaP, Unspecified Formulation 2000-04-05 00:00:00 [facility] Hib-HbOC 2000-04-05 00:00:00 [facility] IPV 2000-04-05 00:00:00 Completed [facility] DTaP, Unspecified Formulation 1999 00:00:00 [facility]pleted [facility] Hib-HbOC 1999 00:00:00 [facility]pleted [facility] IPV 1999 00:00:00 Completed [facility] DTaP, Unspecified Formulation 1999 00:00:00 Completed [facility] Hib-HbOC 1999 00:00:00 [facility] IPV 1999 00:00:00 Completed [facility] DTaP, Unspecified Formulation 1999 00:00:00 Completed [facility] Hib-HbOC 1999 00:00:00 [facility] IPV 1999 00:00:00 Completed [facility] DTaP, Unspecified Formulation 1999 00:00:00 Completed [facility] Hib-HbOC 1999 00:00:00 [facility] IPV 1999 00:00:00 Completed [facility] DTaP, Unspecified Formulation 1999 00:00:00 Completed [facility] Hib-HbOC 1999 00:00:00 Completed [facility] IPV 1999 00:00:00 Completed [facility] DTaP, Unspecified Formulation 1999 00:00:00 Completed [facility] Hib-HbOC 1999 00:00:00 [facility] IPV 1999 00:00:00 Completed [facility] DTaP, Unspecified Formulation 1999 00:00:00 Completed [facility] Hib-HbOC 1999 00:00:00 [facility] IPV 1999 00:00:00 Completed [facility] DTaP, Unspecified Formulation 1999 00:00:00 Completed [facility] Hib-HbOC 1999 00:00:00 [facility] IPV 1999 00:00:00 Completed [facility] DTaP, Unspecified Formulation 1999 00:00:00 Completed [facility] Hib-HbOC 1999 00:00:00 [facility] IPV 1999 00:00:00 [facility] Hep B, Adol or Pedi Dosage 1999 00:00:00 [facility]pleted [facility] Hep B, Adol or Pedi Dosage 1999 00:00:00 [facility]pleted [facility] Hep B, Adol or Pedi Dosage 1999 00:00:00 [facility]pleted [facility] Hep B, Adol or Pedi Dosage 1999 00:00:00 [facility]pleted [facility] Hep B, Adol or Pedi Dosage 1999 00:00:00 Completed [facility] Hep B, Adol or Pedi Dosage 1999 00:00:00 [facility]pleted [facility] Hep B, Adol or Pedi Dosage 1999 00:00:00 Completed [facility] Hep B, Adol or Pedi Dosage 1999 00:00:00 Completed [facility] Hep B, Adol or Pedi Dosage 1999 00:00:00 [facility]pleted [facility] TDAP Unknown Com[facility] Influenza Virus Vaccine Quad .5 mL IM 6+ MO (FLUZONE/FLULAVAL/FL UARIX) Unknown Completed [facility] TDAP Unknown Completed [facility] Influenza Virus Vaccine Quad IM, Preserv and ABX Free 6 MO-64 YRS (FLUCELVAX) Unknown Completed [facility] TDAP Unknown Completed [facility] DTaP, Unspecified Formulation Unknown Completed [facility] DTaP, Unspecified Formulation Unknown Completed [facility] DTaP, Unspecified Formulation Unknown Completed [facility] DTaP, Unspecified Formulation Unknown Com[facility] HEPATITIS A [facility], Adol or Pedi Dosage Unknown Com[facility] Hep B, Adol or Pedi Dosage Unknown Completed [facility] Hep B, Adol or Pedi Dosage Unknown Completed [facility] Hib-HbOC Unknown Com[facility] Hib-HbOC Unknown [facility] Hib-HbOC Unknown [facility] Hib-HbOC Unknown [facility] HPV Unknown [facility] Meningococcal Polysaccharide (groups A, C, Y and W-135) conjugate vaccine (MCV4P) Unknown Completed [facility] MMR Unknown Completed [facility] Pneumococcal 7 Conjugate, PCV7 (Prevnar7) Unknown Completed [facility] IPV Unknown [facility] IPV Unknown [facility] IPV Unknown Com[facility] TDAP Unknown Com[facility] Varicella (varivax)(chicken pox) Unknown Completed [facility] Varicella (varivax)(chicken pox) Unknown Completed [facility] TDAP Unknown Com[facility] Influenza Virus Vaccine Quad .5 mL IM 6+ MO (FLUZONE/FLULAVAL/FL UARIX) Unknown Completed [facility] TDAP Unknown Completed [facility] Influenza Virus Vaccine Quad IM, Preserv and ABX Free 6 MO-64 YRS (FLUCELVAX) Unknown Completed [facility] TDAP Unknown Completed [facility] DTaP, Unspecified Formulation Unknown Completed [facility] DTaP, Unspecified Formulation Unknown Completed [facility] DTaP, Unspecified Formulation Unknown Completed [facility] DTaP, Unspecified Formulation Unknown Com[facility] HEPATITIS A Unknown [facility] Hep B, Adol or Pedi Dosage Unknown Com[facility] Hep B, Adol or Pedi Dosage Unknown Com[facility] Hep B, Adol or Pedi Dosage Unknown Com[facility] Hib-HbOC Unknown Com[facility] Hib-HbOC Unknown [facility] Hib-HbOC Unknown [facility] Hib-HbOC Unknown [facility] HPV Unknown [facility] Meningococcal Polysaccharide (groups A, C, Y and W-135) conjugate vaccine (MCV4P) Unknown Completed [facility] MMR Unknown Completed [facility] Pneumococcal 7 Conjugate, PCV7 (Prevnar7) Unknown Com[facility] IPV Unknown [facility] IPV Unknown [facility] IPV Unknown Com[facility] TDAP Unknown Com[facility] Varicella (varivax)(chicken pox) Unknown Completed [facility] Varicella (varivax)(chicken pox) Unknown Com[facility] TDAP Unknown Com[facility] Influenza Virus Vaccine Quad .5 mL IM 6+ MO (FLUZONE/FLULAVAL/FL UARIX) Unknown Completed [facility] TDAP Unknown Com[facility] Influenza Virus Vaccine Quad IM, Preserv and ABX Free 6 MO-64 YRS (FLUCELVAX) Unknown Completed [facility] TDAP Unknown Com[facility] DTaP, Unspecified Formulation Unknown Completed [facility] DTaP, Unspecified Formulation Unknown Completed [facility] DTaP, Unspecified Formulation Unknown Completed [facility] DTaP, Unspecified Formulation Unknown Com[facility] HEPATITIS A Unknown [facility] Hep B, Adol or Pedi Dosage Unknown Com[facility] Hep B, Adol or Pedi Dosage Unknown Com[facility] Hep B, Adol or Pedi Dosage Unknown Com[facility] Hib-HbOC Unknown Com[facility] Hib-HbOC Unknown Com[facility] Hib-HbOC Unknown Com[facility] Hib-HbOC Unknown [facility] HPV Unknown [facility] Meningococcal Polysaccharide (groups A, C, Y and W-135) conjugate vaccine (MCV4P) Unknown Completed [facility] MMR Unknown Completed [facility] Pneumococcal 7 Conjugate, PCV7 (Prevnar7) Unknown Com[facility] IPV Unknown Com[facility] IPV Unknown [facility] IPV Unknown Com[facility] TDAP Unknown Com[facility] Varicella (varivax)(chicken pox) Unknown Completed [facility] Varicella (varivax)(chicken pox) Unknown Completed [facility] TDAP Unknown Com[facility] Influenza Virus Vaccine Quad .5 mL IM 6+ MO (FLUZONE/FLULAVAL/FL UARIX) Unknown Completed [facility] TDAP Unknown Completed [facility] Influenza Virus Vaccine Quad IM, Preserv and ABX Free 6 MO-64 YRS (FLUCELVAX) Unknown Completed [facility] TDAP Unknown Completed [facility] DTaP, Unspecified Formulation Unknown Completed [facility] DTaP, Unspecified Formulation Unknown Completed [facility] DTaP, Unspecified Formulation Unknown Completed [facility] DTaP, Unspecified Formulation Unknown Completed [facility] HEPATITIS A Unknown [facility] Hep B, Adol or Pedi Dosage Unknown Completed [facility] Hep B, Adol or Pedi Dosage Unknown Completed [facility] Hep B, Adol or Pedi Dosage Unknown Completed [facility] Hib-HbOC Unknown Com[facility] Hib-HbOC Unknown Com[facility] Hib-HbOC Unknown Com[facility] Hib[facility]HbOC Unknown Com[facility] HPV Unknown Com[facility] Meningococcal Polysaccharide (groups A, C, Y and W-135) conjugate vaccine (MCV4P) Unknown Completed [facility] MMR Unknown Completed [facility] Pneumococcal 7 Conjugate, PCV7 (Prevnar7) Unknown Com[facility] IPV Unknown Com[facility] IPV Unknown Com[facility] IPV Unknown Com[facility] TDAP Unknown Com[facility] Varicella (varivax)(chicken pox) Unknown Completed [facility] Varicella (varivax)(chicken pox) Unknown Completed [facility] TDAP Unknown Completed [facility] Influenza Virus Vaccine Quad .5 mL IM 6+ MO (FLUZONE/FLULAVAL/FL UARIX) Unknown Completed [facility] TDAP Unknown Completed [facility] Influenza Virus Vaccine Quad IM, Preserv and ABX Free 6 MO-64 YRS (FLUCELVAX) Unknown Completed [facility] TDAP Unknown Completed [facility] DTaP, Unspecified Formulation Unknown Completed [facility] DTaP, Unspecified Formulation Unknown Completed [facility] DTaP, Unspecified Formulation Unknown Completed [facility] DTaP, Unspecified Formulation Unknown Com[facility] HEPATITIS A Unknown [facility] Hep B, Adol or Pedi Dosage Unknown Com[facility] Hep B, Adol or Pedi Dosage Unknown Completed [facility] Hep B, Adol or Pedi Dosage Unknown Completed [facility] Hib-HbOC Unknown Com[facility] Hib-HbOC Unknown Com[facility] Hib-HbOC Unknown Com[facility] Hib[facility]HbOC Unknown [facility] HPV Unknown Com[facility] Meningococcal Polysaccharide (groups A, C, Y and W-135) conjugate vaccine (MCV4P) Unknown Completed [facility] MMR Unknown Completed [facility] Pneumococcal 7 Conjugate, PCV7 (Prevnar7) Unknown Com[facility] IPV Unknown Com[facility] IPV Unknown Com[facility] IPV Unknown Com[facility] TDAP Unknown Com[facility] Varicella (varivax)(chicken pox) Unknown Completed [facility] Varicella (varivax)(chicken pox) Unknown Completed [facility] TDAP Unknown Com[facility] Influenza Virus Vaccine Quad .5 mL IM 6+ MO (FLUZONE/FLULAVAL/FL UARIX) Unknown Completed [facility] TDAP Unknown Completed [facility] Influenza Virus Vaccine Quad IM, Preserv and ABX Free 6 MO-64 YRS (FLUCELVAX) Unknown Completed [facility] TDAP Unknown Com[facility] DTaP, Unspecified Formulation Unknown Com[facility] DTaP, Unspecified Formulation Unknown Completed [facility] DTaP, Unspecified Formulation Unknown Completed [facility] DTaP, Unspecified Formulation Unknown Com[facility] HEPATITIS A Unknown [facility] Hep B, Adol or Pedi Dosage Unknown Com[facility] Hep B, Adol or Pedi Dosage Unknown Com[facility] Hep B, Adol or Pedi Dosage Unknown Com[facility] Hib-HbOC Unknown Com[facility] Hib-HbOC Unknown Com[facility] Hib-HbOC Unknown Com[facility] Hib-HbOC Unknown [facility] HPV Unknown [facility] Meningococcal Polysaccharide (groups A, C, Y and W-135) conjugate vaccine (MCV4P) Unknown Completed [facility] MMR Unknown Com[facility] Pneumococcal 7 Conjugate, PCV7 (Prevnar7) Unknown Com[facility] IPV Unknown [facility] IPV Unknown [facility] IPV Unknown Com[facility] TDAP Unknown Com[facility] Varicella (varivax)(chicken pox) Unknown Completed [facility] Varicella (varivax)(chicken pox) Unknown Completed [facility] DTaP, Unspecified Formulation Unknown Com[facility] DTaP, Unspecified Formulation Unknown Com[facility] DTaP, Unspecified Formulation Unknown Completed [facility] DTaP, Unspecified Formulation Unknown Com[facility] HEPATITIS A Unknown [facility] Hep B, Adol or Pedi Dosage Unknown Com[facility] Hep B, Adol or Pedi Dosage Unknown Com[facility] Hep B, Adol or Pedi Dosage Unknown Com[facility] Hib-HbOC Unknown Com[facility] Hib-HbOC Unknown Com[facility] Hib-HbOC Unknown Com[facility] Hib-HbOC Unknown [facility] HPV Unknown [facility] Meningococcal Polysaccharide (groups A, C, Y and W-135) conjugate vaccine (MCV4P) Unknown Completed [facility] MMR Unknown Com[facility] Pneumococcal 7 Conjugate, PCV7 (Prevnar7) Unknown Com[facility] IPV Unknown [facility] IPV Unknown [facility] IPV Unknown [facility] TDAP Unknown Com[facility] Varicella (varivax)(chicken pox) Unknown Completed [facility] Varicella (varivax)(chicken pox) Unknown Com[facility] TDAP Unknown Com[facility] Influenza Virus Vaccine Quad .5 mL IM 6+ MO (FLUZONE/FLULAVAL/FL UARIX) Unknown Completed [facility] TDAP Unknown Completed [facility] Influenza Virus Vaccine Quad IM, Preserv and ABX Free 6 MO-64 YRS (FLUCELVAX) Unknown Completed [facility] TDAP Unknown Com[facility] DTaP, Unspecified Formulation Unknown Completed [facility] DTaP, Unspecified Formulation Unknown Completed [facility] DTaP, Unspecified Formulation Unknown Completed [facility] DTaP, Unspecified Formulation Unknown Com[facility] HEPATITIS A Unknown [facility] Hep B, Adol or Pedi Dosage Unknown Com[facility] Hep B, Adol or Pedi Dosage Unknown Com[facility] Hep B, Adol or Pedi Dosage Unknown Com[facility] Hib-HbOC Unknown Com[facility] Hib-HbOC Unknown Com[facility] Hib-HbOC Unknown Com[facility] Hib-HbOC Unknown [facility] HPV Unknown [facility] Meningococcal Polysaccharide (groups A, C, Y and W-135) conjugate vaccine (MCV4P) Unknown Completed [facility] MMR Unknown Com[facility] Pneumococcal 7 Conjugate, PCV7 (Prevnar7) Unknown Com[facility] IPV Unknown [facility] IPV Unknown [facility] IPV Unknown Com[facility] TDAP Unknown Com[facility] Varicella (varivax)(chicken pox) Unknown Completed [facility] Varicella (varivax)(chicken pox) Unknown Com[facility] TDAP Unknown Com[facility] Influenza Virus Vaccine Quad .5 mL IM 6+ MO (FLUZONE/FLULAVAL/FL UARIX) Unknown Completed [facility] TDAP Unknown Com[facility] Influenza Virus Vaccine Quad IM, Preserv and ABX Free 6 MO-64 YRS (FLUCELVAX) Unknown Completed [facility] TDAP Unknown Com[facility] DTaP, Unspecified Formulation Unknown Com[facility] DTaP, Unspecified Formulation Unknown Completed [facility] DTaP, Unspecified Formulation Unknown Com[facility] DTaP, Unspecified Formulation Unknown Com[facility] HEPATITIS A Unknown [facility] Hep B, Adol or Pedi Dosage Unknown Com[facility] Hep B, Adol or Pedi Dosage Unknown Com[facility] Hep B, Adol or Pedi Dosage Unknown Com[facility] Hib-HbOC Unknown Com[facility] Hib-HbOC Unknown Com[facility] Hib-HbOC Unknown [facility] Hib-HbOC Unknown [facility] HPV Unknown [facility] Meningococcal Polysaccharide (groups A, C, Y and W-135) conjugate vaccine (MCV4P) Unknown Completed [facility] MMR Unknown Com[facility] Pneumococcal 7 Conjugate, PCV7 (Prevnar7) Unknown [facility] IPV Unknown [facility] IPV Unknown [facility] IPV Unknown [facility] TDAP Unknown Com[facility] Varicella (varivax)(chicken pox) Unknown Completed [facility] Varicella (varivax)(chicken pox) Unknown Com[facility] TDAP Unknown Com[facility] Influenza Virus Vaccine Quad .5 mL IM 6+ MO (FLUZONE/FLULAVAL/FL UARIX) Unknown Com[facility] TDAP Unknown Com[facility] Influenza Virus Vaccine Quad IM, Preserv and ABX Free 6 MO-64 YRS (FLUCELVAX) Unknown Com[facility] TDAP Unknown Com[facility] DTaP, Unspecified Formulation Unknown Com[facility] DTaP, Unspecified Formulation Unknown Com[facility] DTaP, Unspecified Formulation Unknown Com[facility] DTaP, Unspecified Formulation Unknown Com[facility] HEPATITIS A Unknown [facility] Hep B, Adol or Pedi Dosage Unknown Com[facility] Hep B, Adol or Pedi Dosage Unknown [facility] Hep B, Adol or Pedi Dosage Unknown [facility] Hib-HbOC Unknown [facility] Hib-HbOC Unknown [facility] Hib-HbOC Unknown [facility] Hib-HbOC Unknown Com[facility] HPV Unknown Com[facility] Meningococcal Polysaccharide (groups A, C, Y and W-135) conjugate vaccine (MCV4P) Unknown Completed [facility] MMR Unknown Completed [facility] Pneumococcal 7 Conjugate, PCV7 (Prevnar7) Unknown Completed [facility] IPV Unknown Com[facility] IPV Unknown Com[facility] IPV Unknown Com[facility] TDAP Unknown Completed [facility] Varicella (varivax)(chicken pox) Unknown Completed [facility] Varicella (varivax)(chicken pox) Unknown Completed [facility] TDAP Unknown Completed [facility] Influenza Virus Vaccine Quad IM, Preserv and ABX Free 6 MO-64 YRS (FLUCELVAX) Unknown Completed [facility] TDAP Unknown Completed [facility] Influenza Virus Vaccine Quad .5 mL IM 6+ MO (FLUZONE/FLULAVAL/FL UARIX) Unknown Completed [facility] TDAP Unknown Completed [facility] Influenza Virus Vaccine Quad IM, Preserv and ABX Free 6 MO-64 YRS (FLUCELVAX) Unknown Completed [facility] TDAP Unknown Completed [facility] DTaP, Unspecified Formulation Unknown Completed [facility] DTaP, Unspecified Formulation Unknown Completed [facility] DTaP, Unspecified Formulation Unknown Completed [facility] DTaP, Unspecified Formulation Unknown Completed [facility] HEPATITIS A [facility], Adol or Pedi Dosage Unknown Com[facility] Hep B, Adol or Pedi Dosage Unknown Completed [facility] Hep B, Adol or Pedi Dosage Unknown Completed [facility] Hib-HbOC Unknown Completed [facility] Hib-HbOC Unknown Completed [facility] Hib-HbOC Unknown Com[facility] Hib-HbOC Unknown Com[facility] HPV Unknown Com[facility] Meningococcal Polysaccharide (groups A, C, Y and W-135) conjugate vaccine (MCV4P) Unknown Completed [facility] MMR Unknown Completed [facility] Pneumococcal 7 Conjugate, PCV7 (Prevnar7) Unknown Completed [facility] IPV Unknown Com[facility] IPV Unknown Com[facility] IPV Unknown Com[facility] TDAP Unknown Completed [facility] Varicella (varivax)(chicken pox) Unknown Completed [facility] Varicella (varivax)(chicken pox) Unknown Completed [facility] TDAP Unknown Completed [facility] Influenza Virus Vaccine Quad IM, Preserv and ABX Free 6 MO-64 YRS (FLUCELVAX) Unknown Completed [facility] TDAP Unknown Completed [facility] Influenza Virus Vaccine Quad .5 mL IM 6+ MO (FLUZONE/FLULAVAL/FL UARIX) Unknown Completed [facility] TDAP Unknown Completed [facility] Influenza Virus Vaccine Quad IM, Preserv and ABX Free 6 MO-64 YRS (FLUCELVAX) Unknown Completed [facility] TDAP Unknown Completed [facility] DTaP, Unspecified Formulation Unknown Completed [facility] DTaP, Unspecified Formulation Unknown Completed [facility] DTaP, Unspecified Formulation Unknown Completed [facility] DTaP, Unspecified Formulation Unknown Completed [facility] HEPATITIS A Unknown [facility], Adol or Pedi Dosage Unknown Completed [facility] Hep B, Adol or Pedi Dosage Unknown Completed [facility] Hep B, Adol or Pedi Dosage Unknown Completed [facility] Hib-HbOC Unknown Completed [facility] Hib-HbOC Unknown Completed [facility] Hib-HbOC Unknown Com[facility] Hib-HbOC Unknown Com[facility] HPV Unknown Com[facility] Meningococcal Polysaccharide (groups A, C, Y and W-135) conjugate vaccine (MCV4P) Unknown Completed [facility] MMR Unknown Completed [facility] Pneumococcal 7 Conjugate, PCV7 (Prevnar7) Unknown Completed [facility] IPV Unknown Com[facility] IPV Unknown Com[facility] IPV Unknown Com[facility] TDAP Unknown Completed [facility] Varicella (varivax)(chicken pox) Unknown Completed [facility] Varicella (varivax)(chicken pox) Unknown Completed [facility] TDAP Unknown Completed [facility] Influenza Virus Vaccine Quad IM, Preserv and ABX Free 6 MO-64 YRS (FLUCELVAX) Unknown Completed [facility] TDAP Unknown Completed [facility] Influenza Virus Vaccine Quad .5 mL IM 6+ MO (FLUZONE/FLULAVAL/FL UARIX) Unknown Completed [facility] TDAP Unknown Completed [facility] Influenza Virus Vaccine Quad IM, Preserv and ABX Free 6 MO-64 YRS (FLUCELVAX) Unknown Completed [facility] TDAP Unknown Completed [facility] DTaP, Unspecified Formulation Unknown Completed [facility] DTaP, Unspecified Formulation Unknown Completed [facility] DTaP, Unspecified Formulation Unknown Completed [facility] DTaP, Unspecified Formulation Unknown Completed [facility] HEPATITIS A [facility], Adol or Pedi Dosage Unknown Completed [facility] Hep B, Adol or Pedi Dosage Unknown Completed [facility] Hep B, Adol or Pedi Dosage Unknown Completed [facility] Hib-HbOC Unknown Completed [facility] Hib-HbOC Unknown Completed [facility] Hib-HbOC Unknown Com[facility] Hib-HbOC Unknown Com[facility] HPV Unknown Com[facility] Meningococcal Polysaccharide (groups A, C, Y and W-135) conjugate vaccine (MCV4P) Unknown Completed [facility] MMR Unknown Completed [facility] Pneumococcal 7 Conjugate, PCV7 (Prevnar7) Unknown Completed [facility] IPV Unknown Com[facility] IPV Unknown Com[facility] IPV Unknown Com[facility] TDAP Unknown Completed [facility] Varicella (varivax)(chicken pox) Unknown Completed [facility] Varicella (varivax)(chicken pox) Unknown Completed [facility] TDAP Unknown Completed [facility] Influenza Virus Vaccine Quad IM, Preserv and ABX Free 6 MO-64 YRS (FLUCELVAX) Unknown Completed [facility] TDAP Unknown Completed [facility] Influenza Virus Vaccine Quad .5 mL IM 6+ MO (FLUZONE/FLULAVAL/FL UARIX) Unknown Completed [facility] TDAP Unknown Completed [facility] Influenza Virus Vaccine Quad IM, Preserv and ABX Free 6 MO-64 YRS (FLUCELVAX) Unknown Completed [facility] TDAP Unknown Completed [facility] DTaP, Unspecified Formulation Unknown Completed [facility] DTaP, Unspecified Formulation Unknown Completed [facility] DTaP, Unspecified Formulation Unknown Completed [facility] DTaP, Unspecified Formulation Unknown Completed [facility] HEPATITIS A [facility], Adol or Pedi Dosage Unknown Completed [facility] Hep B, Adol or Pedi Dosage Unknown Completed [facility] Hep B, Adol or Pedi Dosage Unknown Completed [facility] Hib-HbOC Unknown Completed [facility] Hib-HbOC Unknown Completed [facility] Hib-HbOC Unknown Com[facility] Hib-HbOC Unknown Com[facility] HPV Unknown Completed [facility] Meningococcal Polysaccharide (groups A, C, Y and W-135) conjugate vaccine (MCV4P) Unknown Completed [facility] MMR Unknown Completed [facility] Pneumococcal 7 Conjugate, PCV7 (Prevnar7) Unknown Completed [facility] IPV Unknown Com[facility] IPV Unknown Com[facility] IPV Unknown Completed [facility] TDAP Unknown Completed [facility] Varicella (varivax)(chicken pox) Unknown Completed [facility] Varicella (varivax)(chicken pox) Unknown Completed [facility] TDAP Unknown Completed [facility] Influenza Virus Vaccine Quad IM, Preserv and ABX Free 6 MO-64 YRS (FLUCELVAX) Unknown Completed [facility] TDAP Unknown Completed [facility] Influenza Virus Vaccine Quad .5 mL IM 6+ MO (FLUZONE/FLULAVAL/FL UARIX) Unknown Completed [facility] TDAP Unknown Completed [facility] Influenza Virus Vaccine Quad IM, Preserv and ABX Free 6 MO-64 YRS (FLUCELVAX) Unknown Completed [facility] TDAP Unknown Completed [facility] DTaP, Unspecified Formulation Unknown Completed [facility] DTaP, Unspecified Formulation Unknown Completed [facility] DTaP, Unspecified Formulation Unknown Completed [facility] DTaP, Unspecified Formulation Unknown Completed [facility] HEPATITIS A Unknown Completed [facility] Hep B, Adol or Pedi Dosage Unknown Completed [facility] Hep B, Adol or Pedi Dosage Unknown Completed [facility] Hep B, Adol or Pedi Dosage Unknown Completed [facility] Hib-HbOC Unknown Completed [facility] Hib-HbOC Unknown Completed [facility] Hib-HbOC Unknown Com[facility] Hib-HbOC Unknown Com[facility] HPV Unknown Com[facility] Meningococcal Polysaccharide (groups A, C, Y and W-135) conjugate vaccine (MCV4P) Unknown Completed [facility] MMR Unknown Completed [facility] Pneumococcal 7 Conjugate, PCV7 (Prevnar7) Unknown Completed [facility] IPV Unknown Com[facility] IPV Unknown Com[facility] IPV Unknown Completed [facility] TDAP Unknown Completed [facility] Varicella (varivax)(chicken pox) Unknown Completed [facility] Varicella (varivax)(chicken pox) Unknown Completed [facility] TDAP Unknown Completed [facility] Influenza Virus Vaccine Quad IM, Preserv and ABX Free 6 MO-64 YRS (FLUCELVAX) Unknown Completed [facility] TDAP Unknown Completed [facility] Influenza Virus Vaccine Quad .5 mL IM 6+ MO (FLUZONE/FLULAVAL/FL UARIX) Unknown Completed [facility] TDAP Unknown Completed [facility] Influenza Virus Vaccine Quad IM, Preserv and ABX Free 6 MO-64 YRS (FLUCELVAX) Unknown Completed [facility] TDAP Unknown Completed [facility] DTaP, Unspecified Formulation Unknown Completed [facility] DTaP, Unspecified Formulation Unknown Completed [facility] DTaP, Unspecified Formulation Unknown Completed [facility] DTaP, Unspecified Formulation Unknown Completed [facility] HEPATITIS A [facility], Adol or Pedi Dosage Unknown Completed [facility] Hep B, Adol or Pedi Dosage Unknown Completed [facility] Hep B, Adol or Pedi Dosage Unknown Completed [facility] Hib-HbOC Unknown Completed [facility] Hib-HbOC Unknown Completed [facility] Hib-HbOC Unknown Completed [facility] Hib-HbOC Unknown Completed [facility] HPV Unknown Completed [facility] Meningococcal Polysaccharide (groups A, C, Y and W-135) conjugate vaccine (MCV4P) Unknown Completed [facility] MMR Unknown Completed [facility] Pneumococcal 7 Conjugate, PCV7 (Prevnar7) Unknown Completed [facility] IPV Unknown Com[facility] IPV Unknown Com[facility] IPV Unknown Completed [facility] TDAP Unknown Completed [facility] Varicella (varivax)(chicken pox) Unknown Completed [facility] Varicella (varivax)(chicken pox) Unknown Completed [facility] TDAP Unknown Completed [facility] Influenza Virus Vaccine Quad IM, Preserv and ABX Free 6 MO-64 YRS (FLUCELVAX) Unknown Completed [facility] TDAP Unknown Completed [facility] Influenza Virus Vaccine Quad .5 mL IM 6+ MO (FLUZONE/FLULAVAL/FL UARIX) Unknown Completed [facility] TDAP Unknown Completed [facility] Influenza Virus Vaccine Quad IM, Preserv and ABX Free 6 MO-64 YRS (FLUCELVAX) Unknown Completed [facility] TDAP Unknown Completed [facility] DTaP, Unspecified Formulation Unknown Completed [facility] DTaP, Unspecified Formulation Unknown Completed [facility] DTaP, Unspecified Formulation Unknown Completed [facility] DTaP, Unspecified Formulation Unknown Completed [facility] HEPATITIS A [facility] B, Adol or Pedi Dosage Unknown Completed [facility] Hep B, Adol or Pedi Dosage Unknown Completed [facility] Hep B, Adol or Pedi Dosage Unknown Completed [facility] Hib-HbOC Unknown Completed [facility] Hib-HbOC Unknown Completed [facility] Hib-HbOC Unknown Completed [facility] Hib-HbOC Unknown Completed [facility] HPV Unknown Completed [facility] Meningococcal Polysaccharide (groups A, C, Y and W-135) conjugate vaccine (MCV4P) Unknown Completed [facility] MMR Unknown Completed [facility] Pneumococcal 7 Conjugate, PCV7 (Prevnar7) Unknown Completed [facility] IPV Unknown Com[facility] IPV Unknown Com[facility] IPV Unknown Com[facility] TDAP Unknown Completed [facility] Varicella (varivax)(chicken pox) Unknown Completed [facility] Varicella (varivax)(chicken pox) Unknown Completed [facility] TDAP Unknown Completed [facility] Influenza Virus Vaccine Quad IM, Preserv and ABX Free 6 MO-64 YRS (FLUCELVAX) Unknown Completed [facility] TDAP Unknown Completed [facility] Influenza Virus Vaccine Quad .5 mL IM 6+ MO (FLUZONE/FLULAVAL/FL UARIX) Unknown Completed [facility] TDAP Unknown Completed [facility] Influenza Virus Vaccine Quad IM, Preserv and ABX Free 6 MO-64 YRS (FLUCELVAX) Unknown Completed [facility] TDAP Unknown Completed [facility] DTaP, Unspecified Formulation Unknown Completed [facility] DTaP, Unspecified Formulation Unknown Completed [facility] DTaP, Unspecified Formulation Unknown Completed [facility] DTaP, Unspecified Formulation Unknown Completed [facility] HEPATITIS A Unknown [facility] B, Adol or Pedi Dosage Unknown Completed [facility] Hep B, Adol or Pedi Dosage Unknown Completed [facility] Hep B, Adol or Pedi Dosage Unknown Completed [facility] Hib-HbOC Unknown Completed [facility] Hib-HbOC Unknown Completed [facility] Hib-HbOC Unknown Completed [facility] Hib-HbOC Unknown Completed [facility] HPV Unknown Completed [facility] Meningococcal Polysaccharide (groups A, C, Y and W-135) conjugate vaccine (MCV4P) Unknown Completed [facility] MMR Unknown Completed [facility] Pneumococcal 7 Conjugate, PCV7 (Prevnar7) Unknown Completed [facility] IPV Unknown Completed [facility] IPV Unknown Com[facility] IPV Unknown Completed [facility] TDAP Unknown Completed [facility] Varicella (varivax)(chicken pox) Unknown Completed [facility] Varicella (varivax)(chicken pox) Unknown Completed [facility] TDAP Unknown Completed [facility] Influenza Virus Vaccine Quad IM, Preserv and ABX Free 6 MO-64 YRS (FLUCELVAX) Unknown Completed [facility] TDAP Unknown Completed [facility] Influenza Virus Vaccine Quad .5 mL IM 6+ MO (FLUZONE/FLULAVAL/FL UARIX) Unknown Completed [facility] TDAP Unknown Completed [facility] Influenza Virus Vaccine Quad IM, Preserv and ABX Free 6 MO-64 YRS (FLUCELVAX) Unknown Completed [facility] TDAP Unknown Completed [facility] DTaP, Unspecified Formulation Unknown Completed [facility] DTaP, Unspecified Formulation Unknown Completed [facility] DTaP, Unspecified Formulation Unknown Completed [facility] DTaP, Unspecified Formulation Unknown Completed [facility] HEPATITIS A Unknown [facility] B, Adol or Pedi Dosage Unknown Completed [facility] Hep B, Adol or Pedi Dosage Unknown Completed [facility] Hep B, Adol or Pedi Dosage Unknown Completed [facility] Hib-HbOC Unknown Completed [facility] Hib-HbOC Unknown Completed [facility] Hib-HbOC Unknown Completed [facility] Hib-HbOC Unknown Completed [facility] HPV Unknown Completed [facility] Meningococcal Polysaccharide (groups A, C, Y and W-135) conjugate vaccine (MCV4P) Unknown Completed [facility] MMR Unknown Completed [facility] Pneumococcal 7 Conjugate, PCV7 (Prevnar7) Unknown Completed [facility] IPV Unknown Com[facility] IPV Unknown Com[facility] IPV Unknown Com[facility] TDAP Unknown Completed [facility] Varicella (varivax)(chicken pox) Unknown Completed [facility] Varicella (varivax)(chicken pox) Unknown Completed [facility] TDAP Unknown Completed [facility] Influenza Virus Vaccine Quad IM, Preserv and ABX Free 6 MO-64 YRS (FLUCELVAX) Unknown Completed [facility] TDAP Unknown Completed [facility] Influenza Virus Vaccine Quad .5 mL IM 6+ MO (FLUZONE/FLULAVAL/FL UARIX) Unknown Completed [facility] TDAP Unknown Completed [facility] Influenza Virus Vaccine Quad IM, Preserv and ABX Free 6 MO-64 YRS (FLUCELVAX) Unknown Completed [facility] TDAP Unknown Completed [facility] DTaP, Unspecified Formulation Unknown Completed [facility] DTaP, Unspecified Formulation Unknown Completed [facility] DTaP, Unspecified Formulation Unknown Completed [facility] DTaP, Unspecified Formulation Unknown Completed [facility] HEPATITIS A Unknown [facility] B, Adol or Pedi Dosage Unknown Completed [facility] Hep B, Adol or Pedi Dosage Unknown Completed [facility] Hep B, Adol or Pedi Dosage Unknown Completed [facility] Hib-HbOC Unknown Completed [facility] Hib-HbOC Unknown Com[facility] Hib-HbOC Unknown Com[facility] Hib-HbOC Unknown Com[facility] HPV Unknown Com[facility] Meningococcal Polysaccharide (groups A, C, Y and W-135) conjugate vaccine (MCV4P) Unknown Completed [facility] MMR Unknown Completed [facility] Pneumococcal 7 Conjugate, PCV7 (Prevnar7) Unknown Completed [facility] IPV Unknown Com[facility] IPV Unknown Com[facility] IPV Unknown Com[facility] TDAP Unknown Completed [facility] Varicella (varivax)(chicken pox) Unknown Completed [facility] Varicella (varivax)(chicken pox) Unknown Completed [facility] TDAP Unknown Completed [facility] Influenza Virus Vaccine Quad IM, Preserv and ABX Free 6 MO-64 YRS (FLUCELVAX) Unknown Completed [facility] TDAP Unknown Completed [facility] Influenza Virus Vaccine Quad .5 mL IM 6+ MO (FLUZONE/FLULAVAL/FL UARIX) Unknown Completed [facility] TDAP Unknown Completed [facility] Influenza Virus Vaccine Quad IM, Preserv and ABX Free 6 MO-64 YRS (FLUCELVAX) Unknown Completed [facility] TDAP Unknown Completed [facility] DTaP, Unspecified Formulation Unknown Completed [facility] DTaP, Unspecified Formulation Unknown Completed [facility] DTaP, Unspecified Formulation Unknown Completed [facility] DTaP, Unspecified Formulation Unknown Completed [facility] HEPATITIS A Unknown [facility] B, Adol or Pedi Dosage Unknown Completed [facility] Hep B, Adol or Pedi Dosage Unknown Completed [facility] Hep B, Adol or Pedi Dosage Unknown Completed [facility] Hib-HbOC Unknown Completed [facility] Hib-HbOC Unknown Completed [facility] Hib-HbOC Unknown Com[facility] Hib-HbOC Unknown Completed [facility] HPV Unknown Completed [facility] Meningococcal Polysaccharide (groups A, C, Y and W-135) conjugate vaccine (MCV4P) Unknown Completed [facility] MMR Unknown Completed [facility] Pneumococcal 7 Conjugate, PCV7 (Prevnar7) Unknown Completed [facility] IPV Unknown Completed [facility] IPV Unknown Com[facility] IPV Unknown Completed [facility] TDAP Unknown Completed [facility] Varicella (varivax)(chicken pox) Unknown Completed [facility] Varicella (varivax)(chicken pox) Unknown Completed [facility] TDAP Unknown Completed [facility] Influenza Virus Vaccine Quad IM, Preserv and ABX Free 6 MO-64 YRS (FLUCELVAX) Unknown Completed [facility] TDAP Unknown Completed [facility] Influenza Virus Vaccine Quad .5 mL IM 6+ MO (FLUZONE/FLULAVAL/FL UARIX) Unknown Completed [facility] TDAP Unknown Completed [facility] Influenza Virus Vaccine Quad IM, Preserv and ABX Free 6 MO-64 YRS (FLUCELVAX) Unknown Completed [facility] TDAP Unknown Completed [facility] DTaP, Unspecified Formulation Unknown Completed [facility] DTaP, Unspecified Formulation Unknown Completed [facility] DTaP, Unspecified Formulation Unknown Completed [facility] DTaP, Unspecified Formulation Unknown Completed [facility] HEPATITIS A Unknown [facility] B, Adol or Pedi Dosage Unknown Completed [facility] Hep B, Adol or Pedi Dosage Unknown Completed [facility] Hep B, Adol or Pedi Dosage Unknown Completed [facility] Hib-HbOC Unknown Completed [facility] Hib-HbOC Unknown Completed [facility] Hib-HbOC Unknown Completed [facility] Hib-HbOC Unknown Completed [facility] HPV Unknown Completed [facility] Meningococcal Polysaccharide (groups A, C, Y and W-135) conjugate vaccine (MCV4P) Unknown Completed [facility] MMR Unknown Completed [facility] Pneumococcal 7 Conjugate, PCV7 (Prevnar7) Unknown Completed [facility] IPV Unknown Com[facility] IPV Unknown Com[facility] IPV Unknown Com[facility] TDAP Unknown Completed [facility] Varicella (varivax)(chicken pox) Unknown [facility] Varicella (varivax)(chicken pox) Unknown [facility] TDAP Unknown [facility] Influenza Virus Vaccine Quad IM, Preserv and ABX Free 6 MO-64 YRS (FLUCELVAX) Unknown [facility] TDAP Unknown [facility] Influenza Virus Vaccine Quad .5 mL IM 6+ MO (FLUZONE/FLULAVAL/FL UARIX) Unknown Com[facility] TDAP Unknown [facility] Influenza Virus Vaccine Quad IM, Preserv and ABX Free 6 MO-64 YRS (FLUCELVAX) Unknown [facility] TDAP Unknown [facility] DTaP, Unspecified Formulation Unknown Com[facility] DTaP, Unspecified Formulation Unknown Com[facility] DTaP, Unspecified Formulation Unknown [facility] DTaP, Unspecified Formulation Unknown [facility]IS A [facility], Adol or Pedi Dosage Unknown [facility] Hep B, Adol or Pedi Dosage Unknown [facility] Hep B, Adol or Pedi Dosage Unknown [facility] Hib-HbOC Unknown [facility] Hib-HbOC Unknown [facility] Hib-HbOC Unknown [facility] Hib-HbOC Unknown [facility] HPV Unknown [facility] Meningococcal Polysaccharide (groups A, C, Y and W-135) conjugate vaccine (MCV4P) Unknown Completed [facility] MMR Unknown [facility] Pneumococcal 7 Conjugate, PCV7 (Prevnar7) Unknown [facility] IPV Unknown [facility] IPV Unknown [facility] IPV Unknown [facility] TDAP Unknown [facility] Varicella (varivax)(chicken pox) Unknown [facility] Varicella (varivax)(chicken pox) Unknown [facility] TDAP Unknown [facility] Influenza Virus Vaccine Quad IM, Preserv and ABX Free 6 MO-64 YRS (FLUCELVAX) Unknown [facility] TDAP Unknown [facility] Influenza Virus Vaccine Quad .5 mL IM 6+ MO (FLUZONE/FLULAVAL/FL UARIX) Unknown [facility] TDAP Unknown [facility] Influenza Virus Vaccine Quad IM, Preserv and ABX Free 6 MO-64 YRS (FLUCELVAX) Unknown [facility] TDAP Unknown [facility] DTaP, Unspecified Formulation Unknown Com[facility] DTaP, Unspecified Formulation Unknown Com[facility] DTaP, Unspecified Formulation Unknown Com[facility] DTaP, Unspecified Formulation Unknown [facility] HEPATITIS A [facility] Hep B, Adol or Pedi Dosage Unknown [facility] Hep B, Adol or Pedi Dosage Unknown Com[facility] Hep B, Adol or Pedi Dosage Unknown Com[facility] Hib-HbOC Unknown [facility] Hib-HbOC Unknown [facility] Hib-HbOC Unknown [facility] Hib-HbOC Unknown [facility] HPV Unknown [facility] Meningococcal Polysaccharide (groups A, C, Y and W-135) conjugate vaccine (MCV4P) Unknown Completed [facility] MMR Unknown [facility] Pneumococcal 7 Conjugate, PCV7 (Prevnar7) Unknown [facility] IPV Unknown [facility] IPV Unknown [facility] IPV Unknown [facility] TDAP Unknown [facility] Varicella (varivax)(chicken pox) Unknown [facility] Varicella (varivax)(chicken pox) Unknown [facility] TDAP Unknown [facility] Influenza Virus Vaccine Quad IM, Preserv and ABX Free 6 MO-64 YRS (FLUCELVAX) Unknown [facility] TDAP Unknown [facility] Influenza Virus Vaccine Quad .5 mL IM 6+ MO (FLUZONE/FLULAVAL/FL UARIX) Unknown [facility] TDAP Unknown [facility] Influenza Virus Vaccine Quad IM, Preserv and ABX Free 6 MO-64 YRS (FLUCELVAX) Unknown [facility] TDAP Unknown [facility] DTaP, Unspecified Formulation Unknown Com[facility] DTaP, Unspecified Formulation Unknown Com[facility] DTaP, Unspecified Formulation Unknown Com[facility] DTaP, Unspecified Formulation Unknown [facility] HEPATITIS A [facility] Hep B, Adol or Pedi Dosage Unknown [facility] Hep B, Adol or Pedi Dosage Unknown Com[facility] Hep B, Adol or Pedi Dosage Unknown Com[facility] Hib-HbOC Unknown [facility] Hib-HbOC Unknown [facility] Hib-HbOC Unknown [facility] Hib-HbOC Unknown [facility] HPV Unknown [facility] Meningococcal Polysaccharide (groups A, C, Y and W-135) conjugate vaccine (MCV4P) Unknown Completed [facility] MMR Unknown [facility] Pneumococcal 7 Conjugate, PCV7 (Prevnar7) Unknown [facility] IPV Unknown [facility] IPV Unknown [facility] IPV Unknown [facility] TDAP Unknown [facility] Varicella (varivax)(chicken pox) Unknown [facility] Varicella (varivax)(chicken pox) Unknown [facility] TDAP Unknown [facility] Influenza Virus Vaccine Quad IM, Preserv and ABX Free 6 MO-64 YRS (FLUCELVAX) Unknown [facility] TDAP Unknown [facility] Influenza Virus Vaccine Quad .5 mL IM 6+ MO (FLUZONE/FLULAVAL/FL UARIX) Unknown Com[facility] TDAP Unknown Com[facility] Influenza Virus Vaccine Quad IM, Preserv and ABX Free 6 MO-64 YRS (FLUCELVAX) Unknown Com[facility] TDAP Unknown Com[facility] DTaP, Unspecified Formulation Unknown Com[facility] DTaP, Unspecified Formulation Unknown Com[facility] DTaP, Unspecified Formulation Unknown Completed [facility] DTaP, Unspecified Formulation Unknown Com[facility] HEPATITIS A [facility] Hep B, Adol or Pedi Dosage Unknown [facility] Hep B, Adol or Pedi Dosage Unknown Com[facility] Hep B, Adol or Pedi Dosage Unknown Com[facility] Hib-HbOC Unknown Com[facility] Hib-HbOC Unknown [facility] Hib-HbOC Unknown [facility] Hib-HbOC Unknown [facility] HPV Unknown [facility] Meningococcal Polysaccharide (groups A, C, Y and W-135) conjugate vaccine (MCV4P) Unknown Completed [facility] MMR Unknown Com[facility] Pneumococcal 7 Conjugate, PCV7 (Prevnar7) Unknown Com[facility] IPV Unknown [facility] IPV Unknown [facility] IPV Unknown [facility] TDAP Unknown Com[facility] Varicella (varivax)(chicken pox) Unknown Com[facility] Varicella (varivax)(chicken pox) Unknown Com[facility] TDAP Unknown Com[facility] Influenza Virus Vaccine Quad IM, Preserv and ABX Free 6 MO-64 YRS (FLUCELVAX) Unknown Com[facility] Vital Signs Vital Name Observation Time Observation Value Comments S ource Systolic blood pressure 2023-05-13 13:41:00 106 mm[Hg] [facility] Diastolic blood pressure 2023-05-13 13:41:00 72 mm[Hg] [facility] Heart rate 2023-05-13 13:41:00 69 /min [facility] Body temperature 2023-05-13 13:41:00 36.56 [facility] Respiratory rate 2023-05-13 13:41:00 18 /min [facility] Oxygen saturation in Arterial blood by Pulse oximetry 2023-05-13 13:41:00 98 /min [facility] Body height 2023-05-11 07:27:00 165.1 cm [facility] Body weight 2023-05-11 07:27:00 80.604 kg [facility] BMI 2023-05-11 07:27:00 29.57 kg/m2 [facility] Systolic blood pressure 2023-05-11 17:26:00 123 mm[Hg] [facility] Diastolic blood pressure 2023-05-11 17:26:00 72 mm[Hg] [facility] Heart rate 2023-05-11 17:26:00 79 /min [facility] Body temperature 2023-05-11 17:26:00 37.06 [facility] Respiratory rate 2023-05-11 17:26:00 18 /min [facility] Oxygen saturation in Arterial blood by Pulse oximetry 2023-05-11 17:26:00 97 /min [facility] Body height 2023-05-11 07:27:00 165.1 cm [facility] Body weight 2023-05-11 07:27:00 80.604 kg [facility] BMI 2023-05-11 07:27:00 29.57 kg/m2 [facility] Systolic blood pressure 2023-05-08 21:21:00 108 mm[Hg] [facility] Diastolic blood pressure 2023-05-08 21:21:00 71 mm[Hg] [facility] Heart rate 2023-05-08 21:21:00 82 /min [facility] Body temperature 2023-05-08 21:21:00 36.17 [facility] Respiratory rate 2023-05-08 21:21:00 18 /min [facility] Body height 2023-05-08 21:21:00 165.1 cm [facility] Body weight 2023-05-08 21:21:00 79.039 kg [facility] BMI 2023-05-08 21:21:00 29.00 kg/m2 [facility] Systolic blood pressure 2023-05-03 21:11:00 115 mm[Hg] [facility] Diastolic blood pressure 2023-05-03 21:11:00 71 mm[Hg] [facility] Heart rate 2023-05-03 21:11:00 92 /[facility] 2023-05-03 21:11:00 35.89 [facility] Respiratory rate 2023-05-03 21:11:00 18 /min [facility] Body height 2023-05-03 21:11:00 165.1 cm [facility] 2023-05-03 21:11:00 78.744 [facility] BMI 2023-05-03 21:11:00 28.89 kg/m2 [facility] Systolic blood pressure 2023-04-25 21:03:00 102 mm[Hg] [facility] Diastolic blood pressure 2023-04-25 21:03:00 66 mm[Hg] [facility] Heart rate 2023-04-25 21:03:00 78 /min [facility] temperature 2023-04-25 21:03:00 36.06 [facility] Respiratory rate 2023-04-25 21:03:00 18 /min [facility] Body height 2023-04-25 21:03:00 165.1 cm [facility] weight 2023-04-25 21:03:00 78.654 kg [facility] BMI 2023-04-25 21:03:00 28.86 kg/m2 [facility] Systolic blood pressure 2023-04-11 21:06:00 103 mm[Hg] [facility] Diastolic blood pressure 2023-04-11 21:06:00 67 mm[Hg] [facility] Heart rate 2023-04-11 21:06:00 83 /min [facility] 2023-04-11 21:06:00 35.78 [facility] Respiratory rate 2023-04-11 21:06:00 18 /min [facility] Body height 2023-04-11 21:06:00 165.1 cm [facility] weight 2023-04-11 21:06:00 78.79 [facility] 2023-04-11 21:06:00 28.91 kg/m2 [facility] Systolic blood pressure 2023-03-28 17:09:00 105 mm[Hg] [facility] Diastolic blood pressure 2023-03-28 17:09:00 63 mm[Hg] [facility] Heart rate 2023-03-28 17:09:00 90 /min [facility] Body temperature 2023-03-28 17:09:00 35.94 [facility] Respiratory rate 2023-03-28 17:09:00 18 /min [facility] Body height 2023-03-28 17:09:00 165.1 cm [facility] Body weight 2023-03-28 17:09:00 77.384 kg [facility] BMI 2023-03-28 17:09:00 28.39 kg/m2 [facility] Systolic blood pressure 2023-02-14 13:34:00 116 mm[Hg] [facility] Diastolic blood pressure 2023-02-14 13:34:00 64 mm[Hg] [facility] Heart rate 2023-02-14 13:34:00 70 /min [facility] Body temperature 2023-02-14 13:34:00 36 [facility] Respiratory rate 2023-02-14 13:34:00 17 /min [facility] Body height 2023-02-14 13:34:00 165.1 cm [facility] Body weight 2023-02-14 13:34:00 78.336 kg [facility] BMI 2023-02-14 13:34:00 28.74 kg/m2 [facility] Systolic blood pressure 2022-12-27 18:44:00 93 mm[Hg] [facility] Diastolic blood pressure 2022-12-27 18:44:00 61 mm[Hg] [facility] Heart rate 2022-12-27 18:44:00 70 /min [facility] Body temperature 2022-12-27 18:44:00 36.56 [facility] Respiratory rate 2022-12-27 18:44:00 20 /min [facility] Body height 2022-12-27 18:44:00 165.1 cm [facility] Body weight 2022-12-27 18:44:00 75.479 kg [facility] BMI 2022-12-27 18:44:00 27.69 kg/m2 [facility] Systolic blood pressure 2022-06-04 14:33:00 118 mm[Hg] [facility] Diastolic blood pressure 2022-06-04 14:33:00 77 mm[Hg] [facility] Heart rate 2022-06-04 14:33:00 73 /min [facility] Body temperature 2022-06-04 14:33:00 36.39 [facility] Respiratory rate 2022-06-04 14:33:00 18 /min [facility] Oxygen saturation in Arterial blood by Pulse oximetry 2022-06-04 14:33:00 99 /min [facility] Body height 2022-06-02 20:30:00 165.1 cm [facility] Body weight 2022-06-02 20:30:00 85.367 kg [facility] BMI 2022-06-02 20:30:00 31.32 kg/m2 [facility] Systolic blood pressure 2022-06-02 15:53:00 114 mm[Hg] [facility] Diastolic blood pressure 2022-06-02 15:53:00 68 mm[Hg] [facility] Heart rate 2022-06-02 15:53:00 75 /min [facility] Body temperature 2022-06-02 15:53:00 36 [facility] Respiratory rate 2022-06-02 15:53:00 18 /min [facility] Body height 2022-06-02 15:53:00 167.6 cm [facility] Body weight 2022-06-02 15:53:00 85.367 kg [facility] BMI 2022-06-02 15:53:00 30.38 kg/m2 [facility] Systolic blood pressure 2022-05-26 15:48:00 115 mm[Hg] [facility] Diastolic blood pressure 2022-05-26 15:48:00 71 mm[Hg] [facility] Heart rate 2022-05-26 15:48:00 86 /min [facility] Body temperature 2022-05-26 15:48:00 36.5 [facility] Respiratory rate 2022-05-26 15:48:00 17 /min [facility] Body height 2022-05-26 15:48:00 167.6 cm [facility] Body weight 2022-05-26 15:48:00 85.548 kg [facility] BMI 2022-05-26 15:48:00 30.44 kg/m2 [facility] Systolic blood pressure 2022-05-18 14:59:00 111 mm[Hg] [facility] Diastolic blood pressure 2022-05-18 14:59:00 68 mm[Hg] [facility] Heart rate 2022-05-18 14:59:00 82 /min [facility] Body temperature 2022-05-18 14:59:00 36.5 [facility] Respiratory rate 2022-05-18 14:59:00 17 /min [facility] Body height 2022-05-18 14:59:00 167.6 cm [facility] Body weight 2022-05-18 14:59:00 85.231 kg [facility] BMI 2022-05-18 14:59:00 30.33 kg/m2 [facility] Systolic blood pressure 2022-05-12 17:11:00 100 mm[Hg] [facility] Diastolic blood pressure 2022-05-12 17:11:00 62 mm[Hg] [facility] Heart rate 2022-05-12 17:11:00 80 /min [facility] Body temperature 2022-05-12 17:11:00 36.56 [facility] Respiratory rate 2022-05-12 17:11:00 18 /min [facility] Body height 2022-05-12 17:11:00 167.6 cm [facility] Body weight 2022-05-12 17:11:00 85.049 kg [facility] BMI 2022-05-12 17:11:00 30.26 kg/m2 [facility] Systolic blood pressure 2022-05-05 14:57:00 112 mm[Hg] [facility] Diastolic blood pressure 2022-05-05 14:57:00 72 mm[Hg] [facility] Heart rate 2022-05-05 14:57:00 84 /min [facility] Body temperature 2022-05-05 14:57:00 36.78 [facility] Respiratory rate 2022-05-05 14:57:00 18 /min [facility] Body height 2022-05-05 14:57:00 167.6 cm [facility] Body weight 2022-05-05 14:57:00 82.555 kg [facility] BMI 2022-05-05 14:57:00 29.38 kg/m2 [facility] Systolic blood pressure 2022-03-02 19:02:00 129 mm[Hg] [facility] Diastolic blood pressure 2022-03-02 19:02:00 68 mm[Hg] [facility] Heart rate 2022-03-02 19:02:00 89 /min [facility] Body temperature 2022-03-02 19:02:00 36.44 [facility] Respiratory rate 2022-03-02 19:02:00 17 /min [facility] Body height 2022-03-02 19:02:00 167.6 cm [facility] Body weight 2022-03-02 19:02:00 79.425 kg [facility] BMI 2022-03-02 19:02:00 28.26 kg/m2 [facility] Procedures Procedure Date / Time Performed Performing Clinician Source CBC WITH DIFF 2023-05-12 08:56:00 [facility]FF 2023-05-12 08:56:00 [facility] 2023-05-11 14:12:00 [place] Giovanni oden [facility] VENOUS CORD GAS 2023-05-11 13:12:00 [facility] 2023-05-11 13:12:00 Bouchra Roger [facility] PREPARE PACKED RBC 2023-05-11 10:20:06 [facility] NE[facility]AXIAL BLOCK 2023-05-11 07:55:00 [facility] HEPATITIS B SURFACE ANTIGEN 2023-05-11 06:58:00 [facility] 2023-05-11 06:58:00 Bouchra Roger [facility] RHO (D) IMMUNE GLOBULIN 2023-05-11 06:58:00 [facility] EXTRA TUBE LAV 2023-05-11 06:58:00 Sreekanth Dawson [facility] SYPHILIS IGG/IGM 2023-05-11 06:58:00 [facility] B SURFACE ANTIGEN 2023-05-11 06:58:00 [facility] 2023-05-11 06:58:00 Bouchra Roger [facility] RHO (D) IMMUNE GLOBULIN 2023-05-11 06:58:00 [facility] EXTRA TUBE LAV 2023-05-11 06:58:00 [facility]IGM 2023-05-11 06:58:00 [facility] PO[facility] URINALYSIS 2023-05-08 21:22:00 [facility] POCT URINALYSIS 2023-05-03 21:13:00 [facility] POCT URINALYSIS 2023-04-25 21:05:00 [facility] POCT URINALYSIS 2023-04-11 21:07:00 [facility] SECOND AND THIRD TRIMESTER ULTRASOUND 2023-03-28 22:07:00 [facility] GLUCOSE 1 HOUR POST PRANDIAL 2023-03-28 18:07:00 [facility] CBC WITH DIFF 2023-03-28 18:07:00 [facility] HIV 1/2 AG-AB WITH REFLEX 2023-03-28 18:07:00 [facility] SYPHILIS IGG/IGM 2023-03-28 18:07:00 [facility] FLU VACC (), 6 MO-64 YRS, .5ML, IM, QUAD (FLUCELVAX) 2023-03-28 17:40:54 [facility] POCT URINALYSIS 2023-03-28 17:12:00 [facility] TDAP VACCINE, >11 YRS, IM 2023-03-28 17:00:55 [facility] STERILIZATION CONSENT FORM 2023-03-28 06:01:00 Doctor Unassigned, [facility] POCT URINALYSIS 2023-02-14 00:00:00 [facility] SECOND AND THIRD TRIMESTER ULTRASOUND 2023-01-16 20:36:00 [facility] CONSENT/REFUSAL FOR DIAGNOSIS AND TREATMENT 2022-12-27 18:02:37 Doctor Unassigned, [facility] ASSIGNMENT OF BENEFITS 2022-12-27 18:02:24 Docto r Unassigned, [facility] POCT TEST 2022-12-27 00:00:00 [facility] POCT URINALYSIS W/O SPECIFIC GRAVITY 2022-12-27 00:00:00 [facility] PREPARE PACKED RBC 2022-06-04 18:29:03 [facility] CBC WITH DIFF 2022-06-03 12:12:00 [facility] 2022-06-03 00:40:[address] [facility] CENTRAL NEURAXIAL BLOCK 2022-06-02 21:55:00 [facility] CBC WITH DIFF 2022-06-02 21:26:00 [facility] HEPATITIS B SURFACE ANTIGEN 2022-06-02 21:26:00 [facility] SYPHILIS IGG/IGM 2022-06-02 21:26:00 [facility] 2022-06-02 21:00:[address] [facility] RHO (D) IMMUNE GLOBULIN 2022-06-02 21:00:00 [facility] NON-STRESS TEST 2022-06-02 16:59:37 [facility] POCT URINALYSIS 2022-06-02 15:54:00 [facility] POCT URINALYSIS 2022-05-26 00:00:00 [facility] POCT URINALYSIS 2022-05-18 00:00:00 [facility] TDAP VACCINE, >11 YRS, IM 2022-05-05 16:11:39 [facility] POCT URINALYSIS 2022-05-05 00:00:00 [facility] POCT URINALYSIS 2022-03-02 00:00:00 [facility] Encounters Start Date/Time End Date/Time Encounter Type Admission Type Attending Clinicians Care Facility Care Department Encounter ID Source 2021-03-19 00:56:29 Outpatient [facility] [id number] [facility] 2023-05-17 14:30:00 2023-05-17 14:30:00 Outpatient R ARMANDO GUZMAN [facility] [id number] [facility] 2023-05-11 00:07:00 2023-05-13 15:32:00 Inpatient P SREEKANTH DAWSON [facility] [place] [id number] [facility] 2023-05-11 00:07:00 2023-05-13 15:32:00 Hospital Encounter [facility] [id number] [facility] 2023-05-11 12:50:00 2023-05-11 14:17:00 [facility] [id number] [facility] 2023-05-11 01:53:00 2023-05-11 08:11:00 [facility]est[facility] [id number] [facility] 2023-05-08 15:45:00 2023-05-08 15:45:34 Outpatient R ARMANDO GUZMAN [facility] [id number] [facility] 2023-05-08 15:45:00 2023-05-08 15:45:34 Routine Visit Armando Guzman [facility] 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 [facility] 1.2.840.114 350.1.13.10 4.2.7.2.686 [id number] 107 [id number] [facility] 2023-05-08 00:00:00 2023-05-08 00:00:00 Telephone Armando Guzman [facility] 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 [facility] 1.2.840.114 350.1.13.10 4.2.7.2.686 [id number] 107 [id number] [facility] 2023-05-04 00:00:00 2023-05-04 00:00:00 Telephone Armando Guzman [facility] 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 [facility] CHILD [facility] 1.2.840.114 350.1.13.10 4.2.7.2.686 [id number] 107 [id number] [facility] 2023-05-03 15:00:00 2023-05-03 15:15:00 Routine Visit Armando Guzman [facility] 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 [facility] CHILD [facility] 1.2.840.114 350.1.13.10 4.2.7.2.686 [id number] 107 [id number] [facility] 2023-05-03 15:00:00 2023-05-03 15:00:00 Outpatient R YOLARUBIOARMANDO [facility] [id number] [facility] 2023-04-25 15:00:00 2023-04-25 15:38:49 Outpatient R ARMANDO GUZMAN [facility] [id number] [facility] 2023-04-25 15:00:00 2023-04-25 15:38:49 Routine Visit Megan Armando C [facility] 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 [facility] 1.2.840.114 350.1.13.10 4.2.7.2.686 [id number] 107 [id number] [facility] 2023-04-16 00:00:00 2023-04-16 00:00:00 Case Management Tammie Dumas [facility] 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 [facility] 1.2.840.114 350.1.13.10 4.2.7.2.686 [id number] 107 [id number] [facility] 2023-04-11 15:00:00 2023-04-11 15:43:21 Outpatient R TAMMIE DUMAS [facility] [id number] [facility] 2023-04-11 15:00:00 2023-04-11 15:43:21 Routine Visit Tammie Dumas [facility] 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 [facility] MATERNAL & CHILD [facility] 1.840.114 350.1.13.10 4.2.7.2.686 [id number] 107 [id number] [facility] 2023-03-28 15:15:00 2023-03-28 16:01:30 Outpatient P SARAH CUMMINGS [facility] [id number] [facility] 2023-03-28 15:15:00 2023-03-28 16:01:30 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 Visit 1, [facility] Room Armando Guzman Gay [facility] 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 [facility] MATERNAL & CHILD HEALTH [facility] 1.840.114 350.1.13.10 4.2.7.2.686 [id number] [facility] 2023-03-28 11:00:00 2023-03-28 11:40:05 Routine Visit Armando Guzman [facility] 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 [facility] MATERNAL & CHILD [facility] 1.840.114 350.1.13.10 4.2.7.2.686 [id number] 107 [id number] [facility] 2023-03-28 00:00:00 2023-03-28 00:00:00 Orders Only Doctor Unassigned, [place] [facility] 1.840.114 350.1.13.10 4.2.7.2.686 [id number] [facility] 2023-03-08 09:00:00 2023-03-08 09:00:00 Outpatient R ARMANDO GUZMAN [facility] [id number] [facility] 2023-03-07 09:00:00 2023-03-07 09:00:00 Outpatient R ARMANDO GUZMAN [facility] [id number] [facility] 2023-02-19 00:00:00 2023-02-19 00:00:00 Telephone Armando Guzman [facility] 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 [facility] MATERNAL & CHILD [facility] ..840.114 350.1.13.10 4.2.7.2.686 [id number] 107 [id number] [facility] 2023-02-14 08:00:00 2023-02-14 09:17:39 Outpatient R ARMANDO GUZMAN [facility] [id number] [facility] 2023-02-14 08:00:00 2023-02-14 09:17:39 Routine Visit Armando Guzman [facility] 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 [facility] ..840.114 350.1.13.10 4.2.7.2.686 [id number] 107 [id number] [facility] 2023-02-13 14:15:00 2023-02-13 14:15:00 Outpatient R ARMANDO GUZMAN [facility] [id number] [facility] 2023-01-24 15:30:00 2023-01-24 15:30:00 Outpatient R ARMANDO GUZMAN [facility] [id number] [facility] 2023-01-17 00:00:00 2023-01-17 00:00:00 Abstract Armando Guzman [facility] 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 [facility] ..840.114 350.1.13.10 4.2.7.2.686 [id number] 107 [id number] [facility] 2023-01-16 14:30:00 2023-01-16 15:30:00 Carrier Driver Visit Ultrasound, Sarah Wood [facility] 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 [facility] 1..114 350.1.13.10 4.2.7.2.686 [id number] [facility] 2023-01-16 14:30:00 2023-01-16 14:30:00 Outpatient P YOUNGBLOOD ROYER SARAH Vinson [facility] [id number] [facility] 2023-01-03 13:30:00 2023-01-03 14:01:13 Outpatient R ARMANDO GUZMAN [facility] [id number] [facility] 2023-01-03 13:30:00 2023-01-03 14:01:13 Carrier Driver Visit Lab, Armando Ware [facility] 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 [facility] 1..114 350.1.13.10 4.2.7.2.686 [id number] 107 [id number] [facility] 2023-01-01 00:00:00 2023-01-01 00:00:00 Telephone Tammie Dumas [facility] 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 [facility] 1..114 350.1.13.10 4.2.7.2.686 [id number] 107 [id number] [facility] 2022-12-27 13:45:00 2022-12-27 14:34:57 Outpatient R ARMANDO GUZMAN [facility] [id number] [facility] 2022-12-27 13:45:00 2022-12-27 14:34:57 Initial Visit Armando Guzman [facility] 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 [facility] 1..114 350.1.13.10 4.2.7.2.686 [id number] 107 [id number] [facility] 2022-12-27 00:00:00 2022-12-27 00:00:00 Orders Only Doctor Unassigned, [place] [facility] 1..114 350.1.13.10 4.2.7.2.686 [id number] [facility] 2022-12-01 12:30:00 2022-12-01 12:30:00 Outpatient R ARMANDO GUZMAN [facility] [id number] [facility] 2022-10-09 00:00:00 2022-10-09 00:00:00 Telephone Armando Guzman [facility] 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 [facility] MATERNAL & CHILD HEALTH [facility] 1.2.840.114 350.1.13.10 4.2.7.2.686 [id number] 107 [id number] [facility] 2022-09-14 10:30:00 2022-09-14 10:30:00 Outpatient R YOLARUBIO ARMANDO [facility] [id number] [facility] 2022-09-07 15:00:00 2022-09-07 15:00:00 Outpatient R YOLARUBIO ARMANDO [facility] [id number] [facility] 2022-08-10 15:00:00 2022-08-10 15:00:00 Outpatient R YOLARUBIO ARMANDO [facility] [id number] [facility] 2022-06-02 13:53:00 2022-06-04 12:28:00 Hospital Encounter Martha Mendez [facility] 1.2840.114 350.1.13.10 4.2.7.2.686 [id number] [facility] 2022-06-04 00:00:00 2022-06-04 00:00:00 Telephone Cece Fonseca [facility] 1.2.840.114 350.1.13.10 4.2.7.2.686 [id number] [facility] 2022-06-02 15:51:00 2022-06-02 20:15:00 Anesthesia Event Davian Wagner Daniel [facility] 1.114 350.1.13.10 4.2.7.2.686 [id number] [facility] 2022-06-02 09:30:00 2022-06-02 10:33:43 Outpatient TAMMIE HANNA [facility] [id number] [facility] 2022-06-02 09:30:00 2022-06-02 10:33:43 Routine Visit Provider, Tammie Roberts [facility] 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 [facility] ..114 350.1.13.10 4.2.7.2.686 [id number] 107 [id number] [facility] 2022-06-02 09:30:00 2022-06-02 10:33:43 Outpatient TAMMIE HANNA [facility] [id number] [facility] 2022-05-26 09:45:00 2022-05-26 10:11:14 Outpatient TAMMIE HANNA [facility] [id number] [facility] 2022-05-26 09:45:00 2022-05-26 10:11:14 Routine Visit Provider, Tammie Roberts [facility] 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 [facility] ..114 350.1.13.10 4.2.7.2.686 [id number] 107 [id number] [facility] 2022-05-18 08:45:00 2022-05-18 09:31:22 Outpatient TAMMIE HANNA [facility] [id number] [facility] 2022-05-18 08:45:00 2022-05-18 09:31:22 Routine Visit Provider, Tammie Roberts [facility] 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 [facility] 1.84.114 350.1.13.10 4.2.7.2.686 [id number] 107 [id number] [facility] 2022-05-12 10:45:00 2022-05-12 11:43:44 Outpatient TAMMIE HANNA [facility] [id number] [facility] 2022-05-12 10:45:00 2022-05-12 11:43:44 Routine Visit Provider, Tammie Roberts [facility] 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 [facility] ..840.114 350.1.13.10 4.2.7.2.686 [id number] 107 [id number] [facility] 2022-05-05 09:00:00 2022-05-05 10:41:04 Outpatient SWETA MATOS [facility] [id number] [facility] 2022-05-05 09:00:00 2022-05-05 10:41:04 Routine Visit Provider, Sweta Laguerre [facility] 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 [facility] ..840.114 350.1.13.10 4.2.7.2.686 [id number] 107 [id number] [facility] 2022-03-29 00:00:00 2022-03-29 00:00:00 RefArmando Lee 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 ..840.114 350.1.13.10 4.2.7.2.686 [id number] 107 [id number] [facility] 2022-03-17 12:30:00 2022-03-17 12:30:00 Outpatient AMBAR ROBERTO [facility] [id number] [facility] 2022-03-16 00:00:00 2022-03-16 00:00:00 Refill Armando Guzman [facility] 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 [facility] ..840.114 350.1.13.10 4.2.7.2.686 [id number] 107 [id number] [facility] 2022-03-10 00:00:00 2022-03-10 00:00:00 Refill Megan Armando Thornton [facility] 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 [facility] 1.2.840.114 350.1.13.10 4.2.7.2.686 [id number] 107 [id number] [facility] 2022-03-09 08:30:00 2022-03-09 08:30:00 Outpatient R ARMANDO GUZMAN [facility] [id number] [facility] 2022-03-02 14:00:00 2022-03-02 14:20:31 Outpatient R JOHNMERVIN ARMANDO [facility] [id number] [facility] 2022-03-02 14:00:00 2022-03-02 14:20:31 Routine Visit Armando Guzman [facility] 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 [facility] 1.840.114 350.1.13.10 4.2.7.2.686 [id number] 107 [id number] [facility] 2022-02-21 00:00:00 2022-02-21 00:00:00 Abstract Armando Guzman Norberto [facility] 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 [facility] 1.2.840.114 350.1.13.10 4.2.7.2.686 [id number] 107 [id number] [facility] 2022-02-20 11:00:00 2022-02-20 11:00:00 Outpatient P [facility] [id number] [facility] 2022-02-20 09:45:00 2022-02-20 10:41:00 Carrier Driver Visit 1, Isaelda Room EricAlex ga [facility] 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 [facility] MATERNAL & CHILD [facility] 1..840.114 350.1.13.10 4.2.7.2.686 [id number] [facility] 2022-02-20 09:45:00 2022-02-20 09:45:00 Outpatient ALEX EVANS [facility] [id number] [facility] 2022-02-14 00:00:00 2022-02-14 00:00:00 Telephone Armando Guzman [facility] 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 [facility] 1.2.840.114 350.1.13.10 4.2.7.2.686 [id number] 107 [id number] [facility] 2022-02-08 00:00:00 2022-02-08 00:00:00 Telephone Armando Guzman [facility] 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 [facility] CHILD [facility] 1.2.840.114 350.1.13.10 4.2.7.2.686 [id number] 107 [id number] [facility] 2022-02-07 00:00:00 2022-02-07 00:00:00 Telephone Armando Guzman [facility] 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 [facility] CHILD [facility] 1.2.840.114 350.1.13.10 4.2.7.2.686 [id number] 107 [id number] [facility] 2022-02-06 00:00:00 2022-02-06 00:00:00 Telephone Armando Guzman [facility] 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 [facility] CHILD [facility] 1.2.840.114 350.1.13.10 4.2.7.2.686 [id number] 107 [id number] [facility] 2022-02-03 00:00:00 2022-02-03 00:00:00 Telephone Armando Guzman [facility] 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 [facility] CHILD [facility] 1.2.840.114 350.1.13.10 4.2.7.2.686 [id number] 107 [id number] [facility] 2022-02-02 14:15:00 2022-02-02 15:37:47 Initial Visit Armando Guzman [facility] 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 [facility] MATERNAL & CHILD [facility] 1..840.114 350.1.13.10 4.2.7.2.686 [id number] 107 [id number] [facility] 2022-02-02 13:45:00 2022-02-02 15:34:53 Outpatient R ARMANDO GUZMAN [facility] [id number] [facility] 2022-02-02 13:45:00 2022-02-02 15:34:53 Outpatient R ARMANDO GUZMAN [facility] [id number] [facility] 2022-02-02 00:00:00 2022-02-02 00:00:00 Orders Only Doctor Unassigned, [place] [facility] 1..840.114 350.1.13.10 4.2.7.2.686 [id number] [facility] 2021-09-09 13:00:00 2021-09-09 13:00:00 Outpatient R [facility] [id number] [facility] 2021-09-09 13:00:00 2021-09-09 13:00:00 Outpatient R JOEY MONTES [facility] [id number] [facility] 2021-08-26 00:00:00 2021-08-26 00:00:00 Telephone Armando Guzman [facility] 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 [facility] MATERNAL & CHILD [facility] 1..840.114 350.1.13.10 4.2.7.2.686 [id number] 107 [id number] [facility] 2021-08-23 14:00:00 2021-08-23 14:50:43 Outpatient R ARMANDO GUZMAN [facility] [id number] [facility] 2021-08-23 14:00:00 2021-08-23 14:50:43 Office Visit Armando Guzman [facility] 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 [facility] CHILD [facility] 1.2.840.114 350.1.13.10 4.2.7.2.686 [id number] 107 [id number] [facility] 2021-08-23 00:00:00 2021-08-23 00:00:00 Orders Only Doctor Unassigned, [place] [facility] 1.2840.114 350.1.13.10 4.2.7.2.686 [id number] [facility] 2021-08-02 13:45:00 2021-08-02 14:21:56 Outpatient R ARMANDO GUZMAN [facility] [id number] [facility] 2021-08-02 13:45:00 2021-08-02 14:21:56 Routine Visit Armando Guzman [facility] 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 [facility] CHILD [facility] 1.840.114 350.1.13.10 4.2.7.2.686 [id number] 107 [id number] [facility] 2021-06-23 00:31:00 2021-06-24 13:51:00 Inpatient P CLAIRE BRICEÑO [facility] [id number] [facility] 2021-06-23 00:31:00 2021-06-24 13:51:00 Hospital Encounter Ino [facility] 1.840.114 350.1.13.10 4.2.7.2.686 [id number] [facility] 2021-06-23 04:29:00 2021-06-23 10:56:00 Anesthesia Event Gabriel Blanton Michael [facility] 1.20.114 350.1.13.10 4.2.7.2.686 [id number] [facility] 2021-06-17 13:00:00 2021-06-17 14:09:48 Outpatient R ARMANDO GUZMAN [facility] [id number] [facility] 2021-06-17 13:00:00 2021-06-17 14:09:48 Routine Visit Megan Armando Thornton KYJOLYNN 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 [facility] 1.2.840.114 350.1.13.10 4.2.7.2.686 [id number] 107 [id number] [facility] 2021-06-10 13:00:00 2021-06-10 13:38:43 Outpatient R MEGANTOMARMANDO RANDY [facility] [id number] [facility] 2021-06-10 13:00:00 2021-06-10 13:38:43 Routine Visit Megan Armando Thornton [facility] 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 [facility] 1.2.840.114 350.1.13.10 4.2.7.2.686 [id number] 107 [id number] [facility] 2021-06-10 13:00:00 2021-06-10 13:00:00 Outpatient R JOHNARTIRUBIO ARMANDO RANDY [facility] [id number] [facility] 2021-06-07 00:00:00 2021-06-07 00:00:00 Telephone Armando Guzman KYJOLYNN 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 [facility] 1.2.840.114 350.1.13.10 4.2.7.2.686 [id number] 107 [id number] [facility] 2021-06-07 00:00:00 2021-06-07 00:00:00 Telephone JohnmervinTomArmando Norberto KYJOLYNN 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 [facility] CHILD [facility] 1.2.840.114 350.1.13.10 4.2.7.2.686 [id number] 107 [id number] [facility] 2021-06-03 13:00:00 2021-06-03 13:58:35 Outpatient R ARMANDO GUZMANMB [facility] [id number] [facility] 2021-06-03 13:00:00 2021-06-03 13:58:35 Routine Visit Armando Guzman [facility] 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 [facility] MATERNAL & CHILD [facility] 1.2840.114 350.1.13.10 4.2.7.2.686 [id number] 107 [id number] [facility] 2021-06-03 13:00:00 2021-06-03 13:58:35 Outpatient R ARMANDO GUZMAN [facility] [id number] [facility] 2021-06-03 13:00:00 2021-06-03 13:00:00 Outpatient R ARMANDO GUZMAN [facility] [id number] [facility] 2021-05-26 14:00:00 2021-05-26 14:55:42 Outpatient R ARMANDO GUZMAN [facility] [id number] [facility] 2021-05-26 14:00:00 2021-05-26 14:55:42 Routine Visit YolarubioArmando [facility] 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 [facility] 1.840.114 350.1.13.10 4.2.7.2.686 [id number] 107 [id number] [facility] 2021-05-12 14:00:00 2021-05-12 14:42:08 Outpatient R ARMANDO GUZMAN [facility] [id number] [facility] 2021-05-12 14:00:00 2021-05-12 14:42:08 Routine Visit Armando Guzman [facility] 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 [facility] MATERNAL & CHILD [facility] 1.2.840.114 350.1.13.10 4.2.7.2.686 [id number] 107 [id number] [facility] 2021-04-28 14:59:19 2021-04-28 16:00:58 Routine Visit Provider, Courtney Zepeda [facility] 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 [facility] MATERNAL & CHILD [facility] 1.2840.114 350.1.13.10 4.2.7.2.686 [id number] 107 [id number] [facility] 2021-04-28 14:30:00 2021-04-28 16:00:58 Outpatient R ISAAC CHRISTIANTONIO [facility] [id number] [facility] 2021-04-12 13:45:00 2021-04-12 14:38:59 Outpatient R TC MILLER [facility] [id number] [facility] 2021-04-12 13:37:58 2021-04-12 14:38:59 Routine Visit Tc Miller [facility] [place] 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 MATERNAL & CHILD [facility] ..840.114 350.1.13.10 4.2.7.2.686 [id number] [facility] 2021-04-12 13:45:00 2021-04-12 13:45:00 Outpatient R TC MILLER [facility] [id number] [facility] 2021-03-29 00:00:00 2021-03-29 00:00:00 Telephone Tc Miller [facility] [place] 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 MATERNAL & CHILD [facility] 1..840.114 350.1.13.10 4.2.7.2.686 [id number] [facility] 2021-03-28 12:55:38 2021-03-28 13:37:07 Routine Visit Tc Miller [facility] [place] 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 MATERNAL & CHILD [facility] 1..840.114 350.1.13.10 4.2.7.2.686 [id number] [facility] 2021-03-28 12:45:00 2021-03-28 13:37:07 Outpatient TC WAYNE [facility] [id number] [facility] 2021-03-08 10:19:20 2021-03-08 10:59:01 Carrier Driver Visit Ultrasound, Martha Chacko [facility] [place] 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 MATERNAL & CHILD [facility] 1.2.840.114 350.1.13.10 4.2.7.2.686 [id number] [facility] 2021-03-08 10:00:00 2021-03-08 10:00:00 Outpatient P [facility] [id number] [facility] 2021-02-28 13:16:41 2021-02-28 13:52:38 Routine Visit Armando Guzman [facility] [place] 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 [facility] & CHILD [facility] 1.2.840.114 350.1.13.10 4.2.7.2.686 [id number] 107 [id number] [facility] 2021-02-28 13:00:00 2021-02-28 13:00:00 Outpatient R ARMANDO GUZMAN [facility] [id number] [facility] 2021-01-31 13:32:22 2021-01-31 14:15:21 Routine Visit Armando Guzman [facility] [place] 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 & CHILD [facility] 1.2.840.114 350.1.13.10 4.2.7.2.686 [id number] [facility] 2021-01-31 13:00:00 2021-01-31 13:00:00 Outpatient R ARMANDO GUZMAN [facility] [id number] [facility] 2021-01-06 00:00:00 2021-01-06 00:00:00 Telephone Armando Guzman [facility] [place] 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 & CHILD [facility] 1.2.840.114 350.1.13.10 4.2.7.2.686 [id number] 107 [id number] [facility] 2021-01-04 00:00:00 2021-01-04 00:00:00 Abstract Armando Guzman [facility] 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 1.2840.114 350.1.13.10 4.2.7.2.686 [id number] [facility] 2021-01-03 13:55:29 2021-01-03 14:10:42 Carrier Driver Visit 1, [facility] Room Armando Guzman Gay [facility] 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 [facility] 1.2840.114 350.1.13.10 4.2.7.2.686 [id number] [facility] 2021-01-03 10:50:21 2021-01-03 11:10:41 Routine Visit Armando Guzman [facility] 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 [facility] 1.840.114 350.1.13.10 4.2.7.2.686 [id number] [facility] 2021-01-03 10:15:00 2021-01-03 10:15:00 Outpatient R ARMANDO GUZMAN [facility] [id number] [facility] 2020-12-13 10:45:00 2020-12-13 10:45:00 Outpatient R ARMANDO GUZMAN [facility] [id number] [facility] 2020-11-22 00:00:00 2020-11-22 00:00:00 Telephone Armando Guzman [facility] 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 [facility] 1.284.114 350.1.13.10 4.2.7.2.686 [id number] [facility] 2020-11-18 00:00:00 2020-11-18 00:00:00 Telephone Armando Guzman [facility] 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 [facility] 1.2.840.114 350.1.13.10 4.2.7.2.686 [id number] [facility] 2020-11-15 13:51:59 2020-11-15 14:42:06 Initial Visit Armando Guzman [facility] 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 [facility] 1..840.114 350.1.13.10 4.2.7.2.686 [id number] [facility] 2020-11-15 13:00:00 2020-11-15 13:00:00 Outpatient R ARMANDO GUZMAN [facility] [id number] [facility] 2020-11-15 00:00:00 2020-11-15 00:00:00 Orders Only Doctor Unassigned, [place] [facility] 1.840.114 350.1.13.10 4.2.7.2.686 [id number] [facility] 2020-08-10 00:00:00 2020-08-10 00:00:00 Patient Outreach Pawan Mcgill [facility] 1..840.114 350.1.13.10 4.2.7.2.686 [id number] [facility] 2020-07-21 10:00:00 2020-07-21 10:00:00 Outpatient R [facility] [id number] [facility] 2020-04-28 15:09:20 2020-04-28 16:13:03 Office Visit Armando Guzman [facility] 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 [facility] 1..840.114 350.1.13.10 4.2.7.2.686 [id number] [facility] 2020-04-28 15:00:00 2020-04-28 15:00:00 Outpatient R ARMANDO GUZMAN [facility] [id number] [facility] 2020-04-28 00:00:00 2020-04-28 00:00:00 Orders Only Doctor Unassigned, [place] [facility] 1.840.114 350.1.13.10 4.2.7.2.686 [id number] [facility] 2020-04-07 15:40:47 2020-04-07 16:21:28 Routine Visit Armando Guzman [facility] 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 [facility] 1.2.840.114 350.1.13.10 4.2.7.2.686 [id number] [facility] 2020-04-07 15:45:00 2020-04-07 15:45:00 Outpatient R ARMANDO GUZMAN [facility] [id number] [facility] 2020-03-15 07:20:00 2020-03-17 12:30:00 Hospital Encounter Marshall Burleson [facility] 1.2.840.114 350.1.13.10 4.2.7.2.686 [id number] [facility] 2020-03-11 00:00:00 2020-03-11 00:00:00 Telephone Armando Guzman [facility] 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 [facility] 1.2.840.114 350.1.13.10 4.2.7.2.686 [id number] 107 [id number] [facility] 2020-03-10 10:26:31 2020-03-10 11:02:50 Routine Visit Armando Guzman [facility] 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 [facility] 1.2.840.114 350.1.13.10 4.2.7.2.686 [id number] [facility] 2020-03-10 10:30:00 2020-03-10 10:30:00 Outpatient R ARMANDO GUZMAN [facility] [id number] [facility] 2020-03-03 10:29:57 2020-03-03 11:09:23 Routine Visit Armando Guzman [facility] 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 [facility] 1.2.840.114 350.1.13.10 4.2.7.2.686 [id number] [facility] 2020-03-03 10:30:00 2020-03-03 10:30:00 Outpatient R ARMANDO GUZMAN [facility] [id number] [facility] 2020-02-26 00:00:00 2020-02-26 00:00:00 Telephone Armando Guzman [facility] 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 [facility] 1.0.114 350.1.13.10 4.2.7.2.686 [id number] 107 [id number] [facility] 2020-02-25 10:38:56 2020-02-25 11:15:27 Routine Visit JohnartirubioArmando [facility] 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 [facility] 1..114 350.1.13.10 4.2.7.2.686 [id number] 107 [id number] [facility] 2020-02-25 10:45:00 2020-02-25 10:45:00 Outpatient R ARMANDO GUZMAN [facility] [id number] [facility] 2020-02-18 10:46:05 2020-02-18 11:03:33 Routine Visit Armando Guzman [facility] 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 [facility] 1..114 350.1.13.10 4.2.7.2.686 [id number] [facility] 2020-02-18 10:45:00 2020-02-18 10:45:00 Outpatient R ARMANDO GUZMAN [facility] [id number] [facility] 2020-02-04 10:30:35 2020-02-04 11:09:01 Routine Visit JohnArmando vanegas [facility] 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 [facility] 1..114 350.1.13.10 4.2.7.2.686 [id number] 107 [id number] [facility] 2020-02-04 10:45:00 2020-02-04 10:45:00 [facility] [id number] 2020-01-21 09:24:39 2020-01-21 09:39:39 Routine Visit Armando Guzman [place] 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 [facility] 1..840.114 350.1.13.10 4.2.7.2.686 [id number] 107 [id number] [facility] 2020-01-21 09:30:00 2020-01-21 09:30:00 Outpatient R ARMANDO GUZMAN [facility] [id number] [facility] 2020-01-07 10:38:50 2020-01-07 11:42:57 Routine Visit Armando Guzman [place] 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 [facility] 1..840.114 350.1.13.10 4.2.7.2.686 [id number] 107 [id number] [facility] 2020-01-07 10:45:00 2020-01-07 10:45:00 Outpatient R ARMANDO GUZMAN [facility] [id number] [facility] 2019-12-23 09:10:17 2019-12-23 09:49:15 Routine Visit Armando Guzman [facility] 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 [facility] 1..840.114 350.1.13.10 4.2.7.2.686 [id number] [facility] 2019-12-23 09:00:00 2019-12-23 09:00:00 Outpatient R ARMANDO GUZMAN [facility] [id number] [facility] 2019-12-15 00:00:00 2019-12-15 00:00:00 Telephone Armando Guzman [place] 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 [facility] 1.2.840.114 350.1.13.10 4.2.7.2.686 [id number] 107 [id number] [facility] 2019-12-04 00:00:00 2019-12-04 00:00:00 Abstract Armando Guzman [facility] 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 [facility] 1.2.840.114 350.1.13.10 4.2.7.2.686 [id number] 107 [id number] [facility] 2019-12-01 08:40:36 2019-12-01 09:27:14 Routine Visit Armando Guzman [facility] 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 [facility] 1.2.840.114 350.1.13.10 4.2.7.2.686 [id number] [facility] 2019-12-01 07:58:24 2019-12-01 08:25:12 Carrier Driver Visit Ultrasound, Alex Kurtz Hassan M [facility] 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 [facility] 1.2.840.114 350.1.13.10 4.2.7.2.686 [id number] [facility] 2019-12-01 08:00:00 2019-12-01 08:00:00 Outpatient P [facility] [id number] [facility] 2019-11-23 00:00:00 2019-11-23 00:00:00 Patient Secure Msg Doctor Unassigned, [place] 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 1.2.840.114 350.1.13.10 4.2.7.2.686 [id number] 107 [id number] [facility] 2019-11-19 00:00:00 2019-11-19 00:00:00 Orders Only Doctor Unassigned, [place] [facility] 1.2.840.114 350.1.13.10 4.2.7.2.686 [id number] [facility] 2019-11-04 00:00:00 2019-11-04 00:00:00 Abstract Armando Guzman [facility] 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 [facility] 1.2.840.114 350.1.13.10 4.2.7.2.686 [id number] [facility] 2019-11-04 00:00:00 2019-11-04 00:00:00 Telephone Armando Guzman [facility] 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 [facility] 1.2.840.114 350.1.13.10 4.2.7.2.686 [id number] [facility] 2019-11-03 13:00:45 2019-11-03 14:09:38 Routine Visit Johnmervin Armando Thornton [facility] 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 [facility] 1.2840.114 350.1.13.10 4.2.7.2.686 [id number] 107 [id number] [facility] 2019-11-03 09:50:15 2019-11-03 10:56:13 Carrier Driver Visit Ultrasound, Meagan Harris [facility] 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 [facility] 1.2.84.114 350.1.13.10 4.2.7.2.686 [id number] [facility] 2019-11-03 09:30:00 2019-11-03 09:30:00 Outpatient P [facility] [id number] [facility] 2019-11-03 00:00:00 2019-11-03 00:00:00 Orders Only Doctor Unassigned, [place] [facility] 1.284.114 350.1.13.10 4.2.7.2.686 [id number] [facility] 2019-10-30 08:30:00 2019-10-30 08:30:00 Outpatient R ARMANDO GUZMAN [facility] [id number] [facility] 2019-10-02 12:52:29 2019-10-02 14:11:03 Routine Visit MeganArmando Norberto [facility] 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 [facility] 1.84.114 350.1.13.10 4.2.7.2.686 [id number] [facility] 2019-10-02 13:15:00 2019-10-02 13:15:00 Outpatient R ARMANDO GUZMAN [facility] [id number] [facility] 2019-09-01 16:43:49 2019-09-01 16:57:06 Telemedici ne Visit JohnArmando vanegas Norberto [facility] 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 [facility] 1.84.114 350.1.13.10 4.2.7.2.686 [id number] 107 [id number] [facility] 2019-09-01 14:30:00 2019-09-01 14:30:00 Outpatient R ARMANDO GUZMAN [facility] [id number] [facility] 2019-09-01 09:30:00 2019-09-01 09:30:00 Outpatient R ARMANDO GUZMAN [facility] [id number] [facility] 2019-09-01 00:00:00 2019-09-01 00:00:00 Telephone Megan Armando Norberto [facility] 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 [facility] 1.84.114 350.1.13.10 4.2.7.2.686 [id number] [facility] 2019-08-11 10:30:00 2019-08-11 10:30:00 Outpatient R [facility] [id number] [facility] 2019-08-04 09:41:37 2019-08-04 11:04:58 Initial Visit Megan Armando Thornton [place] 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 [facility] 1.84.114 350.1.13.10 4.2.7.2.686 [id number] 107 [id number] [facility] 2019-08-04 08:00:00 2019-08-04 08:00:00 Outpatient ARMANDO VEGAS [facility] [id number] [facility] Results Test Description Test Time Test Comments Results Result Co mments [facility] ([facility] IMMUNE [id number] 18:55:11* Test Item Value Reference Range Interpretation Comme nts RHIG CANDIDATE? (test code = 5188) No- see comment Patient is not a candidate for RhIg- Patient is Rh Positive.Performed at [facility] Laboratory Services - [facility] Blood [address] [place] [id number] Free: [phone] No. [id number] [facility] ONLY - SYPHILIS [id number] 16:48:37* Test Item Value Reference Range Interpretation Comme [facility] Syphilis IgG/IgM (test code = 64151-7) Non-reactive Non-reactive FARAZ (test code = FARAZ) Non-reactive - No serologic evidence of T. pallidum infection. Cannot exclude incubating or early syphilis. Submit a second specimen in 2-4 weeks if syphilis is clinically suspected. Equivocal - Further testing to follow. Reactive - Further testing to follow. Lab Interpretation (test code = 92200-7) Normal [facility] ONLY - [place] [id number] 16:48:37* Test Item Value Reference Range Interpretation Comme [facility] Syphilis IgG/IgM (test code = 93888-9) Non-reactive Non-reactive FARAZ (test code = FARAZ) Non-reactive - No serologic evidence of T. pallidum infection. Cannot exclude incubating or early syphilis. Submit a second specimen in 2-4 weeks if syphilis is clinically suspected. Equivocal - Further testing to follow. Reactive - Further testing to follow. Lab Interpretation (test code = 58860-2) [facility] Cord [id number] 13:30:11* Test Item Value Reference Range Interpretation Comme nts VENOUS BASE EXCESS, CORD (test code = 4553675206) 0.2 mEq/L VENOUS PH, CORD (test code = 8861485389) 7.38 7.25-7.45 VENOUS PC02, CORD (test code = 9801364730) 45 See_Comment [Automated messa ge] The system which generated this result transmitted reference range: 27 - 49 mmHg. The reference range was not used to interpret this result as normal/abnormal. VENOUS PO2, CORD (test code = 2393558525) 39 See_Comment [Automated me ssage] The system which generated this result transmitted reference range: 17 - 41 mmHg. The reference range was not used to interpret this result as normal/abnormal. VENOUS BICARBONATE, CORD (test code = 0011147104) 26 See_Comment [Automated messa ge] The system which generated this result transmitted reference range: 12 - 29 mEq/L. The reference range was not used to interpret this result as normal/abnormal. [facility] Cord [id number] 13:30:11* Test Item Value Reference Range Interpretation Comme nts VENOUS BASE EXCESS, CORD (test code = 3194268757) 0.2 mEq/L VENOUS PH, CORD (test code = 4196941712) 7.38 7.25-7.45 VENOUS PC02, CORD (test code = 3252016304) 45 See_Comment [Automated messa ge] The system which generated this result transmitted reference range: 27 - 49 mmHg. The reference range was not used to interpret this result as normal/abnormal. VENOUS PO2, CORD (test code = 6775052973) 39 See_Comment [Automated me ssage] The system which generated this result transmitted reference range: 17 - 41 mmHg. The reference range was not used to interpret this result as normal/abnormal. VENOUS BICARBONATE, CORD (test code = 9075930516) 26 See_Comment [Automated messa ge] The system which generated this result transmitted reference range: 12 - 29 mEq/L. The reference range was not used to interpret this result as normal/abnormal. [facility] [id number] 13:29:51* Test Item Value Reference Range Interpretation Comme nts BASE EXCESS, CORD (test code = 5712618642) -1.0 mEq/L AC PH, CORD (BEAKER) (test code = 2833474280) 7.31 7.18-7.38 PC02, CORD (test code = 9270814432) 53 See_Comment [Automated messa ge] The system which generated this result transmitted reference range: 32 - 66 mmHg. The reference range was not used to interpret this result as normal/abnormal. PO2, CORD (test code = 8499753372) 23 See_Comment [Automated messa ge] The system which generated this result transmitted reference range: 10 - 30 mmHg. The reference range was not used to interpret this result as normal/abnormal. BICARBONATE, CORD (test code = 5757036548) 26 See_Comment [Automated messa ge] The system which generated this result transmitted reference range: 17 - 27 mEq/L. The reference range was not used to interpret this result as normal/abnormal. [facility] Hospital[facility] Cord [id number] 13:29:51* Test Item Value Reference Range Interpretation Comme nts BASE EXCESS, CORD (test code = 9197283323) -1.0 mEq/L AC PH, CORD (BEAKER) (test code = 3796716542) 7.31 7.18-7.38 PC02, CORD (test code = 3168697459) 53 See_Comment [Automated messa ge] The system which generated this result transmitted reference range: 32 - 66 mmHg. The reference range was not used to interpret this result as normal/abnormal. PO2, CORD (test code = 9471421917) 23 See_Comment [Automated messa ge] The system which generated this result transmitted reference range: 10 - 30 mmHg. The reference range was not used to interpret this result as normal/abnormal. BICARBONATE, CORD (test code = 3798802440) 26 See_Comment [Automated messa ge] The system which generated this result transmitted reference range: 17 - 27 mEq/L. The reference range was not used to interpret this result as normal/abnormal. [facility] HospitalHepatitis B Surface [id number] 09:00:20 * Test Item Value Reference Range Interpretation Comme nts HBsAg Semi-Quantitative (maxi t code = 5195-3) 0.08 Negative [facility] B Surface [id number] 09:00:20 * Test Item Value Reference Range Interpretation Comme nts HBsAg Semi-Quantitative (maxi t code = 5195-3) 0.08 Negative [facility] [id number] 07:55:00 Mike Cummins MD ? ? 05/11/2023 ?2:25 AM Central Neuraxial Block Date/Time: 05/11/2023 1:55 AM Performed by: Mike Cummins MDAuthorized by: Sherice Rehman MD ?Patient Location: OBReason for Block: Labor analgesiaStaff: ?Anesthesiologist: Sherice Rehman MD ?Resident/HEALTH RECORDS TECHNOLOGY TEACHER: Mike Cummins MD ?Performed by: resident/CRNAPreanesthetic Checklist: anesthesia consent, monitors and equipment checked, ob/surgical consent approval, ob/surgical consent verified, patient identified, pre-op evaluation and timeout performedProcedure: ?Type of Neuraxial: Epidural ?Epidural Description: 1st attempt ? Sterility Prep cap, drape, gloves, hand hygiene and mask ? ?Sedation Level no sedation?Patient Position: sitting ?Prep: Betadine and patient draped ? ?Monitoring: multilith operator / EKG, heart rate / toco, heart rate and NIBP ?Location: lumbar (1-5) ?Lumbar: L4-L5 ?Approach: midline ? ?Technique: MUNDO saline ?Guidance with: landmark technique}Epidural/Spinal [place] and/or Cathet er: ?Epidural/Spinal Kit: BBraun ?Needle Type: Tuohy ?Needle Gauge: 17 G ?Needle Length: 3.5 in (8.89 cm) ?Needle Insertion Depth: 5.5 ?Catheter Type: side hole ? ?Catheter Size: 19 G ? ?Catheter at Skin Depth: 12 ?Number of Attempts: 1 ?Test Dose: lidocaine 1.5% with epinephrine 1-to-200,000 ? ?Dose: 5 cc ? ?Catheter Securement Method: surgical tape, Tegaderm and clear occlusive dressingAssessment: ?Block Outcome: no apparent complications, positive pain relief, patient tolerated procedure well, patient satisfied, pain improved and a full evaluation is pending ? ?Procedure Assessment: patient tolerated procedure well with no complicationsNotes: ? Patient consented and positioned sitting upr ight w/instructions given regarding positioning and maintaining a sterile field. Timeout performed by nurse. ?Patient prepped and draped in sterile fashion. Epidural kit opened and medications prepared utilizing sterile protocol. Negative aspiration of blood or CSF x 3. Patient instructed on symptoms of epinephrine and lidocaine positive test dose. ?Patient endorsed no symptoms of a positive testdose and monitors did not meet criteria for a positive test dose. Epidural catheter secured in place with mastisol, tegederm, and tape whilst maintaining insertion site sterility. ?Initial pump settings: 13 mL/hr, PCEA 4mL, 15 mins lockout. 4 mL initial clinician bolus given. 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 Fall precautions provided, patient vocalized understanding and all questions answered.[facility] BranchType and Screen - ONCE [id number] 07:07:00* Test Item Value Reference Range Interpretation Comme nts ABO & RH (test code = 20) A POSITIVE IAT (test code = 1185) Negative [facility] Hospital[facility] Screen - ONCE [id number] 07:07:00 * Test Item Value Reference Range Interpretation Comme nts ABO & RH (test code = 20) A POSITIVE IAT (test code = 1185) Negative [facility] URINALYSIS W SPECIFIC [id number] 21:22:00* Test Item Value Reference Range Interpretation Comme nts POCT U SP GRAV (test code = 3255) . 1.005-1.025 POCT PH U (test code = 3254) . 5-8 POCT U LEUK EST (test code = 3263) . Negative - N egative POCT U NIT (test code = 3262) . Negative - Negati ve POCT U PROT (test code = 3259) 1+ Negative - Negat fatmata POCT U GLU (test code = 3256) Nml Negative - Negati ve POCT U KETONE (test code = 3258) . Negative - Neg ative POCT U UROBILI (test code = 3260) . 0.2-1 POCT U BILI (test code = 3261) . Negative - Negat fatmata POCT U BLD (test code = 3257) . Negative - Negati ve POCT U COLOR (test code = 3266) . POCT U APPEAR (test code = 3267) .. [facility] Hospital[facility] URINALYSIS W SPECIFIC [id number] 21:14:00* Test Item Value Reference Range Interpretation Comme nts POCT U SP GRAV (test code = 3255) . 1.005-1.025 POCT PH U (test code = 3254) . 5-8 POCT U LEUK EST (test code = 3263) . Negative - N egative POCT U NIT (test code = 3262) . Negative - Negati ve POCT U PROT (test code = 3259) trace Negative - Negat fatmata POCT U GLU (test code = 3256) neg Negative - Negati ve POCT U KETONE (test code = 3258) . Negative - Neg ative POCT U UROBILI (test code = 3260) . 0.2-1 POCT U BILI (test code = 3261) . Negative - Negat fatmata POCT U BLD (test code = 3257) . Negative - Negati ve POCT U COLOR (test code = 3266) . POCT U APPEAR (test code = 3267) . [facility] URINALYSIS W SPECIFIC [id number] 21:14:00* Test Item Value Reference Range Interpretation Comme nts POCT U SP GRAV (test code = 3255) . 1.005-1.025 POCT PH U (test code = 3254) . 5-8 POCT U LEUK EST (test code = 3263) . Negative - N egative POCT U NIT (test code = 3262) . Negative - Negati ve POCT U PROT (test code = 3259) trace Negative - Negat fatmata POCT U GLU (test code = 3256) neg Negative - Negati ve POCT U KETONE (test code = 3258) . Negative - Neg ative POCT U UROBILI (test code = 3260) . 0.2-1 POCT U BILI (test code = 3261) . Negative - Negat fatmata POCT U BLD (test code = 3257) . Negative - Negati ve POCT U COLOR (test code = 3266) . POCT U APPEAR (test code = 3267) . [facility] URINALYSIS W SPECIFIC [id number] 21:05:00* Test Item Value Reference Range Interpretation Comme nts POCT U SP GRAV (test code = 3255) . 1.005-1.025 POCT PH U (test code = 3254) . 5-8 POCT U LEUK EST (test code = 3263) . Negative - N egative POCT U NIT (test code = 3262) . Negative - Negati ve POCT U PROT (test code = 3259) trace Negative - Negat fatmata POCT U GLU (test code = 3256) neg Negative - Negati ve POCT U KETONE (test code = 3258) . Negative - Neg ative POCT U UROBILI (test code = 3260) . 0.2-1 POCT U BILI (test code = 3261) . Negative - Negat fatmata POCT U BLD (test code = 3257) . Negative - Negati ve POCT U COLOR (test code = 3266) . POCT U APPEAR (test code = 3267) . [facility] URINALYSIS W SPECIFIC [id number] 21:05:00* Test Item Value Reference Range Interpretation Comme nts POCT U SP GRAV (test code = 3255) . 1.005-1.025 POCT PH U (test code = 3254) . 5-8 POCT U LEUK EST (test code = 3263) . Negative - N egative POCT U NIT (test code = 3262) . Negative - Negati ve POCT U PROT (test code = 3259) trace Negative - Negat fatmata POCT U GLU (test code = 3256) neg Negative - Negati ve POCT U KETONE (test code = 3258) . Negative - Neg ative POCT U UROBILI (test code = 3260) . 0.2-1 POCT U BILI (test code = 3261) . Negative - Negat fatmata POCT U BLD (test code = 3257) . Negative - Negati ve POCT U COLOR (test code = 3266) . POCT U APPEAR (test code = 3267) . [facility] URINALYSIS W SPECIFIC [id number] 21:08:00* Test Item Value Reference Range Interpretation Comme nts POCT U SP GRAV (test code = 3255) . 1.005-1.025 POCT PH U (test code = 3254) 7 mg/dl 5-8 POCT U LEUK EST (test code = 3263) trace Negative - Negative POCT U NIT (test code = 3262) pos Negative - Negati ve POCT U PROT (test code = 3259) trace Negative - Negat fatmata POCT U GLU (test code = 3256) neg Negative - Negati ve POCT U KETONE (test code = 3258) neg Negative - Neg ative POCT U UROBILI (test code = 3260) . 0.2-1 POCT U BILI (test code = 3261) . Negative - Negat fatmata POCT U BLD (test code = 3257) neg Negative - Negati ve POCT U COLOR (test code = 3266) . POCT U APPEAR (test code = 3267) . [facility] URINALYSIS W SPECIFIC [id number] 17:12:00* Test Item Value Reference Range Interpretation Comme nts POCT U SP GRAV (test code = 3255) . 1.005-1.025 POCT PH U (test code = 3254) . 5-8 POCT U LEUK EST (test code = 3263) . Negative - N egative POCT U NIT (test code = 3262) . Negative - Negati ve POCT U PROT (test code = 3259) trace Negative - Negat fatmata POCT U GLU (test code = 3256) neg Negative - Negati ve POCT U KETONE (test code = 3258) . Negative - Neg ative POCT U UROBILI (test code = 3260) . 0.2-1 POCT U BILI (test code = 3261) . Negative - Negat fatmata POCT U BLD (test code = 3257) . Negative - Negati ve POCT U COLOR (test code = 3266) . POCT U APPEAR (test code = 3267) . [facility] URINALYSIS W SPECIFIC [id number] 13:36:00* Test Item Value Reference Range Interpretation Comme nts POCT U SP GRAV (test code = 3255) . 1.005-1.025 POCT PH U (test code = 3254) 7 mg/dl 5-8 POCT U LEUK EST (test code = 3263) 2+ Negative - Negative POCT U NIT (test code = 3262) negative Negative - Negati ve POCT U PROT (test code = 3259) trace Negative - Negat fatmata POCT U GLU (test code = 3256) negative Negative - Negati ve POCT U KETONE (test code = 3258) negative Negative - Neg ative POCT U UROBILI (test code = 3260) . 0.2-1 POCT U BILI (test code = 3261) . Negative - Negat fatmata POCT U BLD (test code = 3257) negative Negative - Negati ve POCT U COLOR (test code = 3266) . POCT U APPEAR (test code = 3267) . [facility] URINALYSIS W SPECIFIC [id number] 13:36:00* Test Item Value Reference Range Interpretation Comme nts POCT U SP GRAV (test code = 3255) . 1.005-1.025 POCT PH U (test code = 3254) 7 mg/dl 5-8 POCT U LEUK EST (test code = 3263) 2+ Negative - Negative POCT U NIT (test code = 3262) negative Negative - Negati ve POCT U PROT (test code = 3259) trace Negative - Negat fatmata POCT U GLU (test code = 3256) negative Negative - Negati ve POCT U KETONE (test code = 3258) negative Negative - Neg ative POCT U UROBILI (test code = 3260) . 0.2-1 POCT U BILI (test code = 3261) . Negative - Negat fatmata POCT U BLD (test code = 3257) negative Negative - Negati ve POCT U COLOR (test code = 3266) . POCT U APPEAR (test code = 3267) . [facility] URINALYSIS W SPECIFIC [id number] 13:36:00* Test Item Value Reference Range Interpretation Comme nts POCT U SP GRAV (test code = 3255) . 1.005-1.025 POCT PH U (test code = 3254) 7 mg/dl 5-8 POCT U LEUK EST (test code = 3263) 2+ Negative - Negative POCT U NIT (test code = 3262) negative Negative - Negati ve POCT U PROT (test code = 3259) trace Negative - Negat fatmata POCT U GLU (test code = 3256) negative Negative - Negati ve POCT U KETONE (test code = 3258) negative Negative - Neg ative POCT U UROBILI (test code = 3260) . 0.2-1 POCT U BILI (test code = 3261) . Negative - Negat fatmata POCT U BLD (test code = 3257) negative Negative - Negati ve POCT U COLOR (test code = 3266) . POCT U APPEAR (test code = 3267) . [facility] URINALYSIS W SPECIFIC [id number] 13:36:00* Test Item Value Reference Range Interpretation Comme nts POCT U SP GRAV (test code = 3255) . 1.005-1.025 POCT PH U (test code = 3254) 7 mg/dl 5-8 POCT U LEUK EST (test code = 3263) 2+ Negative - Negative POCT U NIT (test code = 3262) negative Negative - Negati ve POCT U PROT (test code = 3259) trace Negative - Negat fatmata POCT U GLU (test code = 3256) negative Negative - Negati ve POCT U KETONE (test code = 3258) negative Negative - Neg ative POCT U UROBILI (test code = 3260) . 0.2-1 POCT U BILI (test code = 3261) . Negative - Negat fatmata POCT U BLD (test code = 3257) negative Negative - Negati ve POCT U COLOR (test code = 3266) . POCT U APPEAR (test code = 3267) . [facility] URINALYSIS W SPECIFIC [id number] 13:36:00* Test Item Value Reference Range Interpretation Comme nts POCT U SP GRAV (test code = 3255) . 1.005-1.025 POCT PH U (test code = 3254) 7 mg/dl 5-8 POCT U LEUK EST (test code = 3263) 2+ Negative - Negative POCT U NIT (test code = 3262) negative Negative - Negati ve POCT U PROT (test code = 3259) trace Negative - Negat fatmata POCT U GLU (test code = 3256) negative Negative - Negati ve POCT U KETONE (test code = 3258) negative Negative - Neg ative POCT U UROBILI (test code = 3260) . 0.2-1 POCT U BILI (test code = 3261) . Negative - Negat fatmata POCT U BLD (test code = 3257) negative Negative - Negati ve POCT U COLOR (test code = 3266) . POCT U APPEAR (test code = 3267) . [facility] URINALYSIS W SPECIFIC [id number] 13:36:00* Test Item Value Reference Range Interpretation Comme nts POCT U SP GRAV (test code = 3255) . 1.005-1.025 POCT PH U (test code = 3254) 7 mg/dl 5-8 POCT U LEUK EST (test code = 3263) 2+ Negative - Negative POCT U NIT (test code = 3262) negative Negative - Negati ve POCT U PROT (test code = 3259) trace Negative - Negat fatmata POCT U GLU (test code = 3256) negative Negative - Negati ve POCT U KETONE (test code = 3258) negative Negative - Neg ative POCT U UROBILI (test code = 3260) . 0.2-1 POCT U BILI (test code = 3261) . Negative - Negat fatmata POCT U BLD (test code = 3257) negative Negative - Negati ve POCT U COLOR (test code = 3266) . POCT U APPEAR (test code = 3267) . [facility] [id number] 18:37:00* Test Item Value Reference Range Interpretation Comme nts POCT PREG (test code = 1605) Positive On board controls acceptable with C Line (test code = 3574) Yes POCT PREG LOT # (test code = 3575) POCT PREG TEST DATE ( test code = 3576) [facility] URINALYSIS W/O SPECIFIC [id number] 18:37:00* Test Item Value Reference Range Interpretation Comme nts POCT PH U (test code = 3254) 5 mg/dl <=8 POCT U LEUK EST (test code = 3263) 1+ Negative - Negative POCT U NIT (test code = 3262) negative Negative - Negati ve POCT U PROT (test code = 3259) 1+ Negative - Negat fatmata POCT U GLU (test code = 3256) negative Negative - Negati ve POCT U KETONE (test code = 3258) negative Negative - Neg ative POCT U BLD (test code = 3257) negative Negative - Negati ve [facility] [id number] 18:37:00* Test Item Value Reference Range Interpretation Comme nts POCT PREG (test code = 1605) Positive On board controls acceptable with C Line (test code = 3574) Yes POCT PREG LOT # (test code = 3575) POCT PREG TEST DATE ( test code = 3576) [facility] URINALYSIS W/O SPECIFIC [id number] 18:37:00* Test Item Value Reference Range Interpretation Comme nts POCT PH U (test code = 3254) 5 mg/dl <=8 POCT U LEUK EST (test code = 3263) 1+ Negative - Negative POCT U NIT (test code = 3262) negative Negative - Negati ve POCT U PROT (test code = 3259) 1+ Negative - Negat fatmata POCT U GLU (test code = 3256) negative Negative - Negati ve POCT U KETONE (test code = 3258) negative Negative - Neg ative POCT U BLD (test code = 3257) negative Negative - Negati ve [facility] HospitalRHO (D) IMMUNE [id number] 09:31:58* Test Item Value Reference Range Interpretation Comme nts RHIG CANDIDATE? (test code = 5055) No- see comment Patient is not a candidate for RhIg- Patient is Rh Positive.Performed at [facility] Laboratory Services - [facility] Blood [address] [address] Free: [phone] No. [id number] [facility] HospitalARTERIAL CORD [id number] 01:02:31* Test Item Value Reference Range Interpretation Comme nts BASE EXCESS, CORD (test code = 7080964731) mEq/L AC PH, CORD (BEAKER) (test code = 7150987386) 7.18-7.38 PC02, CORD (test code = 3388171461) See_Comment [Automated messa ge] The system which generated this result transmitted reference range: 32 - 66 mmHg. The reference range was not used to interpret this result as normal/abnormal. PO2, CORD (test code = 2130750549) See_Comment [Automated messa ge] The system which generated this result transmitted reference range: 10 - 30 mmHg. The reference range was not used to interpret this result as normal/abnormal. BICARBONATE, CORD (test code = 8027802887) See_Comment [Automated messa ge] The system which generated this result transmitted reference range: 17 - 27 mEq/L. The reference range was not used to interpret this result as normal/abnormal. [facility] HospitalVENOUS CORD [id number] 01:00:10* Test Item Value Reference Range Interpretation Comme nts VENOUS BASE EXCESS, CORD (test code = 8153623846) mEq/L VENOUS PH, CORD (test code = 2606553497) 7.25-7.45 VENOUS PC02, CORD (test code = 2844636527) See_Comment [Automated messa ge] The system which generated this result transmitted reference range: 27 - 49 mmHg. The reference range was not used to interpret this result as normal/abnormal. VENOUS PO2, CORD (test code = 4178333566) See_Comment [Automated me ssage] The system which generated this result transmitted reference range: 17 - 41 mmHg. The reference range was not used to interpret this result as normal/abnormal. VENOUS BICARBONATE, CORD (test code = 7846428965) See_Comment [Automated messa ge] The system which generated this result transmitted reference range: 12 - 29 mEq/L. The reference range was not used to interpret this result as normal/abnormal. [facility] HospitalType and Screen - ONCE [id number] 22:12:03 * Test Item Value Reference Range Interpretation Comme nts ABO & RH (test code = 20) A POSITIVE Performed at [facility] Laboratory Services - [facility] Blood [address] Free: [phone] No. [id number] IAT (test code = 1185) Negative Performed at [facility] Laboratory Services - [facility] Blood [address] Free: [phone] No. [id number] [facility] HospitalPOCT URINALYSIS W SPECIFIC [id number] 15:54:00* Test Item Value Reference Range Interpretation Comme nts POCT U SP GRAV (test code = 3255) * 1.005-1.025 POCT PH U (test code = 3254) * 5-8 POCT U LEUK EST (test code = 3263) * Negative - Negative POCT U NIT (test code = 3262) * Negative - Negati ve POCT U PROT (test code = 3259) negative Negative - Negat fatmata POCT U GLU (test code = 3256) negative Negative - Negati ve POCT U KETONE (test code = 3258) * Negative - Neg ative POCT U UROBILI (test code = 3260) * 0.2-1 POCT U BILI (test code = 3261) * Negative - Negat fatmata POCT U BLD (test code = 3257) * Negative - Negati ve POCT U COLOR (test code = 3266) * POCT U APPEAR (test code = 3267) [facility] URINALYSIS W SPECIFIC [id number] 16:00:00* Test Item Value Reference Range Interpretation Comme nts POCT U SP GRAV (test code = 3255) . 1.005-1.025 POCT PH U (test code = 3254) 7 mg/dl 5-8 POCT U LEUK EST (test code = 3263) 2+ Negative - Negative POCT U NIT (test code = 3262) negative Negative - Negati ve POCT U PROT (test code = 3259) trace Negative - Negat fatmata POCT U GLU (test code = 3256) negative Negative - Negati ve POCT U KETONE (test code = 3258) negatie Negative - Neg ative POCT U UROBILI (test code = 3260) . 0.2-1 POCT U BILI (test code = 3261) . Negative - Negat fatmata POCT U BLD (test code = 3257) negative Negative - Negati ve POCT U COLOR (test code = 3266) . POCT U APPEAR (test code = 3267) . [facility] URINALYSIS W SPECIFIC [id number] 15:04:00* Test Item Value Reference Range Interpretation Comme nts POCT U SP GRAV (test code = 3255) . 1.005-1.025 POCT PH U (test code = 3254) . 5-8 POCT U LEUK EST (test code = 3263) . Negative - Negative POCT U NIT (test code = 3262) . Negative - Negati ve POCT U PROT (test code = 3259) 1+ Negative - Negat fatmata POCT U GLU (test code = 3256) negative Negative - Negati ve POCT U KETONE (test code = 3258) . Negative - Neg ative POCT U UROBILI (test code = 3260) . 0.2-1 POCT U BILI (test code = 3261) . Negative - Negat fatmata POCT U BLD (test code = 3257) . Negative - Negati ve POCT U COLOR (test code = 3266) . POCT U APPEAR (test code = 3267) . [facility] URINALYSIS W SPECIFIC [id number] 15:25:00* Test Item Value Reference Range Interpretation Comme nts POCT U SP GRAV (test code = 3255) . 1.005-1.025 POCT PH U (test code = 3254) 6 mg/dl 5-8 POCT U LEUK EST (test code = 3263) 3+ Negative - Negative POCT U NIT (test code = 3262) negative Negative - Negati ve POCT U PROT (test code = 3259) trace Negative - Negat fatmata POCT U GLU (test code = 3256) negative Negative - Negati ve POCT U KETONE (test code = 3258) negative Negative - Neg ative POCT U UROBILI (test code = 3260) . 0.2-1 POCT U BILI (test code = 3261) . Negative - Negat fatmata POCT U BLD (test code = 3257) trace Negative - Negati ve POCT U COLOR (test code = 3266) . POCT U APPEAR (test code = 3267) . [facility] URINALYSIS W SPECIFIC [id number] 19:06:00* Test Item Value Reference Range Interpretation Comme nts POCT U SP GRAV (test code = 3255) . 1.005-1.025 POCT PH U (test code = 3254) 8 mg/dl 5-8 POCT U LEUK EST (test code = 3263) ++ Negative - Negative POCT U NIT (test code = 3262) negative Negative - Negati ve POCT U PROT (test code = 3259) trace Negative - Negat fatmata POCT U GLU (test code = 3256) negative Negative - Negati ve POCT U KETONE (test code = 3258) negative Negative - Neg ative POCT U UROBILI (test code = 3260) . 0.2-1 POCT U BILI (test code = 3261) . Negative - Negat fatmata POCT U BLD (test code = 3257) negative Negative - Negati ve POCT U COLOR (test code = 3266) yellow POCT U APPEAR (test code = 3267) [facility] History and Physical Notes Date/Time Note Provider Source 2023-05-11 00:18:30 [id number] hU01b/g33fpd/h6jW+bhnc [id number]:18:30F ormatting of this note is different from the original.TRIAGE/L&D HISTORY & PHYSICALIDENTIFYING DATAKiran Daigle is 22 year old, /White, 37w1d, female with MORGAN 05/31/2023, by Ultrasound.: 1999MRN: [id number] Care Physician: Armando Escalante COMPLAINTctxsHISTORY OF PRESENT ILLNESSCyrita Daigle is a 22 year old at 37w1d who presents for ctxs since 7 pm last night.Patient denies vaginal bleeding, denies leakage of fluid.Patient denies headache, denies nausea/vomiting, denies RUQ pain, denies visual abnormalities.Endorses normal movement.PAST OBSTETRIC HISTORYOB HistoryGravida Para Term AB Living4 3 3 3SAB IAB Ectopic Multiple Live Births0 3# Outcome Date GA Lbr [place]/2nd Weight Sex Delivery Anes PTL Lv4 Current3 Term 06/02/22 39w0d 3740 g F NORMAL SPONT EPI LIV2 Term 06/23/21 39w1d 4340 g M NORMAL SPONT EPI LIV1 Term 03/15/20 39w0d 3840 g F NORMAL SPONT EPI N LIVPAST MEDICAL HISTORYProblem list:Patient Active Problem ListDiagnosis Date NotedEncounter for tubal ligation 05/11/2023Uterine contractions weeks gestation of 05/11/2023ositive GBS test 05/08/2023Susceptible to varicella (non-immune), currently 12/28/2022Multiparity 12/27/2022Short interval between pregnancies affecting , antepartum 12/27/2022Over weight 06/02/2022Supervision of high-risk with insufficient care 02/02/2022UTI (urinary tract infection) during 11/18/2020nemia of mother in , antepartum 12/24/2019Operations: No past surgical history on file.Past Medical History:Diagnosis DateAnemia of mother in , antepartum 12/24/2019BV (bacterial vaginosis) 02/19/2023hlamydia infection affecting 2CURRENT HEALTH STATUSMedications:No current facility-administered medications for this encounter.Allergies and drug reactions: Patient has no known allergies.HOME MEDICATIONSMedications Prior to AdmissionMedication Sig Dispense Refill Last DosemetroNIDAZOLE 500 mg tablet Take 1 tablet by mouth in the morning and 1 tablet in the evening. 14 tablet 0ascorbic acid, vitamin C, 500 mg tablet Take 1 tablet by mouth in the morning and 1 tablet at noon and 1 tablet in the evening. 90 tablet 2ferrous sulfate 325 mg (65 mg iron) tablet Take 1 tablet by mouth in the morning and 1 tablet in the evening. 60 tablet 3Iron Fum & P-FA-Vit B & C No.9 (INTEGRA PLUS) 125 mg iron- 1 mg Cap Take 1 capsule by mouth in the morning. 30 capsule 6prenatal mpj76-nvgu-dbmly acid 29 mg iron- 1 mg per tablet Take 1 tablet by mouth in the morning. 90 tablet 3SOCIAL HISTORYTobacco History:Social HistoryTobacco UseSmoking Status NeverSmokeless Tobacco NeverDrug History:Social HistorySubstance and Sexual ActivityDrug Use Not CurrentlyAlcohol History:Social HistorySubstance and Sexual ActivityAlcohol Use Not CurrentlyFAMILY HISTORYFamily HistoryProblem Relation Age of OnsetArthritis MotherDiabetes MotherColon Cancer Maternal AuntREVIEW OF SYSTEMSGeneral: negativeSkin: negativeHEENT: negativeNeck: negativeHEME: negativeResp: negativeCardio: negativeGI: negativeGU: negativeEndo: negativeNeuro: negativeBack: negativeMSS: negativePsych: negativeVITAL SIGNSBP: (115)/(69)Temp: [36.5 ?C (97.7 ?F)]Temp source: Oral (05/11 0018)Pulse: [83]Resp: [18]SpO2: [97 %]Height: [165.1 cm (5' 5")]Weight: [80.6 kg (177 lb 11.2 oz)]BMI (calculated): [29.57]PHYSICAL EXAMINATIONSGeneral: patient alert and in no acute distressHEENT: symmetric, negative for massesLungs: unlabored breathingCardiology: peripheral pulses intact and regularAbdomen: soft, non-tender, non-distended, no liver, spleen or abnormal masses palpated and GravidExtremities: no clubbing, cyanosis, or edemaNeuro: patient moving all extremities, no facial droopGU: SVE: /-2REVIEW OF LABORATORY, PATHOLOGY, AND RADIOLOGY DATALab results:Type & ScreenLab ResultsComponent Value Date/TimeIABORH A POSITIVE 12/27/2022 02:32 PMIAT Negative 12/27/2022 02:32 PMSerologiesLab ResultsComponent Value Date/TimeVZVIGG Negative 12/27/2022 02:32 PMRUBG Positive 12/27/2022 02:32 PMSYPIGG Non-reactive 03/28/2023 12:07 PMHBSAG Negative 12/27/2022 02:32 PMHBSAG 0.16 12/27/2022 02:32 PMChlamydiaLab ResultsComponent Value Date/TimeVCAA Negative 05/03/2023 03:46 PMGroup B StrepLab ResultsComponent Value Date/TimeCGB Positive (A) 05/03/2023 03:46 PMGTTLab ResultsComponent Value Date/YxjxWTWL2HP 110 (L) 03/28/2023 12:07 PMCBCLab ResultsComponent Value Date/TimeHGB 10.4 (L) 05/03/2023 03:46 PMHCT 31.5 (L) 05/03/2023 03:46 PMPLT 217 05/03/2023 03:46 PMActive Hospital ProblemsDiagnosis Date NotedEncounter for tubal ligation 05/11/2023Uterine contractions 7 weeks gestation of 05/11/2023ositive GBS test 05/08/2023Susceptible to varicella (non-immune), currently 12/28/2022ddress ppShort interval between pregnancies affecting , antepartum 12/27/2022Multiparity 12/27/2022nemia of mother in , antepartum 12/24/2019Resolved Hospital ProblemsNo resolved problems to display.Present on Admission:Susceptible to varicella (non-immune), currently Positive GBS testShort interval between pregnancies affecting , antepartumMultiparityAnemia of mother in , antepartumEncounter for tubal ligationUterine jrqsauyzpdrz39 weeks gestation of pregnancyPlacenta Accreta ScreeningPrior ? : NoPrior Uterine Surgery?: NoPlacenta low lying/previa in current ? : NoScreening outcome:A positive screening outcome indicates a history of prior delivery or prior uterine surgery, AND the presence of either a placenta low lying/previa or ultrasound suspicion of PASD in the current .Negative screening.ASSESSMENT AND PLANCyerrwanda Daigle is a 22 year old at 37w1d by christopher(10) who presents for ctxs, admitted for AOL.AOL- reports regular ctxs since 7pm last night- SVE: 4 / 75 % / -2- [place] [facility]: q3-5 minutes- Plan: admit for AOL with pitocin.GBS positive- PCN intrapartumDesires Permanent Sterilization-counseled on admission and desires, see separate counseling note-consents signed 03/28/23Antepartum course reviewed- 1 h 110, sero negative, Rimmune, VZVnot immune, A positive/IAT negative, GBS positive, Pap NILM 11/15/20- H/H, plt: 10.4 / 31.5, 217 on 05/03/23- PP control plan: BTL- [place] RMPFetus- Presentation on admission: cephalic- anterior placenta- EFW: 3490 g, 86%tile- FHT reactive and reassuring- Normal anatomy scanD/w Dr. Rawls,Syeda Roger MD ssociated attestation - Sreekanth Dawson MD - 05/11/2023 5:46 AM CST I personally examined the patient on 05/11/[address] Roger's resident note as written. I actively participated in the decision-making process. Please see the resident's note for additional details.48529-1Vctpqsr and physical [id number], [id number] 71SxaoIsoecmigNN0555-07-25J62:46:09History and physical [id number] 9|[id number] for patient nsaq33160-5Frtmlub and physical noteLNNARRATIVEFormatted C-CDA narrative textUT[address] Tj[id number] SZCQTIFWRMBQFWML7932-95-65E87:46:091.2.840 .798482.1.72.3.15|1.2.840.082909.1.13.104. [id number] [facility] Procedure Notes Date/Time Note Provider Source 2023-05-11 02:24:57 fFQTxKZ7iWsrmb88nP+i 6yfl2GLiu3IrsN eKjlZiWxg/HNNJVSbjuuKhE5JeNkvD5458 -12-22T02:24:57Associated Order(s): Central Neuraxial Block Central Neuraxial BlockDate/Time: 05/11/2023 1:55 AMPerformed by: Mike Cummins MDAuthorized by: Sherice Rehman MDPatient Location: OBReason for Block: Labor analgesiaStaff:Anesthesiologist: Sherice Rehman MDResident/HEALTH RECORDS TECHNOLOGY TEACHER: Mike Cummins MDPerformed by: resident/CRNAPreanesthetic Checklist: anesthesia consent, monitors and equipment checked, ob/surgical consent approval, ob/surgical consent verified, patient identified, pre-op evaluation and timeout performedProcedure:Type of Neuraxial: EpiduralEpidural Description: 1st attemptSterility Prep cap, drape, gloves, hand hygiene and maskSedation Level no sedationPatient Position: sittingPrep: Betadine and patient drapedMonitoring: multilith operator / EKG, heart rate / toco, heart rate and NIBPLocation: lumbar (1-5)Lumbar: L4-D2Fuvuyjdt: midlineTechnique: MUNDO salineGuidance with: landmark technique}Epidural/Spinal [place] and/or Catheter:Epidural/Spinal Kit: BBraunNeedle Type: TuohyNeedle Gauge: 17 GNeedle Length: 3.5 in (8.89 cm)Needle Insertion Depth: 5.5Catheter Type: side holeCatheter Size: 19 GCatheter at Skin Depth: 12Number of Attempts: 1Test Dose: lidocaine 1.5% with epinephrine 1-to-200,000Dose: 5 ccCatheter Securement Method: surgical tape, Tegaderm and clear occlusive dressingAssessment:Block Outcome: no apparent complications, positive pain relief, patient tolerated procedure well, patient satisfied, pain improved and a full evaluation is pendingProcedure Assessment: patient tolerated procedure well with no complicationsNotes:Patient consented and positioned sitting upright w/instructions given regarding positioning and maintaining a sterile field. Timeout performed by nurse. Patient prepped and draped in sterile fashion. Epidural kit opened and medications prepared utilizing sterile protocol.Negative aspiration of blood or CSF x 3. Patient instructed on symptoms of epinephrine and lidocaine positive test dose. Patient endorsed no symptoms of a positive test dose and monitors did not meet criteria for a positive test dose. Epidural catheter secured in place with mastisol, tegederm, and tape whilst maintaining insertion site sterility. Initial pump settings: 13 mL/hr, PCEA 4mL, 15 mins lockout. 4 mL initial clinician bolus given. 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 Fall precautions provided, patient vocalized understanding and all questions answered. 18575-0Cgbxliyfiyojxz procedure qeatJL5686-65-44G53:25:36Anesthesi ology procedure noteTXT1.2.840.998508.1.13.104.2.7 .2.199164|[id number] for patient gubx09255-9Ghlbdcel operation noteLNNARRATIVEFormatted C-CDA narrative huwmLR-FDADUQUSBHSQYXAJ-OMBEOGIQHV LOG[address] Ward [id number] 21VCZKCHARNCFRSTFPUKCNIX9133-85-89 T02:25:361.2.840.128316.1.72.3.15| 1.2.840.781052.1.13.104.2.7.2.7278 79_[id number] AN-ANESTHESIOLOGY [facility] Notes Date/Time Note Provider Source 2023-05-13 10:38:00 PtDiIL0AMts8fz9MN2OKil9WAQeKCl2H9yqmQY ITqiHbSBqXtk/WafbrZ66BpEDV4147-20-25P1 0:38:00 Visit attempted twice. Mom is out of room. Pump is set up at .Chetna Johansen RN,BSN,IBCLCPager - [phone] signed by Chetna Johansen RN at 05/13/2023 12:06 PM TJS34535-0Lqsrhzyuwd EugnQK0376-92-82N45:06:27Obstetrics NoteTXT1.2.840.196441.1.13.104.2.7.2.7 82195|[id number] for patient rmou84797-2TuklJGCTXNSSTSQWfgcetnyr C-CDA narrative [id number] L Linde RNUT[address] [id number] GHMWTQUVUAUVIFGCQPSK6488-87-92Q49:06:2 71.2.840.040872.1.72.3.15|1.2.840.1143 50.1.13.104.2.7.2.727879_[id number] Chetna Johansen RN [facility] 2023-05-13 08:26:07 SUk9xG4Bx6a/yUiRM7T+N/iNJ029YU7NY45Dnd r40mWVifv55dK8BWK77Jw7RuP67940-86-10L4 8:26:07 Problem: Falls, Risk ofGoal: Absence of fallsOutcome: ResolvedProblem: Complications of hemorrhage (risk or actual)Goal: Absence of active bleedingOutcome: ResolvedGoal: Absence of complicationsOutcome: ResolvedProblem: Discharge Planning - PostpartumGoal: Adequate for dischargeOutcome: ResolvedGoal: Mood stableOutcome: ResolvedProblem: Breast-feeding - IneffectiveGoal: Effective breast-feedingOutcome: ResolvedProblem: PainGoal: Control of pain at or below patient's documented comfort goalOutcome: ResolvedGoal: Reduction in pain sensationOutcome: ResolvedProblem: Infection RiskGoal: Absence of infectionOutcome: Resolved 42118-8Fjcb of care sjfcCO7687-32-77D98:26:16Plan of care noteTXT1.2.840.108725.1.13.104.2.7.2.7 34844|[id number] for patient xdxi19466-6ExzbOGJECAUEMVXPeghtslib C-CDA narrative [id number] S Freeman RN[id number] WUDTAMEWQKQHHDYHWAZE4606-80-68M56:26:1 61.2.840.221356.1.72.3.15|1.2.840.1143 50.1.13.104.2.7.2.727879_[id number] Adore Moore RN [facility] 2023-05-13 07:04:10 WfFIrkJn0zi1P+AdBaZci7tbFofhkHXu9EFOAj eUTX1uIdKIzDzI/i1lqzlO76wN8433-99-91J8 7:04:10 Problem: Falls, Risk ofGoal: Absence of fallsOutcome: Progressing as expectedProblem: Discharge Planning - PostpartumGoal: Adequate for dischargeOutcome: Progressing as expectedGoal: Mood stableOutcome: Progressing as expectedProblem: PainGoal: Control of pain at or below patient's documented comfort goalOutcome: Progressing as expectedGoal: Reduction in pain sensationOutcome: Progressing as expectedProblem: Infection RiskGoal: Absence of infectionOutcome: Progressing as expected 92725-3Ssrn of care ogfgDR9467-32-14Z17:04:17Plan of care noteTXT1.2.840.238869.1.13.104.2.7.2.7 32595|[id number] for patient rdvf52787-8QbctOGLFJQCLJKXTycuyrlnf C-CDA narrative spgc009762878Wneckpl [place] RN[address] StreetKq[id number] GESPFFMHSQISZNJOQIZE2244-72-13C83:04:1 71.2.840.737524.1.72.3.15|1.2.840.1143 50.1.13.104.2.7.2.727879_[id number] Kirti Rivas RN [facility] 2023-05-12 15:13:06 yMwei4gwvrrYsGsJpX2SuzKvSneQwuxcbYmRmL Q3bw5WoEiXFS4Y9/6v1jOOd2r47156-60-63V9 5:13:06 Problem: Falls, Risk ofGoal: Absence of fallsOutcome: Progressing as expectedProblem: Complications of hemorrhage (risk or actual)Goal: Absence of active bleedingOutcome: Progressing as expectedGoal: Absence of complicationsOutcome: Progressing as expectedProblem: Discharge Planning - PostpartumGoal: Adequate for dischargeOutcome: Progressing as expectedGoal: Mood stableOutcome: Progressing as expectedProblem: Breast-feeding - IneffectiveGoal: Effective breast-feedingOutcome: Progressing as expectedProblem: PainGoal: Control of pain at or below patient's documented comfort goalOutcome: Progressing as expectedGoal: Reduction in pain sensationOutcome: Progressing as expectedProblem: Infection RiskGoal: Absence of infectionOutcome: Progressing as expected 73163-2Zxnu of care gnqaDD4249-77-27A26:13:09Plan of care noteTXT1.2.840.875433.1.13.104.2.7.2.7 71415|[id number] for patient ugcq61568-9SalmJHGJRLHIKLALioucprul C-CDA narrative zmms235114978Zsdpkg R Burch RNUT[address] Williams StreetDpnqKrnodieeiQltnrknunLXWD7758190498BJ YFLVFWXCFCQMUVPPXKHI1504-30-91V06:13:0 91.2.840.204206.1.72.3.15|1.2.840.1143 50.1.13.104.2.7.2.727879_[id number] Shanelle Aquino RN [facility] 2023-05-12 11:18:00 DdtTwFhAiCZF3H2ec7oSyB+msYmx4kQ3e/BzOX u57ZEK7wPIUM3PdW9HmxNkMlsn6503-68-98L8 1:18:00 Images from the original note were not included.This note was copied from a baby's chart. Assessment (most recent) Assessment - 05/12/23 1118General InformationVisit Follow-upBreast Pump Needs Filled out order for for Breastpump DepotBreast Pump ElectricFinancial Class MedicaidNipple & Areola AssessmentLeft Nipple Colostrum visible;Everted;Tender;Other (comment) Breakdown from pump flangeRight Nipple Colostrum visible;Everted;Tender breakdown from pump flangeLiterature ResourcesEducation Use/settings of pump;Pump frequency;Storage of expressed breastmilk;Labeling of expressed breastmilk;Cleaning of pump parts;Transportation of expressed breastmilk;Lactogenesis;Hand hygiene;Benefits of breast massage and hand expression;How to obtain pump for after dischargeLactation Registered Vascular Technologist (Rvt) ObservationPumping Yes Mother states that she had pumped twice and was able to collect 25 ml yesterday with the first pump. Pumping on one breast when entering the room. Shown how to cap off the pump on the side not being used.Interventions Custom flange;Motherlove nipple creamFollow up Mom will call staffRecommended Feeding PlanRecommended feeding plan Pump/hand express minimum 8 times in 24 hours including nights. Pump for 15-25 min.OTHER$ SERVICES Follow-up 86037-6Kdadzlgmak HlxgKG6147-05-06K09:52:33Obstetrics NoteTXT1.2.840.131863.1.13.104.2.7.2.7 49678|[id number] for patient hfla01396-8NlklPNOVCQKGCAPWpynoozle C-CDA narrative qrus828626276NnosrJoanie Ferrari RNUT[address] EhamAutwxelkgAniayphekOTTR8325249663RP CGGWRKXECDCEJXBHAEML3116-72-31W32:52:3 31.2.840.273730.1.72.3.15|1.2.840.1143 50.1.13.104.2.7.2.727879_[id number] Joanie Ferrari RN [facility] 2023-05-11 21:01:00 kHMUD1tjK83yEqS9KemA4nbEnZSBmkHBHlzUjX TSJ1A8L+8RerrUQ6X1VbLFQP2V4679-38-40P2 1:01:00 Problem: Falls, Risk ofGoal: Absence of falls05/11/20232153 by Radha Monique, JUANOutcome: Progressing as cgucglsy73/22/20232152 by Radha Monique, RNOutcome: Progressing as expectedProblem: Complications of hemorrhage (risk or actual)Goal: Absence of active gknpczil76/22/20232153 by Radha Monique RNOutcome: Progressing as kdliqwda87/22/20232152 by Radha Monique RNOutcome: Progressing as expectedGoal: Absence of xfpdrzmcexwil02/22/20232153 by Radha Monique RNOutcome: Progressing as tvmscyns79/22/20232152 by Radha Monique RNOutcome: Progressing as expectedProblem: Discharge Planning - PostpartumGoal: Adequate for dischargeOutcome: Progressing as expectedGoal: Mood stableOutcome: Progressing as expected 36897-8Fgjo of care ykgvKT3326-25-80K36:55:01Plan of care noteTXT1.2.840.962093.1.13.104.2.7.2.7 37330|[id number] for patient kput90424-4IfdiFMWRDQRWOWARfaipmvck C-CDA narrative [id number] D Wiseman RNUT[address] PpzqNhxwjchgoZxdzmspepXDRB5774706758QL WZPQRYQPXQDAETVQKWPU9463-62-21O14:55:0 11.2.840.807184.1.72.3.15|1.2.840.1143 50.1.13.104.2.7.2.727879_[id number] Radha Monique RN [facility] 2023-05-11 17:41:40 7e1eAR9GL51dRQruMDfwoBfriJp+LXDfL22oRr gc7iiGl2y+oZadtORl2uPq4BOg7843-08-76F0 7:41:40 Problem: Falls, Risk ofGoal: Absence of fallsOutcome: Progressing as expectedProblem: Complications of hemorrhage (risk or actual)Goal: Absence of active bleedingOutcome: Progressing as expectedGoal: Absence of complicationsOutcome: Progressing as expected 44293-0Jkqu of care qhjlEH3354-35-63O03:41:44Plan of care noteTXT1.2.840.302470.1.13.104.2.7.2.7 11910|[id number] for patient awjw18439-9IlgfDGIKPJSNODZCxwivcrec C-CDA narrative taoq188354369Izlpx Samson MARTINEZ[address] WbulAtqiahgcrPgjounbpoSCSJ8873240755TP MLVZLDHMZWFPKPJGZOVQ9278-66-00I36:41:4 41.2.840.233554.1.72.3.15|1.2.840.1143 50.1.13.104.2.7.2.727879_[id number] Bakari Davies RN [facility] 2023-05-11 13:00:00 dHJHt166MxYyCOj6SRZleWtMNkaWuommpbOleN c6OmL9KiyEjNX/GZFFNIES9Otc2977-68-40T2 3:00:00 Images from the original note were not included.This note was copied from a baby's chart. Assessment (most recent) Assessment - 05/11/23 1300General InformationVisit InitialMom's age (years) 22 yearsGestational age 37.1 weeksGravida 4Parity 4Living Children 4Feeding plan Breast and FormulaBreastfeed previously -- mom states she attempted but with flat nipples she only pumped, states she pumped for 2 months with last child and only a 1-2 weeks with other kids but dried up with all kids, states she got Depo shot in PP periodUsed pump previously YesDuration (weeks) 8 weeksPlanned maternity leave Stay at home momBreast Pump NeedsDelivery method ;BTLBreast changes during EnlargedPeriods RegularInfant Oral AssessmentOral assessment DeferredDate of 05/11/23Time of 0659Infant location NICUBreast AssessmentBreast Assessment InitialSymmetry SymmetricalSize XL (F+)Shape Pendulous;RoundedOther Soft slight breast edema on right breast, instructed mom to wear her bra and hydrate well. mom put bra on now and went to visit in NICUNipple & Areola AssessmentLeft Areola PliableRight Areola Pliable;EdematousLeft Nipple Colostrum visible;EvertedRight Nipple Colostrum visible;EvertedLiterature ResourcesResources Understanding Mother and Baby Care expressing milk for your NICU babyEducation Benefits of breastmilk;Hand expression;Maternal nutrition/hydration;Use/settings of pump;Pump frequency;Labeling of expressed breastmilk;Cleaning of pump parts;LactogenesisLactation Registered Vascular Technologist (Rvt) ObservationPumping -- i set mom up with pump bedside, she is going to start after visiting NICUInterventions Pump start (massage, compression, expression)Follow up Follow up in hospitalRecommended Feeding PlanRecommended feeding plan Pump/hand express minimum 8 times in 24 hours including nights. Pump for 15-25 min.OTHER$ SERVICES InitialJ. Amaris YEN-JONNIE, IBCLCPager - [phone] signed by Joelle Glez RN at 05/11/2023 1:30 PM ONB04259-2Zermjjttdo TnjrTU5318-16-41H13:30:22Obstetrics NoteTXT1.2.840.248595.1.13.104.2.7.2.7 74185|[id number] for patient mymw74407-1BcctIRMKJGHICTDHuzhnnnmn C-CDA narrative fjox482644078UunpbJoelle Glez RNUT[address] KxvbOjtmehjmrFcnsuncvrNQGJ7662249259DN ZQTFIIASQGIQODLQNYFU6797-48-49V19:30:2 21.2.840.635341.1.72.3.15|1.2.840.1143 50.1.13.104.2.7.2.727879_[id number] Joelle Glez RN [facility] 2023-05-11 10:57:37 kMkAjlD0Dy9oZfHwp1OG+ZfUzbEaBIF9oFuEe6 UwQhd1ahJQyHXfmPRN7LZrJMhJ5198-06-63L4 0:57:37 Patient: Kiran Pak TerrazasProcedure SummaryDate: 05/11/23 Room / Location:Anesthesia Start: 0153 Anesthesia Stop: 810Procedure: CENTRAL NEURAXIAL BLOCK Diagnosis:Scheduled Providers: Responsible Provider: Sherice Rehman MDAnesthesia Type: Epidural ASA Status: 2Anesthesia Type: EpiduralLast vitalsBP 116/74 (05/11/23 1045)Temp 36.6 ?C (97.8 ?F) (05/11/23 1045)Pulse 76 (05/11/23 1045)Resp 16 (05/11/23 1045)SpO2 97 % (05/11/23 1045)No notable events documented.Anesthesia Post EvaluationPatient location during evaluation: floorPatient participation: complete - patient participatedLevel of consciousness: awakePain score: 2Pain management: satisfactory to patientAirway patency: patentCardiovascular status: acceptable and blood pressure returned to baselineRespiratory status: acceptableHydration status: acceptable 87743-8Xuadqbphdfbttt Postoperative evaluation and management anszDM3707-72-10G35:57:43Anesthesiolog y Postoperative evaluation and management noteTXT1.2.840.170335.1.13.104.2.7.2.7 84467|[id number] for patient ajwu51874-5Pkvqvkcm operation noteLNNARRATIVEFormatted C-CDA narrative textAN-ANESTHESIOLOGY ANESTHESIOLOGISTAN-ANESTHESIOLOGY ANESTHESIOLOGIST[address] PmtcFgzgnkcfyUjkyowxajKKCD7287615652QB CBQMRFAQPGIQCGQKGQTY3626-27-34Q17:57:4 31.2.840.926620.1.72.3.15|1.2.840.1143 50.1.13.104.2.7.2.727879_[id number] AN-ANESTHESIOLOGY ANESTHESIOLOGIST [facility] 2023-05-11 08:44:00 DZy5zvslkXjgLMi11OWf+Duk+nCaBrjlxBafXM KgXAsf8w1kq4OwDrtmFVPwsHm+7117-69-29N5 8:44:00 BILATERAL TUBAL LIGATION PROCEDURE NOTEDate: 3Preoperative Diagnosis: MPDPSPostoperative Diagnosis: MPDPSProcedure: Modified Varun bilateral tubal ligationSurgeon: LONI Britton Mai Faculty: Aide Retana MDAnesthesia: Dosing epiduralSpecimens: right and left tubal segmentsFindings: normal appearing bilateral fallopian tubesNarrative: After arrival to the operating room, she was placed in supine position after dosing of epidural anesthesia. Two Allis clamps were used to grasp the skin and a transverse infraumbilical incision was made through the skin with a #10 scalpel. The incision extended sharply with scapel with assistance of Allis clamps through the subcutaneous tissue to level of fascia. The fascia was grasped with Allis clamps and entered into with #10 scalpel. The incision through the fascia was extended with scalpel. The peritoneum was entered bluntly digits. The skin incision was retracted with [place] retractor and a sponge stick was used to sweep the omentum and/or bowel out of the field. The left fallopian tube was visualized directly. The fallopian tube was grasped with [place] forceps and followed out to the distal end until the fimbria was visualized. A Man forcep was replaced at midportion of fallopian tube. The fallopian tube was ligated and resected with Modified [place] technique - [place] clamp was placed on fallopian tube and placed on gentle traction to create a loop. Two 0-plan gut sutures were used to ligate this loop and metzenbaum scissor was used to perforate the mesosalpinx bluntly. Each ligated portion of the tube was then transected individually. The transected ends of fallopian tube were examined to ensure the presence of fallopian lumen and good hemostasis. The fallopian tube was replaced into abdomen. The right fallopian tube was visualized directly. The fallopian tube was grasped with [place] forceps and followed out to the distal end until the fimbria was visualized. A [place] forcep was placed at midportion of fallopian tube. The fallopian tube was ligated with 0-plain gut sutures times two with Modified [place] technique - Man clamp was placed on fallopian tube and placed on gentle traction to create a loop. Two 0-plan gut sutures were used to ligate this loop and metzenbaum scissor was used to perforate the mesosalpinx bluntly. Each ligated portion of the tube was then transected individually. After ensuring good hemostasis of the transected ends and the presence of fallopian lumen, the fallopian tube was replaced in the abdomen. The fascia was re-approximated with running 0-vicryl sutures with CT-1 needle. The skin was re-approximated with running subcutaneous 3-0 vicryl sutures. Steri strips and pressure dressing were placed.Condition of Patient after Surgery: GoodEstimated Blood Loss: <5 ccUrine Output: Not measuredIntravenous fluid: See Anesthesia RecordComplications: NoneCarolyn Mary Pretty MD 05/11/2023 9:29 AM ssociated attestation - Sarah Rocha MD - 05/12/2023 11:57 AM CST Present for the tubal ligation, lumen dybph28898-6Ourqdri Surgical operation jywsLZ0405680BbabgSarah Rocha1.2.840.162946.1.13.104.2.7.2.35063 Rafa PerkinsWoelrbrybrzbEhgMZ9081-05-93K42:57:18Su [facility] Surgical operation noteTXT1.2.840.622665.1.13.104.2.7.2.7 34295|[id number] for patient gghs77650-7AupqHBPWCZUYKUBBapvufede C-CDA narrative textOG-OBSTETRICS & GYNECOLOGYOG-OBSTETRICS & GYNECOLOGY[address] Vrw[id number] MSQJFSVZETUXEGPLERUG1816-57-23M12:57:1 81.2.840.879464.1.72.3.15|1.2.840.1143 50.1.13.104.2.7.2.727879_[id number] -OBSTETRICS & GYNECOLOGY [facility] 2023-05-11 08:15:00 eDbPIaPZp6RaSGY/+ZnYcFH8Wu+KfwCGQ9nElI Cn9PHVP9ImN0NK2yh5WAN/65H29085-57-09N2 8:15:00 Problem: Falls, Risk ofGoal: Absence of fallsOutcome: Progressing as expectedProblem: Complications of hemorrhage (risk or actual)Goal: Absence of active bleedingOutcome: Progressing as expectedGoal: Absence of complicationsOutcome: Progressing as expectedProblem: Intrapartum process (including labor pain)Goal: Absence of or reduction of complications of laborOutcome: ResolvedGoal: Able to cope with painOutcome: ResolvedGoal: Adequate to move to next level of careOutcome: ResolvedGoal: Reduction in pain sensationOutcome: Resolved 01749-5Uwej of care twnhLS5832-59-12G38:16:55Plan of care noteTXT1.2.840.939646.1.13.104.2.7.2.7 51323|[id number] for patient iddl07117-5HpjcPWAOPQWBKKBGmqsbeefj C-CDA narrative wyhz040782687Mcokzmti Y Jimenez RNUT[address] ZpbkInpkdfjycUjrbbeywpDBID2492289965HW VHSKQENYNZNPMZMJPTIX4402-28-73B01:16:5 51.2.840.809084.1.72.3.15|1.2.840.1143 50.1.13.104.2.7.2.727879_[id number] Lisbeth Valladares RN [facility] 2023-05-11 07:10:35 ofJm2HD6yHbDg5wjT9Eawt/6HNG+rEySGLlCBl Wq8rX/NtvL3NgBYo2eL1SltWI48466-21-78X0 7:10:35 DELIVERY BY SPONTANEOUS VAGINAL DELIVERYDelivery Date: 05/11/2023 Delivery Time: 6:59 AMDelivery SummaryThe patient was admitted to the Labor & Delivery unit for AOL at 37w1d.Delivery Physician: LONI Herman Faculty: Sreekanth Dawson MDIntrapartum Anesthesia/Analgesia: EpiduralMode of Delivery: Delivery of preez fetus with cephalic presentationFetusUpon entry into room, head was already on bed. Pressure was exerted to deliver anterior and then posterior shoulder. Examination of neck revealed no umbilical cord. The shoulder was delivered by gentle downward traction applied to head and downward traction for the delivery of anterior shoulder. This was followed by upward traction with delivery of posterior shoulder and body. After the delivery of , bulb suction was performed from ororpharynx and nostril with removal of clear amniotic fluid.A normal, male was delivered.The umbilical cord was double clamped, cut and the was handed off the field to the circulating nursePlacentaPlacenta was delivered spontaneously while the abdominal hand lifted the uterus cephalad and other hand keeping the umbilical cord slightly taut.LacerationLaceration Repair: No laceration repair needed.Fourth StageFourth stage of labor was managed by uterine massage with abdominal hand and infusion infusion of 30u pitocin at a rate of 300cc/hr mixed with intravenous fluid.EBL: 300 ccComplications: NoneWeight: 3790 g1 Minute 5 Minute 10 MinuteApgar Totals: 8 9 ssociated attestation - Sreekanth Dawson MD - 05/13/2023 2:46 PM CST I was present for and supervised the entire procedure.38083-0Zojey and delivery summary hkyjRO7258914Wuuw, Sangeeta1.2.840.647442.1.13.104.2.7.2. 825116JxchPmuqoaftGE8656-28-60B97:46:3 3Labor and delivery summary noteTXT1.2.840.230769.1.13.104.2.7.2.7 82153|[id number] for patient jfhs05848-3BowbPPMRUMHKPWPUiwoaumyt C-CDA narrative textOG-OBSTETRICS & GYNECOLOGYOG-OBSTETRICS & GYNECOLOGY[address] VfbhWkdbggxckFumftmyikMVKK5119481399WG EIGYXGFCACJUYLBKFKVB5438-55-94C70:46:3 31.2.840.205574.1.72.3.15|1.2.840.1143 50.1.13.104.2.7.2.727879_[id number] -OBSTETRICS & GYNECOLOGY [facility] 2023-05-11 02:52:47 Lq3n3zPOGPXK3uPnSOOfxfm5hp0M8CGD+RHQsF oUqkuvKhjgEhiQNA7DWHH6pAz29472-19-78W2 2:52:47 Intrapartum Progress Note05/11/2023 2:52 AMSubjective: Patient has no complaintsObjective:Vitals last 24 hours:Temp: [36.5 ?C (97.7 ?F)-36.6 ?C (97.9 ?F)] 36.6 ?C (97.9 ?F)Pulse: [65-85] 79Resp: [18] 18BP: (103-123)/(62-76) 103/62Intake/Output :No intake/output data recorded.No intake/output data recorded. AssessmentActive movement: YesMode: EFMUterine Activity:Mode: TocoContractions (number / 10 minute): 6Contraction duration (seconds): 40-70Contraction quality: Mild;PalpationResting tone: Soft;PalpationMembrane StatusMembrane status: ArtificialRupture date: 05/11/23Rupture time: 0250Amniotic fluid color: ClearCervical Exam4 / 75 % / -2Assessment/Plan:Kiran Daigle is a 22 year old at 79q6ePW Assessment: AOL, GBS, MPDPSOB Plan: Pit@0115, PCNAdditional Comments/Detail: [place] [address]-0Ijjtcnhu ujuvCV8963-13-19Y31:52:52Progress noteTXT1.2.840.219017.1.13.104.2.7.2.7 98245|[id number] for patient zusb59348-4QgupUFWYGHBZOWSWpkarvcfa C-CDA narrative textOG-OBSTETRICS & GYNECOLOGYOG-OBSTETRICS & GYNECOLOGY[address] Fa[id number] KPNDUHURFDGYMYWQYWXI8242-73-84U35:52:5 21.2.840.521748.1.72.3.15|1.2.840.1143 50.1.13.104.2.7.2.727879_[id number] OG-OBSTETRICS & GYNECOLOGY [facility] 2023-05-11 01:38:04 LxLHpKhGtftONt7ao3fCRe/AngelaE/yXMJtVOOBNz dhUAmjSN179YGGItIa6uJ8rqBf2512-43-37P9 1:38:04 Name/ MRN / Age / Gender:Kiran Daigle, [id number] year old femaleBMI:Estimated body mass index is 29.57 kg/m? as calculated from the following:Height as of this encounter: 1.651 m (5' 5").Weight as of this encounter: 80.6 kg (177 lb 11.2 oz).Allergies:Patient has no known allergies.Last Vitals:BP Readings from Last 1 Encounters:05/11/23 120/62Pulse Readings from Last 1 Encounters:05/11/23 72SpO2 Readings from Last 1 Encounters:05/11/23 100%Date of Surgery: 06/02/2022Surgeon: * No surgeons listed *Procedure: CENTRAL NEURAXIAL BLOCKOR Location: [facility] AN[facility]HESIA OUT OF OR - OR LOCATIONAnesthesia Preop Eval (physical exam)Anesthesia Preop: Chart Review and [id number] questionnaire answers not incorporatedAPAC Communication: Desires BTLNPO Status VerifiedPONV Risk Factors: female and non-smokerAnesthesia HistoryAnesthesia History NegativeComments: Prior epidurals to 4-5.5 cm MUNDO placed without complication.Previous Anesthetics/AirwaysCardiovascularNegat fatmata Cardiac ROSComments: BP Readings from Last 3 Encounters:06/02/22 : 134/ : 114/ : 115/71METS: 4PulmonaryNegative Pulmonary ROSNeuro/MusculoskeletalComments: Body mass index is 31.32 kg/m?.(+) ObesityGI/HepaticNegative GI/Hepatic ROSComments: No results found for: ASTNo results found for: ALTNo results found for: BILITHematologyComments: HGB (g/dL)Date Value05/03/2023 10.4 (L) PLT 217(+) AnemiaRenalNegative Renal ROSComments: No results found for: "K"No results found for: "CREAT"Skin(+) Current IV accessEndo/OtherNegative Endo/Other ROSComments: No results found for: KDNO0BXl results found for: GLUOtherOB/GYNComments:Kiran Daigle is a 22 year old at 37w1d by u(10) who presents for ctxs, admitted for AOL.AOL- reports regular ctxs since 7pm last night- SVE: 4 / 75 % / -2- [place] [facility]: q3-5 minutes- Plan: admit for AOL with pitocin.GBS positive- PCN intrapartumDesires Permanent Sterilization-counseled on admission and desires, see separate counseling note-consents signed 03/28/23Antepartum course reviewed- 1 h 110, sero negative, Rimmune, VZVnot immune, A positive/IAT negative, GBS positive, Pap NILM 11/15/20- H/H, plt: 10.4 / 31.5, 217 on 05/03/23- PP control plan: BTL- [place] RMCHPFetus- Presentation on admission: cephalic- anterior placenta- EFW: 3490 g, 86%tile- FHT reactive and reassuring- Normal anatomy scanPediatricPediatric N/ANeonatalNeonatal N/APreoperative Medication InstructionsContinue taking all prescribed medications except:JEMIMA inhibitors, ARBs, diuretics, all oral diabetes medicationsAnticoagulant Therapy: Defer to surgeonsInsulin: Take 1/2 dose the night prior to surgery. Hold on DOS.Phentermine: Alert [facility] anesthesiologistSGLT2 Inhibitors: "gliflozins" to be held for 3 days prior to elective surgeriesGLP1 Agonosit: stop 7 days prior to surgeryMAC Cases: Continue taking JEMIMA inhibitors and ARBsASA ClassificationASA: 2Current Medications:No outpatient medications have been marked as taking for the 05/11/23 encounter (Hospital Encounter).Previous Surgeries: No past surgical history on file.Anesthesia Physical ExamGeneralno apparent distress and alert and oriented x 3Neuro/Psychneurological NonfocalDentalno notable dental hxAbdominalGI exam normal(+) gravidAirwayMallampati score:IITM distance:> 5 cmNeck ROM: fullMouth opening:normal(+) Normal faciesExtremityNormal extremityPulmonarypulmonary exam normal and bilateral clear to auscultation OtherCardiovascularcardiovascular exam normalRhythm:RegularRate: NormalAnesthesia PlanASA Status: 2Plan discussed during pre-op evaluation: General, Epidural, Spinal, CSE and MACAnesthetic plan on DOS: EpiduralAnesthesia plan discussed with: patient or representativePost-Operative Analgesia: routine analgesia & antiemeticsRecovery Plan: LDRAdditional comments: 32666-2Vtzklhsakmeknp Preoperative evaluation and management esubVT2234-88-09O80:31:34Anesthesiolog y Preoperative evaluation and management [id number].2.7 38275|[id number] for patient irzm41764-3Cgxqfsit operation noteLNNARRATIVEFormatted C-CDA narrative textAN-ANESTHESIOLOGY ANESTHESIOLOGISTAN-ANESTHESIOLOGY ANESTHESIOLOGIST[address] [id number] TEMDCSHKWSQBMPTAOLZP4535-08-58Q43:31:3 41.2.840.425210.1.72.3.15|1.2.840.1143 [id number] AN-ANESTHESIOLOGY ANESTHESIOLOGIST [facility] 2023-05-11 00:37:29 6Oi1ltQ3sPKDAqoKYZyXlnVkaC4HMuj1rIPHPq kdVL0zO6K5ZJs8i/r/iC9ADLYG2030-45-41B4 0:37:29 Problem: Intrapartum process (including labor pain)Goal: Absence of or reduction of complications of laborOutcome: Progressing as expectedGoal: Able to cope with painOutcome: Progressing as expectedGoal: Adequate to move to next level of careOutcome: Progressing as expectedGoal: Reduction in pain sensationOutcome: Progressing as expected 78939-7Ufab of care tlyeFD1517-85-77H02:37:32Plan of care noteTXT1.2.840.890500.1.13.104.2.7.2.7 67647|[id number] for patient efda31936-6WbsnGZSRFUMSBGXMajsoiper C-CDA narrative [id number] G Partida RN[id number] CWHACATPVKMJBENOVFMC9879-35-57V60:37:3 21.2.840.893667.1.72.3.15|1.2.840.1143 50.1.13.104.2.7.2.727879_[id number] Minerva Mooney RN [facility] 2023-01-01 14:11:05 IpzdHIkkiPqjwI1uzVHPNYnFR7yqWPD6RPptut tt50qz22zX4KTM+krO3rz9bxCH9090-33-75Z8 4:11:05 Patient informed of results and new orders, verbalized understanding. 87543-1Itnwcrvtz encounter IylqER5971-18-19E60:11:59Telephone encounter NoteTXT1.2.840.784525.1.13.104.2.7.2.7 65878|[id number] for patient lpzs73235-1EshbWUBTTPLMOH[id number] UTNVZQNJJXZPHTBGFIDD8345-92-35Z07:11:5 91.2.840.623633.1.72.3.15|1.2.840.11[address]13.104.2.7.2.727879_[id number] [facility] 2023-01-01 13:23:15 cJNlxw78EJ8p0BfOQsX0FxdUWiLGlC4lhB90qe wZ+6ltkH9QP+HzG6sd1tRA/iBl2699-38-18J7 3:23:15 Please call patient and let her know I erx keithneetu to pharmacy for UTI 81682-2Qmqzpxgdx encounter UdsoRQ4008-12-07K22:24:55Telephone encounter NoteTXT1.2.840.529890.1.13.104.2.7.2.7 50598|[id number] for patient kuad70955-0LdnvTRQXUTIILH[address] Es[id number] EVEICBSCTOQJUFTGHRXS5387-76-59A74:24:5 51.2.840.276450.1.72.3.15|1.2.840.11[address]13[address]104.2.7.2.727879_[id number] [facility]
--- NOTE | 2023-06-19 21:40 | EDPHYS ---
Physician Documentation [facility] Name: Kiran Daigle Age: 22 yrs Sex: Female : 2000 Arrival Date: 06/19/2023 Time: 20:22 Bed 12 Private MD: ED Physician Sahil Delgado HPI: 06/19 20:32 This 22 yrs old Female presents to ER via Unassigned with complaints of sp4 Shoulder Pain, Neck and Upper Back Pain. 21:34 22-year-old female presents with acute onsets had left shoulder and left trapezius sp4 pain. . Historical: - Allergies: 20:33 No Known Allergies; tl4 - Home Meds: 20:33 None [Active]; tl4 - PMHx: 20:33 None; tl4 - Immunization history:: Adult Immunizations unknown. - Social history:: Smoking status: Patient denies any tobacco usage or history of. - Family history:: not pertinent. ROS: 21:34 Constitutional: Negative for fever, chills, and weight loss, positive left shoulder sp4 pain traveling up the left neck 21:34 All other systems are negative, Exam: 21:34 Constitutional: This is a well developed, well nourished patient who is awake, alert, sp4 and in no acute distress. Head/Face: Normocephalic, atraumatic. Eyes: Pupils equal round and reactive to light, extra-ocular motions intact. Lids and lashes normal. Conjunctiva and sclera are not injected. Cornea within normal limits. Periorbital areas with no swelling, redness, or edema. ENT: Nares patent. No nasal discharge, no septal abnormalities noted. Tympanic membranes are normal and external auditory canals are clear. Oropharynx with no redness, swelling, or masses, exudates, or evidence of obstruction, uvula midline. Mucous membranes moist. Neck: Trachea midline, no thyromegaly or masses palpated, and no cervical lymphadenopathy. Supple, full range of motion without nuchal rigidity, or vertebral point tenderness. Chest/axilla: Normal chest wall appearance and motion. Nontender with no deformity. No lesions are appreciated. Cardiovascular: Regular rate and rhythm with a normal S1 and S2. No gallops, murmurs, or rubs. Normal PMI, no JVD. No pulse deficits. Respiratory: Lungs have equal breath sounds bilaterally, clear to auscultation and percussion. No rales, rhonchi or wheezes noted. No increased work of breathing, no retractions or nasal flaring. Abdomen/GI: Soft, non-tender, with normal bowel sounds. No distension or tympany. No guarding or rebound. No evidence of tenderness throughout. Back: No spinal tenderness. No costovertebral tenderness. Skin: Warm, dry with normal turgor. Normal color with no rashes, no lesions, and no evidence of cellulitis. MS/ Extremity: Pulses equal, no cyanosis. Neurovascular intact. Full, normal range of motion. positive for left trapezius tenderness with full range of motion Neuro: Awake and alert, GCS 15, oriented to person, place, time, and situation. Cranial nerves II-XII grossly intact. Motor strength 5/5 in all extremities. Sensory grossly intact. Psych: Awake, alert, with orientation to person, place and time. Behavior, mood, and affect are within normal limits Vital Signs: 20:31 BP 120 / 78; Pulse 68; Resp 16; Temp 98.5; Pulse Ox 99% on R/A; Weight 81.65 kg; Height tl4 5 ft. 5 in. ; Pain 8/10; 20:31 Body Mass Index 29.95 (81.65 kg, 165.1 cm) tl4 20:31 Pain Scale: Adult tl4 [place] Coma Score: 21:34 Eye Response: spontaneous(4). Motor Response: obeys commands(6). Verbal Response: sp4 oriented(5). Total: 15. MDM: 20:33 Patient medically screened. sp4 06/20 00:40 Data reviewed: vital signs, nurses notes. sp4 Administered Medications: 06/19 21:20 Drug: Ibuprofen PO 800 mg PO once Route: PO; kc6 21:48 Follow up: Response: No adverse reaction; Pain is decreased kc6 21:20 Drug: Methocarbamol PO 750 mg PO once Route: PO; kc6 21:48 Follow up: Response: No adverse reaction; Pain is decreased; RASS: Alert and Calm (0) kc6 21:20 Drug: traMADol PO 100 mg PO once Route: PO; kc6 21:48 Follow up: Response: No adverse reaction; Pain is decreased; RASS: Alert and Calm (0) kc6 Disposition Summary: 06/19/23 21:40 Discharge Ordered Problem: new sp4 Symptoms: have improved sp4 Condition: Stable sp4 Diagnosis - Unspecified symptoms and signs involving the musculoskeletal system sp4 - Tension muscular pain, left trapezius pain sp4 Followup: sp4 - With: Private Physician - When: As needed - Reason: Discharge Instructions: - Discharge Summary Sheet sp4 - Musculoskeletal Pain sp4 Forms: - Patient Portal Instructions sp4 Prescriptions: - Ibuprofen 800 mg Oral Tablet - take 1 tablet ORAL route every 8 hours As needed take with food; 30 tablet; sp4 Refills: 0, Product Selection Permitted - methocarbamol 750 mg Oral tablet - take 2 tablets ORAL route every 8 hours for 2 days; 60 tablet; Refills: 0, sp4 Product Selection Permitted Signatures: Meg Conn RN RN kc6 Sahil Delgado MD MD sp4 Brannon Burrell tl4
--- NOTE | 2023-06-19 21:40 | ER ---
Nurse's Notes [facility] Name: Kiran Daigle Age: 22 yrs Sex: Female : 2000 Arrival Date: 06/19/2023 Time: 20:22 Bed 12 Private MD: Diagnosis: Unspecified symptoms and signs involving the musculoskeletal system;Tension muscular pain, left trapezius pain Presentation: 06/19 20:31 Chief complaint: Patient states: Pt c/o left side neck pain that radiates into left tl4 shoulder blade x 2 hours. Pt denies any injury or heavy lifting. Coronavirus screen: At this time, the client does not indicate any symptoms associated with coronavirus-19. Ebola Screen: No symptoms or risks identified at this time. Initial Sepsis Screen: Does the patient meet any 2 criteria? No. Patient's initial sepsis screen is negative. Does the patient have a suspected source of infection? No. Patient's initial sepsis screen is negative. Risk Assessment: Do you want to hurt yourself or someone else? Patient reports no desire to harm self or others. Onset of symptoms was June 19, 2023 at 18:30. 20:31 Method Of Arrival: Ambulatory tl4 20:31 Acuity: JUMANA 4 tl4 Triage Assessment: 20:33 General: Appears uncomfortable, Behavior is calm, cooperative. Pain: Complains of pain tl4 in neck and posterior chest. EENT: No deficits noted. No signs and/or symptoms were reported regarding the EENT system. Neuro: No deficits noted. Cardiovascular: No deficits noted. Denies chest pain, diaphoresis, fatigue, lightheadedness, palpitations. Respiratory: No deficits noted. Denies cough, shortness of breath. GI: No deficits noted. No signs and/or symptoms were reported involving the gastrointestinal system. : No deficits noted. No signs and/or symptoms were reported regarding the genitourinary system. Derm: No deficits noted. No signs and/or symptoms reported regarding the dermatologic system. Historical: - Allergies: 20:33 No Known Allergies; tl4 - Home Meds: 20:33 None [Active]; tl4 - PMHx: 20:33 None; tl4 - Immunization history:: Adult Immunizations unknown. - Social history:: Smoking status: Patient denies any tobacco usage or history of. - Family history:: not pertinent. Screenin:20 [facility] ED Fall Risk Assessment (Adult) History of falling in the last 3 months, kc6 including since admission No falls in past 3 months (0 pts) Confusion or Disorientation No (0 pts) Intoxicated or Sedated No (0 pts) Impaired Gait No (0 pts) Mobility Assist Device Used No (0 pt) Altered Elimination No (0 pt) Score/Fall Risk Level 0 - 2 = Low Risk. Abuse screen: Denies threats or abuse. Denies injuries from another. Nutritional screening: No deficits noted. Tuberculosis screening: No symptoms or risk factors identified. Assessment: 21:20 Pain: Complains of pain in left arm and neck Pain does not radiate. Pain currently is 8 kc6 out of 10 on a pain scale. Neuro: Level of Consciousness is awake, alert, obeys commands, Oriented to person, place, time, situation, Appropriate for age. Cardiovascular: Capillary refill < 3 seconds. Respiratory: Airway is patent Trachea midline Respiratory effort is even, unlabored, Respiratory pattern is regular, symmetrical. GI: No signs and/or symptoms were reported involving the gastrointestinal system. : No signs and/or symptoms were reported regarding the genitourinary system. EENT: No signs and/or symptoms were reported regarding the EENT system. Derm: No signs and/or symptoms reported regarding the dermatologic system. Skin is intact, is healthy with good turgor, Skin is pink, warm \T\ dry. Musculoskeletal: No signs and/or symptoms reported regarding the musculoskeletal system. Circulation, motion, and sensation intact. Capillary refill < 3 seconds, Range of motion: intact in all extremities. Vital Signs: 20:31 BP 120 / 78; Pulse 68; Resp 16; Temp 98.5; Pulse Ox 99% on R/A; Weight 81.65 kg; Height tl4 5 ft. 5 in. ; Pain 8/10; 20:31 Body Mass Index 29.95 (81.65 kg, 165.1 cm) tl4 20:31 Pain Scale: Adult tl4 [place] Coma Score: 21:34 Eye Response: spontaneous(4). Motor Response: obeys commands(6). Verbal Response: sp4 oriented(5). Total: 15. ED Course: 20:27 Patient arrived in ED. jj6 20:31 Sahil Delgado MD is Attending Physician. sp4 20:33 Triage completed. tl4 20:34 Arm band placed on right wrist. tl4 21:20 Patient has correct armband on for positive identification. Bed in low position. Call kc6 light in reach. Side rails up X 1. Client placed on continuous cardiac and pulse oximetry monitoring. NIBP monitoring applied. 21:20 Patient maintains SpO2 saturation greater than 95% on room air. kc6 21:49 No provider procedures requiring assistance completed. Patient did not have IV access kc6 during this emergency room visit. Administered Medications: 21:20 Drug: Ibuprofen PO 800 mg PO once Route: PO; kc6 21:48 Follow up: Response: No adverse reaction; Pain is decreased kc6 21:20 Drug: Methocarbamol PO 750 mg PO once Route: PO; kc6 21:48 Follow up: Response: No adverse reaction; Pain is decreased; RASS: Alert and Calm (0) kc6 21:20 Drug: traMADol PO 100 mg PO once Route: PO; kc6 21:48 Follow up: Response: No adverse reaction; Pain is decreased; RASS: Alert and Calm (0) kc6 Medication: 21:49 VIS not applicable for this client. kc6 Outcome: 21:40 Discharge ordered by . sp4 21:49 Discharged to home ambulatory, kc6 21:49 Condition: good 21:49 Discharge instructions given to patient, Instructed on discharge instructions, follow up and referral plans. medication usage, Demonstrated understanding of instructions, follow-up care, medications, Prescriptions given X 2, 21:49 Patient left the ED. kc6 Signatures: Sweta Soliman Kaitlyn, RN RN kc6 Sahil Delgado MD MD sp4 LogdaBrannon tl4
[2023-06-20 10:23] VITALS: BP 120/78; TEMP 98.5; O2SAT 99
== END ==
LOC: ER 20:22
DX: R29.91 Unspecified symptoms and signs involving the musculoskeletal system (principal)

== ENCOUNTER 2024-03-31 09:32 | Emergency (ER) | payer OTHER ==
[2024-03-31 10:11] LABS: Absolute Eosinophils 0.1 K/uL (0-0.5); Absolute Lymphocytes (CBC) 1.6 K/uL (0.7-4.9); Absolute Monocytes 0.4 K/uL (0.1-1.3); Absolute Neutrophil 3.5 K/uL (1.8-8.0); Basophils % 0.4 % (0-1.3); Eosinophils % 1.3 % (0-4.4); Hematocrit 36.7 % (36.0-45.0); Hemoglobin 12.5 g/dL (12.0-15.0); Lymphocytes % 29.1 % (15.3-44.8); MCH 30.2 pg (27.0-35.0); MCHC 33.9 g/dL (32.0-36.0); MPV 8.6 fL (7.6-11.3); Monocytes % 6.8 % (3.3-12.3); Neutrophils % 62.4 % (41.7-73.7); Nucleated Red Blood Cells % 0.2 % (0-0); Platelets 330 thou/uL (152-406); RBC Red Blood Cell Count 4.13 M/uL (3.86-4.86); Red Cell Distribution Width 12.5 % (12.1-15.2)
[2024-03-31 10:24] LABS: Specific Gravity 1.024 (1.005-1.030); Sqamous Epithelial 20-50 /HPF (None Seen); Transitional Epithelial <5 /HPF (None Seen); Urine Bacteria 20-50 /HPF (<20); Urine Bilirubin NEGATIVE (Negative); Urine Blood 3+ (OVER) (Negative); Urine Clarity Extremely Turbid (Clear); Urine Color Light-Yellow (Yellow); Urine Culture Reflex Order NOT NEEDED; Urine Glucose NEGATIVE (Negative); Urine Ketones NEGATIVE (Negative); Urine Microscopic Reflex YN ORDER UMIC; Urine Mucus Slight /HPF (None Seen); Urine Nitrite 1+ (Negative); Urine Protein TRACE (Negative); Urine Urobilinogen Normal (Normal)
[2024-03-31 10:46] LABS: Anion Gap 8.4 mEq/L (5.0-15.0); Potassium 3.4 mEq/L (3.5-5.1)
--- NOTE | 2024-03-31 12:07 | EDPHYS ---
Physician Documentation [facility] Name: Kiran Daigle Age: 23 yrs Sex: Female : 2000 Arrival Date: 03/31/2024 Time: 09:32 Bed 5 Private MD: ED Physician Adán Gutierrez HPI: 03/31 09:47 This 23 yrs old Female presents to ER via Ambulatory with complaints of dr5 Vaginal Bleeding, + Preg <12wks, Abdominal Cramping. 09:47 The patient presents to the emergency department with vaginal bleeding, that is light, dr5 described as spotting, with no clots, Started this morning. Patient is a 23-year-old female with 4 children at home presenting with vaginal bleeding that started this morning. Patient reports 2 positive tests over the last 2 weeks. Patient also reports having tubal ligation completed on May 11, 2023.. 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 - Infectious Disease History:: Denies. - Social history:: Smoking status: Patient denies any tobacco usage or history of. ROS: 10:30 Constitutional: as per hpi dr5 Exam: 10:30 Constitutional: This is a well developed, well nourished patient who is awake, alert, dr5 and in no acute distress. Head/Face: Normocephalic, atraumatic. Neck: Trachea midline, no thyromegaly or masses palpated, and no cervical lymphadenopathy. Supple, full range of motion without nuchal rigidity, or vertebral point tenderness. No Meningismus. Chest/axilla: Normal chest wall appearance and motion. Nontender with no deformity. No lesions are appreciated. Cardiovascular: Regular rate and rhythm with a normal S1 and S2. Normal PMI, no JVD. No pulse deficits. Respiratory: Lungs have equal breath sounds bilaterally, clear to auscultation. No rales, rhonchi or wheezes noted. No increased work of breathing, no retractions or nasal flaring. 10:30 Abdomen/GI: Inspection: abdomen appears normal, Bowel sounds: normal, Palpation: mild abdominal tenderness, in the right lower quadrant, 10:30 Neuro: Exam negative for acute changes, Orientation: is normal, Vital Signs: 09:43 BP 109 / 59; Pulse 71; Resp 17; Temp 97.6; Pulse Ox 97% on R/A; Weight 65.77 kg; Height ll1 5 ft. 4 in. ; Pain 4/10; 10:30 BP 112 / 74; Pulse 69; Resp 18; Pulse Ox 100% on R/A; mb9 12:00 BP 118 / 79; Pulse 66; Resp 16; Pulse Ox 100% on R/A; mb9 13:25 BP 118 / 84; Pulse 82; Resp 16; Pulse Ox 97% on R/A; cm10 09:43 Body Mass Index 24.89 (65.77 kg, 162.56 cm) ll1 09:43 Pain Scale: Adult ll1 MDM: 09:36 Medical Screening Exam initiated dr5 10:47 Discussion of test interpretation with radiology: I had a discussion with radiology dr5 regarding a test interpretation. civil geotechnical engineer called me and stated likely right sided ectopic .. 15:44 Differential diagnosis: threatened Ab, inevitable Ab, complete Ab, ectopic . dr5 Data reviewed: vital signs, nurses notes. Consideration of Admission/Observation Patient was admitted/placed on observation. I considered the following discharge prescriptions or medication management in the emergency department Medications were administered in the Emergency Department. See MAR. Care significantly affected by the following Social Determinants of Health: Poor access to healthcare and/or lack of insurance, Poor access to transportation. Counseling: I had a detailed discussion with the patient and/or guardian regarding the historical points, exam findings, and any diagnostic results supporting the discharge/admit diagnosis, lab results, radiology results, the need to transfer to another facility, [facility] does not immediately have the required specialist, Transfer to [facility] because we do not have OBGYN service., to return to the emergency department if symptoms worsen or persist or if there are any questions or concerns that arise at home. Medication response: Morphine. Response to treatment: the patient's symptoms have markedly improved after treatment. Transition of care:. ED course: 23-year-old female with right sided ectopic transferred to [facility] for COATING MANAGER consult. Morphine chosen due to patient likely going to surgery. Patient was agreeable to transfer.. 03/31 09:42 Order name: Abo/rh Typing; Complete Time: 10:41 dr5 03/31 09:42 Order name: Basic Metabolic Panel; Complete Time: 10:47 dr5 03/31 09:42 Order name: CBC with Diff; Complete Time: 10:13 dr5 03/31 09:42 Order name: Test, Urine; Complete Time: 10:26 dr5 03/31 09:42 Order name: Quantitative Hcg; Complete Time: 10:47 dr5 03/31 09:45 Order name: Urinalysis w/ reflexes; Complete Time: 10:26 dr5 03/31 09:42 Order name: US Transvaginal Ob; Complete Time: 15:44 dr5 03/31 09:42 Order name: IV Saline Lock; Complete Time: 09:47 dr5 03/31 09:42 Order name: Labs collected and sent; Complete Time: 09:47 dr5 03/31 09:42 Order name: NPO; Complete Time: 09:47 dr5 Administered Medications: 13:22 Drug: morphine IVP or IV 2 mg IVP once over 4 mins Route: IVP; Infused Over: 4 mins; cm10 Site: right antecubital; 13:24 Follow up: Response: Medication Administered at Departure cm10 13:22 Drug: Ondansetron IVP 4 mg IVP once; over 2 minutes Route: IVP; Site: right antecubital;cm10 13:25 Follow up: Response: Medication Administered at Departure cm10 Disposition Summary: 03/31/24 12:06 Transfer Ordered Notes: Transfer Location: [facility]-System dr5 Reason: Higher level of care dr5 Condition: Stable dr5 Problem: new dr5 Symptoms: are unchanged dr5 Accepting Physician: Nba(03/31/24 13:25) cm10 Diagnosis - Unspecified ectopic without intrauterine dr5 Forms: - Medication Reconciliation Form dr5 - SBAR form dr5 Signatures: Dispatcher [employer] Rolan Gomez RN RN ll1 Nuzhat Quintero RN RN mb9 Isabel Baca RN RN cm10 Ignacio Carson, [employer]-C [employer]-Cdr5 Corrections: (The following items were deleted from the chart) 09:42 09:42 Transvaginal Ob+US.RAD.BRZ ordered. EDMS EDMS 13:25 12:06 Nba dr5 cm10
--- NOTE | 2024-03-31 12:07 | ER ---
Nurse's Notes [facility] Name: Kiran Daigle Age: 23 yrs Sex: Female : 2000 Arrival Date: 03/31/2024 Time: 09:32 Bed 5 Private MD: Diagnosis: Unspecified ectopic without intrauterine Presentation: 03/31 09:43 Chief complaint: Patient states: Low back cramping for 2 days. Started to have brownish ll1 vaginal bleeding today. + nausea. Positive test last week. G5, P4. Coronavirus screen: Client denies travel out of the [place] in the last 14 days. At this time, the client does not indicate any symptoms associated with coronavirus-19. Ebola Screen: Patient denies travel to an Ebola-affected area in the 21 days before illness onset. Initial Sepsis Screen: Does the patient meet any 2 criteria? No. Patient's initial sepsis screen is negative. Does the patient have a suspected source of infection? No. Patient's initial sepsis screen is negative. Risk Assessment: Do you want to hurt yourself or someone else? Patient reports no desire to harm self or others. Onset of symptoms was March 30, 2024. 09:43 Method Of Arrival: Ambulatory ll1 09:43 Acuity: JUMANA 3 ll1 Triage Assessment: 09:45 General: Appears uncomfortable, Behavior is calm, cooperative, appropriate for age. ll1 Pain: Complains of pain in pelvis Pain currently is 4 out of 10 on a pain scale. Quality of pain is described as crampy. : Reports vaginal bleeding that is. [employer]: 09:49 LMP 02/28/2024, unknown mb9 09:50 5, Full Term 4, unknown dr5 Historical: - Allergies: 09:43 No Known Allergies; ll1 - PMHx: 09:43 None; ll1 - PSHx: 09:43 tubal ligation; ll1 - Immunization history:: Adult Immunizations up to date. - Infectious Disease History:: Denies. - Social history:: Smoking status: Patient denies any tobacco usage or history of. Screenin:38 [facility] ED Fall Risk Assessment (Adult) History of falling in the last 3 months, mb9 including since admission No falls in past 3 months (0 pts) Confusion or Disorientation No (0 pts) Intoxicated or Sedated No (0 pts) Impaired Gait No (0 pts) Mobility Assist Device Used No (0 pt) Altered Elimination No (0 pt) Score/Fall Risk Level 0 - 2 = Low Risk Oriented to surroundings, Maintained a safe environment, Educated pt \T\ family on fall prevention, incl call for assistance when getting out of bed. Abuse screen: Denies threats or abuse. Nutritional screening: No deficits noted. Tuberculosis screening: No symptoms or risk factors identified. Assessment: 09:47 General: Appears in no apparent distress. Behavior is calm. Pain: Complains of pain in mb9 pelvis Pain does not radiate. Pain currently is 0 out of 10 on a pain scale. Quality of pain is described as crampy, Pain began suddenly, Is continuous. Neuro: Yun Agitation-Sedation Scale (RASS): 0 - Alert and Calm Level of Consciousness is awake, alert, obeys commands, Oriented to person, place, time, situation, Appropriate for age. Cardiovascular: Patient's skin is warm and dry. Respiratory: Airway is patent Respiratory effort is even, unlabored, Respiratory pattern is regular, symmetrical. GI: Abdomen is round non-distended, Bowel sounds present X 4 quads. Abd is soft X 4 quads Abdomen is tender to palpation in suprapubic area. : Reports cramping, vaginal bleeding that is brown, light flow. EENT: No signs and/or symptoms were reported regarding the EENT system. Derm: Skin is pink, warm \T\ dry. Musculoskeletal: Range of motion: intact in all extremities. 11:02 Reassessment: No changes from previously documented assessment. Patient and/or family mb9 updated on plan of care and expected duration. Pain level reassessed. Patient is alert, oriented x 3, equal unlabored respirations, skin warm/dry/pink. 12:04 Reassessment: No changes from previously documented assessment. Patient and/or family mb9 updated on plan of care and expected duration. Pain level reassessed. Patient is alert, oriented x 3, equal unlabored respirations, skin warm/dry/pink. 12:13 Reassessment: Report called to JUAN Bledsoe at [facility]. 12:39 Reassessment: No changes from previously documented assessment. Patient and/or family mb9 updated on plan of care and expected duration. Pain level reassessed. Patient is alert, oriented x 3, equal unlabored respirations, skin warm/dry/pink. 13:18 Reassessment: Report given to [facility]. mb9 Vital Signs: 09:43 BP 109 / 59; Pulse 71; Resp 17; Temp 97.6; Pulse Ox 97% on R/A; Weight 65.77 kg; Height ll1 5 ft. 4 in. ; Pain 4/10; 10:30 BP 112 / 74; Pulse 69; Resp 18; Pulse Ox 100% on R/A; mb9 12:00 BP 118 / 79; Pulse 66; Resp 16; Pulse Ox 100% on R/A; mb9 13:25 BP 118 / 84; Pulse 82; Resp 16; Pulse Ox 97% on R/A; cm10 09:43 Body Mass Index 24.89 (65.77 kg, 162.56 cm) ll1 09:43 Pain Scale: Adult ll1 ED Course: 09:35 Patient arrived in ED. im 09:36 [facility] 09:36 Adán Gutierrez MD is Attending Physician. dr5 09:36 Arm band placed on Patient placed in an exam room, on a stretcher. ll1 09:37 Nuzhat Quintero RN is Primary Nurse. mb9 09:38 Placed in gown. Bed in low position. Call light in reach. Side rails up X 1. Provided mb9 Education on: press call light if needing anything. Client placed on continuous cardiac and pulse oximetry monitoring. NIBP monitoring applied. Door closed. Noise minimized. Warm blanket given. Pillow given. 09:45 Triage completed. ll1 09:47 Initial lab(s) drawn, by me, sent to lab. Urine collected: clean catch specimen. mb9 Inserted saline lock: 20 gauge in right antecubital area, using aseptic technique. Blood collected. Flushed with 10 mL NS. 09:49 No provider procedures requiring assistance completed. mb9 09:57 Patient taken to ultrasound. via wheelchair. mb9 09:57 Urinalysis w/ reflexes Sent. mb9 10:05 US Transvaginal Ob In Process Unspecified. EDMS 10:38 initiated transfer to [facility]. bd 12:39 Patient admitted, IV remains in place. mb9 Administered Medications: 13:22 Drug: morphine IVP or IV 2 mg IVP once over 4 mins Route: IVP; Infused Over: 4 mins; cm10 Site: right antecubital; 13:24 Follow up: Response: Medication Administered at Departure cm10 13:22 Drug: Ondansetron IVP 4 mg IVP once; over 2 minutes Route: IVP; Site: right antecubital;cm10 13:25 Follow up: Response: Medication Administered at Departure 10 Medication: 09:38 VIS not applicable for this client. mb9 Outcome: 12:06 ER care complete, transfer ordered by . dr5 13:19 Transferred by ground EMS to [facility], Transfer form mb9 completed. X-rays sent w/ patient. 13:19 Condition: stable 13:19 Instructed on the need for transfer, 13:25 Patient left the ED. cm10 Signatures: Dispatcher [employer] EDMS Cecile Worthington Shelby, RN RN ss Rolan Barkley RN RN ll1 Nuzhat Quintero RN RN mb9 Ashleigh Dixon Clarissa RN RN cm10 Ignacio Carson, TOOL GRINDING TECHNICIAN-C TOOL GRINDING TECHNICIAN-Cdr5 Corrections: (The following items were deleted from the chart) 13:19 10:45 BP 118 / 79; Pulse 66bpm; Resp 16bpm; Pulse Ox 100% RA; mag mb9
[2024-03-31] MEDS ORDERED: MORPHINE 2 MG/ML SYR ONE (13:17)
[2024-03-31] MEDS ORDERED: ONDANSETRON 4 MG/2 ML VIAL ONE (13:17)
[2024-03-31 13:46] VITALS: TEMP 97.6
[2024-03-31 13:52] VITALS: BP 118/84; O2SAT 97
--- NOTE | 2024-03-31 14:40 | RAD REPORT ---
EXAM: Transvaginal OB HISTORY: VAGINAL BLEEDING COMPARISON: None TECHNIQUE: Multiple grayscale and color Doppler images were obtained in a transvaginal pelvic ultraso und. Spectral analysis of the Doppler waveforms of the ovaries were performed. FINDINGS: No IUP identified. Complex mass in the right adnexa adjacent to the right ovary measuring 4.1 x 3.3 cm. RIGHT OVARY: The right ovary measures 3.6 x 2.6 x 2.5 cm with volume of 12.1 cc. Corpus luteum in the right ovary. LEFT OVARY: The left ovary measures 2.3 x 2.1 x 1.8 cm volume of 4.5 cc. IMPRESSION: 1. No IUP identified. 2. Complex mass in the right adnexa adjacent to the right ovary is suspicious for an ectopic pregnanc y. THIS REPORT CONTAINS FINDINGS THAT MAY BE CRITICAL TO PATIENT CARE. The emergent findings were communicated to Artemio Carson on 03/31/2024 10:20 AM 3. Bilateral ovarian blood flow. 4. No free fluid.
== END 2024-03-31 13:25 | disposition short-term general hospital (02) ==
LOC: ER 09:32
DX: O00.90 Unspecified ectopic pregnancy without intrauterine pregnancy (principal)
CPT/HCPCS: 85025; 81001; 80048; 36415; 86900; 81025; 86901; 84702; 76817; J2270; J2405; 96374; 96375; 99285

== ENCOUNTER 2025-02-16 09:12 | Emergency (ER) | payer SELFPAY ==
--- OUTSIDE RECORDS SUMMARY | 2025-02-16 09:25 | XMS REPORT | Continuity of Care Document ---
Author Name Unknown Address [address] [facility] [address] [place] [address] [facility] Address [address] [facility]. [address] [place] [address] Care Team Providers Care Chief Nursing Executive Name Role Phone PCP, PATIENT DOES NOT HAVE A Primary Care Physic say Unavailable COSMO SAMANIEGO Attending Clinician Unavailable Tammie Dumas CNM Attending Clinician [phone] Doctor Unassigned, Ryegate Attending Clinician U MARRY Malagon Attending Clinician Unavailable Marry Miller DO Attending Clinician [phone] Loc Covington MD Attending Clinician [phone] MARRY SESAY Attending Clinician Unavailable ARMANDO GUZMAN Attending Clinician Unavail able SREEKANTH DAWSON Attending Clinician Unavailable SREEKANTH DAWSON Attending Clinician Unavailable Samir MULLINS, Sreekanth Attending Clinician + Ford Perkins MD, Ferris Attending Clinician + Placido MULLINS, Mike Attending Clinician + [phone] Sherie MULLINS, Sherice Dupont Attending Clinicia n A[place] [facility] Armando C Attending Clinician + Piter CNM, Tammie Owens Attending Clinician [phone] TAMMIE DUMAS Attending Clinician Unavaila ble FORD PERKINS, SARAH Attending Clinician Unav ailable 1, [facility] Us Room Attending Clinician Unavailab le Doctor Unassigned, Ryegate Attending Clinician U navailable Ultrasound, [facility] Attending Clinician Unavaila ble Lab, [facility] Attending Clinician Unavailable Alonzo MULLINS, Martha Charles Attending Clinician + Raymundo MSN [facility], Cece Attending Clinician Davian Wagner MD Attending Clinician + [phone] Tomas Canseco MD Attending Clinician [phone] [facility], [facility] Attending Clinician Mala vailable SWETA ERWIN Attending Clinician Unavailab rashid Erwin MSN, Sweta Owens Attending Clinician [phone] AMBAR CUBA Attending Clinician Unavailable Alex Browne MD Attending Clinician + ALEX BROWNE Attending Clinician Unavailable JOEY MONTES Attending Clinician Unavailab ADÁN Jorgensen Attending Clinician Unavailable Gabriel Blanton DO Attending Clinician +[phone] Fred Lawson MD Attending Clinician [phone] Janay [facility], Courtney Montes De Oca Attending Clinician + COURTNEY GRAY Attending Clinician Unavail able TC MILLER Attending Clinician Unavailarielle Miller [facility], Tc Grant Attending Clinician [phone] Artem ZALDIVAR Pawan Herrera Attending Clinician Marshall Burleson MD Attending Clinician + [phone] Meagan Saeed MD Attending Clinician [phone] COSMO SAMANIEGO Admitting Clinician Unavailable LOC COVINGTON Admitting Clinician Unavailable Loc Covington MD Admitting Clinician [phone] SREEKANTH DAWSON Admitting Clinician Unavailable Sreekanth Dawson MD Admitting Clinician [phone] Martha Mendez MD Admitting Clinician + MARTHA MENDEZ Admitting Clinician Unav ailable ADÁN BRICEÑO Admitting Clinician Unavailable Marshall Burleson MD Admitting Clinician + [phone] Payers Payer Name Policy Type Policy Number Effective Date Expirati on Date Source [facility] [id number] 2019 00:00:00 MEDICAID PENDING PENDING 2019 00:00:00 [place] [id number] 2019 00:00:00 Problems Condition Name Condition Details Condition Category Status Onset Date Resolution Date Last Treatment Date Treating Clinician Comments Source Right tubal without intrauteri ne Right tubal without intrauteri ne Disease Active 2023-05 00:00: 00 [facility] Encounter for assessment for suspected ectopic Encounter for assessment for suspected ectopic Disease Active 2023-05 00:00: 00 [facility] Right tubal , unspecifie d whether intrauteri ne present Right tubal , unspecifie d whether intrauteri ne present Disease Active 2023-05 00:00: 00 [facility] Encounter for tubal ligation Encounter for tubal ligation Disease Active 2022-05 00:00: 00 [facility] Uterine contractio ns Uterine contractio ns Disease Active 2022-05 00:00: 00 [facility] 37 weeks gestation of 37 weeks gestation of Disease Active 2023-1 2-22 00:00: 00 [facility] Positive GBS test Positive GBS test Disease Active 2022-05 2-19 00:00: 00 [facility] Maternal varicella, non-immune Maternal varicella, non-immune Disease Active 8-10 00:00: 00 Overview: Formattin g of this note might be different from the original. Address pp [facility] Multiparit y Multiparit y Disease Active 8-09 00:00: 00 [facility] Short interval between pregnancie s affecting , antepartum Short interval between pregnancie s affecting , antepartum Disease Active 8-09 00:00: 00 [facility] Single live Single live Disease Active 1-14 00:00: 00 [facility] Anemia, Anemia, Disease Active 1-14 00:00: 00 [facility] Obesity (BMI 30-39.9) Obesity (BMI 30-39.9) Disease Active 1-13 00:00: 00 [facility] Over weight Over weight Disease Active 1-13 00:00: 00 [facility] Supervisio n of high-risk Supervisio n of high-risk Disease Active 9-15 00:00: 00 [facility] Supervisio n of high-risk with insufficie nt care Supervisio n of high-risk with insufficie nt care Disease Active 9-15 00:00: 00 [facility] UTI (urinary tract infection) during UTI (urinary tract infection) during Disease Active 7- 00:00: 00 [facility] (normal spontaneou s vaginal delivery) (normal spontaneou s vaginal delivery) Disease Active 2019-05 0-27 00:00: 00 [facility] Anemia of mother in , antepartum Anemia of mother in , antepartum Disease Active 8-05 00:00: 00 [facility] Anemia of mother in , antepartum Anemia of mother in , antepartum Disease Active 8-05 00:00: 00 [facility] BV (bacterial vaginosis) BV (bacterial vaginosis) Disease Resolve d 2022-05 0-02 00:00: 00 2023-04-11 00:00:00 2023-04-11 20:37:30 [facility] (spontaneo us vaginal delivery) (spontaneo us vaginal delivery) Disease Resolve d 0 1-14 00:00: 00 2022-12-27 00:00:00 2022-12-27 14:02:21 [facility] Obesity affecting in third trimester Obesity affecting in third trimester Disease Resolve d 2021-05 2-29 00:00: 00 2022-12-27 00:00:00 2022-12-27 14:02:08 [facility] Susceptibl e to varicella (non-immun e), currently Susceptibl e to varicella (non-immun e), currently Disease Resolve d 9-16 00:00: 00 2022-12-27 00:00:00 2022-12-27 14:02:05 Overview: Formattin g of this note might be different from the original. Address pp [facility] Chlamydia infection affecting Chlamydia infection affecting Disease Resolve d 9-16 00:00: 00 2022-12-27 00:00:00 2022-12-27 14:01:58 Overview: Formattin g of this note might be different from the original. Pending tobias [facility] Short interval between pregnancie s affecting , antepartum Short interval between pregnancie s affecting , antepartum Disease Resolve d 0 9-15 00:00: 00 2022-12-27 00:00:00 2022-12-27 14:02:03 [facility] 39 weeks gestation of 39 weeks gestation of Disease Resolve d 2021-0 2-03 00:00: 00 2022-12-27 00:00:00 2022-12-27 14:02:01 [facility] Uterine contractio ns during Uterine contractio ns during Disease Resolve d 2022-0 1-13 00:00: 00 2022-06-02 00:00:00 2022-06-02 14:11:02 [facility] Pain of round ligament during Pain of round ligament during Disease Resolve d 2022-0 1-06 00:00: 00 2022-06-02 00:00:00 2022-06-02 14:11:01 [facility] Multiparit y Multiparit y Disease Resolve d 2021-0 9-15 00:00: 00 2022-06-02 00:00:00 2022-06-02 14:11:03 [facility] Over weight Over weight Disease Resolve d 3-16 00:00: 00 2022-06-02 00:00:00 2022-06-02 14:10:49 [facility] Other general counseling and advice for contracept fatmata management Other general counseling and advice for contracept fatmata management Disease Resolve d 0 4-05 00:00: 00 2022-02-02 00:00:00 2022-02-02 14:56:03 [facility] Anemia of mother in , antepartum Anemia of mother in , antepartum Disease Resolve d 2020-05 1-09 00:00: 00 2022-02-02 00:00:00 2022-02-02 14:56:06 [facility] Susceptibl e to varicella (non-immun e), currently Susceptibl e to varicella (non-immun e), currently Disease Resolve d 0 3-17 00:00: 00 2022-02-02 00:00:00 2022-02-02 14:55:59 [facility] Routine follow-up Routine follow-up Disease Resolve d 2021-0 3-15 00:00: 00 2021-08-23 00:00:00 2021-08-23 14:37:34 [facility] Multiparit y Multiparit y Disease Resolve d 2020-0 6-28 00:00: 00 2021-08-02 00:00:00 2021-08-02 16:22:54 [facility] Short interval between pregnancie s affecting , antepartum Short interval between pregnancie s affecting , antepartum Disease Resolve d 2020-0 6-28 00:00: 00 2021-08-02 00:00:00 2021-08-02 16:22:56 [facility] Supervisio n of high-risk Supervisio n of high-risk Disease Resolve d 2020-0 6-28 00:00: 00 2021-08-02 00:00:00 2021-08-02 16:22:58 [facility] Nausea/vom iting in Nausea/vom iting in Disease Resolve d 2020-0 6-28 00:00: 00 2021-03-28 00:00:00 2021-03-28 12:59:45 [facility] Well woman exam Well woman exam Disease Resolve d 2019-05 2-11 00:00: 00 2020-11-15 00:00:00 2020-11-15 14:13:54 [facility] Obstetric vaginal and bilateral labial laceration s repaired, without perineal laceration Obstetric vaginal and bilateral labial laceration s repaired, without perineal laceration Disease Resolve d 2019-1 0-27 00:00: 00 2020-11-15 00:00:00 2020-11-15 14:14:03 [facility] Routine follow-up Routine follow-up Disease Resolve d 2019-05 1-18 00:00: 00 2020-04-30 00:00:00 2020-04-30 16:48:52 [facility] Single live Single live Disease Resolve d 2019-1 0-27 00:00: 00 2020-04-07 00:00:00 2020-04-07 16:29:30 [facility] Single live Single live Disease Resolve d 2019-1 0-27 00:00: 00 2020-04-07 00:00:00 2020-04-07 16:29:30 [facility] 39 weeks gestation of 39 weeks gestation of Disease Resolve d 2019-1 0-26 00:00: 00 2020-04-07 00:00:00 2020-04-07 16:29:37 [facility] Indication for care or interventi on in labor or delivery-I OL Indication for care or interventi on in labor or delivery-I OL Disease Resolve d 2019-1 0-26 00:00: 00 2020-04-07 00:00:00 2020-04-07 16:29:33 [facility] Supervisio n of high-risk Supervisio n of high-risk Disease Resolve d 2019- 3-16 00:00: 00 2020-04-07 00:00:00 2020-04-07 16:29:29 [facility] UTI in UTI in Disease Resolve d 2019- 3-16 00:00: 00 2020-04-07 00:00:00 2020-04-07 16:29:26 [facility] Allergies, Adverse Reactions, Alerts Allergy Name Allergy Type Status Severity Reaction(s) Onset Date Inactive Date Treating Clinician Comments Source NO KNOWN ALLERGIE S Drug Class Active [facility] Social History Social Habit Start Date Stop Date Quantity Comments Source ASSERTION 2022-09-07 00:00:00 Not [facility] Gender identity [facility] SDOH Alcohol Std Drinks [facility] History SDOH Alcohol Binge [facility] History SDOH Alcohol Comment [place] [facility] Alcoholic beverage intake 2025-01-27 00:00:00 2025-01-27 00:00:00 Ex-drinker (finding) [facility] Tobacco use and exposure 2024-04-01 00:00:00 2024-04-01 00:00:00 Smokeless tobacco non-user [facility] Alcohol intake 2023-05-11 00:00:00 2023-05-11 00:00:00 Ex-drinker (finding) [facility] History of Social function 2023-02-14 00:00:00 2023-02-14 00:00:00 [facility] Exposure to SARS-CoV-2 (event) 2022-06-14 00:00:00 2022-06-24 06:15:00 Not sure [facility] History SDOH Alcohol Frequency 2019-08-04 00:00:00 2019-08-04 00:00:00 1 [facility] Sex assigned at 2000 00:00:00 2000 00:00:00 [facility] Smoking Status Start Date Stop Date Source Never smoked tobacco [facility] Medications Ordered Medication Name Filled Medication Name Start Date Stop Date Current Medication? Ordering Clinician Indication Dosage Frequency Signature (SIG) Comments Components Source lidocaine-r acepinep-te tracaine (L.E.T. (LIDO-EPINE PH-TETRA)) 4-0.05-0.5 % topical gel 3 mL 01-27 18:30: 00 01-27 17:38 :00 No 3mL 3 mL, Topical, ONCE, 1 dose, On Sun01/27/25 at 1330, Routine [facility] lidocaine 1% (XYLOCAINE) 10 mg/mL (1 %) injection 10 mL 01-27 17:30: 00 01-27 17:38 :00 No 10mL 10 mL, Infiltrati on, ONCE, 1 dose, On Sun01/27/25 at 1230, BETTY [facility] HYDROcodone -acetaminop hen (NORCO 5) 5-325 mg tablet 1 tablet 01-27 17:30: 00 01-27 17:25 :00 No 1{tbl} 1 tablet, Oral, ONCE, 1 dose, On Sun01/27/25 at 1230, BETTY [facility] ondansetron (ZOFRAN) tablet 4 mg 2023-05 05:05: 00 04-02 05:29 :00 No 4mg 4 mg, Oral, ONCE, 1 dose, On Sun04/01/24 at 2315, Routine [facility] HYDROcodone -acetaminop hen (NORCO 5) tablet 1 tablet 2023-05 02:30: 00 04-02 03:08 :00 No 1{tbl} 1 tablet, Oral, ONCE, 1 dose, On Sun04/01/24 at 2030, Routine, PACU [facility] ibuprofen (IBU) tablet 800 mg 2023-05 02:15: 00 Yes 800mg 800 mg, Oral, Q6H, First dose on Sun04/01/24 at 2014, Until Discontinu ed, Routine [facility] acetaminoph en (TYLENOL) tablet 650 mg 2023-05 02:15: 00 Yes 650mg 650 mg, Oral, Q6H, First dose on Sun04/01/24 at 2015, Until Discontinu ed, Routine [facility] oxyCODONE immediate release tablet 5 mg 2023-05 02:14: 17 Yes 5mg 5 mg, Oral, Q6HPRN, Starting on Sun04/01/24 at 2014, Until Discontinu ed, Routine, Pain (scale 7-10), 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 [facility] ibuprofen 800 mg tablet ibuprofen 800 mg tablet 2023-05 00:00: 00 Yes [id number] 800mg Take 1 tablet by mouth every 6 (six) hours. [facility] sennosides- docusate sodium 8.6-50 mg per tablet sennosides- docusate sodium 8.6-50 mg per tablet 2023-05 00:00: 00 Yes [id number] 1{tbl} Take 1 tablet by mouth in the morning. [facility] oxyCODONE 5 mg immediate release tablet 2023-05 00:00: 00 04-10 05:59 :00 No [id number] 5mg Take 1 tablet by mouth every 6 (six) hours as needed for Pain (scale 7-10) for up to 7 days. Indication s: acute pain [facility] acetaminoph en (TYLENOL) tablet 1,000 mg 2023-05 22:15: 00 04-01 21:36 :00 No 1000mg 1,000 mg, Oral, ONCE, 1 dose, On Sun04/01/24 at 1615, Routine [facility] docusate (COLACE) capsule 100 mg 2023-05 14:00: 00 04-02 20:47 :21 No 100mg 100 mg, Oral, Q12H, First dose on Sun04/01/24 at 0800, Until Discontinu ed, Routine [facility] simethicone (GAS RELIEF (SIMETHICON E)) chewable tablet 160 mg 2023-05 03:00: 00 04-02 20:47 :21 No 160mg 160 mg, Oral, PC+HS, First dose on Sun03/31/24 at 2100, Until Discontinu ed, Routine [facility] varicella virus vaccine live (VARIVAX) injection and diluent vial 2022-05 14:14: 16 Yes 1{each} 0.5 mL (1 Each), Subcutaneo us, ONCE-PRIOR TO DISCHARGE, 1 dose, Starting on Sun05/13/23 at 0814, Until Discontinu ed, Routine, Give vaccine prior to discharge [facility] ibuprofen 600 mg tablet 2022-05 00:00: 00 04-02 00:00 :00 No [id number] 600mg Take 1 tablet by mouth every 6 (six) hours as needed (Pain). Take with food or milk. [facility] HYDROcodone -acetaminop hen 5-325 mg tablet 2022-05 00:00: 00 04-02 00:00 :00 No [id number] 1{tbl} Take 1 tablet by mouth every 6 (six) hours as needed for Pain (scale 7-10). Indication s: acute pain [facility] [id number]- folic acid 29 mg iron- 1 mg per tablet 2022-05 00:00: 04-02 00:00 :00 No [id number] 1{tbl} Take 1 tablet by mouth in the morning. [facility] Iron Fum & P-FA-Vit B & C No.9 (INTEGRA PLUS) 125 mg iron- 1 mg Cap 2022-05 00:00: 00 04-02 00:00 :00 No [id number] 1{capsu le} Take 1 capsule by mouth in the morning. [facility] magnesium hydroxide (MILK OF MAGNESIA) 400 mg/5 mL suspension 30 mL 2022-05 15:00: 00 Yes 30mL 30 mL, Oral, DAILY, First dose on Sun05/12/23 at 0900, Until Discontinu ed, Routine [facility] simethicone (GAS RELIEF (SIMETHICON E)) chewable tablet 160 mg 2022-05 19:00: 00 Yes 160mg 160 mg, Oral, PC+HS, First dose on Sun05/11/23 at 1300, Until Discontinu ed, Routine [facility] rho(D) immune globulin (RHOGAM) syringe 300 mcg 2022-05 18:16: 35 Yes 300ug 300 mcg, Intramuscu lar, ONCE, For 1 dose, Conditiona l, Routine [facility] HYDROcodone -acetaminop hen (NORCO 5) 5-325 mg tablet 1 tablet 2022-05 18:16: 32 Yes 1{tbl} 1 tablet, Oral, Q6HPRN, Starting on Sun05/11/23 at 1216, Until Discontinu ed, Routine, Pain (scale 7-10) [facility] ibuprofen (IBU) tablet 600 mg 2022-05 18:16: 32 Yes 600mg 600 mg, Oral, Q6HPRN, Starting on Sun05/11/23 at 1216, Until Discontinu ed, Routine, Pain (scale 4-6) [facility] acetaminoph en (TYLENOL) tablet 650 mg 2022-05 18:16: 32 Yes 650mg 650 mg, Oral, Q6HPRN, Starting on Sun05/11/23 at 1216, Until Discontinu ed, Routine, Pain (scale 1-3) [facility] diphenhydrA MINE (BENADRYL) tablet 25 mg 2022-05 18:16: 32 Yes 25mg 25 mg, Oral, Q6HPRN, Starting on Sun05/11/23 at 1216, Until Discontinu ed, Routine, Sleep, Itching [facility] ondansetron (ZOFRAN (PF)) injection 4 mg 2022-05 18:16: 32 Yes 4mg 4 mg, Slow IV Push, Q8HPRN, Starting on Sun05/11/23 at 1216, Until Discontinu ed, Routine, Nausea and Vomiting (N/V) [facility] docusate (COLACE) capsule 200 mg 2022-05 18:16: 32 Yes 200mg 200 mg, Oral, QDAILYPRN, Starting on Sun05/11/23 at 1216, Until Discontinu ed, Routine, Constipati on [facility] benzocaine- menthol (DERMOPLAST ) 20-0.5 % topical spray 2022-05 18:16: 32 Yes Topical, PRN, Starting on Sun05/11/23 at 1216, Until Discontinu ed, Routine, Perineum discomfort [facility] ibuprofen (IBU) tablet 600 mg 2022-05 18:00: 00 05-12 13:10 :59 No 600mg 600 mg, Oral, Q6H, First dose on Sun05/11/23 at 1200, Until Discontinu ed, Routine [facility] HYDROcodone -acetaminop hen (NORCO 5) 5-325 mg tablet 2 tablet 2022-05 14:35: 18 05-12 13:10 :59 No 2{tbl} 2 tablet, Oral, Q6HPRN, Starting on Sun05/11/23 at 0835, Until Sun05/12/23 at 0710, Routine, Pain (scale 7-10) [facility] lactated ringers IV infusion 500 mL 2022-05 08:45: 00 05-11 08:25 :51 No 500mL at 999 mL/hr, 500 mL, IV Infusion, ONCE, 1 dose, On Sun05/11/23 at 0245, Routine [facility] ropivacaine 0.2 % (NAROPIN (PF)) epidural infusion 2022-05 08:05: 00 05-11 14:11 :22 No Epidural, CONTINUOUS PRN, Starting on Sun05/11/23 at 0205, Until Discontinu ed, Routine, Intra-op [facility] lidocaine-e pinephrine (XYLOCAINE W/EPINEPHRI NE) 2 %-1:200,000 injection 2022-05 08:04: 00 05-11 14:11 :22 No Epidural, ONCE INTRA PROCEDURE, Starting on Sun05/11/23 at 0204, Until Discontinu ed, Routine, Intra-op [facility] lidocaine 1% (XYLOCAINE) 100 mg/10 mL (1 %) injection 2022-05 07:55: 00 05-11 14:11 :22 No Infiltrati on, ONCE INTRA PROCEDURE, Starting on Sun05/11/23 at 0155, Until Discontinu ed, Routine, Intra-op [facility] sodium citrate-cit harry acid (BICITRA) 500-334 mg/5 mL solution 30 mL 2022-05 07:52: 24 05-11 07:53 :00 No 30mL 30 mL, Oral, PRE-PROCED URE ONCE, 1 dose, Starting on Sun05/11/23 at 0152, Until Sun05/11/23 at 0153, Routine, Surgery/Pr ocedure [facility] oxytocin (PITOCIN) 30 units in NS 500 mL IV infusion 2022-05 06:47: 38 05-12 13:10 :59 No 2mU/min at 2-40 mL/hr, IV Infusion, TITRATE, Starting on Sun05/11/23 at 0047, Until Sun05/12/23 at 0710, BETTY [facility] D5W-LR IV infusion 1,000 mL 2022-05 06:47: 05 05-12 13:10 :59 No 1000mL at 1-125 mL/hr, IV Infusion, TITRATE, Starting on Sun05/11/23 at 0047, Until 05/12/23 at 0710, Routine [facility] sodium citrate-cit harry acid (BICITRA) 500-334 mg/5 mL solution 30 mL 2022-05 06:47: 05 05-11 14:16 :00 No 30mL 30 mL, Oral, PRE-PROCED URE ONCE, 1 dose, Starting on Sun05/11/23 at 0047, Until Discontinu ed, Routine, Surgery/Pr ocedure [facility] metroNIDAZO LE 500 mg tablet 2022-05 00:00: 00 05-13 00:00 :00 No [id number] 500mg Take 1 tablet by mouth in the morning and 1 tablet in the evening. [facility] ferrous sulfate 325 mg (65 mg iron) tablet 2022-05 00:00: 00 05-13 00:00 :00 No [id number] 325mg Take 1 tablet by mouth in the morning and 1 tablet in the evening. [facility] ascorbic acid, vitamin C, 500 mg tablet 2022-05 00:00: 00 05-13 00:00 :00 No [id number] 500mg Take 1 tablet by mouth in the morning and 1 tablet at noon and 1 tablet in the evening. [facility] metroNIDAZO LE 500 mg tablet 2022-05 00:00: 00 04-24 05:59 :00 No [id number] 500mg Take 1 tablet by mouth in the morning and 1 tablet in the evening. Do all this for 7 days. [facility] Iron Fum & P-FA-Vit B & C No.9 (INTEGRA PLUS) 125 mg iron- 1 mg Cap 2022-05 00:00: 00 05-13 00:00 :00 No [id number] 1{capsu le} Take 1 capsule by mouth in the morning. [facility] metroNIDAZO LE 500 mg tablet 2022-05 0-02 00:00: 00 04-11 00:00 :00 No [id number] 500mg Take 1 tablet by mouth in the morning and 1 tablet in the evening. [facility] Nitrofurant oin&Nit. Macrocryst (MACROBID) 100 mg capsule 8-14 00:00: 00 01-12 04:59 :00 No [id number] 100mg Take 1 capsule by mouth in the morning and 1 capsule in the evening. Do all this for 10 days. [facility] sxp44-ltsl- folic acid 29 mg iron- 1 mg per tablet 12-27 00:00: 00 05-13 00:00 :00 No [id number] 1{tbl} Take 1 tablet by mouth in the morning. [facility] varicella virus vaccine live (VARIVAX) injection and diluent vial 06-04 12:35: 45 Yes 1{each} 0.5 mL (1 Each), Subcutaneo us, ONCE-PRIOR TO DISCHARGE, 1 dose, Starting on 06/04/22 at 0635, Until Discontinu ed, Routine, Give vaccine prior to discharge [facility] Iron Fum & P-FA-Vit B & C No.9 (INTEGRA PLUS) 125 mg iron- 1 mg Cap 06-04 00:00: 00 Yes [id number] 1{capsu le} Take 1 capsule by mouth daily. [facility] ibuprofen 600 mg tablet 06-04 00:00: 00 12-27 00:00 :00 No [id number] 600mg Take 1 tablet by mouth every 6 (six) hours as needed (Pain). Take with food or milk. [facility] docusate 100 mg capsule 06-04 00:00: 00 12-27 00:00 :00 No [id number] 200mg Take 2 capsules by mouth once daily as needed for Constipati on. [facility] Iron Fum & P-FA-Vit B & C No.9 (INTEGRA PLUS) 125 mg iron- 1 mg Cap 15 00:00: 00 12-27 00:00 :00 No [id number] 1{capsu le} Take 1 capsule by mouth daily. [facility] multivitami n ( VITAMIN) tablet 06-04 00:00: 00 06-05 00:00 :00 No [id number] 1{tbl} Take 1 tablet by mouth in the morning. [facility] ferrous sulfate 325 mg (65 mg iron) tablet 06-04 00:00: 00 06-05 00:00 :00 No [id number] 325mg Take 1 tablet by mouth in the morning and 1 tablet in the evening. [facility] rho(D) immune globulin (RHOGAM) syringe 300 mcg 06-03 07:41: 38 Yes 300ug 300 mcg, Intramuscu lar, ONCE, For 1 dose, Conditiona l, Routine [facility] human papillomav vac,9-shayna(P F) (GARDASIL-9 ) syringe 0.5 mL 06-03 07:41: 36 Yes .5mL 0.5 mL, Intramuscu lar, ONCE-PRIOR TO DISCHARGE, 1 dose, Starting on 06/03/22 at 0141, Until Discontinu ed, Routine, Give vaccine prior to discharge [facility] ibuprofen (IBU) tablet 600 mg 06-03 07:41: 36 Yes 600mg 600 mg, Oral, Q6HPRN, Starting on 06/03/22 at 0141, Until Discontinu ed, Routine, Pain (scale 4-6) [facility] acetaminoph en (TYLENOL) tablet 650 mg 06-03 07:41: 36 Yes 650mg 650 mg, Oral, Q6HPRN, Starting on 06/03/22 at 0141, Until Discontinu ed, Routine, Pain (scale 1-3) [facility] diphenhydrA MINE (BENADRYL) tablet 25 mg 06-03 07:41: 36 Yes 25mg 25 mg, Oral, Q6HPRN, Starting on 06/03/22 at 0141, Until Discontinu ed, Routine, Sleep, Itching [facility] ondansetron (ZOFRAN (PF)) injection 4 mg 06-03 07:41: 36 Yes 4mg 4 mg, Slow IV Push, Q8HPRN, Starting on 06/03/22 at 0141, Until Discontinu ed, Routine, Nausea and Vomiting (N/V) [facility] simethicone (GAS RELIEF (SIMETHICON E)) chewable tablet 160 mg 06-03 07:41: 36 Yes 160mg 160 mg, Oral, PC+HSPRN, Starting on 06/03/22 at 0141, Until Discontinu ed, Routine, Gas [facility] docusate (COLACE) capsule 200 mg 06-03 07:41: 36 Yes 200mg 200 mg, Oral, QDAILYPRN, Starting on 06/03/22 at 0141, Until Discontinu ed, Routine, Constipati on [facility] magnesium hydroxide (MILK OF MAGNESIA) 400 mg/5 mL suspension 30 mL 06-03 07:41: 36 Yes 30mL 30 mL, Oral, QDAILYPRN, Starting on 06/03/22 at 0141, Until Discontinu ed, Routine, Constipati on [facility] benzocaine- menthol (DERMOPLAST ) 20-0.5 % topical spray 06-03 07:41: 36 Yes Topical, PRN, Starting on 06/03/22 at 0141, Until Discontinu ed, Routine, Perineum discomfort [facility] ibuprofen (IBU) tablet 600 mg 06-03 00:58: 26 Yes 600mg 600 mg, Oral, Q6HPRN, Starting on Sun06/02/22 at 1858, Until Discontinu ed, Routine, Pain (scale 1-3) [facility] oxytocin (PITOCIN) 30 units in NS 500 mL IV infusion 06-03 00:58: 17 Yes 600mL/h 600 mL/hr, IV Infusion, PRN, For post delivery uterine atony., Starting on Sun06/02/[address] at 600 mL/hr for 1 hr then 150 mL/hr for 1 hr.
[facility] oxytocin (PITOCIN) 30 units in NS 500 mL IV infusion 06-03 00:58: 17 Yes 300mL/h 300 mL/hr, IV Infusion, SEE-INSTRU CTIONS, Starting on Sun06/02/[address] at 300 mL/hr for 1 hr then 150 mL/hr for 1 hr. & nbsp; For post delivery uterotonic
[facility] ropivacaine 0.2 % (NAROPIN (PF)) epidural infusion 06-02 21:55: 00 06-03 02:27 :33 No Epidural, CONTINUOUS PRN, Starting on Sun06/02/22 at 1555, Until Sun06/02/22 at 2026, Routine, Intra-op [facility] lidocaine-e pinephrine (XYLOCAINE W/EPINEPHRI NE) 1.5 %-1:200,000 injection 06-02 21:54: 00 06-03 02:27 :33 No Intraderma l, ONCE INTRA PROCEDURE, Starting on Sun06/02/22 at 1554, Until Sun06/02/22 at 2026, Routine, Intra-op [facility] oxytocin (PITOCIN) 30 units in NS 500 mL IV infusion 06-02 21:12: 33 Yes 2mU/min at 2-40 mL/hr, IV Infusion, TITRATE, Starting on Sun06/02/22 at 1512, Until Discontinu ed, BETTY [facility] lidocaine 1% (XYLOCAINE) 10 mg/mL (1 %) injection 50 mL 06-02 20:11: 29 Yes 50mL 50 mL, Infiltrati on, PRN - SEE INSTRUCTIO NS, Starting on Sun06/02/22 at 1411, Until Discontinu ed, Routine, Local anesthesia , For laceration repair only as a local anesthetic as indicated. [facility] lidocaine 1% (PF) (XYLOCAINE) injection 0.3 mL 06-02 20:11: 29 Yes .3mL 0.3 mL, Infiltrati on, PRN - SEE INSTRUCTIO NS, Starting on Sun06/02/22 at 1411, Until Discontinu ed, Routine, Local anesthesia , For IV line placement only as a local anesthetic . [facility] lactated ringers IV infusion 500 mL 06-02 20:11: 29 Yes 500mL at 999 mL/hr, 500 mL, IV Infusion, PRN - SEE INSTRUCTIO NS, Starting on Sun06/02/22 at 1411, Until Discontinu ed, Routine [facility] D5W-LR IV infusion 1,000 mL 06-02 20:11: 29 Yes 1000mL at 1-125 mL/hr, IV Infusion, TITRATE, Starting on Sun06/02/22 at 1411, Until Discontinu ed, Routine [facility] sodium citrate-cit harry acid (BICITRA) 500-334 mg/5 mL solution 30 mL 06-02 20:11: 29 06-02 21:51 :00 No 30mL 30 mL, Oral, PRE-PROCED URE ONCE, 1 dose, Starting on Sun06/02/22 at 1411, Until Discontinu ed, Routine, Surgery/Pr ocedure [facility] No known medications 06-02 16:14: 55 No No known medication s [facility] Iron Fum & P-FA-Vit B & C No.9 (INTEGRA PLUS) 125 mg iron- 1 mg Cap 2021-05 00:00: 00 Yes [id number] 1{capsu le} Take 1 capsule by mouth daily. [facility] ferrous sulfate 325 mg (65 mg iron) tablet 2021-05 00:00: 00 08-11 04:59 :00 No [id number] 325mg Take 1 tablet by mouth in the morning for 90 days. [facility] SELECT-OB + DHA 29 mg iron-1 mg -250 mg combo pack 2021-05 00:00: 00 Yes TAKE 1 PACKET (1 TABLET & CAPSULE) BY MOUTH IN THE MORNING [facility] SELECT-OB + DHA 29 mg iron-1 mg -250 mg combo pack 2021-05 00:00: 00 12-27 00:00 :00 No TAKE 1 PACKET (1 TABLET & CAPSULE) BY MOUTH IN THE MORNING [facility] fluconazole (DIFLUCAN) 150 mg tablet 2021-05 00:00: 05-06 05:59 :00 No [id number] 150mg Take 1 tablet by mouth once now for 1 dose. [facility] Nitrofurant oin&Nit. Macrocryst (MACROBID) 100 mg capsule 19 00:00: 00 05-18 00:00 :00 No [id number] 100mg Take 1 capsule by mouth in the morning and 1 capsule in the evening. [facility] azithromyci n 500 mg tablet 02-03 00:00: 00 02-04 04:59 :00 No [id number] 01 1000mg Take 2 tablets by mouth once now for 1 dose. [facility] multivitami n ( VITAMIN) tablet 02-02 00:00: 00 Yes [id number] 1{tbl} Take 1 tablet by mouth in the morning. [facility] metroNIDAZO LE 500 mg tablet -08 00:00: 00 05-18 00:00 :00 No [id number] 500mg Take 1 tablet by mouth 2 (two) times daily. [facility] metroNIDAZO LE 500 mg tablet 6-16 00:00: 00 03-17 00:00 :00 No [id number] 500mg Take 1 tablet by mouth 2 (two) times daily. [facility] [employer] (BLOOD PRESSURE CUFF) Mis 10-01 00:00: 00 11-15 00:00 :00 No [id number] Use as directed [facility] PNV 67-iron ps-folate no.1-dha (VITAFOL ULTRA) 29 mg iron- 1 mg-200 mg Cap 5-14 00:00: 00 03-17 00:00 :00 No [id number] 1{each} Take 1 Each by mouth daily. [facility] proMETHazin e 25 mg tablet 4-13 00:00: 00 03-17 00:00 :00 No [id number] 25mg Take 1 tablet by mouth every 6 (six) hours as needed for Nausea and Vomiting (N/V). [facility] Immunizations Ordered Immunization Name Filled Immunization Name Date Status Comments Source [facility] 2023-03-28 00:00:00 Completed [facility] Influenza Virus Vaccine Quad IM, Preserv and ABX Free 6 MO-64 YRS (FLUCELVAX) 2023-03-28 00:00:00 Completed [facility] 2022-05-05 00:00:00 Completed [facility] TDAP 2022-05-05 00:00:00 Completed [facility] TDAP 2022-05-05 00:00:00 Completed [facility] TDAP 2022-05-05 00:00:00 Completed [facility] TDAP 2022-05-05 00:00:00 Completed [facility] TDAP 2022-05-05 00:00:00 Completed [facility] TDAP 2022-05-05 00:00:00 Completed [facility] TDAP 2022-05-05 00:00:00 Completed [facility] TDAP 2022-05-05 00:00:00 Completed [facility] TDAP 2022-05-05 00:00:00 Completed [facility] TDAP 2022-05-05 00:00:00 Completed [facility] TDAP 2022-05-05 00:00:00 Completed [facility] TDAP 2022-05-05 00:00:00 Completed [facility] TDAP 2022-05-05 00:00:00 Completed [facility] TDAP 2022-05-05 00:00:00 Completed [facility] TDAP 2022-05-05 00:00:00 Completed Influenza Virus Vaccine Quad IM, Preserv and ABX Free 6 MO-64 YRS 2022-02-02 00:00:00 Completed [facility] Influenza Virus Vaccine Quad IM, Preserv and ABX Free 6 MO-64 YRS 2022-02-02 00:00:00 Completed [facility] Influenza Virus Vaccine Quad IM, Preserv and ABX Free 6 MO-64 YRS 2022-02-02 00:00:00 Completed [facility] Influenza Virus Vaccine Quad IM, Preserv and ABX Free 6 MO-64 YRS 2022-02-02 00:00:00 Completed [facility] Influenza Virus Vaccine Quad IM, Preserv and ABX Free 6 MO-64 YRS 2022-02-02 00:00:00 Completed [facility] Influenza Virus Vaccine Quad IM, Preserv and ABX Free 6 MO-64 YRS 2022-02-02 00:00:00 Completed [facility] Influenza Virus Vaccine Quad IM, Preserv and ABX Free 6 MO-64 YRS 2022-02-02 00:00:00 Completed [facility] Influenza Virus Vaccine Quad IM, Preserv and ABX Free 6 MO-64 YRS 2022-02-02 00:00:00 Completed [facility] Influenza Virus Vaccine Quad IM, Preserv and ABX Free 6 MO-64 YRS 2022-02-02 00:00:00 Completed [facility] Influenza Virus Vaccine Quad IM, Preserv and ABX Free 6 MO-64 YRS 2022-02-02 00:00:00 Completed [facility] Influenza Virus Vaccine Quad IM, Preserv and ABX Free 6 MO-64 YRS 2022-02-02 00:00:00 Completed [facility] Influenza Virus Vaccine Quad IM, Preserv and ABX Free 6 MO-64 YRS 2022-02-02 00:00:00 Completed [facility] Influenza Virus Vaccine Quad IM, Preserv and ABX Free 6 MO-64 YRS 2022-02-02 00:00:00 Completed [facility] Influenza Virus Vaccine Quad IM, Preserv and ABX Free 6 MO-64 YRS 2022-02-02 00:00:00 Completed [facility] Influenza Virus Vaccine Quad IM, Preserv and ABX Free 6 MO-64 YRS 2022-02-02 00:00:00 Completed [facility] Influenza Virus Vaccine Quad IM, Preserv and ABX Free 6 MO-64 YRS 2022-02-02 00:00:00 Completed [facility] Influenza Virus Vaccine Quad IM, Preserv and ABX Free 6 MO-64 YRS 2022-02-02 00:00:00 Completed [facility] Influenza Virus Vaccine Quad IM, Preserv and ABX Free 6 MO-64 YRS 2022-02-02 00:00:00 Completed [facility] Influenza Virus Vaccine Quad IM, Preserv and ABX Free 6 MO-64 YRS 2022-02-02 00:00:00 Completed [facility] Influenza Virus Vaccine Quad IM, Preserv and ABX Free 6 MO-64 YRS 2022-02-02 00:00:00 Completed [facility] Influenza Virus Vaccine Quad IM, Preserv and ABX Free 6 MO-64 YRS 2022-02-02 00:00:00 Completed [facility] Influenza Virus Vaccine Quad IM, Preserv and ABX Free 6 MO-64 YRS 2022-02-02 00:00:00 Completed [facility] Influenza Virus Vaccine Quad IM, Preserv and ABX Free 6 MO-64 YRS 2022-02-02 00:00:00 Completed [facility] Influenza Virus Vaccine Quad IM, Preserv and ABX Free 6 MO-64 YRS 2022-02-02 00:00:00 Completed [facility] Influenza Virus Vaccine Quad IM, Preserv and ABX Free 6 MO-64 YRS 2022-02-02 00:00:00 Completed [facility] Influenza Virus Vaccine Quad IM, Preserv and ABX Free 6 MO-64 YRS (FLUCELVAX) 2022-02-02 00:00:00 Completed [facility] Influenza Virus Vaccine Quad IM, Preserv and ABX Free 6 MO-64 YRS (FLUCELVAX) 2022-02-02 00:00:00 Completed [facility] TDAP 2021-04-12 00:00:00 Completed [facility] TDAP 2021-04-12 00:00:00 Completed [facility] TDAP 2021-04-12 00:00:00 Completed [facility] TDAP 2021-04-12 00:00:00 Completed [facility] TDAP 2021-04-12 00:00:00 Completed [facility] TDAP 2021-04-12 00:00:00 Completed [facility] TDAP 2021-04-12 00:00:00 Completed [facility] TDAP 2021-04-12 00:00:00 Completed [facility] TDAP 2021-04-12 00:00:00 Completed [facility] TDAP 2021-04-12 00:00:00 Completed [facility] TDAP 2021-04-12 00:00:00 Completed [facility] TDAP 2021-04-12 00:00:00 Completed [facility] TDAP 2021-04-12 00:00:00 Completed [facility] TDAP 2021-04-12 00:00:00 Completed [facility] TDAP 2021-04-12 00:00:00 Completed [facility] TDAP 2021-04-12 00:00:00 Completed [facility] TDAP 2021-04-12 00:00:00 Completed [facility] TDAP 2021-04-12 00:00:00 Completed [facility] TDAP 2021-04-12 00:00:00 Completed [facility] TDAP 2021-04-12 00:00:00 Completed [facility] TDAP 2021-04-12 00:00:00 Completed [facility] TDAP 2021-04-12 00:00:00 Completed [facility] TDAP 2021-04-12 00:00:00 Completed [facility] TDAP 2021-04-12 00:00:00 Completed [facility] TDAP 2021-04-12 00:00:00 Completed [facility] TDAP 2021-04-12 00:00:00 Completed [facility] TDAP 2021-04-12 00:00:00 Completed [facility] Influenza Virus Vaccine Quad .5 mL IM 6+ MO 2020-02-04 00:00:00 Completed [facility] Influenza Virus Vaccine Quad .5 mL IM 6+ MO 2020-02-04 00:00:00 Completed [facility] Influenza Virus Vaccine Quad .5 mL IM 6+ MO 2020-02-04 00:00:00 Completed [facility] Influenza Virus Vaccine Quad .5 mL IM 6+ MO 2020-02-04 00:00:00 Completed [facility] Influenza Virus Vaccine Quad .5 mL IM 6+ MO 2020-02-04 00:00:00 Completed [facility] Influenza Virus Vaccine Quad .5 mL IM 6+ MO 2020-02-04 00:00:00 Completed [facility] Influenza Virus Vaccine Quad .5 mL IM 6+ MO 2020-02-04 00:00:00 Completed [facility] Influenza Virus Vaccine Quad .5 mL IM 6+ MO 2020-02-04 00:00:00 Completed [facility] Influenza Virus Vaccine Quad .5 mL IM 6+ MO 2020-02-04 00:00:00 Completed [facility] Influenza Virus Vaccine Quad .5 mL IM 6+ MO 2020-02-04 00:00:00 Completed [facility] Influenza Virus Vaccine Quad .5 mL IM 6+ MO 2020-02-04 00:00:00 Completed [facility] Influenza Virus Vaccine Quad .5 mL IM 6+ MO 2020-02-04 00:00:00 Completed [facility] Influenza Virus Vaccine Quad .5 mL IM 6+ MO 2020-02-04 00:00:00 Completed [facility] Influenza Virus Vaccine Quad .5 mL IM 6+ MO 2020-02-04 00:00:00 Completed [facility] Influenza Virus Vaccine Quad .5 mL IM 6+ MO 2020-02-04 00:00:00 Completed [facility] Influenza Virus Vaccine Quad .5 mL IM 6+ MO 2020-02-04 00:00:00 Completed [facility] Influenza Virus Vaccine Quad .5 mL IM 6+ MO 2020-02-04 00:00:00 Completed [facility] Influenza Virus Vaccine Quad .5 mL IM 6+ MO 2020-02-04 00:00:00 Completed [facility] Influenza Virus Vaccine Quad .5 mL IM 6+ MO 2020-02-04 00:00:00 Completed [facility] Influenza Virus Vaccine Quad .5 mL IM 6+ MO 2020-02-04 00:00:00 Completed [facility] Influenza Virus Vaccine Quad .5 mL IM 6+ MO 2020-02-04 00:00:00 Completed [facility] Influenza Virus Vaccine Quad .5 mL IM 6+ MO 2020-02-04 00:00:00 Completed [facility] Influenza Virus Vaccine Quad .5 mL IM 6+ MO 2020-02-04 00:00:00 Completed [facility] Influenza Virus Vaccine Quad .5 mL IM 6+ MO 2020-02-04 00:00:00 Completed [facility] Influenza Virus Vaccine Quad .5 mL IM 6+ MO 2020-02-04 00:00:00 Completed [facility] Influenza Virus Vaccine Quad .5 mL IM 6+ MO (FLUZONE/FLULAVAL/FL UARIX) 2020-02-04 00:00:00 Completed [facility] Influenza Virus Vaccine Quad .5 mL IM 6+ MO (FLUZONE/FLULAVAL/FL UARIX) 2020-02-04 00:00:00 Completed TDAP 2020-01-07 00:00:00 Completed [facility] TDAP 2020-01-07 00:00:00 Completed [facility] TDAP 2020-01-07 00:00:00 Completed [facility] TDAP 2020-01-07 00:00:00 Completed [facility] TDAP 2020-01-07 00:00:00 Completed [facility] TDAP 2020-01-07 00:00:00 Completed [facility] TDAP 2020-01-07 00:00:00 Completed [facility] TDAP 2020-01-07 00:00:00 Completed [facility] TDAP 2020-01-07 00:00:00 Completed [facility] TDAP 2020-01-07 00:00:00 Completed [facility] TDAP 2020-01-07 00:00:00 Completed [facility] TDAP 2020-01-07 00:00:00 Completed [facility] TDAP 2020-01-07 00:00:00 Completed [facility] TDAP 2020-01-07 00:00:00 Completed [facility] TDAP 2020-01-07 00:00:00 Completed [facility] TDAP 2020-01-07 00:00:00 Completed [facility] TDAP 2020-01-07 00:00:00 Completed [facility] TDAP 2020-01-07 00:00:00 Completed [facility] TDAP 2020-01-07 00:00:00 Completed [facility] TDAP 2020-01-07 00:00:00 Completed [facility] TDAP 2020-01-07 00:00:00 Completed [facility] TDAP 2020-01-07 00:00:00 Completed [facility] TDAP 2020-01-07 00:00:00 Completed [facility] TDAP 2020-01-07 00:00:00 Completed [facility] TDAP 2020-01-07 00:00:00 Completed [facility] TDAP 2020-01-07 00:00:00 Completed [facility] TDAP 2020-01-07 00:00:00 Completed [facility] HEPATITIS A 2013-01-07 00:00:00 Completed [facility] HPV 2013-01-07 00:00:00 Completed [facility] Meningococcal Polysaccharide (groups A, C, Y and W-135) conjugate vaccine (MCV4P) 2013-01-07 00:00:00 Completed [facility] TDAP 2013-01-07 00:00:00 Completed [facility] Varicella (varivax)(chicken pox) 2013-01-07 00:00:00 Completed [facility] HEPATITIS A 2013-01-07 00:00:00 Completed [facility] HPV 2013-01-07 00:00:00 Completed [facility] Meningococcal Polysaccharide (groups A, C, Y and W-135) conjugate vaccine (MCV4P) 2013-01-07 00:00:00 Completed [facility] TDAP 2013-01-07 00:00:00 Completed [facility] Varicella (varivax)(chicken pox) 2013-01-07 00:00:00 Completed [facility] HEPATITIS A 2013-01-07 00:00:00 Completed [facility] HPV 2013-01-07 00:00:00 Completed [facility] Meningococcal Polysaccharide (groups A, C, Y and W-135) conjugate vaccine (MCV4P) 2013-01-07 00:00:00 Completed [facility] TDAP 2013-01-07 00:00:00 Completed [facility] Varicella (varivax)(chicken pox) 2013-01-07 00:00:00 Completed [facility] HEPATITIS A 2013-01-07 00:00:00 Completed [facility] HPV 2013-01-07 00:00:00 Completed [facility] Meningococcal Polysaccharide (groups A, C, Y and W-135) conjugate vaccine (MCV4P) 2013-01-07 00:00:00 Completed [facility] TDAP 2013-01-07 00:00:00 Completed [facility] Varicella (varivax)(chicken pox) 2013-01-07 00:00:00 Completed [facility] HEPATITIS A 2013-01-07 00:00:00 Completed [facility] HPV 2013-01-07 00:00:00 Completed [facility] Meningococcal Polysaccharide (groups A, C, Y and W-135) conjugate vaccine (MCV4P) 2013-01-07 00:00:00 Completed [facility] TDAP 2013-01-07 00:00:00 Completed [facility] Varicella (varivax)(chicken pox) 2013-01-07 00:00:00 Completed [facility] HEPATITIS A 2013-01-07 00:00:00 Completed [facility] HPV 2013-01-07 00:00:00 Completed [facility] Meningococcal Polysaccharide (groups A, C, Y and W-135) conjugate vaccine (MCV4P) 2013-01-07 00:00:00 Completed [facility] TDAP 2013-01-07 00:00:00 Completed [facility] Varicella (varivax)(chicken pox) 2013-01-07 00:00:00 Completed [facility] HEPATITIS A 2013-01-07 00:00:00 Completed [facility] HPV 2013-01-07 00:00:00 Completed [facility] Meningococcal Polysaccharide (groups A, C, Y and W-135) conjugate vaccine (MCV4P) 2013-01-07 00:00:00 Completed [facility] TDAP 2013-01-07 00:00:00 Completed [facility] Varicella (varivax)(chicken pox) 2013-01-07 00:00:00 Completed [facility] HEPATITIS A 2013-01-07 00:00:00 Completed [facility] HPV 2013-01-07 00:00:00 Completed [facility] Meningococcal Polysaccharide (groups A, C, Y and W-135) conjugate vaccine (MCV4P) 2013-01-07 00:00:00 Completed [facility] TDAP 2013-01-07 00:00:00 Completed [facility] Varicella (varivax)(chicken pox) 2013-01-07 00:00:00 Completed [facility] HEPATITIS A 2013-01-07 00:00:00 Completed HPV 2013-01-07 00:00:00 Completed Meningococcal Polysaccharide (groups A, C, Y and W-135) conjugate vaccine (MCV4P) 2013-01-07 00:00:00 Completed TDAP 2013-01-07 00:00:00 Completed Varicella (varivax)(chicken pox) 2013-01-07 00:00:00 Completed DTaP, Unspecified Formulation 2001-08-15 00:00:00 Completed [facility] Hib-HbOC 2001-08-15 00:00:00 Completed [facility] DTaP, Unspecified Formulation 2001-08-15 00:00:00 Completed [facility] Hib-HbOC 2001-08-15 00:00:00 Completed [facility] DTaP, Unspecified Formulation 2001-08-15 00:00:00 Completed [facility] Hib-HbOC 2001-08-15 00:00:00 Completed [facility] DTaP, Unspecified Formulation 2001-08-15 00:00:00 Completed [facility] Hib-HbOC 2001-08-15 00:00:00 Completed [facility] DTaP, Unspecified Formulation 2001-08-15 00:00:00 Completed [facility] Hib-HbOC 2001-08-15 00:00:00 Completed [facility] DTaP, Unspecified Formulation 2001-08-15 00:00:00 Completed [facility] Hib-HbOC 2001-08-15 00:00:00 Completed [facility] DTaP, Unspecified Formulation 2001-08-15 00:00:00 Completed [facility] Hib-HbOC 2001-08-15 00:00:00 Completed [facility] DTaP, Unspecified Formulation 2001-08-15 00:00:00 Completed [facility] Hib-HbOC 2001-08-15 00:00:00 Completed [facility] DTaP, Unspecified Formulation 2001-08-15 00:00:00 [facility]:00 Completed Hep B, Adol or Pedi Dosage 2001-01-30 00:00:00 Completed [facility] MMR 2001-01-30 00:00:00 Completed [facility] Pneumococcal 7 Conjugate, PCV7 (Prevnar7) 2001-01-30 00:00:00 Completed [facility] Varicella (varivax)(chicken pox) 2001-01-30 00:00:00 Completed [facility] Hep B, Adol or Pedi Dosage 2001-01-30 00:00:00 Completed [facility] MMR 2001-01-30 00:00:00 Completed [facility] Pneumococcal 7 Conjugate, PCV7 (Prevnar7) 2001-01-30 00:00:00 Completed [facility] Varicella (varivax)(chicken pox) 2001-01-30 00:00:00 Completed [facility] Hep B, Adol or Pedi Dosage 2001-01-30 00:00:00 Completed [facility] MMR 2001-01-30 00:00:00 Completed [facility] Pneumococcal 7 Conjugate, PCV7 (Prevnar7) 2001-01-30 00:00:00 Completed [facility] Varicella (varivax)(chicken pox) 2001-01-30 00:00:00 Completed [facility] Hep B, Adol or Pedi Dosage 2001-01-30 00:00:00 Completed [facility] MMR 2001-01-30 00:00:00 Completed [facility] Pneumococcal 7 Conjugate, PCV7 (Prevnar7) 2001-01-30 00:00:00 Completed [facility] Varicella (varivax)(chicken pox) 2001-01-30 00:00:00 Completed [facility] Hep B, Adol or Pedi Dosage 2001-01-30 00:00:00 Completed [facility] MMR 2001-01-30 00:00:00 Completed [facility] Pneumococcal 7 Conjugate, PCV7 (Prevnar7) 2001-01-30 00:00:00 Completed [facility] Varicella (varivax)(chicken pox) 2001-01-30 00:00:00 Completed [facility] Hep B, Adol or Pedi Dosage 2001-01-30 00:00:00 Completed [facility] MMR 2001-01-30 00:00:00 Completed [facility] Pneumococcal 7 Conjugate, PCV7 (Prevnar7) 2001-01-30 00:00:00 Completed [facility] Varicella (varivax)(chicken pox) 2001-01-30 00:00:00 Completed [facility] Hep B, Adol or Pedi Dosage 2001-01-30 00:00:00 Completed [facility] MMR 2001-01-30 00:00:00 Completed [facility] Pneumococcal 7 Conjugate, PCV7 (Prevnar7) 2001-01-30 00:00:00 Completed [facility] Varicella (varivax)(chicken pox) 2001-01-30 00:00:00 Completed [facility] Hep B, Adol or Pedi Dosage 2001-01-30 00:00:00 Completed [facility] MMR 2001-01-30 00:00:00 Completed [facility] Pneumococcal 7 Conjugate, PCV7 (Prevnar7) 2001-01-30 00:00:00 Completed [facility] Varicella (varivax)(chicken pox) 2001-01-30 00:00:00 Completed [facility] Hep B, Adol or Pedi Dosage 2001-01-30 00:00:00 Completed MMR 2001-01-30 00:00:00 Completed Pneumococcal 7 Conjugate, PCV7 (Prevnar7) 2001-01-30 00:00:00 Completed Varicella (varivax)(chicken pox) 2001-01-30 00:00:00 Completed Hep B, Adol or Pedi Dosage 2000-08-07 00:00:00 Completed [facility] Hep B, Adol or Pedi Dosage 2000-08-07 00:00:00 Completed [facility] Hep B, Adol or Pedi Dosage 2000-08-07 00:00:00 Completed [facility] Hep B, Adol or Pedi Dosage 2000-08-07 00:00:00 Completed [facility] Hep B, Adol or Pedi Dosage 2000-08-07 00:00:00 Completed [facility] Hep B, Adol or Pedi Dosage 2000-08-07 00:00:00 Completed [facility] Hep B, Adol or Pedi Dosage 2000-08-07 00:00:00 Completed [facility] Hep B, Adol or Pedi Dosage 2000-08-07 00:00:00 Completed [facility] Hep B, Adol or Pedi Dosage 2000-08-07 00:00:00 Completed DTaP, Unspecified Formulation 2000-07-20 00:00:00 Completed [facility] Hib-HbOC 2000-07-20 00:00:00 Completed [facility] IPV 2000-07-20 00:00:00 Completed [facility] DTaP, Unspecified Formulation 2000-07-20 00:00:00 Completed [facility] Hib-HbOC 2000-07-20 00:00:00 Completed [facility] IPV 2000-07-20 00:00:00 Completed [facility] DTaP, Unspecified Formulation 2000-07-20 00:00:00 Completed [facility] Hib-HbOC 2000-07-20 00:00:00 Completed [facility] IPV 2000-07-20 00:00:00 Completed [facility] DTaP, Unspecified Formulation 2000-07-20 00:00:00 Completed [facility] Hib-HbOC 2000-07-20 00:00:00 Completed [facility] IPV 2000-07-20 00:00:00 Completed [facility] DTaP, Unspecified Formulation 2000-07-20 00:00:00 Completed [facility] Hib-HbOC 2000-07-20 00:00:00 Completed [facility] IPV 2000-07-20 00:00:00 Completed [facility] DTaP, Unspecified Formulation 2000-07-20 00:00:00 Completed [facility] Hib-HbOC 2000-07-20 00:00:00 Completed [facility] IPV 2000-07-20 00:00:00 Completed [facility] DTaP, Unspecified Formulation 2000-07-20 00:00:00 Completed [facility] Hib-HbOC 2000-07-20 00:00:00 Completed [facility] IPV 2000-07-20 00:00:00 Completed [facility] DTaP, Unspecified Formulation 2000-07-20 00:00:00 Completed [facility] Hib-HbOC 2000-07-20 00:00:00 Completed [facility] IPV 2000-07-20 00:00:00 Completed [facility] DTaP, Unspecified Formulation 2000-07-20 00:00:00 Completed Hib-HbOC 2000-07-20 00:00:00 Completed IPV 2000-07-20 00:00:00 Completed DTaP, Unspecified Formulation 2000-04-05 00:00:00 Completed [facility] Hib-HbOC 2000-04-05 00:00:00 Completed [facility] IPV 2000-04-05 00:00:00 Completed [facility] DTaP, Unspecified Formulation 2000-04-05 00:00:00 Completed [facility] Hib-HbOC 2000-04-05 00:00:00 Completed [facility] IPV 2000-04-05 00:00:00 Completed [facility] DTaP, Unspecified Formulation 2000-04-05 00:00:00 Completed [facility] Hib-HbOC 2000-04-05 00:00:00 Completed [facility] IPV 2000-04-05 00:00:00 Completed [facility] DTaP, Unspecified Formulation 2000-04-05 00:00:00 Completed [facility] Hib-HbOC 2000-04-05 00:00:00 Completed [facility] IPV 2000-04-05 00:00:00 Completed [facility] DTaP, Unspecified Formulation 2000-04-05 00:00:00 Completed [facility] Hib-HbOC 2000-04-05 00:00:00 Completed [facility] IPV 2000-04-05 00:00:00 Completed [facility] DTaP, Unspecified Formulation 2000-04-05 00:00:00 Completed [facility] Hib-HbOC 2000-04-05 00:00:00 Completed [facility] IPV 2000-04-05 00:00:00 Completed [facility] DTaP, Unspecified Formulation 2000-04-05 00:00:00 Completed [facility] Hib-HbOC 2000-04-05 00:00:00 Completed [facility] IPV 2000-04-05 00:00:00 Completed [facility] DTaP, Unspecified Formulation 2000-04-05 00:00:00 Completed [facility] Hib-HbOC 2000-04-05 00:00:00 Completed [facility] IPV 2000-04-05 00:00:00 Completed [facility] DTaP, Unspecified Formulation 2000-04-05 00:00:00 Completed Hib-HbOC 2000-04-05 00:00:00 Completed IPV 2000-04-05 00:00:00 Completed DTaP, Unspecified Formulation 1999 00:00:00 Completed [facility] Hib-HbOC 1999 00:00:00 Completed [facility] IPV 1999 00:00:00 Completed [facility] DTaP, Unspecified Formulation 1999 00:00:00 Completed [facility] Hib-HbOC 1999 00:00:00 Completed [facility] IPV 1999 00:00:00 Completed [facility] DTaP, Unspecified Formulation 1999 00:00:00 Completed [facility] Hib-HbOC 1999 00:00:00 Completed [facility] IPV 1999 00:00:00 Completed [facility] DTaP, Unspecified Formulation 1999 00:00:00 Completed [facility] Hib-HbOC 1999 00:00:00 Completed [facility] IPV 1999 00:00:00 Completed [facility] DTaP, Unspecified Formulation 1999 00:00:00 Completed [facility] Hib-HbOC 1999 00:00:00 Completed [facility] IPV 1999 00:00:00 Completed [facility] DTaP, Unspecified Formulation 1999 00:00:00 Completed [facility] Hib-HbOC 1999 00:00:00 Completed [facility] IPV 1999 00:00:00 Completed [facility] DTaP, Unspecified Formulation 1999 00:00:00 Completed [facility] Hib-HbOC 1999 00:00:00 Completed [facility] IPV 1999 00:00:00 Completed [facility] DTaP, Unspecified Formulation 1999 00:00:00 Completed [facility] Hib-HbOC 1999 00:00:00 Completed [facility] IPV 1999 00:00:00 Completed [facility] DTaP, Unspecified Formulation 1999 00:00:00 Completed Hib-HbOC 1999 00:00:00 Completed IPV 1999 00:00:00 Completed Hep B, Adol or Pedi Dosage 1999 00:00:00 Completed [facility] Hep B, Adol or Pedi Dosage 1999 00:00:00 Completed [facility] Hep B, Adol or Pedi Dosage 1999 00:00:00 Completed [facility] Hep B, Adol or Pedi Dosage 1999 00:00:00 Completed [facility] Hep B, Adol or Pedi Dosage 1999 00:00:00 Completed [facility] Hep B, Adol or Pedi Dosage 1999 00:00:00 Completed [facility] Hep B, Adol or Pedi Dosage 1999 00:00:00 Completed [facility] Hep B, Adol or Pedi Dosage 1999 00:00:00 Completed [facility] Hep B, Adol or Pedi Dosage 1999 00:00:00 Completed TDAP Unknown Completed [facility] Influenza Virus Vaccine Quad .5 mL IM 6+ MO (FLUZONE/FLULAVAL/FL UARIX) Unknown Completed [facility] Influenza Virus Vaccine Quad IM, Preserv and ABX Free 6 MO-64 YRS (FLUCELVAX) Unknown Completed [facility] DTaP, Unspecified Formulation Unknown Completed [facility] HEPATITIS A Unknown Completed [facility] Hep B, Adol or Pedi Dosage Unknown Completed [facility] Hib-HbOC Unknown Completed [facility] HPV Unknown Completed [facility] Meningococcal Polysaccharide (groups A, C, Y and W-135) conjugate vaccine (MCV4P) Unknown Completed [facility] MMR Unknown Completed [facility] Pneumococcal 7 Conjugate, PCV7 (Prevnar7) Unknown Completed [facility] IPV Unknown Completed [facility] Varicella (varivax)(chicken pox) Unknown Completed [facility] DTaP, Unspecified Formulation Unknown Completed [facility] HEPATITIS A Unknown Completed [facility] Hep B, Adol or Pedi Dosage Unknown Completed [facility] Hib-HbOC Unknown Completed [facility] HPV Unknown Completed [facility] Meningococcal Polysaccharide (groups A, C, Y and W-135) conjugate vaccine (MCV4P) Unknown Completed [facility] MMR Unknown Completed [facility] Pneumococcal 7 Conjugate, PCV7 (Prevnar7) Unknown Completed [facility] IPV Unknown Completed [facility] TDAP Unknown Completed [facility] Varicella (varivax)(chicken pox) Unknown Completed [facility] TDAP Unknown Completed [facility] Influenza Virus Vaccine Quad .5 mL IM 6+ MO (FLUZONE/FLULAVAL/FL UARIX) Unknown Completed [facility] Influenza Virus Vaccine Quad IM, Preserv and ABX Free 6 MO-64 YRS (FLUCELVAX) Unknown Completed [facility] DTaP, Unspecified Formulation Unknown Completed [facility] HEPATITIS A Unknown Completed [facility] Hep B, Adol or Pedi Dosage Unknown Completed [facility] Hib-HbOC Unknown Completed [facility] HPV Unknown Completed [facility] Meningococcal Polysaccharide (groups A, C, Y and W-135) conjugate vaccine (MCV4P) Unknown Completed [facility] MMR Unknown Completed [facility] Pneumococcal 7 Conjugate, PCV7 (Prevnar7) Unknown Completed [facility] IPV Unknown Completed [facility] Varicella (varivax)(chicken pox) Unknown Completed [facility] TDAP Unknown Completed [facility] Influenza Virus Vaccine Quad .5 mL IM 6+ MO (FLUZONE/FLULAVAL/FL UARIX) Unknown Completed [facility] Influenza Virus Vaccine Quad IM, Preserv and ABX Free 6 MO-64 YRS (FLUCELVAX) Unknown Completed [facility] DTaP, Unspecified Formulation Unknown Completed [facility] HEPATITIS A Unknown Completed [facility] Hep B, Adol or Pedi Dosage Unknown Completed [facility] Hib-HbOC Unknown Completed [facility] HPV Unknown Completed [facility] Meningococcal Polysaccharide (groups A, C, Y and W-135) conjugate vaccine (MCV4P) Unknown Completed [facility] MMR Unknown Completed [facility] Pneumococcal 7 Conjugate, PCV7 (Prevnar7) Unknown Completed [facility] IPV Unknown Completed [facility] Varicella (varivax)(chicken pox) Unknown Completed [facility] TDAP Unknown Completed [facility] Influenza Virus Vaccine Quad .5 mL IM 6+ MO (FLUZONE/FLULAVAL/FL UARIX) Unknown Completed [facility] Influenza Virus Vaccine Quad IM, Preserv and ABX Free 6 MO-64 YRS (FLUCELVAX) Unknown Completed [facility] DTaP, Unspecified Formulation Unknown Completed [facility] HEPATITIS A Unknown Completed [facility] Hep B, Adol or Pedi Dosage Unknown Completed [facility] Hib-HbOC Unknown Completed [facility] HPV Unknown Completed [facility] Meningococcal Polysaccharide (groups A, C, Y and W-135) conjugate vaccine (MCV4P) Unknown Completed [facility] MMR Unknown Completed [facility] Pneumococcal 7 Conjugate, PCV7 (Prevnar7) Unknown Completed [facility] IPV Unknown Completed [facility] Varicella (varivax)(chicken pox) Unknown Completed [facility] TDAP Unknown Completed [facility] Influenza Virus Vaccine Quad .5 mL IM 6+ MO (FLUZONE/FLULAVAL/FL UARIX) Unknown Completed [facility] Influenza Virus Vaccine Quad IM, Preserv and ABX Free 6 MO-64 YRS (FLUCELVAX) Unknown Completed [facility] DTaP, Unspecified Formulation Unknown Completed [facility] HEPATITIS A Unknown Completed [facility] Hep B, Adol or Pedi Dosage Unknown Completed [facility] Hib-HbOC Unknown Completed [facility] HPV Unknown Completed [facility] Meningococcal Polysaccharide (groups A, C, Y and W-135) conjugate vaccine (MCV4P) Unknown Completed [facility] MMR Unknown Completed [facility] Pneumococcal 7 Conjugate, PCV7 (Prevnar7) Unknown Completed [facility] IPV Unknown Completed [facility] Varicella (varivax)(chicken pox) Unknown Completed [facility] TDAP Unknown Completed [facility] Influenza Virus Vaccine Quad .5 mL IM 6+ MO (FLUZONE/FLULAVAL/FL UARIX) Unknown Completed [facility] Influenza Virus Vaccine Quad IM, Preserv and ABX Free 6 MO-64 YRS (FLUCELVAX) Unknown Completed [facility] DTaP, Unspecified Formulation Unknown Completed [facility] HEPATITIS A Unknown Completed [facility] Hep B, Adol or Pedi Dosage Unknown Completed [facility] Hib-HbOC Unknown Completed [facility] HPV Unknown Completed [facility] Meningococcal Polysaccharide (groups A, C, Y and W-135) conjugate vaccine (MCV4P) Unknown Completed [facility] MMR Unknown Completed [facility] Pneumococcal 7 Conjugate, PCV7 (Prevnar7) Unknown Completed [facility] IPV Unknown Completed [facility] Varicella (varivax)(chicken pox) Unknown Completed [facility] TDAP Unknown Completed [facility] Influenza Virus Vaccine Quad .5 mL IM 6+ MO (FLUZONE/FLULAVAL/FL UARIX) Unknown Completed [facility] Influenza Virus Vaccine Quad IM, Preserv and ABX Free 6 MO-64 YRS (FLUCELVAX) Unknown Completed [facility] DTaP, Unspecified Formulation Unknown Completed [facility] HEPATITIS A Unknown Completed [facility] Hep B, Adol or Pedi Dosage Unknown Completed [facility] Hib-HbOC Unknown Completed [facility] HPV Unknown Completed [facility] Meningococcal Polysaccharide (groups A, C, Y and W-135) conjugate vaccine (MCV4P) Unknown Completed [facility] MMR Unknown Completed [facility] Pneumococcal 7 Conjugate, PCV7 (Prevnar7) Unknown Completed [facility] IPV Unknown Completed [facility] Varicella (varivax)(chicken pox) Unknown Completed [facility] Influenza Virus Vaccine Quad .5 mL IM 6+ MO (FLUZONE/FLULAVAL/FL UARIX) Unknown Completed [facility] HEPATITIS A Unknown Completed [facility] HPV Unknown Completed [facility] Meningococcal Polysaccharide (groups A, C, Y and W-135) conjugate vaccine (MCV4P) Unknown Completed [facility] MMR Unknown Completed [facility] Pneumococcal 7 Conjugate, PCV7 (Prevnar7) Unknown Completed [facility] DTaP, Unspecified Formulation Unknown Completed [facility] Hep B, Adol or Pedi Dosage Unknown Completed [facility] Hib-HbOC Unknown Completed [facility] IPV Unknown Completed [facility] TDAP Unknown Completed [facility] Varicella (varivax)(chicken pox) Unknown Completed [facility] Influenza Virus Vaccine Quad IM, Preserv and ABX Free 6 MO-64 YRS (FLUCELVAX) Unknown Completed [facility] Influenza Virus Vaccine Quad .5 mL IM 6+ MO (FLUZONE/FLULAVAL/FL UARIX) Unknown Completed [facility] HEPATITIS A Unknown Completed [facility] HPV Unknown Completed [facility] Meningococcal Polysaccharide (groups A, C, Y and W-135) conjugate vaccine (MCV4P) Unknown Completed [facility] MMR Unknown Completed [facility] Pneumococcal 7 Conjugate, PCV7 (Prevnar7) Unknown Completed [facility] TDAP Unknown Completed [facility] Influenza Virus Vaccine Quad IM, Preserv and ABX Free 6 MO-64 YRS (FLUCELVAX) Unknown Completed [facility] DTaP, Unspecified Formulation Unknown Completed [facility] Hep B, Adol or Pedi Dosage Unknown Completed [facility] Hib-HbOC Unknown Completed [facility] IPV Unknown Completed [facility] Varicella (varivax)(chicken pox) Unknown Completed [facility] Influenza Virus Vaccine Quad .5 mL IM 6+ MO (FLUZONE/FLULAVAL/FL UARIX) Unknown Completed [facility] HEPATITIS A Unknown Completed [facility] HPV Unknown Completed [facility] Meningococcal Polysaccharide (groups A, C, Y and W-135) conjugate vaccine (MCV4P) Unknown Completed [facility] MMR Unknown Completed [facility] Pneumococcal 7 Conjugate, PCV7 (Prevnar7) Unknown Completed [facility] TDAP Unknown Completed [facility] Influenza Virus Vaccine Quad IM, Preserv and ABX Free 6 MO-64 YRS (FLUCELVAX) Unknown Completed [facility] DTaP, Unspecified Formulation Unknown Completed [facility] Hep B, Adol or Pedi Dosage Unknown Completed [facility] Hib-HbOC Unknown Completed [facility] IPV Unknown Completed [facility] Varicella (varivax)(chicken pox) Unknown Completed [facility] Influenza Virus Vaccine Quad .5 mL IM 6+ MO (FLUZONE/FLULAVAL/FL UARIX) Unknown Completed [facility] HEPATITIS A Unknown Completed [facility] HPV Unknown Completed [facility] Meningococcal Polysaccharide (groups A, C, Y and W-135) conjugate vaccine (MCV4P) Unknown Completed [facility] MMR Unknown Completed [facility] Pneumococcal 7 Conjugate, PCV7 (Prevnar7) Unknown Completed [facility] TDAP Unknown Completed [facility] Influenza Virus Vaccine Quad IM, Preserv and ABX Free 6 MO-64 YRS (FLUCELVAX) Unknown Completed [facility] DTaP, Unspecified Formulation Unknown Completed [facility] Hep B, Adol or Pedi Dosage Unknown [facility] [facility] Hib-HbOC Unknown Completed [facility] IPV Unknown Completed [facility] Varicella (varivax)(chicken pox) Unknown Completed [facility] TDAP Unknown Completed [facility] Influenza Virus Vaccine Quad .5 mL IM 6+ MO (FLUZONE/FLULAVAL/FL UARIX) Unknown Completed [facility] Influenza Virus Vaccine Quad IM, Preserv and ABX Free 6 MO-64 YRS (FLUCELVAX) Unknown Completed [facility] DTaP, Unspecified Formulation Unknown Completed [facility] HEPATITIS A Unknown Completed [facility] Hep B, Adol or Pedi Dosage Unknown Completed [facility] Hib-HbOC Unknown Completed [facility] HPV Unknown Completed [facility] Meningococcal Polysaccharide (groups A, C, Y and W-135) conjugate vaccine (MCV4P) Unknown Completed [facility] MMR Unknown Completed [facility] Pneumococcal 7 Conjugate, PCV7 (Prevnar7) Unknown Completed [facility] IPV Unknown Completed [facility] Varicella (varivax)(chicken pox) Unknown Completed [facility] Influenza Virus Vaccine Quad .5 mL IM 6+ MO (FLUZONE/FLULAVAL/FL UARIX) Unknown Completed [facility] Influenza Virus Vaccine Quad IM, Preserv and ABX Free 6 MO-64 YRS (FLUCELVAX) Unknown Completed [facility] DTaP, Unspecified Formulation Unknown Completed [facility] HEPATITIS A Unknown Completed [facility] Hep B, Adol or Pedi Dosage Unknown Completed [facility] Hib-HbOC Unknown Completed [facility] HPV Unknown Completed [facility] Meningococcal Polysaccharide (groups A, C, Y and W-135) conjugate vaccine (MCV4P) Unknown Completed [facility] MMR Unknown Completed [facility] Pneumococcal 7 Conjugate, PCV7 (Prevnar7) Unknown Completed [facility] IPV Unknown Completed [facility] TDAP Unknown Completed [facility] Varicella (varivax)(chicken pox) Unknown Completed [facility] TDAP Unknown Completed [facility] Influenza Virus Vaccine Quad .5 mL IM 6+ MO (FLUZONE/FLULAVAL/FL UARIX) Unknown Completed [facility] Influenza Virus Vaccine Quad IM, Preserv and ABX Free 6 MO-64 YRS (FLUCELVAX) Unknown Completed [facility] DTaP, Unspecified Formulation Unknown Completed [facility] HEPATITIS A Unknown Completed [facility] Hep B, Adol or Pedi Dosage Unknown Completed [facility] Hib-HbOC Unknown Completed [facility] HPV Unknown Completed [facility] Meningococcal Polysaccharide (groups A, C, Y and W-135) conjugate vaccine (MCV4P) Unknown Completed [facility] MMR Unknown Completed [facility] Pneumococcal 7 Conjugate, PCV7 (Prevnar7) Unknown Completed [facility] IPV Unknown Completed [facility] Varicella (varivax)(chicken pox) Unknown Completed [facility] TDAP Unknown Completed [facility] Influenza Virus Vaccine Quad .5 mL IM 6+ MO (FLUZONE/FLULAVAL/FL UARIX) Unknown Completed [facility] Influenza Virus Vaccine Quad IM, Preserv and ABX Free 6 MO-64 YRS (FLUCELVAX) Unknown Completed [facility] DTaP, Unspecified Formulation Unknown Completed [facility] HEPATITIS A Unknown Completed [facility] Hep B, Adol or Pedi Dosage Unknown Completed [facility] Hib-HbOC Unknown Completed [facility] HPV Unknown Completed [facility] Meningococcal Polysaccharide (groups A, C, Y and W-135) conjugate vaccine (MCV4P) Unknown Completed [facility] MMR Unknown Completed [facility] Pneumococcal 7 Conjugate, PCV7 (Prevnar7) Unknown Completed [facility] IPV Unknown Completed [facility] Varicella (varivax)(chicken pox) Unknown Completed [facility] Vital Signs Vital Name Observation Time Observation Value Comments S ource Body temperature 2025-01-27 19:27:00 36.72 Daisy [facility] Systolic blood pressure 2025-01-27 19:00:00 116 mm[Hg] [facility] Diastolic blood pressure 2025-01-27 19:00:00 86 mm[Hg] [facility] Heart rate 2025-01-27 19:00:00 102 /min [facility] Oxygen saturation in Arterial blood by Pulse oximetry 2025-01-27 19:00:00 97 /min [facility] Respiratory rate 2025-01-27 17:27:52 16 /min [facility] Body height 2025-01-27 14:44:[address] [facility] Body weight 2025-01-27 14:44:[address] [facility] BMI 2025-01-27 14:44:00 24.96 kg/m2 [facility] Systolic blood pressure 2024-04-02 17:20:00 106 mm[Hg] [facility] Diastolic blood pressure 2024-04-02 17:20:00 56 mm[Hg] [facility] Heart rate 2024-04-02 17:20:00 72 /min [facility] Body temperature 2024-04-02 17:20:00 35.78 Daisy [facility] Respiratory rate 2024-04-02 17:20:00 12 /min [facility] Oxygen saturation in Arterial blood by Pulse oximetry 2024-04-02 17:20:00 98 /min [facility] Body height 2024-04-01 10:01:[address] [facility] Body weight 2024-04-01 10:01:[address] [facility] BMI 2024-04-01 10:01:00 24.96 kg/m2 [facility] Systolic blood pressure 2024-04-01 21:15:00 107 mm[Hg] [facility] Diastolic blood pressure 2024-04-01 21:15:00 57 mm[Hg] [facility] Heart rate 2024-04-01 21:15:00 63 /min [facility] Body temperature 2024-04-01 21:15:00 36.56 Daisy [facility] Respiratory rate 2024-04-01 21:15:00 16 /min [facility] Oxygen saturation in Arterial blood by Pulse oximetry 2024-04-01 21:15:00 98 /min [facility] Body height 2024-04-01 10:01:[address] [facility] Body weight 2024-04-01 10:01:[address] [facility] BMI 2024-04-01 10:01:00 24.96 kg/m2 [facility] Systolic blood pressure 2023-05-13 13:41:00 106 mm[Hg] [facility] Diastolic blood pressure 2023-05-13 13:41:00 72 mm[Hg] [facility] Heart rate 2023-05-13 13:41:00 69 [facility] Body temperature 2023-05-13 13:41:00 36.56 Daisy [facility] Respiratory rate 2023-05-13 13:41:00 18 /min [facility] Oxygen saturation in Arterial blood by Pulse oximetry 2023-05-13 13:41:00 98 /min [facility] Body height 2023-05-11 07:27:00 165.1 cm [facility] Body weight 2023-05-11 07:27:[address] [facility] BMI 2023-05-11 07:27:00 29.57 kg/m2 [facility] Systolic blood pressure 2023-05-11 17:26:00 123 mm[Hg] [facility] Diastolic blood pressure 2023-05-11 17:26:00 72 mm[Hg] [facility] Heart rate 2023-05-11 17:26:00 79 /min [facility] Body temperature 2023-05-11 17:26:00 37.06 Daisy [facility] Respiratory rate 2023-05-11 17:26:00 18 /min [facility] Oxygen saturation in Arterial blood by Pulse oximetry 2023-05-11 17:26:00 97 /min [facility] Body height 2023-05-11 07:27:00 165.1 cm [facility] Body weight 2023-05-11 07:27:[address] [facility] BMI 2023-05-11 07:27:00 29.57 kg/m2 [facility] Systolic blood pressure 2023-05-08 21:21:00 108 mm[Hg] [facility] Diastolic blood pressure 2023-05-08 21:21:00 71 mm[Hg] [facility] Heart rate 2023-05-08 21:21:00 82 /min [facility] Body temperature 2023-05-08 21:21:00 36.17 Daisy [facility] Respiratory rate 2023-05-08 21:21:00 18 /min [facility] Body height 2023-05-08 21:21:[address] [facility] Body weight 2023-05-08 21:21:[address] [facility] BMI 2023-05-08 21:21:00 29.00 kg/m2 [facility] Systolic blood pressure 2023-05-03 21:11:00 115 mm[Hg] [place] [facility] Diastolic blood pressure 2023-05-03 21:11:00 71 mm[Hg] [facility] Heart rate 2023-05-03 21:11:00 92 /min [facility] Body temperature 2023-05-03 21:11:00 35.89 Daisy [facility] Respiratory rate 2023-05-03 21:11:00 18 /min [facility] Body height 2023-05-03 21:11:00 165.1 cm [facility] Body weight 2023-05-03 21:11:00 78.744 kg [facility] BMI 2023-05-03 21:11:00 28.89 kg/m2 [facility] Systolic blood pressure 2023-04-25 21:03:00 102 mm[Hg] [facility] Diastolic blood pressure 2023-04-25 21:03:00 66 mm[Hg] [place] [facility] Heart rate 2023-04-25 21:03:00 78 /min [facility] Body temperature 2023-04-25 21:03:00 36.06 Daisy [facility] Respiratory rate 2023-04-25 21:03:00 18 /min [facility] Body height 2023-04-25 21:03:00 165.1 cm [facility] Body weight 2023-04-25 21:03:00 78.654 kg [facility] BMI 2023-04-25 21:03:00 28.86 kg/m2 [facility] Systolic blood pressure 2023-04-11 21:06:00 103 mm[Hg] [facility] Diastolic blood pressure 2023-04-11 21:06:00 67 mm[Hg] [facility] Heart rate 2023-04-11 21:06:00 83 /min [facility] Body temperature 2023-04-11 21:06:00 35.78 Daisy [facility] Respiratory rate 2023-04-11 21:06:00 18 /min [facility] Body height 2023-04-11 21:06:00 165.1 cm [facility] Body weight 2023-04-11 21:06:00 78.79 kg [facility] BMI 2023-04-11 21:06:00 28.91 kg/m2 [facility] Systolic blood pressure 2023-03-28 17:09:00 105 mm[Hg] [facility] Diastolic blood pressure 2023-03-28 17:09:00 63 mm[Hg] [facility] Heart rate 2023-03-28 17:09:00 90 /min [facility] Body temperature 2023-03-28 17:09:00 35.94 Daisy [facility] Respiratory rate 2023-03-28 17:09:00 18 /min [facility] Body height 2023-03-28 17:09:00 165.1 cm [facility] Body weight 2023-03-28 17:09:00 77.384 kg [facility] BMI 2023-03-28 17:09:00 28.39 kg/m2 [facility] Systolic blood pressure 2023-02-14 13:34:00 116 mm[Hg] [facility] Diastolic blood pressure 2023-02-14 13:34:00 64 mm[Hg] [facility] Heart rate 2023-02-14 13:34:00 70 /min [facility] Body temperature 2023-02-14 13:34:00 36 Daisy [facility] Respiratory rate 2023-02-14 13:34:00 17 /min [facility] Body height 2023-02-14 13:34:00 165.1 cm [facility] Body weight 2023-02-14 13:34:[address] [facility] BMI 2023-02-14 13:34:00 28.74 kg/m2 [facility] Systolic blood pressure 2022-12-27 18:44:00 93 mm[Hg] [facility] Diastolic blood pressure 2022-12-27 18:44:00 61 mm[Hg] [facility] Heart rate 2022-12-27 18:44:00 70 /min [facility] Body temperature 2022-12-27 18:44:00 36.56 Daisy [facility] Respiratory rate 2022-12-27 18:44:00 20 /min [facility] Body height 2022-12-27 18:44:00 165.1 cm [facility] Body weight 2022-12-27 18:44:00 75.479 kg [facility] BMI 2022-12-27 18:44:00 27.69 kg/m2 [facility] Systolic blood pressure 2022-06-04 14:33:00 118 mm[Hg] [facility] Diastolic blood pressure 2022-06-04 14:33:00 77 mm[Hg] [facility] Heart rate 2022-06-04 14:33:00 73 /min [facility] Body temperature 2022-06-04 14:33:00 36.39 Daisy [facility] Respiratory rate 2022-06-04 14:33:00 18 /min [facility] Oxygen saturation in Arterial blood by Pulse oximetry 2022-06-04 14:33:00 99 /min [facility] Body height 2022-06-02 20:30:[address] [facility] Body weight 2022-06-02 20:30:[address] [facility] BMI 2022-06-02 20:30:00 31.32 kg/m2 [facility] Systolic blood pressure 2022-06-02 15:53:00 114 mm[Hg] [facility] Diastolic blood pressure 2022-06-02 15:53:00 68 mm[Hg] [facility] Heart rate 2022-06-02 15:53:00 75 /min [facility] Body temperature 2022-06-02 15:53:00 36 Daisy [facility] Respiratory rate 2022-06-02 15:53:00 18 /min [facility] Body height 2022-06-02 15:53:[address] [facility] Body weight 2022-06-02 15:53:[address] [facility] BMI 2022-06-02 15:53:00 30.38 kg/m2 [facility] Systolic blood pressure 2022-05-26 15:48:00 115 mm[Hg] [facility] Diastolic blood pressure 2022-05-26 15:48:00 71 mm[Hg] [facility] Heart rate 2022-05-26 15:48:00 86 /min [facility] Body temperature 2022-05-26 15:48:00 36.5 Daisy [facility] Respiratory rate 2022-05-26 15:48:00 17 /min [facility] Body height 2022-05-26 15:48:00 167.6 cm [facility] Body weight 2022-05-26 15:48:00 85.548 kg [facility] BMI 2022-05-26 15:48:00 30.44 kg/m2 [facility] Systolic blood pressure 2022-05-18 14:59:00 111 mm[Hg] [facility] Diastolic blood pressure 2022-05-18 14:59:00 68 mm[Hg] [facility] Heart rate 2022-05-18 14:59:00 82 /min [facility] Body temperature 2022-05-18 14:59:00 36.5 Daisy [facility] Respiratory rate 2022-05-18 14:59:00 17 /min [facility] Body height 2022-05-18 14:59:00 167.6 cm [facility] Body weight 2022-05-18 14:59:00 85.231 kg [facility] BMI 2022-05-18 14:59:00 30.33 kg/m2 [facility] Systolic blood pressure 2022-05-12 17:11:00 100 mm[Hg] [facility] Diastolic blood pressure 2022-05-12 17:11:00 62 mm[Hg] [facility] Heart rate 2022-05-12 17:11:00 80 /min [facility] Body temperature 2022-05-12 17:11:00 36.56 Daisy [facility] Respiratory rate 2022-05-12 17:11:00 18 /min [facility] Body height 2022-05-12 17:11:00 167.6 cm [facility] Body weight 2022-05-12 17:11:00 85.049 kg [facility] BMI 2022-05-12 17:11:00 30.26 kg/m2 [facility] Systolic blood pressure 2022-05-05 14:57:00 112 mm[Hg] [facility] Diastolic blood pressure 2022-05-05 14:57:00 72 mm[Hg] [facility] Heart rate 2022-05-05 14:57:00 84 /min [facility] Body temperature 2022-05-05 14:57:00 36.78 Daisy [facility] Respiratory rate 2022-05-05 14:57:00 18 /min [facility] Body height 2022-05-05 14:57:[address] [facility] Body weight 2022-05-05 14:57:[address] [facility] BMI 2022-05-05 14:57:00 29.38 kg/m2 [facility] Systolic blood pressure 2022-03-02 19:02:00 129 mm[Hg] [facility] Diastolic blood pressure 2022-03-02 19:02:00 68 mm[Hg] [facility] Heart rate 2022-03-02 19:02:00 89 /min [facility] Body temperature 2022-03-02 19:02:00 36.44 Daisy [facility] Respiratory rate 2022-03-02 19:02:00 17 /min [facility] Body height 2022-03-02 19:02:[address] [facility] Body weight 2022-03-02 19:02:[address] [facility] BMI 2022-03-02 19:02:00 28.26 kg/m2 [facility] Procedures Procedure Date / Time Performed Performing Clinician Source XR FINGERS 2 VW RIGHT 2025-01-27 15:47:44 Cecilia Samaniego [facility] CBC WITH DIFF 2024-04-02 12:49:00 [facility] EXTRA TUBE LT. GREEN 2024-04-02 12:49:00 Paradise Covington [facility] CBC WITH DIFF 2024-04-02 12:49:00 Yesica Nam [facility] EXTRA TUBE LT. GREEN 2024-04-02 12:49:00 Paradise [place] [facility] DIAGNOSTIC LAPAROSCOPY 2024-04-02 00:15:00 Alpesh Miller [facility] LAPAROSCOPIC SALPINGECTOMY 2024-04-02 00:15:00 Marry Miller [facility] DIAGNOSTIC LAPAROSCOPY 2024-04-02 00:15:00 Alpesh Miller [facility] LAPAROSCOPIC SALPINGECTOMY 2024-04-02 00:15:00 Nba [facility] MRSA / MSSA SCREEN BY PCR, [facility] 2024-04-01 10:54:00 Neri [facility] MRSA / MSSA SCREEN BY PCR, [facility] 2024-04-01 10:54:00 Maral He [facility] PREPARE PACKED RBC 2024-04-01 01:27:49 Nba [facility] PREPARE PACKED RBC 2024-04-01 01:27:49 Nab [facility] TOTAL BETA HCG ASSAY 2024-03-31 23:29:00 Vielka, [facility] CBC WITH DIFF 2024-03-31 23:29:00 Ly [facility] HB ABO GROUPING 2024-03-31 23:29:00 Ly, [facility] BASIC METABOLIC PANEL (NA, K, CL, CO2, GLUCOSE, BUN, CREATININE, CA) 2024-03-31 23:29:00 Vielka [facility] TOTAL BETA HCG ASSAY 2024-03-31 23:29:00 Vielka, [facility] CBC WITH DIFF 2024-03-31 23:29:00 Vielka [facility] HB ABO GROUPING 2024-03-31 23:29:00 Ly, [facility] BASIC METABOLIC PANEL (NA, K, CL, CO2, GLUCOSE, BUN, CREATININE, CA) 2024-03-31 23:29:00 Ly, [facility] US PELVIS COMPLETE WITH TRANSVAGINAL 2024-03-31 23:14:25 Ly, [facility] US PELVIS COMPLETE WITH TRANSVAGINAL 2024-03-31 23:14:25 Ly, [facility] CBC WITH DIFF 2023-05-12 08:56:00 Parveen Johnson [facility] CBC WITH DIFF 2023-05-12 08:56:00 Parveen Johnson Un [facility] TUBAL LIGATION 2023-05-11 14:12:00 Sarah Hagan [facility] VENOUS CORD GAS 2023-05-11 13:12:00 Bouchra Roger Catrachita [facility] VENOUS CORD GAS 2023-05-11 13:12:00 Bouchra Roger [facility] PREPARE PACKED RBC 2023-05-11 10:20:06 Lowell Dawsoneeta [facility] CENTRAL NEURAXIAL BLOCK 2023-05-11 07:55:00 Henrietta Cummins [facility] HEPATITIS B SURFACE ANTIGEN 2023-05-11 06:58:00 Acacia [facility] HB ABO GROUPING 2023-05-11 06:58:00 Bouchra Roger [facility] RHO (D) IMMUNE GLOBULIN 2023-05-11 06:58:00 [facility] EXTRA TUBE LAV 2023-05-11 06:58:[address] [facility] SYPHILIS IGG/IGM 2023-05-11 06:58:00 [facility] SURFACE ANTIGEN 2023-05-11 06:58:00 [facility] ABO GROUPING 2023-05-11 06:58:00 Bouchra Roger [facility] RHO (D) IMMUNE GLOBULIN 2023-05-11 06:58:00 [facility] EXTRA TUBE LAV 2023-05-11 06:58:00 Samir [facility] SYPHILIS IGG/IGM 2023-05-11 06:58:00 [facility] 2023-05-08 21:22:00 Armando Guzman [facility] POCT URINALYSIS 2023-05-03 21:13:00 Armando Guzman [facility] POCT URINALYSIS 2023-04-25 21:05:00 Armando Guzman [facility] POCT URINALYSIS 2023-04-11 21:07:00 Armando Guzman [facility] SECOND AND THIRD TRIMESTER ULTRASOUND 2023-03-28 22:07:00 Armando Guzman [facility] GLUCOSE 1 HOUR POST PRANDIAL 2023-03-28 18:07:00 Armando Guzman [facility] CBC WITH DIFF 2023-03-28 18:07:00 Armando Guzman [facility] HIV 1/2 AG-AB WITH REFLEX 2023-03-28 18:07:00 Armando Guzman [facility] SYPHILIS IGG/IGM 2023-03-28 18:07:00 Fredrick Guzman [facility] FLU VACC (), 6 MO-64 YRS, .5ML, IM, QUAD (FLUCELVAX) 2023-03-28 17:40:54 Armando Guzman [facility] POCT URINALYSIS 2023-03-28 17:12:00 Armando Guzman [facility] TDAP VACCINE, >11 YRS, IM 2023-03-28 17:00:55 Armando Guzman [facility] STERILIZATION CONSENT FORM 2023-03-28 06:01:00 Doctor Unassigned, [place] [facility] POCT URINALYSIS 2023-02-14 00:00:00 Armando Guzman [facility] SECOND AND THIRD TRIMESTER ULTRASOUND 2023-01-16 20:36:00 Armando Guzman [facility] CONSENT/REFUSAL FOR DIAGNOSIS AND TREATMENT 2022-12-27 18:02:37 Doctor Unassigned, [place] [facility] ASSIGNMENT OF BENEFITS 2022-12-27 18:02:24 Docto r Unassigned, [place] [facility] POCT TEST 2022-12-27 00:00:00 Gordon Guzman [facility] POCT URINALYSIS W/O SPECIFIC GRAVITY 2022-12-27 00:00:00 Armando Guzman [facility] PREPARE PACKED RBC 2022-06-04 18:29:03 Nuris Olson [facility] CBC WITH DIFF 2022-06-03 12:12:00 [facility] 2022-06-03 00:40:00 Nuris Olson [facility] CENTRAL NEURAXIAL BLOCK 2022-06-02 21:55:00 Chuyita Wagner [facility] CBC WITH DIFF 2022-06-02 21:26:00 Michael Louis [facility] HEPATITIS B SURFACE ANTIGEN 2022-06-02 21:26:00 Nuris Olson [facility] SYPHILIS IGG/IGM 2022-06-02 21:26:00 Nuris [facility] HB ABO GROUPING 2022-06-02 21:00:00 Nuris Olson [facility] RHO (D) IMMUNE GLOBULIN 2022-06-02 21:00:00 Fariba Cabrera [facility] NON-STRESS TEST 2022-06-02 16:59:37 Alfredo Dumas [facility] POCT URINALYSIS 2022-06-02 15:54:00 Armando Guzman [facility] POCT URINALYSIS 2022-05-26 00:00:00 Armando Guzman [facility] POCT URINALYSIS 2022-05-18 00:00:00 Armando Guzman [facility] TDAP VACCINE, >11 YRS, IM 2022-05-05 16:11:39 Sweta Erwin [facility] POCT URINALYSIS 2022-05-05 00:00:00 Armando Guzman [facility] POCT URINALYSIS 2022-03-02 00:00:00 Armando Guzman [facility] Encounters Start Date/Time End Date/Time Encounter Type Admission Type Attending [facility] Care Department Encounter ID Source 2021-03-19 00:56:29 Outpatient [facility] [id number] [facility] 2025-01-27 09:47:00 2025-01-27 14:32:00 Emergency X [facility] SERVICES ERT [id number] [facility] 2022-06-05 00:00:00 2024-07-05 02:44:08 Orders Only Tammie Dumas [facility] FRAME CATCHER [facility] MATERNAL & CHILD [facility]ALTH [facility] 1.2.840.114 350.1.13.10 4.2.7.2.686 [id number] [facility] 2024-04-03 00:00:00 2024-05-10 18:20:58 Patient Secure Ms Doctor Unassigned, [place] Doctor Unassigned, [place] [facility] 1.840.114 350.1.13.10 4.2.7.2.686 [id number] [facility] 2024-04-04 00:00:00 2024-05-10 18:19:56 Patient Secure Msg Doctor Unassigned, [place] Doctor Unassigned, [place] [facility] [place] ([place]) 1.2840.114 350.1.13.10 4.2.7.2.686 [id number] [facility] 2024-03-31 14:36:00 2024-04-02 14:47:00 Outpatient X MARRY MILLER [facility] [place] [id number] [facility] 2024-03-31 14:36:00 2024-04-02 14:47:00 Emergency Marry Miller Yvette [facility] [place] ([place]) 1.840.114 350.1.13.10 4.2.7.2.686 [id number] [facility] 2024-04-01 17:40:00 2024-04-01 19:58:00 Surgery Marry Miller [facility] [place] ([place]) 1.2.840.114 350.1.13.10 4.2.7.2.686 [id number] [facility] 2023-05-17 14:30:00 2023-05-17 14:30:00 Outpatient R ARMANDO GUZMAN [facility] [id number] [facility] 2023-05-11 00:07:00 2023-05-13 15:32:00 Inpatient P DAWSON [facility] DAWSON [facility] [place] [id number] [facility] 2023-05-11 00:07:00 2023-05-13 15:32:00 [facility] 1.2.840.114 350.1.13.10 4.2.7.2.686 [id number] [facility] 2023-05-11 12:50:00 2023-05-11 14:17:00 Surgery Sarah Cummings [facility] 1.2.840.114 350.1.13.10 4.2.7.2.686 [id number] [facility] 2023-05-11 01:53:00 2023-05-11 08:11:00 Anesthesia Event Mike Cummins Allison Elizabeth [facility] 1.2.840.114 350.1.13.10 4.2.7.2.686 [id number] [facility] 2023-05-08 15:45:00 2023-05-08 15:45:34 Outpatient R ARMANDO GUZMAN [facility] [id number] [facility] 2023-05-08 15:45:00 2023-05-08 15:45:34 Routine Visit Armando Guzman [facility] FRAME CATCHER [facility] MATERNAL & CHILD HEALTH [facility] 1.2.840.114 350.1.13.10 4.2.7.2.686 [id number] [facility] 2023-05-08 00:00:00 2023-05-08 00:00:00 Telephone Armando Guzman [facility] FRAME CATCHER [facility] & CHILD [facility] 1.2.840.114 350.1.13.10 4.2.7.2.686 [id number] [facility] 2023-05-04 00:00:00 2023-05-04 00:00:00 Telephone Armando Guzman [facility] FRAME CATCHER [facility] & CHILD [facility] 1.2.840.114 350.1.13.10 4.2.7.2.686 [id number] [facility] 2023-05-03 15:00:00 2023-05-03 15:15:00 Routine Visit Armando Guzman [facility] FRAME CATCHER [facility] & CHILD [facility] 1.2.840.114 350.1.13.10 4.2.7.2.686 [id number] [facility] 2023-05-03 15:00:00 2023-05-03 15:00:00 Outpatient R ARMANDO GUZMAN [facility] [id number] [facility] 2023-04-25 15:00:00 2023-04-25 15:38:49 Outpatient R ARMANDO GUZMNA [facility] [id number] [facility] 2023-04-25 15:00:00 2023-04-25 15:38:49 Routine Visit Armando Guzman [facility] FRAME CATCHER [facility] & CHILD [facility] 1.2.840.114 350.1.13.10 4.2.7.2.686 [id number] 107 [id number] [facility] 2023-04-16 00:00:00 2023-04-16 00:00:00 Case Management Tammie Dumas [facility] FRAME CATCHER [facility] MATERNAL & CHILD [facility] 1.840.114 350.1.13.10 4.2.7.2.686 [id number] [facility] 2023-04-11 15:00:00 2023-04-11 15:43:21 Outpatient R TAMMIE DUMAS [facility] [id number] [facility] 2023-04-11 15:00:00 2023-04-11 15:43:21 Routine Visit Tammie Dumas [facility] FRAME CATCHER [facility] MATERNAL & CHILD [facility] 1.0.114 350.1.13.10 4.2.7.2.686 [id number] [facility] 2023-03-28 15:15:00 2023-03-28 16:01:30 Outpatient P SARAH CUMMINGS [facility] [id number] [facility] 2023-03-28 15:15:00 2023-03-28 16:01:30 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 1, [facility] Room Armando Guzman Gay [facility] FRAME CATCHER [facility] MATERNAL & CHILD [facility] 1.0.114 350.1.13.10 4.2.7.2.686 [id number] [facility] 2023-03-28 11:00:00 2023-03-28 11:40:05 Routine Visit Armando Guzman [facility] FRAME CATCHER [facility] MATERNAL & CHILD [facility] 1.840.114 350.1.13.10 4.2.7.2.686 [id number] 107 [id number] [facility] 2023-03-28 00:00:00 2023-03-28 00:00:00 Orders Only Doctor Unassigned, [place] [facility] 1.0.114 350.1.13.10 4.2.7.2.686 [id number] [facility] 2023-03-08 09:00:00 2023-03-08 09:00:00 Outpatient R ARMANDO GUZMAN [facility] [id number] [facility] 2023-03-07 09:00:00 2023-03-07 09:00:00 Outpatient R ARMANDO GUZMAN [facility] [id number] [facility] 2023-02-19 00:00:00 2023-02-19 00:00:00 Telephone Armando Guzman [facility] FRAME CATCHER [facility] MATERNAL & CHILD [facility] ..840.114 350.1.13.10 4.2.7.2.686 [id number] 107 [id number] [facility] 2023-02-14 08:00:00 2023-02-14 09:17:39 Outpatient R ARMANDO GUZMAN [facility] [id number] [facility] 2023-02-14 08:00:00 2023-02-14 09:17:39 Routine Visit Armando Guzman [facility] FRAME CATCHER [facility] & CHILD [facility] 1..840.114 350.1.13.10 4.2.7.2.686 [id number] 107 [id number] [facility] 2023-02-13 14:15:00 2023-02-13 14:15:00 Outpatient R ARMANDO GUZMAN [facility] [id number] [facility] 2023-01-24 15:30:00 2023-01-24 15:30:00 Outpatient R ARMANDO GUZMAN [facility] [id number] [facility] 2023-01-17 00:00:00 2023-01-17 00:00:00 Abstract Armando Guzman [facility] FRAME CATCHER [facility] & CHILD [facility] ..840.114 350.1.13.10 4.2.7.2.686 [id number] 107 [id number] [facility] 2023-01-16 14:30:00 2023-01-16 15:30:00 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 Ultrasound, Sarah Wood [facility] FRAME CATCHER [facility] & CHILD [facility] 1.840.114 350.1.13.10 4.2.7.2.686 [id number] [facility] 2023-01-16 14:30:00 2023-01-16 14:30:00 Outpatient P SARAH CUMMINGS [facility] [id number] [facility] 2023-01-03 13:30:00 2023-01-03 14:01:13 Outpatient R ARMANDO GUZMAN [facility] [id number] [facility] 2023-01-03 13:30:00 2023-01-03 14:01:13 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 Lab, MickRmchArmando Burns [facility] FRAME CATCHER [facility] CHILD [facility] 1.84.114 350.1.13.10 4.2.7.2.686 [id number] 107 [id number] [facility] 2023-01-01 00:00:00 2023-01-01 00:00:00 Telephone Tammie Dumas [facility] FRAME CATCHER [facility] & CHILD [facility] 1.840.114 350.1.13.10 4.2.7.2.686 [id number] 107 [id number] [facility] 2022-12-27 13:45:00 2022-12-27 14:34:57 Outpatient R ARMANDO GUZMAN [facility] [id number] [facility] 2022-12-27 13:45:00 2022-12-27 14:34:57 Initial Visit Armando Guzman [facility] FRAME CATCHER [facility] & CHILD [facility] 1.840.114 350.1.13.10 4.2.7.2.686 [id number] [facility] 2022-12-27 00:00:00 2022-12-27 00:00:00 Orders Only Doctor Unassigned, [place] [facility] 1..114 350.1.13.10 4.2.7.2.686 [id number] [facility] 2022-12-01 12:30:00 2022-12-01 12:30:00 Outpatient R ARMANDO GUZMAN [facility] [id number] [facility] 2022-10-09 00:00:00 2022-10-09 00:00:00 Telephone Armando Guzman [facility] FRAME CATCHER [facility] MATERNAL & CH[facility] 1.114 350.1.13.10 4.2.7.2.686 [id number] [facility] 2022-09-14 10:30:00 2022-09-14 10:30:00 Outpatient R ARMANDO GUZMAN [facility] [id number] [facility] 2022-09-07 15:00:00 2022-09-07 15:00:00 Outpatient R ARMANDO GUZMAN [facility] [id number] [facility] 2022-08-10 15:00:00 2022-08-10 15:00:00 Outpatient R ARMANDO GUZMAN [facility] [id number] [facility] 2022-06-02 13:53:00 2022-06-04 12:28:00 Hospital Encounter Martha Mendez [facility] 1.114 350.1.13.10 4.2.7.2.686 [id number] [facility] 2022-06-04 00:00:00 2022-06-04 00:00:00 Telephone Cece Fonseca [facility] 1.114 350.1.13.10 4.2.7.2.686 [id number] [facility] 2022-06-02 15:51:00 2022-06-02 20:15:00 Anesthesia Event Davian Wagner, [facility] 1..840.114 350.1.13.10 4.2.7.2.686 [id number] [facility] 2022-06-02 09:30:00 2022-06-02 10:33:43 Outpatient TAMMIE HANNA [facility] [id number] [facility] 2022-06-02 09:30:00 2022-06-02 10:33:43 Routine Visit Provider, Tammie Roberts NHJOLYNN FRAME CATCHER [facility] MATERNAL & CHILD [facility] 1..840.114 350.1.13.10 4.2.7.2.686 [id number] [facility] 2022-06-02 09:30:00 2022-06-02 10:33:43 [facility] [place] [id number] [facility] 2022-05-26 09:45:00 2022-05-26 10:11:14 Outpatient TAMMIE HANNA [facility] [id number] [facility] 2022-05-26 09:45:00 2022-05-26 10:11:14 Routine Visit Provider, Tammie Roberts [facility] FRAME CATCHER [facility] & CHILD [facility] 1.840.114 350.1.13.10 4.2.7.2.686 [id number] [facility] 2022-05-18 08:45:00 2022-05-18 09:31:22 Outpatient TAMMIE HANNA [facility] [id number] [facility] 2022-05-18 08:45:00 2022-05-18 09:31:22 Routine Visit Provider, Tammie Roberts [facility] FRAME CATCHER [facility] MATERNAL & CHILD [facility] 1..840.114 350.1.13.10 4.2.7.2.686 [id number] [facility] 2022-05-12 10:45:00 2022-05-12 11:43:44 Outpatient R TAMMIE DUMAS [facility] [id number] [facility] 2022-05-12 10:45:00 2022-05-12 11:43:44 Routine Visit Provider, Tammie Roberts [facility] FRAME CATCHER [facility] & CHILD [facility] 1..840.114 350.1.13.10 4.2.7.2.686 [id number] [facility] 2022-05-05 09:00:00 2022-05-05 10:41:04 Outpatient SWETA MATOS [facility] [id number] [facility] 2022-05-05 09:00:00 2022-05-05 10:41:04 Routine Visit Provider, Sweta Laguerre [facility] FRAME CATCHER [facility] & CHILD [facility] 1..840.114 350.1.13.10 4.2.7.2.686 [id number] [facility] 2022-03-29 00:00:00 2022-03-29 00:00:00 Armando Antunez [facility] FRAME CATCHER [facility] & CHILD [facility] 1..840.114 350.1.13.10 4.2.7.2.686 [id number] [facility] 2022-03-17 12:30:00 2022-03-17 12:30:00 Outpatient AMBAR ROBERTO [facility] [id number] [facility] 2022-03-16 00:00:00 2022-03-16 00:00:00 Refill Armando Guzman [facility] FRAME CATCHER [facility] & CHILD [facility] 1.2.840.114 350.1.13.10 4.2.7.2.686 [id number] 107 [id number] [facility] 2022-03-10 00:00:00 2022-03-10 00:00:00 Refill Armando Guzman [facility] FRAME CATCHER [facility] & CHILD [facility] 1.2.840.114 350.1.13.10 4.2.7.2.686 [id number] 107 [id number] [facility] 2022-03-09 08:30:00 2022-03-09 08:30:00 Outpatient R YOLARUBIO ARMANDO [facility] [id number] [facility] 2022-03-02 14:00:00 2022-03-02 14:20:31 Outpatient R ARMANDO GUZMAN [facility] [id number] [facility] 2022-03-02 14:00:00 2022-03-02 14:20:31 Routine Visit Armando Guzman [facility] FRAME CATCHER [facility] CHILD [facility] 1.2.840.114 350.1.13.10 4.2.7.2.686 [id number] 107 [id number] [facility] 2022-02-21 00:00:00 2022-02-21 00:00:00 Abstract Armando Guzman [facility] FRAME CATCHER [facility] CHILD [facility] 1.2.840.114 350.1.13.10 4.2.7.2.686 [id number] [facility] 2022-02-20 11:00:00 2022-02-20 11:00:00 Outpatient P [facility] [id number] [facility] 2022-02-20 09:45:00 2022-02-20 10:41:00 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 1, Bhavnam Us Room Alex Browne [facility] FRAME CATCHER [facility]ILD [facility] 1.2.840.114 350.1.13.10 4.2.7.2.686 [id number] [facility] 2022-02-20 09:45:00 2022-02-20 09:45:00 Outpatient P SANDER BROWNEIO [facility] [id number] [facility] 2022-02-14 00:00:00 2022-02-14 00:00:00 Telephone Armando Guzman [facility] FRAME CATCHER [facility] MATERNAL & CHILD HEALTH [facility] 1.2.840.114 350.1.13.10 4.2.7.2.686 [id number] [facility] 2022-02-08 00:00:00 2022-02-08 00:00:00 Telephone Armando Guzman [facility] FRAME CATCHER [facility] CHILD [facility] 1.2.840.114 350.1.13.10 4.2.7.2.686 [id number] 107 [id number] [facility] 2022-02-07 00:00:00 2022-02-07 00:00:00 Telephone Armando Guzman [facility] FRAME CATCHER [facility] CHILD [facility] 1.2.840.114 350.1.13.10 4.2.7.2.686 [id number] 107 [id number] [facility] 2022-02-06 00:00:00 2022-02-06 00:00:00 Telephone Armando Guzman [facility] FRAME CATCHER [facility] CHILD [facility] 1.2.840.114 350.1.13.10 4.2.7.2.686 [id number] 107 [id number] [facility] 2022-02-03 00:00:00 2022-02-03 00:00:00 Telephone Armando Guzman [facility] FRAME CATCHER [facility] CHILD [facility] 1.2.840.114 350.1.13.10 4.2.7.2.686 [id number] 107 [id number] [facility] 2022-02-02 14:15:00 2022-02-02 15:37:47 Initial Visit Armando Guzman [facility] FRAME CATCHER [facility] CHILD [facility] 1.2840.114 350.1.13.10 4.2.7.2.686 [id number] 107 [id number] [facility] 2022-02-02 13:45:00 2022-02-02 15:34:53 Outpatient R ARMANDO GUZMAN [facility] [id number] [facility] 2022-02-02 13:45:00 2022-02-02 15:34:53 Outpatient R ARMANDO GUZMAN [facility] [id number] [facility] 2022-02-02 00:00:00 2022-02-02 00:00:00 Orders Only Doctor Unassigned, [place] [facility] 1.840.114 350.1.13.10 4.2.7.2.686 [id number] [facility] 2021-09-09 13:00:00 2021-09-09 13:00:00 Outpatient R [facility] [id number] [facility] 2021-09-09 13:00:00 2021-09-09 13:00:00 Outpatient R JOEY MONTES [facility] [id number] [facility] 2021-08-26 00:00:00 2021-08-26 00:00:00 Telephone Armando Guzman [facility] FRAME CATCHER [facility] CHILD [facility] 1.284.114 350.1.13.10 4.2.7.2.686 [id number] 107 [id number] [facility] 2021-08-23 14:00:00 2021-08-23 14:50:43 Outpatient R ARMANDO GUZMAN [facility] [id number] [facility] 2021-08-23 14:00:00 2021-08-23 14:50:43 Office Visit Armando Guzman [facility] FRAME CATCHER [facility] CHILD [facility] 1.2840.114 350.1.13.10 4.2.7.2.686 [id number] 107 [id number] [facility] 2021-08-23 00:00:00 2021-08-23 00:00:00 Orders Only Doctor Unassigned, [place] [facility] 1.0.114 350.1.13.10 4.2.7.2.686 [id number] [facility] 2021-08-02 13:45:00 2021-08-02 14:21:56 Outpatient R ARMANDO GUZMAN [facility] [id number] [facility] 2021-08-02 13:45:00 2021-08-02 14:21:56 Routine Visit Armando Guzman [facility] FRAME CATCHER [facility] CH[facility] 1.0.114 350.1.13.10 4.2.7.2.686 [id number] [facility] 2021-06-23 00:31:00 2021-06-24 13:51:00 Inpatient P ADÁN BRICEÑO [facility] [place] [id number] [facility] 2021-06-23 00:31:00 2021-06-24 13:51:00 Hospital Encounter Adán Briceño [facility] 1.0.114 350.1.13.10 4.2.7.2.686 [id number] [facility] 2021-06-23 04:29:00 2021-06-23 10:56:00 Anesthesia Event Gabriel Blanton Michael [facility] 1.840.114 350.1.13.10 4.2.7.2.686 [id number] [facility] 2021-06-17 13:00:00 2021-06-17 14:09:48 Outpatient R ARMANDO GUZMAN [facility] [id number] [facility] 2021-06-17 13:00:00 2021-06-17 14:09:48 Routine Visit Armando Guzman NHJOLYNN FRAME CATCHER [facility] CHILD [facility] 1.840.114 350.1.13.10 4.2.7.2.686 [id number] [facility] 2021-06-10 13:00:00 2021-06-10 13:38:43 Out[facility] [id number] [facility] 2021-06-10 13:00:00 2021-06-10 13:38:43 Routine Visit Armando Guzman [facility] FRAME CATCHER [facility] CHILD [facility] 1.840.114 350.1.13.10 4.2.7.2.686 [id number] [facility] 2021-06-10 13:00:00 2021-06-10 13:00:00 Outpatient R ARMANDO GUZMAN [facility] [id number] [facility] 2021-06-07 00:00:00 2021-06-07 00:00:00 Telephone Armando Guzman NHJOLYNN FRAME CATCHER [facility] ..840.114 350.1.13.10 4.2.7.2.686 [id number] 107 [id number] [facility] 2021-06-07 00:00:00 2021-06-07 00:00:00 Telephone Armando Guzman NHJOLYNN FRAME CATCHER [facility] 1..840.114 350.1.13.10 4.2.7.2.686 [id number] 107 [id number] [facility] 2021-06-03 13:00:00 2021-06-03 13:58:35 [facility] [id number] [facility] 2021-06-03 13:00:00 2021-06-03 13:58:35 Routine Visit Armando Guzman UTJOLYNN FRAME CATCHER [facility] 1.2840.114 350.1.13.10 4.2.7.2.686 [id number] 107 [id number] [facility] 2021-06-03 13:00:00 2021-06-03 13:58:35 Outpatient R ARMANDO GUZMAN [facility] [id number] [facility] 2021-06-03 13:00:00 2021-06-03 13:00:00 [id number] 2021-05-26 14:00:00 2021-05-26 14:55:42 Outpatient R ARMANDO GUZMAN [facility] [id number] [facility] 2021-05-26 14:00:00 2021-05-26 14:55:42 Routine Visit Armando Guzman [facility] FR[facility] CATCHER [facility] 1.840.114 350.1.13.10 4.2.7.2.686 [id number] 107 [id number] [facility] 2021-05-12 14:00:00 2021-05-12 14:42:08 Outpatient R ARMANDO GUZMAN [facility] [id number] [facility] 2021-05-12 14:00:00 2021-05-12 14:42:08 Routine Visit DelmerartirubioArmando [facility] FR[employer] CATCHER [facility] 1..840.114 350.1.13.10 4.2.7.2.686 [id number] 107 [id number] [facility] 2021-04-28 14:59:19 2021-04-28 16:00:58 Routine Visit Provider, Benny-Rmchp Courtney Villanueva [facility] FRAME CATCHER [facility] 1.2.840.114 350.1.13.10 4.2.7.2.686 [id number] 107 [id number] [facility] 2021-04-28 14:30:00 2021-04-28 16:00:58 Outpatient R COURTNEY GRAY [facility] [id number] [facility] 2021-04-12 13:45:00 2021-04-12 14:38:59 Outpatient TC WAYNE [facility] [id number] [facility] 2021-04-12 13:37:58 2021-04-12 14:38:59 Routine Visit Tc Miller [facility] FRAME CATCHER [facility] 1..840.114 350.1.13.10 4.2.7.2.686 [id number] 107 [id number] [facility] 2021-04-12 13:45:00 2021-04-12 13:45:00 Outpatient TC WAYNE [facility] [id number] [facility] 2021-03-29 00:00:00 2021-03-29 00:00:00 Telephone cT Miller [facility] FRAME CATCHER [facility] 1..840.114 350.1.13.10 4.2.7.2.686 [id number] [facility] 2021-03-28 12:55:38 2021-03-28 13:37:07 Routine Visit Tc Miller [facility] FRAME CATCHER [facility] 1.2.840.114 350.1.13.10 4.2.7.2.686 [id number] [facility] 2021-03-28 12:45:00 2021-03-28 13:37:07 Outpatient TC WAYNE [facility] [id number] [facility] 2021-03-08 10:19:20 2021-03-08 10:59:01 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 Ultrasound, Martha Chacko [facility] FRAME CATCHER [facility] 1.840.114 350.1.13.10 4.2.7.2.686 [id number] [facility] 2021-03-08 10:00:00 2021-03-08 10:00:00 Outpatient P [facility] [id number] [facility] 2021-02-28 13:16:41 2021-02-28 13:52:38 Routine Visit Armando Guzman [facility] FRAME CATCHER [facility] 1.84.114 350.1.13.10 4.2.7.2.686 [id number] [facility] 2021-02-28 13:00:00 2021-02-28 13:00:00 Outpatient R ARMANDO GUZMAN [facility] [id number] [facility] 2021-01-31 13:32:22 2021-01-31 14:15:21 Routine Visit Armando Guzman [facility] FRAME CATCHER [facility] .840.114 350.1.13.10 4.2.7.2.686 [id number] [facility] 2021-01-31 13:00:00 2021-01-31 13:00:00 Outpatient R ARMANDO GUZMAN [facility] [id number] [facility] 2021-01-06 00:00:00 2021-01-06 00:00:00 Telephone Armando Guzman [facility] FRAME CATCHER [facility] 1..840.114 350.1.13.10 4.2.7.2.686 [id number] [facility] 2021-01-04 00:00:00 2021-01-04 00:00:00 Abstract rAmando Guzman [facility] FRAME CATCHER [facility] 1.2.840.114 350.1.13.10 4.2.7.2.686 [id number] 107 [id number] [facility] 2021-01-03 13:55:29 2021-01-03 14:10:42 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 1, [facility] Room Armando Guzman Gay [facility] FRAME CATCHER [facility] 1..840.114 350.1.13.10 4.2.7.2.686 [id number] [facility] 2021-01-03 10:50:21 2021-01-03 11:10:41 Routine Visit Armando Guzman [facility] FRAME CATCHER [facility] 1..840.114 350.1.13.10 4.2.7.2.686 [id number] [facility] 2021-01-03 10:15:00 2021-01-03 10:15:00 Outpatient R ARMANDO GUZMAN [facility] [id number] [facility] 2020-12-13 10:45:00 2020-12-13 10:45:00 Outpatient R ARMANDO GUZMAN [facility] [id number] [facility] 2020-11-22 00:00:00 2020-11-22 00:00:00 Telephone Armando Guzman [facility] FRAME CATCHER [facility] 1.2.840.114 350.1.13.10 4.2.7.2.686 [id number] 107 [id number] [facility] 2020-11-18 00:00:00 2020-11-18 00:00:00 Telephone Armando Guzman [facility] FRAME CATCHER [facility] 1.2840.114 350.1.13.10 4.2.7.2.686 [id number] [facility] 2020-11-15 13:51:59 2020-11-15 14:42:06 Initial Visit Armando Guzman [facility] FRAME CATCHER [facility] 1.2840.114 350.1.13.10 4.2.7.2.686 [id number] 107 [id number] [facility] 2020-11-15 13:00:00 2020-11-15 13:00:00 Outpatient R ARMANDO GUZMAN [facility] [id number] [facility] 2020-11-15 00:00:00 2020-11-15 00:00:00 Orders Only Doctor Unassigned, [place] [facility] 1.2840.114 350.1.13.10 4.2.7.2.686 [id number] [facility] 2020-08-10 00:00:00 2020-08-10 00:00:00 Patient Outreach Pawan Mcgill [facility] 1.284.114 350.1.13.10 4.2.7.2.686 [id number] [facility] 2020-07-21 10:00:00 2020-07-21 10:00:00 Outpatient R [facility] [id number] [facility] 2020-04-28 15:09:20 2020-04-28 16:13:03 Office Visit Armando Guzman [facility] FRAME CATCHER [facility] 1.284.114 350.1.13.10 4.2.7.2.686 [id number] [facility] 2020-04-28 15:00:00 2020-04-28 15:00:00 Outpatient R ARMANDO GUZMAN [facility] [id number] [facility] 2020-04-28 00:00:00 2020-04-28 00:00:00 Orders Only Doctor Unassigned, [place] [facility] 1.2.840.114 350.1.13.10 4.2.7.2.686 [id number] [facility] 2020-04-07 15:40:47 2020-04-07 16:21:28 Routine Visit Armando Guzmna [facility] FRAME CATCHER [facility] 1.2.840.114 350.1.13.10 4.2.7.2.686 [id number] [facility] 2020-04-07 15:45:00 2020-04-07 15:45:00 Outpatient R ARMANDO GUZMAN [facility] [id number] [facility] 2020-03-15 07:20:00 2020-03-17 12:30:00 Hospital Encounter Marshall Burleson [facility] 1.2.840.114 350.1.13.10 4.2.7.2.686 [id number] [facility] 2020-03-11 00:00:00 2020-03-11 00:00:00 Telephone Armando Guzman [facility] FRAME CATCHER [facility] 1.2.840.114 350.1.13.10 4.2.7.2.686 [id number] [facility] 2020-03-10 10:26:31 2020-03-10 11:02:50 Routine Visit Armando Guzman [facility] FRAME CATCHER [facility] 1.2.840.114 350.1.13.10 4.2.7.2.686 [id number] [facility] 2020-03-10 10:30:00 2020-03-10 10:30:00 Outpatient R ARMANDO GUZMAN [facility] [id number] [facility] 2020-03-03 10:29:57 2020-03-03 11:09:23 Routine Visit Armando Guzman NHJOLYNN FRAME CATCHER [facility] 1.2.840.114 350.1.13.10 4.2.7.2.686 [id number] [facility] 2020-03-03 10:30:00 2020-03-03 10:30:00 Outpatient R ARMANDO GUZMAN [facility] [id number] [facility] 2020-02-26 00:00:00 2020-02-26 00:00:00 Telephone Armando Guzman [facility] FRAME CATCHER [facility] 1.2.840.114 350.1.13.10 4.2.7.2.686 [id number] [facility] 2020-02-25 10:38:56 2020-02-25 11:15:27 Routine Visit Armando Guzman [facility] FRAME CATCHER [facility] 1.2.840.114 350.1.13.10 4.2.7.2.686 [id number] [facility] 2020-02-25 10:45:00 2020-02-25 10:45:00 Outpatient R ARMANDO GUZMAN [facility] [id number] [facility] 2020-02-18 10:46:05 2020-02-18 11:03:33 Routine Visit Armando Guzman [facility] FRAME CATCHER [facility] 1..840.114 350.1.13.10 4.2.7.2.686 [id number] [facility] 2020-02-18 10:45:00 2020-02-18 10:45:00 Outpatient R ARMANDO GUZMAN [facility] [id number] [facility] 2020-02-04 10:30:35 2020-02-04 11:09:01 Routine Visit Armando Guzman [facility] FRAME CATCHER [facility] 1..840.114 350.1.13.10 4.2.7.2.686 [id number] 107 [id number] [facility] 2020-02-04 10:45:00 2020-02-04 10:45:00 Outpatient R ARMANDO GUZMAN [facility] [id number] [facility] 2020-01-21 09:24:39 2020-01-21 09:39:39 Routine Visit Shy Guzmanola Norberto [facility] FRAME CATCHER [facility] 1..840.114 350.1.13.10 4.2.7.2.686 [id number] [facility] 2020-01-21 09:30:00 2020-01-21 09:30:00 Outpatient R ARMANDO GUZMAN [facility] [id number] [facility] 2020-01-07 10:38:50 2020-01-07 11:42:57 Routine Visit Armando Guzman [facility] FRAME CATCHER [facility] 1..840.114 350.1.13.10 4.2.7.2.686 [id number] [facility] 2020-01-07 10:45:00 2020-01-07 10:45:00 Outpatient R ARMANDO GUZMAN [facility] [id number] [facility] 2019-12-23 09:10:17 2019-12-23 09:49:15 Routine Visit Armando Guzman [facility] FRAME CATCHER [facility] 1..840.114 350.1.13.10 4.2.7.2.686 [id number] [facility] 2019-12-23 09:00:00 2019-12-23 09:00:00 Outpatient R ARMANDO GUZMAN [facility] [id number] [facility] 2019-12-15 00:00:00 2019-12-15 00:00:00 Telephone Armando Guzman [facility] FRAME CATCHER [facility] 1.2.840.114 350.1.13.10 4.2.7.2.686 [id number] [facility] 2019-12-04 00:00:00 2019-12-04 00:00:00 Abstract Armando Guzman [facility] FRAME CATCHER [facility] 1.2.840.114 350.1.13.10 4.2.7.2.686 [id number] [facility] 2019-12-01 08:40:36 2019-12-01 09:27:14 Routine Visit Armando Guzman [facility] 1.2.840.114 350.1.13.10 4.2.7.2.686 [id number] 107 [id number] [facility] 2019-12-01 07:58:24 2019-12-01 08:25:12 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 Ultrasound, Alex Kurtz Hassan M [facility] FRAME CATCHER [facility] 1.2.840.114 350.1.13.10 4.2.7.2.686 [id number] [facility] 2019-12-01 08:00:00 2019-12-01 08:00:00 Outpatient P [facility] [id number] [facility] 2019-11-23 00:00:00 2019-11-23 00:00:00 Patient Secure Msg Doctor Unassigned, [place] [facility] 1.2.840.114 350.1.13.10 4.2.7.2.686 [id number] 107 [id number] [facility] 2019-11-19 00:00:00 2019-11-19 00:00:00 Orders Only Doctor Unassigned, [place] [facility] 1.2.840.114 350.1.13.10 4.2.7.2.686 [id number] [facility] 2019-11-04 00:00:00 2019-11-04 00:00:00 Abstract Armando Guzman [facility] FRAME CATCHER [facility] 1.2.840.114 350.1.13.10 4.2.7.2.686 [id number] [facility] 2019-11-04 00:00:00 2019-11-04 00:00:00 Telephone Armando Guzman [facility] FRAME CATCHER [facility] 1.2.840.114 350.1.13.10 4.2.7.2.686 [id number] [facility] 2019-11-03 13:00:45 2019-11-03 14:09:38 Routine Visit Armando Guzman [facility] FRAME CATCHER [facility] 1.2.840.114 350.1.13.10 4.2.7.2.686 [id number] 107 [id number] [facility] 2019-11-03 09:50:15 2019-11-03 10:56:13 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 Ultrasound, Meagan Harris [facility] FRAME CATCHER [facility] 1.2.840.114 350.1.13.10 4.2.7.2.686 [id number] [facility] 2019-11-03 09:30:00 2019-11-03 09:30:00 Outpatient P [facility] [id number] [facility] 2019-11-03 00:00:00 2019-11-03 00:00:00 Orders Only Doctor Unassigned, [place] [facility] 1.2.840.114 350.1.13.10 4.2.7.2.686 [id number] [facility] 2019-10-30 08:30:00 2019-10-30 08:30:00 Outpatient R ARMANDO GUZMAN [facility] [id number] [facility] 2019-10-02 12:52:29 2019-10-02 14:11:03 Routine Visit Armando Guzman NHJOLYNN FRAME CATCHER [facility] 1..840.114 350.1.13.10 4.2.7.2.686 [id number] 107 [id number] [facility] 2019-10-02 13:15:00 2019-10-02 13:15:00 Outpatient R YOLARUBIOARMANDO [facility] [id number] [facility] 2019-09-01 16:43:49 2019-09-01 16:57:06 Telemedici ne Visit Shy Guzmanola Norberto [facility] FRAME CATCHER [facility] 1..840.114 350.1.13.10 4.2.7.2.686 [id number] [facility] 2019-09-01 14:30:00 2019-09-01 14:30:00 Outpatient R ARMANDO GUZMAN [facility] [id number] [facility] 2019-09-01 09:30:00 2019-09-01 09:30:00 Outpatient R YOLARUBIOARMANDO [facility] [id number] [facility] 2019-09-01 00:00:00 2019-09-01 00:00:00 Telephone Megan Armando Norberto [facility] FRAME CATCHER [facility] 1..840.114 350.1.13.10 4.2.7.2.686 [id number] [facility] 2019-08-11 10:30:00 2019-08-11 10:30:00 Outpatient R [facility] [id number] [facility] 2019-08-04 09:41:37 2019-08-04 11:04:58 Initial Visit Armando Guzman [facility] FRAME CATCHER [facility] 1.2.840.114 350.1.13.10 4.2.7.2.686 [id number] [facility] 2019-08-04 08:00:00 2019-08-04 08:00:00 Outpatient R MEGAN ARMANDO [facility] [id number] [facility] Results Test Description Test Time Test Comments Results Result Comments Source XR Fingers 2 vw right 16:21:29 XR FINGERS 2 VW RIGHT INDICATION: laceration index finger, pain, possible foreign body COMPARISON: None FINDINGS: Right fingers: Index finger soft tissue swelling with skin flap, faintlyradiopaque foreign body, or exophytic cutaneous lesion along the dorsalaspect of the index finger at the level of the middle phalanx. No acutefracture or dislocation. [facility] US PELVIS COMPLETE WITH TRANSVAGINAL 00:42:57 EXAM: US PELVIS COMPLETE WITH TRANSVAGINAL HISTORY: 23 years -old Female with transferred for ectopic , noimaging report with file . LMP = 02/28/2024. Beta-hCG: unavailable mIU/mL. TECHNIQUE: Survey transabdominal and transvaginal ultrasound imaging of thepelvis was performed including color Doppler evaluation with representativeimages obtained. M-mode Doppler was used to evaluate the heart. COMPARISON: None FINDINGS: Uterus: An intrauterine gestational sac is not identified. Uterus measures 10.8 cmin length. Endometrial thickness is 18 mm. Right Adnexa:Ovary: The right ovary measures 2.8 x 2.9 x 4.5 cm. ?A cystic structurewith a hypoechoic rim measuring approximately 2.1 cm in diameter withminimal surrounding Doppler flow is present on the right ovary. There is a4.3 cm complex masslike structure which is mildly hyperechoic peripherallywith small hypoechoic center and some internal flow is seen in the rightovary which may be more concerning for ectopic . Left Adnexa:Ovary: The left ovary measures 2.9 x 1.9 x 1.6 cm. Small physiologicfollicles are present. Cul-de-sac: No free fluid is present. [facility] US PELVIS COMPLETE WITH TRANSVAGINAL 00:42:57 EXAM: US PELVIS COMPLETE WITH TRANSVAGINAL HISTORY: 23 years -old Female with transferred for ectopic , noimaging report with file . LMP = 02/28/2024. Beta-hCG: unavailable mIU/mL. TECHNIQUE: Survey transabdominal and transvaginal ultrasound imaging of thepelvis was performed including color Doppler evaluation with representativeimages obtained. M-mode Doppler was used to evaluate the heart. COMPARISON: None FINDINGS: Uterus: An intrauterine gestational sac is not identified. Uterus measures 10.8 cmin length. Endometrial thickness is 18 mm. Right Adnexa:Ovary: The right ovary measures 2.8 x 2.9 x 4.5 cm. ?A cystic structurewith a hypoechoic rim measuring approximately 2.1 cm in diameter withminimal surrounding Doppler flow is present on the right ovary. There is a4.3 cm complex masslike structure which is mildly hyperechoic peripherallywith small hypoechoic center and some internal flow is seen in the rightovary which may be more concerning for ectopic . Left Adnexa:Ovary: The left ovary measures 2.9 x 1.9 x 1.6 cm. Small physiologicfollicles are present. Cul-de-sac: No free fluid is present. [facility] [id number] 00:39:55* Test Item Value Reference Range Interpretation Comme nts BETA HCG (test code = 9968855266) 9588.60 See_Comment [Automated [employer]] The system which generated this result transmitted reference range: Non- female and male patients: <5 mIU/mL. The reference range was not used to interpret this result as normal/abnormal. FARAZ (test code = FARAZ) Gestational Age ?Range (mIU/mL) 1-10 ?Weeks ?[id number] Weeks ?61146-09039354-15 Weeks ?2475-27870519-22 Weeks ?1450-082631 Biotin has been reported to cause a negative bias, interpret results relative to patient's use of biotin. [facility] Metabolic Panel (NA, K, CL, CO2, GLUCOSE, BUN, CREATININE, CA)2024-04-01 00:22:17* Test Item Value Reference Range Interpretation Comme nts NA (test code = 7448368226) 139 mmol/L 135-145 K (test code = 0020962779) 3.8 mmol/L 3.5-5.0 CL (test code = 0008762583) 105 mmol/L 98-108 CO2 TOTAL (test code = 4785860500) 28 mmol/L 23-31 AGAP (test code = 5312583484) 6 2-16 BUN (test code = 1708376243) 8 mg/dL 7-23 GLUCOSE (test code = 6747785184) 93 mg/dL 70-110 CREATININE (test code = 2160-0) 0.54 mg/dL 0.50-1.04 CALCIUM (test code = 2875098445) 9.3 mg/dL 8.6-10.6 eGFR (test code = 07504-7) 132.0 mL/min/1.73m2 CKD-EPI eGFR (20 21). Assuming creatinine has been stable day-to-day for at least three months, the eGFR indicates Category G1 (>= 90 mL/min/1.73 m2) [facility] Metabolic Panel (NA, K, CL, CO2, GLUCOSE, BUN, CREATININE, CA)2024-04-01 00:22:17* Test Item Value Reference Range Interpretation Comme nts NA (test code = 5049539894) 139 mmol/L 135-145 K (test code = 5291755962) 3.8 mmol/L 3.5-5.0 CL (test code = 2779942456) 105 mmol/L 98-108 CO2 TOTAL (test code = 3919797977) 28 mmol/L 23-31 AGAP (test code = 9602414468) 6 2-16 BUN (test code = 1159579621) 8 mg/dL 7-23 GLUCOSE (test code = 3931920646) 93 mg/dL 70-110 CREATININE (test code = 2160-0) 0.54 mg/dL 0.50-1.04 CALCIUM (test code = 8556906871) 9.3 mg/dL 8.6-10.6 eGFR (test code = 83403-5) 132.0 mL/min/1.73m2 CKD-EPI eGFR (20 21). Assuming creatinine has been stable day-to-day for at least three months, the eGFR indicates Category G1 (>= 90 mL/min/1.73 m2) [facility] with [id number] 00:08:36* Test Item Value Reference Range Interpretation Comme nts WBC (test code = 6690-2) 7.64 4.30-11.10 RBC (test code = 789-8) 4.08 3.93-5.25 HGB (test code = 718-7) 12.1 g/dL 11.6-15.0 HCT (test code = 4544-3) 36.2 % 35.7-45.2 MCV (test code = 787-2) 88.7 fL 80.6-95.5 MCH (test code = 785-6) 29.7 pg 25.9-32.8 MCHC (test code = 786-4) 33.4 g/dL 31.6-35.1 RDW-SD (test code = 78462-7) 38.2 fL 39.0-49.9 L RDW-CV (test code = 788-0) 11.9 % 12.0-15.5 L PLT (test code = 777-3) 316 166-358 MPV (test code = 50797-2) 10.8 fL 9.5-12.9 NRBC/100 WBC (test code = 5079345999) 0.0 0.0-10.0 NRBC x10^3 (test code = 4537330874) See_Comment [Automated messa ge] The system which generated this result transmitted reference range: 10*3/?L. The reference range was not used to interpret this result as normal/abnormal. GRAN MAT (NEUT) % (test code = 770-8) 56.2 % IMM GRAN % (test code = 9136494523) 0.30 % LYMPH % (test code = 736-9) 35.7 % MONO % (test code = 5905-5) 6.3 % EOS % (test code = 713-8) 1.2 % BASO % (test code = 706-2) 0.3 % GRAN MAT x10^3(ANC) (test code = 8829274544) 4.30 10*3/uL 1.88-7.09 IMM GRAN x10^3 (test code = 2142834427) 0.00-0.06 LYMPH x10^3 (test code = 731-0) 2.73 10*3/uL 1.32-3.29 MONO x10^3 (test code = 742-7) 0.48 10*3/uL 0.33-0.92 EOS x10^3 (test code = 711-2) 0.09 10*3/uL 0.03-0.39 BASO x10^3 (test code = 704-7) 0.01-0.07 Lab Interpretation (test code = 30320-2) Abnormal [facility] with [id number] 00:08:36* Test Item Value Reference Range Interpretation Comme nts WBC (test code = 6690-2) 7.64 4.30-11.10 RBC (test code = 789-8) 4.08 3.93-5.25 HGB (test code = 718-7) 12.1 g/dL 11.6-15.0 HCT (test code = 4544-3) 36.2 % 35.7-45.2 MCV (test code = 787-2) 88.7 fL 80.6-95.5 MCH (test code = 785-6) 29.7 pg 25.9-32.8 MCHC (test code = 786-4) 33.4 g/dL 31.6-35.1 RDW-SD (test code = 49336-6) 38.2 fL 39.0-49.9 L RDW-CV (test code = 788-0) 11.9 % 12.0-15.5 L PLT (test code = 777-3) 316 166-358 MPV (test code = 96825-2) 10.8 fL 9.5-12.9 NRBC/100 WBC (test code = 3011278346) 0.0 0.0-10.0 NRBC x10^3 (test code = 8989346944) See_Comment [Automated messa ge] The system which generated this result transmitted reference range: 10*3/?L. The reference range was not used to interpret this result as normal/abnormal. GRAN MAT (NEUT) % (test code = 770-8) 56.2 % IMM GRAN % (test code = 4292889534) 0.30 % LYMPH % (test code = 736-9) 35.7 % MONO % (test code = 5905-5) 6.3 % EOS % (test code = 713-8) 1.2 % BASO % (test code = 706-2) 0.3 % GRAN MAT x10^3(ANC) (test code = 4644300994) 4.30 10*3/uL 1.88-7.09 IMM GRAN x10^3 (test code = 6491594170) 0.00-0.06 LYMPH x10^3 (test code = 731-0) 2.73 10*3/uL 1.32-3.29 MONO x10^3 (test code = 742-7) 0.48 10*3/uL 0.33-0.92 EOS x10^3 (test code = 711-2) 0.09 10*3/uL 0.03-0.39 BASO x10^3 (test code = 704-7) 0.01-0.07 Lab Interpretation (test code = 42724-6) [facility] [id number] 00:05:00* Test Item Value Reference Range Interpretation Comme nts ABO & RH (test code = 20) A POSITIVE IAT (test code = 1185) [facility] [id number] 00:05:00* Test Item Value Reference Range Interpretation Comme nts ABO & RH (test code = 20) A POSITIVE IAT (test code = 1185) [facility] CenterRHO (D) IMMUNE [id number] 18:55:11* Test Item Value Reference Range Interpretation Comme nts RHIG CANDIDATE? (test code = 5188) No- see comment Patient is not a candidate for RhIg- Patient is Rh Positive.Performed at [facility] Laboratory Services - [facility] Blood [address] [place] [id number] Free: [phone] No. [id number] [facility] I[facility]E [id number] 18:55:11* Test Item Value Reference Range Interpretation Comme nts RHIG CANDIDATE? (test code = 5188) No- see comment Patient is not a candidate for RhIg- Patient is Rh Positive.Performed at [facility] Laboratory Services - [facility] Blood [address] [address]Nxoq Free: [phone] No. [id number] [facility] ONLY - SYPHILIS [id number] 16:48:37* Test Item Value Reference Range Interpretation Comme nts Syphilis IgG/IgM (test code = 88283-7) Non-reactive Non-reactive FARAZ (test code = FARAZ) Non-reactive - No serologic evidence of T. pallidum infection. Cannot exclude incubating or early syphilis. Submit a second specimen in 2-4 weeks if syphilis is clinically suspected. Equivocal - Further testing to follow. Reactive - Further testing to follow. Lab Interpretation (test code = 03614-9) Normal [facility] ONLY - SYPHILIS [id number] 16:48:37* Test Item Value Reference Range Interpretation Comme nts Syphilis IgG/IgM (test code = 52522-8) Non-reactive Non-reactive FARAZ (test code = FARAZ) Non-reactive - No serologic evidence of T. pallidum infection. Cannot exclude incubating or early syphilis. Submit a second specimen in 2-4 weeks if syphilis is clinically suspected. Equivocal - Further testing to follow. Reactive - Further testing to follow. Lab Interpretation (test code = 41517-4) [facility] [id number] 13:30:11* Test Item Value Reference Range Interpretation Comme nts VENOUS BASE EXCESS, CORD (test code = 3085561826) 0.2 mEq/L VENOUS PH, CORD (test code = 0004265229) 7.38 7.25-7.45 VENOUS PC02, CORD (test code = 1067046564) 45 See_Comment [Automated messa ge] The system which generated this result transmitted reference range: 27 - 49 mmHg. The reference range was not used to interpret this result as normal/abnormal. VENOUS PO2, CORD (test code = 0019839582) 39 See_Comment [Automated me ssage] The system which generated this result transmitted reference range: 17 - 41 mmHg. The reference range was not used to interpret this result as normal/abnormal. VENOUS BICARBONATE, CORD (test code = 2487995447) 26 See_Comment [Automated messa ge] The system which generated this result transmitted reference range: 12 - 29 mEq/L. The reference range was not used to interpret this result as normal/abnormal. [facility] Cord [id number] 13:30:11* Test Item Value Reference Range Interpretation Comme nts VENOUS BASE EXCESS, CORD (test code = 5449787597) 0.2 mEq/L VENOUS PH, CORD (test code = 1333725760) 7.38 7.25-7.45 VENOUS PC02, CORD (test code = 3200133065) 45 See_Comment [Automated messa ge] The system which generated this result transmitted reference range: 27 - 49 mmHg. The reference range was not used to interpret this result as normal/abnormal. VENOUS PO2, CORD (test code = 0763648197) 39 See_Comment [Automated me ssage] The system which generated this result transmitted reference range: 17 - 41 mmHg. The reference range was not used to interpret this result as normal/abnormal. VENOUS BICARBONATE, CORD (test code = 6864968629) 26 See_Comment [Automated messa ge] The system which generated this result transmitted reference range: 12 - 29 mEq/L. The reference range was not used to interpret this result as normal/abnormal. [facility] Cord [id number] 13:29:51* Test Item Value Reference Range Interpretation Comme nts BASE EXCESS, CORD (test code = 4136399852) -1.0 mEq/L AC PH, CORD (BEAKER) (test code = 7280097464) 7.31 7.18-7.38 PC02, CORD (test code = 7000474901) 53 See_Comment [Automated messa ge] The system which generated this result transmitted reference range: 32 - 66 mmHg. The reference range was not used to interpret this result as normal/abnormal. PO2, CORD (test code = 9899793549) 23 See_Comment [Automated messa ge] The system which generated this result transmitted reference range: 10 - 30 mmHg. The reference range was not used to interpret this result as normal/abnormal. BICARBONATE, CORD (test code = 4127522143) 26 See_Comment [Automated messa ge] The system which generated this result transmitted reference range: 17 - 27 mEq/L. The reference range was not used to interpret this result as normal/abnormal. [facility] Cord [id number] 13:29:51* Test Item Value Reference Range Interpretation Comme nts BASE EXCESS, CORD (test code = 1196636799) -1.0 mEq/L AC PH, CORD (BEAKER) (test code = 3495580573) 7.31 7.18-7.38 PC02, CORD (test code = 9412025365) 53 See_Comment [Automated messa ge] The system which generated this result transmitted reference range: 32 - 66 mmHg. The reference range was not used to interpret this result as normal/abnormal. PO2, CORD (test code = 6948312785) 23 See_Comment [Automated messa ge] The system which generated this result transmitted reference range: 10 - 30 mmHg. The reference range was not used to interpret this result as normal/abnormal. BICARBONATE, CORD (test code = 8510891415) 26 See_Comment [Automated messa ge] The system which generated this result transmitted reference range: 17 - 27 mEq/L. The reference range was not used to interpret this result as normal/abnormal. [facility] B Surface [id number] 09:00:20 * Test Item Value Reference Range Interpretation Comme nts HBsAg Semi-Quantitative (maxi t code = 5195-3) 0.08 Negative [facility] B Surface [id number] 09:00:20 * Test Item Value Reference Range Interpretation Comme nts HBsAg Semi-Quantitative (maxi t code = 5195-3) 0.08 Negative [facility] [id number] 07:55:00 Mike Cummins MD ? ? 05/11/2023 ?2:25 AM Central Neuraxial Block Date/Time: 05/11/2023 1:55 AM Performed by: Mike Cummins MDAuthorized by: Sherice Rehman MD ?Patient Location: OBReason for Block: Labor analgesiaStaff: ?Anesthesiologist: Sherice Rehman MD ?Resident/PROJECTS MANAGER: Mike Cummins MD ?Performed by: resident/CRNAPreanesthetic Checklist: anesthesia consent, monitors and equipment checked, ob/surgical consent approval, ob/surgical consent verified, patient identified, pre-op evaluation and timeout performedProcedure: ?Type of Neuraxial: Epidural ?Epidural Description: 1st attempt ? Sterility Prep cap, drape, gloves, hand hygiene and mask ? ?Sedation Level no sedation?Patient Position: sitting ?Prep: Betadine and patient draped ? ?Monitoring: potline monitor / EKG, heart rate / toco, heart rate and NIBP ?Location: lumbar (1-5) ?Lumbar: L4-L5 ?Approach: midline ? ?Technique: MUNDO saline ?Guidance with: landmark technique}Epidural/Spinal Conklin and/or Cathet er: ?Epidural/Spinal Kit: BBraun ?Needle [...] at 30 degrees and given instructions on BANK ACCOUNTANT button functions. Fall precautions provided, patient vocalized understanding and all questions answered.[facility] - ONCE [id number] 07:07:00* Test Item Value Reference Range Interpretation Comme nts ABO & RH (test code = 20) A POSITIVE IAT (test code = 1185) Negative [facility] - ONCE [id number] 07:07:00 * Test Item Value Reference Range Interpretation Comme nts ABO & RH (test code = 20) A POSITIVE IAT (test code = 1185) Negative [facility]PO[facility] UR[facility] W SPECIFIC [id number] 21:22:00* Test Item Value Reference Range Interpretation [...] U APPEAR (test code = 3267) .. [facility]PO[facility] SPECIFIC [id number] 21:14:00* Test Item Value Reference Range Interpretation [...] U APPEAR (test code = 3267) . [facility] URINALYSIS W SPECIFIC [id number] 21:14:00* Test Item Value Reference Range Interpretation [...] U APPEAR (test code = 3267) . [facility] URINALYSIS W SPECIFIC [id number] 21:05:00* Test Item Value Reference Range Interpretation [...] U APPEAR (test code = 3267) . [facility] URINALYSIS W SPECIFIC [id number] 21:05:00* Test Item Value Reference Range Interpretation [...] U APPEAR (test code = 3267) . [facility] URINALYSIS W SPECIFIC [id number] 21:08:00* Test Item Value Reference Range Interpretation [...] U APPEAR (test code = 3267) . [facility] URINALYSIS W SPECIFIC [id number] 17:12:00* Test Item Value Reference Range Interpretation [...] U APPEAR (test code = 3267) . [facility] URINALYSIS W SPECIFIC [id number] 13:36:00* Test Item Value Reference Range Interpretation [...] U APPEAR (test code = 3267) . [facility] URINALYSIS W SPECIFIC [id number] 13:36:00* Test Item Value Reference Range Interpretation [...] U APPEAR (test code = 3267) . [facility] URINALYSIS W SPECIFIC [id number] 13:36:00* Test Item Value Reference Range Interpretation [...] U APPEAR (test code = 3267) . [facility] URINALYSIS W SPECIFIC [id number] 13:36:00* Test Item Value Reference Range Interpretation [...] U APPEAR (test code = 3267) . [facility] URINALYSIS W SPECIFIC [id number] 13:36:00* Test Item Value Reference Range Interpretation [...] U APPEAR (test code = 3267) . [facility] URINALYSIS W SPECIFIC [id number] 13:36:00* Test Item Value Reference Range Interpretation [...] U APPEAR (test code = 3267) . [facility] [id number] 18:37:00* Test Item Value Reference Range Interpretation Comme nts POCT PREG (test code = 1605) Positive On board controls acceptable with C Line (test code = 3574) Yes POCT PREG LOT # (test code = 3575) POCT PREG TEST DATE ( test code = 3576) [facility] URINALYSIS W/O SPECIFIC [id number] 18:37:00* Test Item Value Reference Range Interpretation [...] = 3257) negative Negative - Negati ve [facility] [id number] 18:37:00* Test Item Value Reference Range Interpretation Comme nts POCT PREG (test code = 1605) Positive On board controls acceptable with C Line (test code = 3574) Yes POCT PREG LOT # (test code = 3575) POCT PREG TEST DATE ( test code = 3576) [facility]PO[facility] W/O SPECIFIC [id number] 18:37:00* Test Item Value Reference Range Interpretation [...] = 3257) negative Negative - Negati ve [facility] CenterRHO (D) IMMUNE [id number] 09:31:58* Test Item Value Reference Range Interpretation Comme nts RHIG CANDIDATE? (test code = 5055) No- see comment Patient is not a candidate for RhIg- Patient is Rh Positive.Performed at [facility] Laboratory Services - [facility] Blood [address] [place] [id number] Free: [phone] No. [id number] [facility] CenterARTERIAL CORD [id number] 01:02:31* Test Item Value Reference Range Interpretation Comme nts BASE EXCESS, CORD (test code = 9265165597) mEq/L AC PH, CORD (BEAKER) (test code = 6588532858) 7.18-7.38 PC02, CORD (test code = 7087494530) See_Comment [Automated messa ge] The system which generated this result transmitted reference range: 32 - 66 mmHg. The reference range was not used to interpret this result as normal/abnormal. PO2, CORD (test code = 9633537549) See_Comment [Automated messa ge] The system which generated this result transmitted reference range: 10 - 30 mmHg. The reference range was not used to interpret this result as normal/abnormal. BICARBONATE, CORD (test code = 0253155985) See_Comment [Automated messa ge] The system which generated this result transmitted reference range: 17 - 27 mEq/L. The reference range was not used to interpret this result as normal/abnormal. [facility] CenterVENOUS CORD [id number] 01:00:10* Test Item Value Reference Range Interpretation Comme nts VENOUS BASE EXCESS, CORD (test code = 3717253138) mEq/L VENOUS PH, CORD (test code = 3260938321) 7.25-7.45 VENOUS PC02, CORD (test code = 9776867625) See_Comment [Automated messa ge] The system which generated this result transmitted reference range: 27 - 49 mmHg. The reference range was not used to interpret this result as normal/abnormal. VENOUS PO2, CORD (test code = 6457686469) See_Comment [Automated me ssage] The system which generated this result transmitted reference range: 17 - 41 mmHg. The reference range was not used to interpret this result as normal/abnormal. VENOUS BICARBONATE, CORD (test code = 6371227476) See_Comment [Automated messa ge] The system which generated this result transmitted reference range: 12 - 29 mEq/L. The reference range was not used to interpret this result as normal/abnormal. [facility] CenterType [facility] Screen - ONCE [id number] 22:12:03 * Test Item Value Reference Range Interpretation Comme nts ABO & RH (test code = 20) A POSITIVE Performed at [facility] Laboratory [facility] Blood [address] Free: [phone] No. [id number] IAT (test code = 1185) Negative Performed at [facility] Laboratory Services [facility] Blood [address] Free: [phone] No. [id number] [facility] CenterPO[facility]IN[facility] W SPECIFIC [id number] 15:54:00* Test Item Value Reference Range Interpretation [...] POCT U APPEAR (test code = 3267) [facility] URINALYSIS W SPECIFIC [id number] 16:00:00* Test Item Value Reference Range Interpretation [...] U APPEAR (test code = 3267) . [facility] URINALYSIS W SPECIFIC [id number] 15:04:00* Test Item Value Reference Range Interpretation [...] U APPEAR (test code = 3267) . [facility] URINALYSIS W SPECIFIC [id number] 15:25:00* Test Item Value Reference Range Interpretation [...] U APPEAR (test code = 3267) . [facility] URINALYSIS W SPECIFIC [id number] 19:06:00* Test Item Value Reference Range Interpretation [...] U APPEAR (test code = 3267) clear [facility] History and Physical Notes Date/Time Note Provider Source 2024-04-01 18:06:16 Patient seen and examined, agree with H&P, no interval changes. Patient seen in preop. We confirmed the plan removal of ectopic also removal of the contralateral tubes that previously has been ligated. Patient consented to blood transfusion if necessary. [facility] [facility] Source Note - Maisha Vora MD - 03/31/2024 3:19 PM OPERATOR VACUUM CONSULT- GYNECOLOGY DATE OF SERVICE: 03/31/24 NAME: Kiran Daigle #: [id number] CC: pelvic pain HPI: Kiran Daigle is a 23 year old who was transferred from [facility] to the ED on 03/31/24 for ectopic . Patient is s/p tubal ligation in 04/2023 and reports positive home test last Sunday. She reports pelvic and low back pain x1 week, intermittent, non-radiating, pain 5/10 and has been taking tylenol with little improvement in her pain. This morning, she reports of brownish discharge and was concerned and presented to ER. Outside records with patient reviewed. Hgb 12.5, positive UPT. BMP unremarkable. A positive. Pelvic US disk with patient however no impression noted. Patient currently denies any pain, nausea/vomiting. COUTIERIER HISTORY LMP: 02/29/24 Menarche: 11-11 Menses: regular, last a week, heavy bleeding first few days Mammogram History: she has never had a mammogram Last Pap Smear: 11/15/20: NILM ROS: Constitutional: negative Cardiovascular: negative Respiratory: negative Gastrointestinal: negative Genitourinary: +VB +pelvic pain Psychiatric: negative Endocrine: negative Hemat/Lymph: negative PMH: Past Medical History: Diagnosis Date Anemia of mother in , antepartum 12/24/2019 BV (bacterial vaginosis) 02/19/2023 Chlamydia infection affecting 02/03/2022 PSH: Past Surgical History: Procedure Laterality Date TUBAL LIGATION N/A 05/11/2023 Surgeon: Sarah Rocha MD; Location: LABOR AND DELIVERY OR LOCATION-[facility] Family Hx: Family History Problem Relation Age of Onset Arthritis Mother Diabetes Mother Colon Cancer Maternal Aunt Social Hx: Social History Socioeconomic History Marital status: Single Spouse name: Not on file Number of children: Not on file Years of education: Not on file Highest education level: Not on file Occupational History Not on file Tobacco Use Smoking status: Never Smokeless tobacco: Never Substance and Sexual Activity Alcohol use: Not Currently Drug use: Not Currently Sexual activity: Yes Partners: Male control/protection: None Comment: last intercourse: 11/18/2022 Other Topics Concern Not on file Social History Narrative Patient lives with boyfriend. Patient denies any cats Patient feels safe at home. Social Determinants of Health Financial Resource Strain: Not on file Food Insecurity: Not on file Transportation Needs: Not on file Physical Activity: Not on file Stress: Not on file Social Connections: Not on file Housing Stability: Not on file MEDICATIONS: No current facility-administered medications for this encounter. Current Outpatient Medications: HYDROcodone-acetaminophen 5-325 mg tablet, Take 1 tablet by mouth every 6 (six) hours as needed for Pain (scale 7-10). Indications: acute pain, Disp: 5 tablet, Rfl: 0 ibuprofen 600 mg tablet, Take 1 tablet by mouth every 6 (six) hours as needed (Pain). Take with food or milk., Disp: 60 tablet, Rfl: 1 Iron Fum & P-FA-Vit B & C No.9 (INTEGRA PLUS) 125 mg iron- 1 mg Cap, Take 1 capsule by mouth in the morning., Disp: 30 capsule, Rfl: 6 [id number] acid 29 mg iron- 1 mg per tablet, Take 1 tablet by mouth in the morning., Disp: 90 tablet, Rfl: 3 ALLERGIES: No Known Allergies PHYSICAL EXAM Patient Vitals for the past 24 hrs: BP Temp Temp src Pulse Resp SpO2 Height Weight 11/11/24 1451 107/66 36.8 ?C (98.2 ?F) Oral 55 20 97 % -- -- 03/31/24 1433 115/64 37 ?C (98.6 ?F) Oral 69 19 98 % 1.651 m (5' 5") 68 kg (150 lb) PE: General: patient alert and in no acute distress Lungs: unlabored breathing on RA Cardiology: regular rate and rhythm Abdomen: soft, non-tender, non-distended, no rebound/guarding Extremities: no clubbing, cyanosis, or edema : on SSE: old brownish-red blood noted in the vaginal vault but no active bright red bleeding noted from os. Cervix appears normal. No CMT on bimanual. No adnexal masses or fullness appreciated. No pain with exam. LABS: No visits with results within 1 Month(s) from this visit. Latest known visit with results is: Admission on 05/11/2023, Discharged on 05/13/2023 Component Date Value HBsAg 05/11/2023 Negative HBsAg Semi-Quantitative 05/11/2023 0.08 Syphilis IgG/IgM 05/11/2023 Non-reactive ABO & RH 05/11/2023 A POSITIVE IAT 05/11/2023 Negative VENOUS BASE EXCESS, CORD 05/11/2023 0.2 VENOUS PH, CORD 05/11/2023 7.38 VENOUS PC02, CORD 05/11/2023 45 VENOUS PO2, CORD 05/11/2023 39 VENOUS BICARBONATE, CORD 05/11/2023 26 BASE EXCESS, CORD 05/11/2023 -1.0 AC PH, CORD (BEAKER) 05/11/2023 7.31 PC02, CORD 05/11/2023 53 PO2, CORD 05/11/2023 23 BICARBONATE, CORD 05/11/2023 26 Case Report 05/11/2023 Value:Surgical Pathology Case: [id number] Authorizing Provider: Sarah Rocha, Collected: 05/11/2023 0846 Ordering Location: Obstetrics and Gynecology Received: 05/11/20232152 (MARRY 3A) Pathologist: Clyde Espinoza MD Specimens: A) - FALLOPIAN TUBE, LEFT B) - FALLOPIAN TUBE, RIGHT Final Diagnosis 05/11/2023 Value: A. FALLOPIAN TUBE, LEFT, SEGMENTAL RESECTION: - FULL CROSS SECTION OF FALLOPIAN TUBE IDENTIFIED B. FALLOPIAN TUBE, RIGHT, SEGMENTAL RESECTION: - FULL CROSS SECTION OF FALLOPIAN TUBE IDENTIFIED Nery Patel MD I have personally reviewed all specimens/slides and agree with all statements made by residents, fellows or pathologist assistants whose name(s) may appear on this report. Clinical Information 05/11/2023 Value:22y/o S/P @@0659 MPDPS. Gross Description 05/11/2023 Value:SPECIMEN A Specimen A is received in formalin labeled with the patient's name, number, "fallopian tube, left" and consists of a single uribe-pink segment of fallopian tube (2.0 cm in length by 0.5 cm in diameter) with a clear suture strung through the lumen, which is serially sectioned to reveal uribe-pink, grossly unremarkable cut surfaces. Senior Project Engineer sections are submitted in A1. SPECIMEN B Specimen B is received in formalin labeled with the patient's name, number, "fallopian tube, right" and consists of a single uribe-pink segment of fallopian tube (2.5 cm in length by 0.5 cm in diameter) with a clear suture strung through the lumen, which is serially sectioned to reveal uribe-pink, grossly unremarkable cut surfaces. Senior Project Engineer sections are submitted in B1. ERNESTO Brito ([facility]) Disclaimer 05/11/2023 Value:This report may include results of lab-developed testing performed using Class I Analyte Specific Reagents (ASRs) obtained or purchased from an outside vendor. All such testing was developed and its performance characteristics determined by [facility] Laboratory Services. It has not been cleared or approved by the U.S. Food and Drug Administration (FDA). The FDA does not require approval for these tests. [facility] Laboratories are authorized under Clinical Laboratory Improvement Amendments (CLIA) to perform high-complexity testing. Appropriately reactive positive and negative controls have been reviewed for all stains including H&E, Special Stains and Immunohistochemistry as applicable. Except as noted otherwise, microscopic examination was performed on whole slide images of digitized glass slides to arrive at the above diagnosis. All technical and professional services are performed at [facility] (CLIA [id number]) except as noted in the report. RHIG CANDIDATE? 05/11/2023 No- see comment WBC 05/12/2023 10.92 RBC 05/12/2023 3.69 (L) HGB 05/12/2023 10.4 (L) HCT 05/12/2023 31.7 (L) MCV 05/12/2023 85.9 MCH 05/12/2023 28.2 MCHC 05/12/2023 32.8 RDW-SD 05/12/2023 42.0 RDW-CV 05/12/2023 13.7 PLT 05/12/2023 196 MPV 05/12/2023 11.5 NRBC/100 WBC 05/12/2023 0.0 NRBC x10 3 05/12/2023 <0.01 GRAN MAT (NEUT) % 05/12/2023 71.9 IMM GRAN % 05/12/2023 0.60 LYMPH % 05/12/2023 20.8 MONO % 05/12/2023 6.2 EOS % 05/12/2023 0.3 BASO % 05/12/2023 0.2 GRAN MAT x10 3 (ANC) 05/12/2023 7.85 (H) IMM GRAN x10 3 05/12/2023 0.07 (H) LYMPH x10 3 05/12/2023 2.27 MONO x10 3 05/12/2023 0.68 EOS x10 3 05/12/2023 0.03 BASO x10 3 05/12/2023 <0.03 IMAGING: TVUS pending ASSESSMENT/ PLAN Kiran Daigle is a 23 year old who was transferred to [facility] for suspected ectopic from [facility] for Suspected ectopic Vaginal bleeding Pelvic pain - s/p tubal ligation in 04/2023 and reports positive home test last Sunday. - pelvic and low back pain x1 week, intermittent, non-radiating, pain 5/10 and has been taking tylenol with little improvement in her pain. - This morning, she reports of brownish discharge and was concerned and presented to ER. - Outside records with patient reviewed. Hgb 12.5, positive UPT. BMP unremarkable. A positive. - Pelvic US CD with patient however no impression noted - Vitals stable - Benign abdominal exam. - exam with old blood but no active bleeding. No CMT or pain elicited. Recommendations: - Repeat TVUS given no impression for over-read by radiology department - Will repeat CBC, BMP, T&S in anticipation of possible MTX injection. Will order initial Beta HCG for serial trending. - No concern for acute abdomen, can be on CLD until TVUS comes back - Please page operations program manager if pain returns or change in status. Will hand off to night team to f/u on results. D/w Dr. Miller and Dr. Adria Vora MD [facility] [facility] OG-OBSTETRICS & GYNECOLOGY STAFF [facility] 2024-03-31 15:19:33 CONSULT- GYNECOLOGY DATE OF SERVICE: 03/31/24 NAME: Kiran Daigle #: [id number] CC: pelvic pain HPI: Kiran Daigle is a 23 year old who was transferred from [facility] to the ED on 03/31/24 for ectopic . Patient is s/p tubal ligation in 04/2023 and reports positive home test last Sunday. She reports pelvic and low back pain x1 week, intermittent, non-radiating, pain 5/10 and has been taking tylenol with little improvement in her pain. This morning, she reports of brownish discharge and was concerned and presented to ER. Outside records with patient reviewed. Hgb 12.5, positive UPT. BMP unremarkable. A positive. Pelvic US disk with patient however no impression noted. Patient currently denies any pain, nausea/vomiting. COUTIERIER HISTORY LMP: 02/29/24 Menarche: 11-12 Menses: regular, last a week, heavy bleeding first few days Mammogram History: she has never had a mammogram Last Pap Smear: 11/15/20: NILM ROS: Constitutional: negative Cardiovascular: negative Respiratory: negative Gastrointestinal: negative Genitourinary: +VB +pelvic pain Psychiatric: negative Endocrine: negative Hemat/Lymph: negative PMH: Past Medical History: Diagnosis Date Anemia of mother in , antepartum 12/24/2019 BV (bacterial vaginosis) 02/19/2023 Chlamydia infection affecting 02/03/2022 PSH: Past Surgical History: Procedure Laterality Date TUBAL LIGATION N/A 05/11/2023 Surgeon: Sarah Rocha MD; Location: LABOR AND DELIVERY OR LOCATION-[facility] Family Hx: Family History Problem Relation Age of Onset Arthritis Mother Diabetes Mother Colon Cancer Maternal Aunt Social Hx: Social History Socioeconomic History Marital status: Single Spouse name: Not on file Number of children: Not on file Years of education: Not on file Highest education level: Not on file Occupational History Not on file Tobacco Use Smoking status: Never Smokeless tobacco: Never Substance and Sexual Activity Alcohol use: Not Currently Drug use: Not Currently Sexual activity: Yes Partners: Male control/protection: None Comment: last intercourse: 11/18/2022 Other Topics Concern Not on file Social History Narrative Patient lives with boyfriend. Patient denies any cats Patient feels safe at home. Social Determinants of Health Financial Resource Strain: Not on file Food Insecurity: Not on file Transportation Needs: Not on file Physical Activity: Not on file Stress: Not on file Social Connections: Not on file Housing Stability: Not on file MEDICATIONS: No current facility-administered medications for this encounter. Current Outpatient Medications: HYDROcodone-acetaminophen 5-325 mg tablet, Take 1 tablet by mouth every 6 (six) hours as needed for Pain (scale 7-10). Indications: acute pain, Disp: 5 tablet, Rfl: 0 ibuprofen 600 mg tablet, Take 1 tablet by mouth every 6 (six) hours as needed (Pain). Take with food or milk., Disp: 60 tablet, Rfl: 1 Iron Fum & P-FA-Vit B & C No.9 (INTEGRA PLUS) 125 mg iron- 1 mg Cap, Take 1 capsule by mouth in the morning., Disp: 30 capsule, Rfl: 6 [id number] acid 29 mg iron- 1 mg per tablet, Take 1 tablet by mouth in the morning., Disp: 90 tablet, Rfl: 3 ALLERGIES: No Known Allergies PHYSICAL EXAM Patient Vitals for the past 24 hrs: BP Temp Temp src Pulse Resp SpO2 Height Weight 03/31/24 1451 107/66 36.8 ?C (98.2 ?F) Oral 55 20 97 % -- -- 03/31/24 1433 115/64 37 ?C (98.6 ?F) Oral 69 19 98 % 1.651 m (5' 5") 68 kg (150 lb) PE: General: patient alert and in no acute distress Lungs: unlabored breathing on RA Cardiology: regular rate and rhythm Abdomen: soft, non-tender, non-distended, no rebound/guarding Extremities: no clubbing, cyanosis, or edema : on SSE: old brownish-red blood noted in the vaginal vault but no active bright red bleeding noted from os. Cervix appears normal. No CMT on bimanual. No adnexal masses or fullness appreciated. No pain with exam. LABS: No visits with results within 1 Month(s) from this visit. Latest known visit with results is: Admission on 05/11/2023, Discharged on 05/13/2023 Component Date Value HBsAg 05/11/2023 Negative HBsAg Semi-Quantitative 05/11/2023 0.08 Syphilis IgG/IgM 05/11/2023 Non-reactive ABO & RH 05/11/2023 A POSITIVE IAT 05/11/2023 Negative VENOUS BASE EXCESS, CORD 05/11/2023 0.2 VENOUS PH, CORD 05/11/2023 7.38 VENOUS PC02, CORD 05/11/2023 45 VENOUS PO2, CORD 05/11/2023 39 VENOUS BICARBONATE, CORD 05/11/2023 26 BASE EXCESS, CORD 05/11/2023 -1.0 AC PH, CORD (BEAKER) 05/11/2023 7.31 PC02, CORD 05/11/2023 53 PO2, CORD 05/11/2023 23 BICARBONATE, CORD 05/11/2023 26 Case Report 05/11/2023 Value:Surgical Pathology Case: [id number] Authorizing Provider: Sarah Rocha, Collected: 05/11/2023 0846 Ordering Location: Obstetrics and Gynecology Received: 05/11/20232152 (MARRY 3A) Pathologist: Clyde Esipnoza MD Specimens: A) - FALLOPIAN TUBE, LEFT B) - FALLOPIAN TUBE, RIGHT Final Diagnosis 05/11/2023 Value: A. FALLOPIAN TUBE, LEFT, SEGMENTAL RESECTION: - FULL CROSS SECTION OF FALLOPIAN TUBE IDENTIFIED B. FALLOPIAN TUBE, RIGHT, SEGMENTAL RESECTION: - FULL CROSS SECTION OF FALLOPIAN TUBE IDENTIFIED Nery Patel MD I have personally reviewed all specimens/slides and agree with all statements made by residents, fellows or pathologist assistants whose name(s) may appear on this report. Clinical Information 05/11/2023 Value:22y/o S/P @@0659 MPDPS. Gross Description 05/11/2023 Value:SPECIMEN A Specimen A is received in formalin labeled with the patient's name, number, "fallopian tube, left" and consists of a single uribe-pink segment of fallopian tube (2.0 cm in length by 0.5 cm in diameter) with a clear suture strung through the lumen, which is serially sectioned to reveal uribe-pink, grossly unremarkable cut surfaces. Senior Project Engineer sections are submitted in A1. SPECIMEN B Specimen B is received in formalin labeled with the patient's name, number, "fallopian tube, right" and consists of a single uribe-pink segment of fallopian tube (2.5 cm in length by 0.5 cm in diameter) with a clear suture strung through the lumen, which is serially sectioned to reveal uribe-pink, grossly unremarkable cut surfaces. Senior Project Engineer sections are submitted in B1. ERNESTO Brito ([facility]) Disclaimer 05/11/2023 Value:This report may include results of lab-developed testing performed using Class I Analyte Specific Reagents (ASRs) obtained or purchased from an outside vendor. All such testing was developed and its performance characteristics determined by [facility] Laboratory Services. It has not been cleared or approved by the U.S. Food and Drug Administration (FDA). The FDA does not require approval for these tests. [facility] Laboratories are authorized under Clinical Laboratory Improvement Amendments (CLIA) to perform high-complexity testing. Appropriately reactive positive and negative controls have been reviewed for all stains including H&E, Special Stains and Immunohistochemistry as applicable. Except as noted otherwise, microscopic examination was performed on whole slide images of digitized glass slides to arrive at the above diagnosis. All technical and professional services are performed at [facility] (CLIA [id number]) except as noted in the report. RHIG CANDIDATE? 05/11/2023 No- see comment WBC 05/12/2023 10.92 RBC 05/12/2023 3.69 (L) HGB 05/12/2023 10.4 (L) HCT 05/12/2023 31.7 (L) MCV 05/12/2023 85.9 MCH 05/12/2023 28.2 MCHC 05/12/2023 32.8 RDW-SD 05/12/2023 42.0 RDW-CV 05/12/2023 13.7 PLT 05/12/2023 196 MPV 05/12/2023 11.5 NRBC/100 WBC 05/12/2023 0.0 NRBC x10 3 05/12/2023 <0.01 GRAN MAT (NEUT) % 05/12/2023 71.9 IMM GRAN % 05/12/2023 0.60 LYMPH % 05/12/2023 20.8 MONO % 05/12/2023 6.2 EOS % 05/12/2023 0.3 BASO % 05/12/2023 0.2 GRAN MAT x10 3 (ANC) 05/12/2023 7.85 (H) IMM GRAN x10 3 05/12/2023 0.07 (H) LYMPH x10 3 05/12/2023 2.27 MONO x10 3 05/12/2023 0.68 EOS x10 3 05/12/2023 0.03 BASO x10 3 05/12/2023 <0.03 IMAGING: TVUS pending ASSESSMENT/ PLAN Kiran Daigle is a 23 year old who was transferred to [facility] for suspected ectopic from [facility] for Suspected ectopic Vaginal bleeding Pelvic pain - s/p tubal ligation in 04/2023 and reports positive home test last Sunday. - pelvic and low back pain x1 week, intermittent, non-radiating, pain 5/10 and has been taking tylenol with little improvement in her pain. - This morning, she reports of brownish discharge and was concerned and presented to ER. - Outside records with patient reviewed. Hgb 12.5, positive UPT. BMP unremarkable. A positive. - Pelvic US CD with patient however no impression noted - Vitals stable - Benign abdominal exam. - exam with old blood but no active bleeding. No CMT or pain elicited. Recommendations: - Repeat TVUS given no impression for over-read by radiology department - Will repeat CBC, BMP, T&S in anticipation of possible MTX injection. Will order initial Beta HCG for serial trending. - No concern for acute abdomen, can be on CLD until TVUS comes back - Please page operations program manager if pain returns or change in status. Will hand off to night team to f/u on results. D/w Dr. Miller and Dr. Adria Vora MD [employer] [facility] Associated attestation - Marry Miller DO - 04/01/2024 12:37 PM OPER[employer]UM I have personally seen the patient and discussed the plan of care with her and agree with the H&P as written by the resident. [facility] 2023-05-11 00:18:30 TRIAGE/L&D HISTORY & PHYSICAL IDENTIFYING DATA Kiran Daigle is 22 year old, /White, 37w1d, female with MORGAN 05/31/2023, by Ultrasound. : 2000 Primary Care Physician: Armando Guzman CHIEF COMPLAINT ctxs HISTORY OF PRESENT ILLNESS Kiran Daigle is a 22 year old at 37w1d who presents for ctxs since 7 pm last night. Patient denies vaginal bleeding, denies leakage of fluid. Patient denies headache, denies nausea/vomiting, denies RUQ pain, denies visual abnormalities. Endorses normal movement. PAST OBSTETRIC HISTORY OB History Para Term AB Living 4 3 3 3 SAB IAB Ectopic Multiple Live Births 0 3 # Outcome Date GA Lbr [place]/2nd Weight Sex Delivery Anes PTL Lv 4 Current 3 Term 06/02/22 39w0d 3740 g F NORMAL SPONT EPI ROXIE 2 Term 06/23/21 39w1d 4340 g M NORMAL SPONT EPI ROXIE 1 Term 03/15/20 39w0d 3840 g F NORMAL SPONT EPI N ROXIE PAST MEDICAL HISTORY Problem list: Patient Active Problem List Diagnosis Date Noted Encounter for tubal ligation 05/11/2023 Uterine contractions 05/11/2023 37 weeks gestation of 05/11/2023 Positive GBS test 05/08/2023 Susceptible to varicella (non-immune), currently 12/28/2022 Multiparity 12/27/2022 Short interval between pregnancies affecting , antepartum 12/27/2022 Over weight 06/02/2022 Supervision of high-risk with insufficient care 02/02/2022 UTI (urinary tract infection) during 11/18/2020 Anemia of mother in , antepartum 12/24/2019 Operations: No past surgical history on file. Past Medical History: Diagnosis Date Anemia of mother in , antepartum 12/24/2019 BV (bacterial vaginosis) 02/19/2023 Chlamydia infection affecting 02/03/2022 CURRENT HEALTH STATUS Medications: No current facility-administered medications for this encounter. Allergies and drug reactions: Patient has no known allergies. HOME MEDICATIONS Medications Prior to Admission Medication Sig Dispense Refill Last Dose metroNIDAZOLE 500 mg tablet Take 1 tablet by mouth in the morning and 1 tablet in the evening. 14 tablet 0 ascorbic acid, vitamin C, 500 mg tablet Take 1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 Negative Cardiac ROS Comments: BP Readings from Last 3 Encounters: 06/02/22 : 134/86 06/02/22 : 114/68 05/26/22 : 115/71 METS: 4 Pulmonary Negative Pulmonary ROS Neuro/Musculoskeletal Comments: Body mass index is 31.32 kg/m?. (+) Obesity GI/Hepatic Negative GI/Hepatic ROS Comments: No results found for: AST No results found for: ALT No results found for: BILIT Hematology Comments: HGB (g/dL) Date Value 05/03/2023 10.4 (L) 05/03/23 1546 PLT 217 (+) Anemia Renal Negative Renal ROS Comments: No results found for: "K" No results found for: "CREAT" Skin (+) Current IV access Endo/Other Negative Endo/Other ROS Comments: No results found for: HGBA1C No results found for: GLU Other FRAME CATCHER Comments: Kiran Daigle is a 22 year old at 37w1d by u(10) who presents for ctxs, admitted for AOL. AOL - reports regular ctxs since 7pm last night - SVE: 4 / 75 % / -2 - [place]: q3-5 minutes - Plan: admit for AOL with pitocin. GBS positive - PCN intrapartum Desires Permanent Sterilization -counseled on admission and desires, see separate counseling note -consents signed 03/28/23 Antepartum course reviewed - 1 h 110, sero negative, Rimmune, VZVnot immune, A positive/IAT negative, GBS positive, Pap NILM 11/15/20 - H/H, plt: 10.4 / 31.5, 217 on 05/03/23 - PP control plan: BT - [facility] Fetus - Presentation on admission: cephalic - anterior placenta - EFW: 3490 g, 86%tile - FHT reactive and reassuring - Normal anatomy scan Pediatric Pediatric N/A N/A Preoperative Medication Instructions Continue taking all prescribed medications except: JEMIMA inhibitors, ARBs, diuretics, all oral diabetes medications Anticoagulant Therapy: Defer to surgeons Insulin: Take 1/2 dose the night prior to surgery. Hold on DOS. Phentermine: Alert [facility] anesthesiologist SGLT2 Inhibitors: "gliflozins" to be held for 3 days prior to elective surgeries GLP1 Agonosit: stop 7 days prior to surgery MAC Cases: Continue taking JEMIMA inhibitors and ARBs ASA Classification ASA: 2 Current Medications: No outpatient medications have been marked as taking for the 05/11/23 encounter (Hospital Encounter). Previous Surgeries: No past surgical history on file. Anesthesia Physical Exam General no apparent distress and alert and oriented x 3 Neuro/Psych neurological Nonfocal Dental no notable dental hx Abdominal GI exam normal (+) gravid Airway Mallampati score:II TM distance:> 5 cm Neck ROM: full Mouth opening:normal (+) Normal facies Extremity Normal extremity Pulmonary pulmonary exam normal and bilateral clear to auscultation Other Cardiovascular cardiovascular exam normalRhythm:Regular Rate: Normal Anesthesia Plan ASA Status: 2 Plan discussed during pre-op evaluation: General, Epidural, Spinal, CSE and MAC Anesthetic plan on DOS: Epidural Anesthesia plan discussed with: patient or sales representative meats Post-Operative Analgesia: routine analgesia & antiemetics Recovery Plan: LDR Additional comments: ATOR VACUUM AN-ANESTHESIOLOGY ANESTHESIOLOGIST [facility] 2023-05-11 00:37:29 Problem: Intrapartum process (including labor pain) Goal: Absence of or reduction of complications of labor Outcome: Progressing as expected Goal: Able to cope with pain Outcome: Progressing as expected Goal: Adequate to move to next level of care Outcome: Progressing as expected Goal: Reduction in pain sensation Outcome: Progressing as expected ATOR VACUUM Minerva Mooney RN [facility] 2023-01-01 14:11:05 Formatting of this n ote might be different from the original. Patient informed of results and new orders, verbalized understanding. [facility] 2023-01-01 13:23:15 Formatting of this n ote might be different from the original. Please call patient and let her know I erx allied to pharmacy for UTI [facility]
--- NOTE | 2025-02-16 09:38 | EDPHYS ---
Physician Documentation [facility] Name: Kiran Daigle Age: 24 yrs Sex: Female : 2000 Arrival Date: 02/16/2025 Time: 09:12 Bed IW1 Private MD: ED Physician Oneida Finn HPI: 02/16 09:42 This 24 yrs old Female presents to ER via Ambulatory with complaints of Suture sb4 Removal. 09:42 Patient states that she punched her arm through a window 2 weeks ago, had sutures and sb4 sean done on her right lower arm at [facility]. She is here requesting to get them removed. She has not been on any antibiotics. She denies any issues with the incisions or healing process. Historical: - Allergies: 09:33 No Known Allergies; ss - PSHx: 09:33 tubal ligation; ss - Infectious Disease History:: Denies. - Social history:: Smoking status: unknown. ROS: 09:42 Constitutional: Negative for fever, chills, and weight loss, sb4 09:42 Skin: Positive for laceration(s), of the right arm, 09:42 All other systems are negative, Exam: 09:45 Constitutional: This is a well developed, well nourished patient who is awake, alert, sb4 and in no acute distress. Head/Face: Normocephalic, atraumatic. Eyes: Extra-ocular motions intact. Periorbital areas with no swelling, redness, or edema. ENT: Mucous membranes moist. Respiratory: No increased work of breathing, no retractions or nasal flaring. 09:45 Skin: Wound recheck: Staple laceration closure: the wound is healing well, the edges are well approximated, Suture laceration closure: the wound is healing well, the edges are well approximated, Vital Signs: 09:32 BP 112 / 82; Pulse 69; Resp 14; Temp 98.4(O); Pulse Ox 100% on R/A; Pain 0/10; ss 09:32 Pain Scale: Adult ss Procedures: 09:38 Suture/Staple removal: Removed 13 sean, from palmar aspect of right forearm, site sb4 appears well healed, dressed with gauze bandage, Patient tolerated well. 09:39 Suture/Staple removal: Removed 3 sutures, from palmar aspect of right forearm, site sb4 appears well healed, dressed with gauze bandage, Patient tolerated well. 09:39 Suture/Staple removal: Removed 6 sutures, from palmar aspect of distal phalanx of right sb4 index finger, site appears well healed, dressed with gauze bandage, Patient tolerated well. MDM: 09:15 Medical Screening Exam initiated sb4 09:45 Data reviewed: vital signs, nurses notes, and as a result, I will discharge patient. sb4 Counseling: I had a detailed discussion with the patient and/or guardian regarding the historical points, exam findings, and any diagnostic results supporting the discharge/admit diagnosis, the need for outpatient follow up, for definitive care, to return to the emergency department if symptoms worsen or persist or if there are any questions or concerns that arise at home. Administered Medications: No medications were administered Disposition Summary: 02/16/25 09:37 Discharge Ordered Notes: Location: Home sb4 Problem: new sb4 Symptoms: have improved sb4 Condition: Stable sb4 Diagnosis - Encounter for removal of sutures - and sean sb4 Followup: sb4 - With: Private Physician - When: As needed - Reason: Recheck today's complaints, Re-evaluation by your physician Discharge Instructions: - Discharge Summary Sheet sb4 - Suture Removal, Care After sb4 Forms: - Patient Portal Instructions sb4 - Leadership Thank You Letter sb4 Signatures: Carmen Warner, RN RN Arianna Luis PA-C PA-C sb4
--- NOTE | 2025-02-16 09:38 | ER ---
Nurse's Notes [facility] Name: Kiran Daigle Age: 24 yrs Sex: Female : 2000 Arrival Date: 02/16/2025 Time: 09:12 Bed IW1 Private MD: Diagnosis: Encounter for removal of sutures-and sean Presentation: 02/16 09:32 Chief complaint: Patient states: "I need to get my sutures and sean out so I can go ss back to work." Pt reports that sean and sutures were placed to R FA and R index finger almost 3 weeks ago. Coronavirus screen: Client denies travel out of the [place] in the last 14 days. Ebola Screen: Patient denies exposure to infectious person. Patient denies travel to an Ebola-affected area in the 21 days before illness onset. Initial Sepsis Screen: Does the patient meet any 2 criteria? No. Patient's initial sepsis screen is negative. Does the patient have a suspected source of infection? No. Patient's initial sepsis screen is negative. Risk Assessment: Do you want to hurt yourself or someone else? Patient reports no desire to harm self or others. Onset of symptoms is unknown. 09:32 Method Of Arrival: Ambulatory ss 09:32 Acuity: JUMANA 5 ss Historical: - Allergies: 09:33 No Known Allergies; ss - PSHx: 09:33 tubal ligation; ss - Infectious Disease History:: Denies. - Social history:: Smoking status: unknown. Screenin:34 Abuse screen: Denies threats or abuse. Denies injuries from another. Nutritional ss screening: No deficits noted. Tuberculosis screening: Never had TB. Assessment: 09:34 Reassessment: 13 sean noted to R forearm. sutures noted to R index finger. General: ss Appears in no apparent distress. comfortable. Pain: Denies pain. Neuro: Level of Consciousness is awake, alert, obeys commands, Oriented to person, place, time, situation, Morale Officer are equal bilaterally. Respiratory: Airway is patent Respiratory effort is even, unlabored, Respiratory pattern is regular, symmetrical. Derm: Skin is intact, is healthy with good turgor, Skin is pink, warm \\T\\ dry. normal. Vital Signs: 09:32 BP 112 / 82; Pulse 69; Resp 14; Temp 98.4(O); Pulse Ox 100% on R/A; Pain 0/10; ss 09:32 Pain Scale: Adult ss ED Course: 09:14 Patient arrived in ED. im 09:14 Arianna Claros PA-C is PHCP. sb4 09:14 Oneida Finn MD is Attending Physician. sb4 09:33 Triage completed. ss 09:33 Arm band placed on right wrist. ss 09:34 Patient has correct armband on for positive identification. ss 09:34 No provider procedures requiring assistance completed. ss 09:36 Patient did not have IV access during this emergency room visit. Removal of Removed ss sutures from R index finger Suture site is well healed Patient tolerated well. 09:44 Wound care: to healed laceration located on R FA, R index finger was cleaned with with ss saline and gauze, dressed with Neosporin, 4X4s, Kerlix. Administered Medications: No medications were administered Medication: 09:34 VIS not applicable for this client. ss Outcome: 09:37 Discharge ordered by . sb4 09:45 Discharged to home ambulatory, ss 09:45 Condition: good 09:45 Discharge instructions given to patient, Instructed on discharge instructions, follow up and referral plans. wound care, Demonstrated understanding of instructions, follow-up care, wound care, 09:45 Patient left the ED. Signatures: Carmen Warner, RN RN Arianna Claros PA-C PA-C sb4 Ashleigh Dixon im
[2025-02-16 10:00] VITALS: BP 112/82; TEMP 98.4; O2SAT 100
== END 2025-02-16 09:45 | disposition home or self-care (01) ==
LOC: ER 09:12
DX: Z48.02 Encounter for removal of sutures (principal)
CPT/HCPCS: 99283